=== PATIENT | female | born 1935 | race Caucasian/White ===

== ENCOUNTER 2017-05-12 18:11 | Inpatient (IN) | payer MEDICARE, OTHER ==
[2017-05-12] MEDS ORDERED: ONDANSETRON 4 MG/2 ML VIAL IVP STA ×2 (18:16→19:06)
--- NOTE | 2017-05-12 18:19 | ED ---
Lower Extremity Injury HPI - General Stated Complaint: Fall/Knee injury Time Seen by Provider: 05/12/17 18:13 Source: patient, EMS, RN notes reviewed Mode of arrival: EMS Limitations: physical limitation - History of Present Illness Initial Comments: This an 82-year-old female presents emergency Department via EMS chief complaint slip and fall. Patient states she is a bad left knee which causes her to fall. She states she's had a birthday libertarian and states that she fell in the grass surface. Patient states that she has left knee, left hip pain. She denies any head injury no LOC. Denies back, neck pain or any upper extremity injury. She states that she cannot get off the ground they did have to backorder and lift her up off the ground. Patient denies any paresthesias of her lower extremity. Patient was given fentanyl by EMS which alleviated some her pain was states that she feels nauseated. - Related Data Home Medications Medication Instructions Recorded Confirmed Ascorbic Acid [Vitamin C] 500 mg PO DAILY 05/12/17 05/12/17 Atorvastatin [Lipitor] 40 mg PO HS 05/12/17 05/12/17 Cholecalciferol [Vitamin D3] 1,000 unit PO DAILY 05/12/17 05/12/17 Cinnamon Bark [Cinnamon] 500 mg PO BID 05/12/17 05/12/17 Ferrous Sulfate [Feosol] 325 mg PO DAILY 05/12/17 05/12/17 Insulin Aspart [NovoLOG] 8 unit SQ AC-LUNCH 05/12/17 05/12/17 Insulin Aspart [NovoLOG] 14 unit SQ AC-BRKFST 05/12/17 05/12/17 Insulin Aspart [NovoLOG] 14 unit SQ AC-SUPPER 05/12/17 05/12/17 Insulin Detemir [Levemir] 40 unit SQ HS 05/12/17 05/12/17 Lisinopril [Zestril] 20 mg PO W/SUPPER 05/12/17 05/12/17 Multivitamins, Thera [Multivitamin 1 tab PO DAILY 05/12/17 05/12/17 (formulary)] Omeprazole 20 mg PO DAILY 05/12/17 05/12/17 PARoxetine [Paxil] 20 mg PO DAILY 05/12/17 05/12/17 metFORMIN HCL [Glucophage] 500 mg PO BID 05/12/17 05/12/17 Allergies Allergy/AdvReac Type Severity Reaction Status Date / Time No Known Allergies Allergy Verified 05/12/17 18:30 Review of Systems ROS Statement: Those systems with pertinent positive or pertinent negative responses have been documented in the HPI. ROS Other: All systems not noted in ROS Statement are negative. General Exam General appearance: alert, in no apparent distress Respiratory exam: Present: normal lung sounds bilaterally. Absent: respiratory distress, wheezes, rales, rhonchi, stridor Cardiovascular Exam: Present: regular rate, normal rhythm, normal heart sounds. Absent: systolic murmur, diastolic murmur, rubs, gallop, clicks Extremities exam: Present: other (Left lower extremity there is tenderness to the left hip, left knee there is some rotation and shortening noted neurovascular intact) Neurological exam: Present: alert, oriented X3, CN II-XII intact, reflexes normal. Absent: motor sensory deficit Skin exam: Present: warm, dry, intact, normal color. Absent: rash Course Vital Signs 05/12/17 18:14 Temperature 97.9 F Pulse Rate 80 Respiratory 18 Rate Blood Pressure 164/71 O2 Sat by Pulse 95 Oximetry Disposition Clinical Impression: Fall, Closed left hip fracture Disposition: ADMITTED IP TO THIS HOSP Condition: Fair Referrals: Cody Eaton MD [Primary Care Provider] - 1-2 days
--- NOTE | 2017-05-12 19:10 | XR ---
EXAMINATION TYPE: XR chest 1V DATE OF EXAM: 05/12/2017 COMPARISON: NONE HISTORY: Fall TECHNIQUE: Single frontal view of the chest is obtained. FINDINGS: Large circular density overlying the mediastinum could relate to a large hiatal hernia, how ever etiology is uncertain given the single view with no comparisons. Cardiomegaly is evident. No ple ural effusion or pneumothorax. No displaced fractures. IMPRESSION: Large density overlying the cardiac silhouette which may relate to a hiatal hernia, howev er etiology is unknown without 2 views or comparisons.
--- NOTE | 2017-05-12 19:11 | XR ---
EXAMINATION TYPE: XR Hip LT and AP Pelvis DATE OF EXAM: 05/12/2017 COMPARISON: NONE HISTORY: Fall and left hip pain TECHNIQUE: A single AP view of the pelvis is obtained. Two views of the left hip are obtained. FINDINGS: There is no acute fracture/dislocation evident in the pelvis. Impacted left proximal femor al subtrochanteric fracture is seen with impaction of approximately 6 cm and involvement of the lesse r trochanter. Degenerative changes are seen in the femoral acetabular joint and lumbosacral spine. IMPRESSION: Impacted left proximal subtrochanteric fracture.
[2017-05-12] MEDS ORDERED: ONDANSETRON 4 MG/2 ML VIAL IVP PRN (19:19)
[2017-05-12] MEDS ORDERED: NALOXONE 0.4 MG/ML 1 ML VIAL IV PRN (19:19)
[2017-05-12] MEDS ORDERED: MORPHINE SULFATE 4 MG/ML SYRINGE IVP STA (19:50)
[2017-05-12 19:53] LABS: Basophils % (A) 0 %; CH 29.4; CHCM 31.5; Eosinophils # (A) 0.2 k/uL (0-0.7); Eosinophils % (A) 2 %; HCT 36.6 % (34.0-46.0); HDW 2.56; HGB 11.6 gm/dL (11.4-16.0); Hypochromasia Slight; Luc # (Auto) 0.08; Luc % (Auto) 1; Lymphocytes # (A) 0.8 k/uL (1.0-4.8); Lymphocytes % (A) 8 %; MCH 29.7 pg (25.0-35.0); MCHC 31.6 g/dL (31.0-37.0); MCV 93.9 fL (80.0-100.0); Mean Platelet Volume 7.3; Monocytes # (A) 0.4 k/uL (0-1.0); Monocytes % (A) 4 %; Neutrophils # (A) 8.6 k/uL (1.3-7.7); Neutrophils % (A) 85 %; RDW 15.7 % (11.5-15.5); WBC 10.1 k/uL (3.8-10.6); WBC (Perox) 10.56
[2017-05-12 20:13] LABS: Partial Thromboplastin Time 20.2 sec (22.0-30.0); Prothrombin Time 10.6 sec (9.0-12.0)
[2017-05-12 20:19] LABS: ALT 29 U/L (9-52); AST 20 U/L (14-36); Alkaline Phosphatase 106 U/L (38-126); Anion Gap 10 mmol/L; Blood Urea Nitrogen 22 mg/dL (7-17); Calcium 9.4 mg/dL (8.4-10.2); Carbon Dioxide 25 mmol/L (22-30); Chloride 105 mmol/L (98-107); Glucose 240 mg/dL (74-99); Non-African American GFR(MDRD) >60 (>60 ml/min/1.73 sqM); Potassium 4.7 mmol/L (3.5-5.1); Sodium 140 mmol/L (137-145); Total Bilirubin 0.3 mg/dL (0.2-1.3); Total Protein 6.3 g/dL (6.3-8.2)
--- NOTE | 2017-05-12 20:45 | CT ---
EXAMINATION TYPE: CT hip LT wo con DATE OF EXAM: 05/12/2017 COMPARISON: NONE HISTORY: Left sided hip pain. Known fracture CT DLP: 795.8 mGycm Automated exposure control for dose reduction was used. FINDINGS: There is redemonstration of an impacted proximal left hip fracture with impaction of the femoral neck approximately 3.6 cm. There is medial displacement of the lesser trochanter approximately 1.3 cm wit h impaction. There is also anterior displacement of the distal fracture approximately 1 cm. There is no evidence of acetabular collar wall fracture. Acetabular roof is intact. Mild cephalad joint space narrowing is seen. The femoral head maintains articulation with the acetabulum and there is no eviden ce of displacement. Surrounding soft tissue swelling is seen without gross enlargement of the surroun ding hip musculature to indicate intramuscular hematoma. Iliopsoas is mildly prominent distally. Scattered colonic diverticula are seen as well as a pelvic pessary. Urinary bladder is unremarkable. Sacroiliac joints are symmetric. Degenerative changes of the visualized lumbosacral spine are seen. N o second fracture is identified. IMPRESSION: REDEMONSTRATION OF AN IMPACTED PROXIMAL LEFT HIP FRACTURE WITH IMPACTION MEASURING APPROXIMATE 3.6 CM , MEDIAL DISPLACEMENT OF THE LESSER TROCHANTER APPROXIMATELY 1 CM, AND ANTERIOR DISPLACEMENT OF THE D ISTAL FRACTURE FRAGMENT APPROXIMATELY 1 CM. NO SECOND FRACTURE OR SACROILIAC JOINT SPACE WIDENING. AC ETABULUM IS INTACT.
[2017-05-12 20:51] VITALS: BMI 43.3
[2017-05-12 21:19] LABS: Glucose,Whole Blood 254 mg/dL (75-99)
--- NOTE | 2017-05-12 21:20 | XR ---
EXAMINATION TYPE: XR knee limited LT DATE OF EXAM: 05/12/2017 CLINICAL HISTORY: Fall and knee pain TECHNIQUE: Oblique and crosstable lateral views were obtained. Patient could not tolerate positioning . COMPARISON: None. FINDINGS: Extensive tricompartmental osteoarthrosis is seen as marginal osteophytes, complete loss of the joint space, sclerosis, and chronic deformity of the knee joint. No evidence of acute fracture o r dislocation given the limited views. IMPRESSION: No evidence of acute fracture or dislocation given the submitted views. 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
[2017-05-12] MEDS: INSULIN LISPRO (humaLOG) 300 UNIT/3 ML VIAL SQ SCH (21:33)
[2017-05-12] MEDS: ATORVASTATIN 40 MG TAB PO SCH (21:33)
[2017-05-12] MEDS: INSULIN DETEMIR 100 UNIT/ML 10 ML VIAL SQ SCH (21:33)
[2017-05-13] MEDS: MORPHINE SULFATE 4 MG/ML SYRINGE IV PRN ×4 (00:10→22:32)
[2017-05-13 05:29] LABS: Appearance,Urine Cloudy (Clear); Bacteria,Urine Moderate /hpf; Bilirubin,Urine Negative (Negative); Glucose,Urine (UA) Trace (Negative); Granular Casts,Urine 7 /lpf (0); Ketones,Urine Trace (Negative); Leukocyte Esterase,Urine Negative (Negative); Mucus,Urine Moderate /hpf; Nitrite,Urine Negative (Negative); PH, Urine 5.5 (5.0-8.0); Particle Count 14408; Protein,Urine 1+ (Negative); RBC,Urine 113 /hpf (0-5); Specific Gravity,Urine 1.029 (1.001-1.035); Squamous Epithelial Cell,Urine 1 /hpf (0-4); UA Billing (MACRO vs. MICRO) MICRO; WBC,Urine 5 /hpf (0-5)
[2017-05-13 07:20] LABS: Glucose,Whole Blood 203 mg/dL (75-99)
--- NOTE | 2017-05-13 08:43 | P.HPOR ---
<Damian Baker - Last Filed: 05/13/17 08:37> History of Present Illness H&P Date: 05/13/17 Chief Complaint: Left subtrochanteric hip fracture status post fall Patient is a very pleasant 82-year-old female who is seen and examined at bedside for further evaluation after sustaining a fall yesterday and presented to the emergency department. At that time she was found to have a left subtrochanteric left hip fracture. She was admitted to our service for further treatment and evaluation. Patient states she is known to have a bad left knee and has previously had some outpatient treatment with Dr. Mtz. She states she turned 82 years old over the last week and was having a birthday alliance party when she sustained a fall falling to the grass on her left knee and hip. Since that time she has experienced significant left hip pain. She was brought to the emergency department for further evaluation. She denies loss of consciousness. She states since being admitted to the hospital her pain has been controlled as long as she is lying still without movement of her left lower extremity. Any movement of left lower extremity exacerbates significant hip pain. She was experiencing some left knee pain at that time but is not currently complaining of any left knee pain. Patient does have diabetes. Patient is currently waiting for medical clearance to be performed by Dr. Brumfield in medicine Past Medical History Past Medical History: Diabetes Mellitus History of Any Multi-Drug Resistant Organisms: None Reported Past Surgical History: Hysterectomy Past Psychological History: No Psychological Hx Reported Smoking Status: Never smoker Past Alcohol Use History: None Reported Past Drug Use History: None Reported Medications and Allergies Home Medications Medication Instructions Recorded Confirmed Type Ascorbic Acid [Vitamin C] 500 mg PO DAILY 05/12/17 05/12/17 History Atorvastatin [Lipitor] 40 mg PO HS 05/12/17 05/12/17 History Cholecalciferol [Vitamin D3] 1,000 unit PO DAILY 05/12/17 05/12/17 History Cinnamon Bark [Cinnamon] 500 mg PO BID 05/12/17 05/12/17 History Ferrous Sulfate [Feosol] 325 mg PO DAILY 05/12/17 05/12/17 History Insulin Aspart [NovoLOG] 8 unit SQ AC-LUNCH 05/12/17 05/12/17 History Insulin Aspart [NovoLOG] 14 unit SQ AC-BRKFST 05/12/17 05/12/17 History Insulin Aspart [NovoLOG] 14 unit SQ AC-SUPPER 05/12/17 05/12/17 History Insulin Detemir [Levemir] 40 unit SQ HS 05/12/17 05/12/17 History Lisinopril [Zestril] 20 mg PO W/SUPPER 05/12/17 05/12/17 History Multivitamins, Thera [Multivitamin 1 tab PO DAILY 05/12/17 05/12/17 History (formulary)] Omeprazole 20 mg PO DAILY 05/12/17 05/12/17 History PARoxetine [Paxil] 20 mg PO DAILY 05/12/17 05/12/17 History metFORMIN HCL [Glucophage] 500 mg PO BID 05/12/17 05/12/17 History Allergies Allergy/AdvReac Type Severity Reaction Status Date / Time No Known Allergies Allergy Verified 05/12/17 18:30 Physical Examination Physical exam: Patient is awake, alert, and oriented 3 Vital signs stable Good chest excursion with deep inspiration and expiration Abdomen soft nontender Left lower extremity is shortened and externally rotated Pain with palpation of the left hip Significant pain with internal and external rotation of the left hip No pain with internal and external rotation of the right hip Neurovascularly intact bilateral lower extremities Dorsiflexion, plantarflexion, and extensor hallucis longus positive sustained bilaterally Pneumatic cuffs intact Calves are soft and supple; No signs or symptoms of DVT; No calf pain Results Pertinent studies: CT of the left hip without contrast: Redemonstration of an impacted proximal left hip fracture with impaction measuring approximately 3.6 cm, medial displacement of the lesser trochanter approximately 1 cm, and anterior displacement of the distal fracture fragment approximately 1 cm; no second fracture or sacroiliac joint space widening; acetabulum appears intact X-ray of the left hip and pelvis: Impacted left proximal subtrochanteric fracture X-ray left knee: No evidence of acute fracture or dislocation; extensive and destructive try tricompartmental osteoarthropathy - Labs Labs: Abnormal Lab Results - Last 24 Hours (Table) 05/12/17 05/12/17 05/12/17 Range/Units 19:29 19:29 19:29 RDW 15.7 H (11.5-15.5) % Neutrophils # 8.6 H (1.3-7.7) k/uL Lymphocytes # 0.8 L (1.0-4.8) k/uL APTT 20.2 L (22.0-30.0) sec BUN 22 H (7-17) mg/dL Glucose 240 H (74-99) mg/dL POC Glucose (mg/dL) (75-99) mg/dL Urine Appearance (Clear) Urine Protein (Negative) Urine Glucose (UA) (Negative) Urine Ketones (Negative) Urine Blood (Negative) Urine RBC (0-5) /hpf Urine Bacteria (None) /hpf Urine Mucus (None) /hpf 05/12/17 05/13/17 05/13/17 Range/Units 21:09 05:05 07:19 RDW (11.5-15.5) % Neutrophils # (1.3-7.7) k/uL Lymphocytes # (1.0-4.8) k/uL APTT (22.0-30.0) sec BUN (7-17) mg/dL Glucose (74-99) mg/dL POC Glucose (mg/dL) 254 H 203 H (75-99) mg/dL Urine Appearance Cloudy H (Clear) Urine Protein 1+ H (Negative) Urine Glucose (UA) Trace H (Negative) Urine Ketones Trace H (Negative) Urine Blood Moderate H (Negative) Urine RBC 113 H (0-5) /hpf Urine Bacteria Moderate H (None) /hpf Urine Mucus Moderate H (None) /hpf H & H 05/12/17 Range/Units 19:29 Hgb 11.6 (11.4-16.0) gm/dL Hct 36.6 (34.0-46.0) % Coagulation 05/12/17 Range/Units 19:29 INR 1.0 (<1.2) Result Diagrams: 05/12/17 19:29 05/12/17 19:29 Assessment and Plan (1) Subtrochanteric fracture of left femur Status: Acute (2) Hip pain, left Status: Acute (3) Diabetes Status: Acute (4) Fall Status: Acute Plan: Assessment: Left impacted subtrochanteric hip fracture Left hip pain Status post fall Diabetes mellitus Plan: 1. After further reviewing of imaging with x-ray of the left hip and pelvis and CT scan of the left hip, physical examination the patient, further discussion with Dr. Joaquin Falcon, and further discussion with the patient and her family, we will currently plan to proceed forward with surgical intervention this afternoon for her left subtrochanteric hip fracture. Patient is currently nothing by mouth status. Tejada catheter remains intact. She will remain nonweightbearing and on bed rest. We will currently plan for left hip intramedullary nail fixation for her left subtrochanteric hip fracture. She is currently waiting for clearance by medicine. I discussed these issues with the patient at length and I answered all of their questions to the best of my ability and the patient understands. I discussed the risk of surgical intervention and alternative treatment options. The risk of surgical intervention was explained to the patient in detail including but not limited to risk of bleeding, risk of infection, risk and need for further surgery, risk of decreased loss of motion of function, malunion, nonunion, hardware failure, nerve damage, paralysis, heart attack, , as well as the fact that surgery may not alleviate her symptoms. I answered all the patient's questions the best of my ability. The patient would like to proceed forward with surgical intervention and will sign informed consent. 2. Continue pain control 3. Patient waiting for further consultation by Dr. Brumfield in medicine for surgical clearance 4. We'll continue to follow patient closely Time with Patient: Less than 30 <Yonatan Falcon - Last Filed: 05/13/17 17:23> Physical Examination Osteopathic Statement: *. No significant issues noted on an osteopathic structural exam other than those noted in the History and Physical/Consult. Results - Labs Labs: Abnormal Lab Results - Last 24 Hours (Table) 05/12/17 05/12/17 05/12/17 Range/Units 19:29 19:29 19:29 RDW 15.7 H (11.5-15.5) % Neutrophils # 8.6 H (1.3-7.7) k/uL Lymphocytes # 0.8 L (1.0-4.8) k/uL APTT 20.2 L (22.0-30.0) sec BUN 22 H (7-17) mg/dL Glucose 240 H (74-99) mg/dL POC Glucose (mg/dL) (75-99) mg/dL Urine Appearance (Clear) Urine Protein (Negative) Urine Glucose (UA) (Negative) Urine Ketones (Negative) Urine Blood (Negative) Urine RBC (0-5) /hpf Urine Bacteria (None) /hpf Urine Mucus (None) /hpf 05/12/17 05/13/17 05/13/17 Range/Units 21:09 05:05 07:19 RDW (11.5-15.5) % Neutrophils # (1.3-7.7) k/uL Lymphocytes # (1.0-4.8) k/uL APTT (22.0-30.0) sec BUN (7-17) mg/dL Glucose (74-99) mg/dL POC Glucose (mg/dL) 254 H 203 H (75-99) mg/dL Urine Appearance Cloudy H (Clear) Urine Protein 1+ H (Negative) Urine Glucose (UA) Trace H (Negative) Urine Ketones Trace H (Negative) Urine Blood Moderate H (Negative) Urine RBC 113 H (0-5) /hpf Urine Bacteria Moderate H (None) /hpf Urine Mucus Moderate H (None) /hpf 05/13/17 05/13/17 Range/Units 11:44 17:13 RDW (11.5-15.5) % Neutrophils # (1.3-7.7) k/uL Lymphocytes # (1.0-4.8) k/uL APTT (22.0-30.0) sec BUN (7-17) mg/dL Glucose (74-99) mg/dL POC Glucose (mg/dL) 158 H 140 H (75-99) mg/dL Urine Appearance (Clear) Urine Protein (Negative) Urine Glucose (UA) (Negative) Urine Ketones (Negative) Urine Blood (Negative) Urine RBC (0-5) /hpf Urine Bacteria (None) /hpf Urine Mucus (None) /hpf H & H 05/12/17 Range/Units 19:29 Hgb 11.6 (11.4-16.0) gm/dL Hct 36.6 (34.0-46.0) % Coagulation 05/12/17 Range/Units 19:29 INR 1.0 (<1.2) Result Diagrams: 05/12/17 19:29 05/12/17 19:29 Assessment and Plan Plan: The patient is seen and examined at bedside. I have reviewed the case with Damian Krishnamurthy our physician microbiology lab assistant and I discussed the case with the patient and her family. I reviewed the computed tomography scan as well and imaging studies. She is neurologically intact and has acute left hip comminuted intertrochanteric fracture. I think her best chance of improvement and for mobility is to pursue surgical intervention with internal fixation we'll plan to perform closed reduction with intramedullary hip screw fixation as soon as possible today. She has been nothing by mouth after midnight and is cleared by medicine. Answered her questions best our ability in a language that she can understand that she is agreeable to proceed with surgery.
[2017-05-13] MEDS: ASCORBIC ACID 500 MG TAB PO SCH (08:44)
[2017-05-13] MEDS: PANTOPRAZOLE 40 MG TABLET PO SCH (08:44)
[2017-05-13] MEDS: INSULIN LISPRO (humaLOG) 300 UNIT/3 ML VIAL SQ SCH ×4 (08:44→21:31)
[2017-05-13] MEDS: PARoxetine 20 MG TAB PO SCH (08:44)
[2017-05-13] MEDS: CHOLECALCIFEROL 1,000 UNIT TAB PO SCH (08:44)
[2017-05-13] MEDS: FERROUS SULFATE 325 MG TAB PO SCH (08:44)
[2017-05-13 11:45] LABS: Glucose,Whole Blood 158 mg/dL (75-99)
--- NOTE | 2017-05-13 13:24 | P.CONS ---
History of Present Illness - Reason for Consult Consult date: 05/13/17 Medical management Requesting physician: Yonatan Falcon - Chief Complaint Fall with left hip pain - History of Present Illness Consultation: This is a very pleasant 82-year-old patient of Dr. Foss. Patient chronic stable medical conditions include diabetes, anxiety, hypertension, hyperlipidemia. Patient tripped and fell suffering injury to her left hip. It is confirmed to be no fracture. This was purely a mechanical fall with no medical predisposing factors. Patient denies any cardiac history. Has a good exercise tolerance. Denies any chest pain or shortness of breath with exertion. Has had no prior stress test. Currently denies any cardiac symptoms GEN.: Tired EYES: None HEENT: None NECK: None RESPIRATORY: None CARDIOVASCULAR: None GASTROINTESTINAL: None GENITOURINARY: None MUSCULOSKELETAL: Pain in left hip and other joints] LYMPHATICS: None HEMATOLOGICAL: None PSYCHIATRY: Anxiety controlled NEUROLOGICAL: None Past medical history: Diabetes, anxiety, hypertension, hyperlipidemia, osteoarthritis Past surgical history: Hysterectomy Social history: Does not smoke or drink alcohol. Family history: Reviewed, noncontributory to presentation Home medications: Reviewed in the computer. ALLERGIES: None VITAL SIGNS: 98.1, and 92, 16, 125/57, notify percent room air GENERAL: Well-built, BMI 43.4, laying in bed, comfortable. EYES: Pupils equal. Conjunctiva normal. HEENT: External appearance of nose and ears normal, oral cavity grossly normal. NECK: JVD not raised; masses not palpable. HEART: First and second heart sounds are normal; no edema. LUNGS: Respiratory rate normal; distant breath sounds. ABDOMEN: Soft, nontender, liver spleen not palpable, no masses palpable. LYMPHATICS: No lymph nodes palpable in the axilla and neck. PSYCH: Alert and oriented x3; mood and affect normal. NEUROLOGICAL: Cranial nerves grossly intact; no facial asymmetry, power and sensation grossly intact MUSCULAR skeletal: Limited range of motion the left hip evidence of osteoarthritis of the joints. Investigation: X-ray shows impacted left proximal impacted subtrochanteric fracture left hip Chest x-ray-shows possible hiatal hernia EKG-normal sinus rhythm White count 10.1, hemoglobin 11.6, potassium 4.7 glucose 240 Assessment: -Impacted left proximal subtrochanteric fracture left hip -Diabetes mellitus type 2 on oral hypoglycemic --Anxiety not otherwise specified -Essential hypertension -Hyperlipidemia -Morbid obesity BMI 43.4 Plan: Patient is low to moderate risk for surgery from a cardiac vascular standpoint. Patient does not have any cardiac history. Patient medically stable stable to proceed for surgery. This was discussed with the patient. Home medications to be resumed. Accu-Cheks to be followed. Due to prophylaxis as per surgery. Thank you Dr. Lucas, Will follow closely Past Medical History Past Medical History: Diabetes Mellitus History of Any Multi-Drug Resistant Organisms: None Reported Past Surgical History: Hysterectomy Past Psychological History: No Psychological Hx Reported Smoking Status: Never smoker Past Alcohol Use History: None Reported Past Drug Use History: None Reported Medications and Allergies Home Medications Medication Instructions Recorded Confirmed Type Ascorbic Acid [Vitamin C] 500 mg PO DAILY 05/12/17 05/12/17 History Atorvastatin [Lipitor] 40 mg PO HS 05/12/17 05/12/17 History Cholecalciferol [Vitamin D3] 1,000 unit PO DAILY 05/12/17 05/12/17 History Cinnamon Bark [Cinnamon] 500 mg PO BID 05/12/17 05/12/17 History Ferrous Sulfate [Feosol] 325 mg PO DAILY 05/12/17 05/12/17 History Insulin Aspart [NovoLOG] 8 unit SQ AC-LUNCH 05/12/17 05/12/17 History Insulin Aspart [NovoLOG] 14 unit SQ AC-BRKFST 05/12/17 05/12/17 History Insulin Aspart [NovoLOG] 14 unit SQ AC-SUPPER 05/12/17 05/12/17 History Insulin Detemir [Levemir] 40 unit SQ HS 05/12/17 05/12/17 History Lisinopril [Zestril] 20 mg PO W/SUPPER 05/12/17 05/12/17 History Multivitamins, Thera [Multivitamin 1 tab PO DAILY 05/12/17 05/12/17 History (formulary)] Omeprazole 20 mg PO DAILY 05/12/17 05/12/17 History PARoxetine [Paxil] 20 mg PO DAILY 05/12/17 05/12/17 History metFORMIN HCL [Glucophage] 500 mg PO BID 05/12/17 05/12/17 History Allergies Allergy/AdvReac Type Severity Reaction Status Date / Time No Known Allergies Allergy Verified 05/12/17 18:30 Results CBC & Chem 7: 05/12/17 19:29 05/12/17 19:29
[2017-05-13] MEDS ORDERED: IV FLUID CONTINUATION 1,000 ML IV ONE (17:03)
[2017-05-13 17:17] LABS: Glucose,Whole Blood 140 mg/dL (75-99)
[2017-05-13] MEDS ORDERED: GLYCOPYRROLATE 0.2 MG/ML 2 ML VIAL ONE (18:05)
[2017-05-13] MEDS ORDERED: fentaNYL (PF) 50 MCG/ML 2 ML AMP ONE (18:05)
[2017-05-13] MEDS ORDERED: MIDAZOLAM 2 MG/2 ML VIAL ONE (18:05)
[2017-05-13] MEDS ORDERED: KETAMINE 10 MG/ML 20 ML VIAL ONE (18:05)
[2017-05-13] MEDS ORDERED: ceFAZolin 1,000 MG in SODIUM CHLORIDE 0.9% 1,000 ML IRRIGATION ONE (18:06)
[2017-05-13] MEDS: ceFAZolin 2 GM in SODIUM CHLORIDE 0.9% 100 ML IVPB STA ×2 (18:06→18:30)
[2017-05-13] MEDS ORDERED: NALOXONE 0.4 MG/ML 1 ML VIAL IV PRN (20:14)
[2017-05-13] MEDS ORDERED: MAGNESIUM HYDROXIDE 2,400 MG/10 ML CUP PO PRN (20:14)
--- NOTE | 2017-05-13 20:14 | P.OP ---
Date of Procedure: 05/13/17 Preoperative Diagnosis: Left hip comminuted intertrochanteric femur hip fracture with subtrochanteric extension, displaced, acute Postoperative Diagnosis: Same Procedure(s) Performed: Implants: Anesthesia: spinal Pathology: other (Femoral reamings to pathology) Condition: stable Disposition: PACU Indications for Procedure: Operative Findings: Description of Procedure: Preoperative diagnosis: Left Intertrochanteric comminuted femoral hip fracture, acute displaced Postoperative diagnosis: Same Procedure: intertrochanteric hip screw placement Use of fluoroscopic guidance Closed reduction Surgeon: Dr. Ezekiel Solares.: Damian Krishnamurthy Estimated blood loss: Approximately 200 mL Components implanted: [employer] InterTAN intramedullary hip screw 11 a half short Disposition: To recovery room in good stable condition Operative indications The patient sustained a injury and suffered a hip fracture at the inter- trochanteric area of her femur which was displaced and angulated. She says that she was dancing for her 82th birthday and sustained a fall. She normally has some difficulty with her mobilization and ambulation and uses a walker for short distances. She had sudden acute pain on her fall and was unable to get up. She was found have a comminuted displaced intertrochanteric left hip fracture. We were involved in the case in regard to his hip fracture. After evaluation it was determined that they would be a candidate for hip internal fixation and stabilization via surgical intervention. This would give them the best chance of mobilization and ambulation. We discussed the range of treatment options from conservative to surgical. We discussed the nature of the injury and the nature of different surgical and conservative options for her. We felt that surgical procedure would be the best option for her and allow her the best chance of mobilization They elected proceed with surgical intervention. We answered their questions to the best of our ability healing which they can understand. They signed an informed consent. Operative summary After obtaining informed consent evaluation by anesthesia, preoperative evaluation and clearance for medical service, the patient was identified and prepped Tejada area and the surgical site was marked. There brought to the operating room where the given appropriate anesthesia by the anesthesia department in standard fashion without any complications. Once the anesthesia was established we were able to position the patient. The patient was placed on a fracture table with a well-padded perineal post. The operative side was placed in a foot clark stirrup which was well-padded well molded and placed in gentle in-line traction. The nonoperative leg was placed in a padded stirrup. C-arm was brought in and we performed a closed reduction technique at the hip. We are able to get good alignment good position of the intertrochanteric fracture with gentle reduction techniques and traction utilizing the fracture table. The patient did have comminution at the greater trochanter and the lesser trochanter, we were able get good alignment and position Once patient was well positioned lower extremity was prepped and draped in normal standard sterile fashion. An appropriate keystone protocol and timeout was completed and were able to proceed with surgery. He started point just proximal to the greater trochanter was established and a median incision approximately 2 inches in length approximately to the greater trochanter. I dissected down through the fascia and I was able to expose the tip of the greater trochanter. A sharp starting hole was established at the tip of the greater trochanter near the junction of the anterior and middle third. Positioning was confirmed with C-arm guidance. I was able to start the awl into the bone and then use a guidepin at the starting point establish down to the level of the lesser trochanter at the intramedullary space. The patient is somewhat heavyset and it was somewhat difficult to get appropriate alignment but we removed to get good alignment and position of the device. I then used a starting reamer for the greater trochanter placed over the guidepin and reamed down appropriately under C-arm guidance. I was unable to place a guidepin into the intramedullary aspect of the femur and then reamed appropriately to the appropriate length. The positioning was confirmed on C-arm guidance. With the femur appropriately reamed I then chose the appropriate size intramedullary olga which was connected to the appropriate jig. The jig was checked for alignment. The area was copiously irrigated and suctioned dry and we're able place the olga at intramedullary space through the starting hole appropriately. It was seated down for appropriate position to align the leg pain into the femoral neck and head. A second incision was established at the site for the placement of the lag screw area and the guide was established at the lateral aspect of the femur and a guidepin was drilled into the femoral neck and head and near center center position. With this appropriate alignment and position where a reamer over the guidepin making sure not to penetrate the articular surface. The position was confirmed on C-arm guidance in AP and lateral positions. With this established we were able to place the appropriate size lag screw after measuring. Lag screw was placed into the femoral neck and head good alignment good position with excellent bony purchase. It was appropriately aligned and we placed a locking screw through the olga appropriately and checked that the position was established. With the area in good position able place a distal locking screw. We utilized the triple guide sleeve a separate incision was made at the skin. The guide sleeve was placed in the lateral aspect of the femur and the distal locking screw hole was established through the femur and distal locking hole of the intramedullary olga. It was measured appropriately and a distal locking screw was placed in good alignment and good position with excellent bony purchase. The position was checked to make sure it was through the appropriate hole in the intramedullary olga. With this established we're able to remove the jig completely from the olga and final images were taken which showed excellent alignment and position of the hardware and the fracture. With the olga in place and the fracture stable, although the incision sites were copiously irrigated and suctioned dry. Good hemostasis was maintained. Deep fascial layers were closed with #1 Vicryl. Subcu tissue was closed with 2-0 Vicryl. Subcuticular tissues closed with 3-0 Vicryl. Was are cleaned and dried with dressed with Dermabond, Telfa gauze pads EBD and tape. Drapes were broken down, the hip was held in stable position with the post being removed safely once the positioning was stabilized. The patient was then transferred back to their hospital bed being careful to maintain the hip and C- spine alignment and airway. Once stable to patient was transferred back to the postanesthesia care unit to be readmitted for pain control and DVT prophylaxis medical management and monitoring and mobilization we will continue follow patient closely throughout their postoperative course. She will need to remain nonweightbearing on her left lower extremity for at least the next 6 weeks.
[2017-05-13 20:25] LABS: Glucose,Whole Blood 194 mg/dL (75-99)
[2017-05-13] MEDS: SENNOSIDES-DOCUSATE SODIUM 1 EACH TAB PO SCH (21:27)
[2017-05-13] MEDS: metFORMIN 500 MG TAB PO SCH (21:27)
[2017-05-13] MEDS: ATORVASTATIN 40 MG TAB PO SCH (21:28)
[2017-05-13] MEDS: LISINOPRIL 20 MG TAB PO SCH (21:28)
[2017-05-13] MEDS: INSULIN DETEMIR 100 UNIT/ML 10 ML VIAL SQ SCH (21:31)
[2017-05-13 22:51] LABS: Basophils % (A) 0 %; CH 29.4; CHCM 31.1; Eosinophils % (A) 0 %; HCT 31.4 % (34.0-46.0); HDW 2.52; Hypochromasia Slight; Luc # (Auto) 0.14; Luc % (Auto) 1; Lymphocytes # (A) 0.6 k/uL (1.0-4.8); Lymphocytes % (A) 6 %; MCH 28.7 pg (25.0-35.0); MCHC 30.1 g/dL (31.0-37.0); MCV 95.5 fL (80.0-100.0); Monocytes # (A) 0.7 k/uL (0-1.0); Monocytes % (A) 7 %; Neutrophils # (A) 8.5 k/uL (1.3-7.7); Neutrophils % (A) 85 %; RBC 3.28 m/uL (3.80-5.40); RDW 15.9 % (11.5-15.5); WBC (Perox) 10.25
[2017-05-13] MEDS: ceFAZolin 2 GM in SODIUM CHLORIDE 0.9% 100 ML IVPB SCH (23:04)
[2017-05-13 23:05] LABS: HGB 9.4 gm/dL (11.4-16.0)
[2017-05-14] MEDS: HYDROcodone/APAP 5-325MG 1 EACH TAB PO PRN ×4 (03:17→18:33)
--- NOTE | 2017-05-14 06:47 | FL ---
FLUOROSCOPY 55 seconds of fluoroscopy time were utilized during internal fixation of the left hip. 2 images docum ent the procedure.
[2017-05-14 06:57] LABS: Glucose,Whole Blood 150 mg/dL (75-99)
[2017-05-14] MEDS: INSULIN LISPRO (humaLOG) 300 UNIT/3 ML VIAL SQ SCH ×7 (08:14→20:53)
[2017-05-14] MEDS: ENOXAPARIN 30 MG/0.3 ML SYRINGE SQ SCH (08:15)
[2017-05-14] MEDS: metFORMIN 500 MG TAB PO SCH ×2 (08:15→20:51)
[2017-05-14] MEDS: ASCORBIC ACID 500 MG TAB PO SCH (08:16)
[2017-05-14] MEDS: PANTOPRAZOLE 40 MG TABLET PO SCH (08:16)
[2017-05-14] MEDS: FERROUS SULFATE 325 MG TAB PO SCH (08:16)
[2017-05-14] MEDS: CHOLECALCIFEROL 1,000 UNIT TAB PO SCH (08:16)
[2017-05-14] MEDS: PARoxetine 20 MG TAB PO SCH (08:16)
[2017-05-14] MEDS: ceFAZolin 2 GM in SODIUM CHLORIDE 0.9% 100 ML IVPB SCH (08:45)
[2017-05-14] MEDS ORDERED: MULTIVITAMINS, THERA 1 EACH TAB PO SCH (09:00)
[2017-05-14 11:35] LABS: Glucose,Whole Blood 145 mg/dL (75-99)
--- NOTE | 2017-05-14 12:10 | P.PN ---
Progress Note - Text Patient is very pleasant 82-year-old female who is seen and examined at the bedside for follow-up evaluation after undergoing a left medullary nail fixation for left intertrochanteric hip fracture performed yesterday, 2016. Postsurgically, patient states her pain has been well-controlled. She has significantly less pain in the left hip than she did prior to surgical intervention. She is eating breakfast this morning without difficulty. She denies any abdominal pain. She currently denies any nausea, vomiting, fever, or chills. Her Tejada catheter has remained intact. She has no new complaints this morning Physical Exam Intramedullary Rodding for Intertrochanteric Fracture: Status post surgical day number Patient is examined lying in bed Patient is awake and alert, and oriented 3 Vital signs stable Good chest excursion with deep inspiration and expiration; patient currently on O2 nasal cannula Abdomen soft nontender No signs or symptoms of DVT; no calf pain Lower extremity cuffs in place bilaterally Dressing of the left hip is clean, dry, and intact; no erythema, purulence, or signs of infection Full range of motion of ankles bilaterally Dorsiflexion, plantarflexion, and extensor hallucis longus positive sustained bilaterally Neurovascularly intact bilateral lower extremities Capillary refill less than 2 seconds bilateral lower extremities Tejada catheter intact Assessment: Status post left intramedullary nail fixation for left intertrochanteric hip fracture Status post fall Diabetes Plan: 1. Patient to remain nonweightbearing on the left lower extremity; patient may work with physical therapy to increase mobility and ambulation 2. Keep dressing over the left hip clean, dry, and intact 3. Discontinue Tejada catheter when patient is able to increase mobility and ambulation 4. Continue pain control 5. Continue with anticoagulation therapy with Lovenox 30 mg subcu daily 6. Medicine to continue following the patient for his other medical issues 7. We'll continue to follow the patient closely; depending on the patient's progress, we may plan for discharge as early as tomorrow, 05/15/2017, to a rehabilitation facility 8. Patient can follow-up with Damian Baker PA-C or Dr. Joaquin Falcon at [facility] in 2-3 weeks following discharge
[2017-05-14] MEDS: MULTIVITAMINS, THERA 1 EACH TAB PO SCH (12:42)
[2017-05-14 16:43] LABS: Glucose,Whole Blood 196 mg/dL (75-99)
--- NOTE | 2017-05-14 17:14 | P.PN ---
<Essence Coughlin - Last Filed: 05/14/17 16:59> Progress Note - Text DATE OF SERVICE: PRESENTING COMPLAINT: 05/14/2017 HISTORY OF PRESENT ILLNESS: 82-year-old patient who tripped and fell suffering an injury to her left hip, is now postop day 1 from closed reduction internal fixation of the left hip with hip screw placement to the inter-trochanteric area. INTERVAL HISTORY: 05/14/2017: Patient sitting up in the chair, appears comfortable. Afebrile, States pain is reasonably well controlled, REVIEW OF SYSTEMS: Done for constitutional ,cardiovascular, GI, pulmonary with relevant findings as above. CURRENT MEDICATIONS Lyman, Lipitor, Lovenox, Levemir, Humalog, Zestril, Glucophage, Protonix, Paxil. PHYSICAL EXAM VITAL SIGNS: Temperature 98.3, pulse 81, respiratory rate 18, blood pressure 123/68, oxygen saturation 97% on room air. GENERAL APPEARANCE: Sitting up in a chair, not in distress. EYES: Pupils equal. Conjunctiva normal. NECK: JVD not raised. Mass not palpable. RESPIRATORY: Respiratory effort normal. Lungs diminished to auscultation. CARDIOVASCULAR: First and second sounds normal. No edema. ABDOMEN: Soft. Liver and spleen not palpable. No tenderness. No mass palpable. PSYCHIATRY: Alert and oriented x3. Mood and affect normal. MUSCULOSKELETAL: Left lateral hip with 2 dressings noted small amount of spotting on external portion of the dressing. Good circulation and sensation. Capillary refill less than 2 seconds. INVESTIGATIONS: White blood cell count 10.0, hemoglobin 9.4, ASSESSMENT: -Impacted left proximal subtrochanteric fracture left hip status post close reduction internal fixation of the left hip with hip screw placement to the inter trochanteric area -Acute blood loss anemia as expected from surgery. -Diabetes mellitus type 2 on oral hypoglycemic -Anxiety not otherwise specified -Essential hypertension -Hyperlipidemia -Morbid obesity BMI 43.4 PLAN: Continue to work with PT and OT for gait training and strengthening, monitor labs. Discharge planning for rehabilitation at [facility]. Plan of care discussed with the patient at the bedside she is in agreement. We'll continue to follow closely. PROPERTY AND SUPPLY OFFICER statement: Patient was seen and examined by nurse practitioner Essence Coughlin and all elements of the case discussed with attending Dr. Brumfield <Carlos Brumfield - Last Filed: 05/14/17 21:21> Progress Note - Text Attending note. Date of service-05/14/2017 This patient was seen and examined by me . Discussed the patient with my nurse practitioner Ms. Coughlin. Left hip surgery. Sitting up in a chair comfortable. Started her diet. No chest pain or shortness of breath On examination: Lungs-clear, cardiovascular first seconds are normal Investigations: Accu-Cheks noted Assessment and plan: Left hip surgery.-Acute blood loss anemia as expected from surgery Care was discussed with the patient questions answered.
[2017-05-14] MEDS: LISINOPRIL 20 MG TAB PO SCH (17:41)
[2017-05-14] MEDS: INSULIN DETEMIR 100 UNIT/ML 10 ML VIAL SQ SCH (20:51)
[2017-05-14] MEDS: ATORVASTATIN 40 MG TAB PO SCH (20:51)
[2017-05-14] MEDS: SENNOSIDES-DOCUSATE SODIUM 1 EACH TAB PO SCH (20:57)
[2017-05-14 20:58] LABS: Glucose,Whole Blood 196 mg/dL (75-99)
[2017-05-14 22:53] LABS: Appearance,Urine Cloudy (Clear); Bacteria,Urine Rare /hpf; Bilirubin,Urine Negative (Negative); Glucose,Urine (UA) Negative (Negative); Ketones,Urine Negative (Negative); Leukocyte Esterase,Urine Large (Negative); Mucus,Urine Rare /hpf; Nitrite,Urine Negative (Negative); Particle Count 3782; Protein,Urine 1+ (Negative); RBC,Urine 74 /hpf (0-5); Specific Gravity,Urine 1.022 (1.001-1.035); Squamous Epithelial Cell,Urine 3 /hpf (0-4); UA Billing (MACRO vs. MICRO) MICRO; Urobilinogen,Urine <2.0 mg/dL (<2.0); WBC,Urine 54 /hpf (0-5)
[2017-05-15 07:01] LABS: Glucose,Whole Blood 169 mg/dL (75-99)
[2017-05-15] MEDS: INSULIN LISPRO (humaLOG) 300 UNIT/3 ML VIAL SQ SCH ×7 (07:47→20:40)
[2017-05-15] MEDS: metFORMIN 500 MG TAB PO SCH ×2 (07:48→20:40)
[2017-05-15] MEDS: PARoxetine 20 MG TAB PO SCH (07:48)
[2017-05-15] MEDS: ASCORBIC ACID 500 MG TAB PO SCH (07:49)
[2017-05-15] MEDS: ENOXAPARIN 30 MG/0.3 ML SYRINGE SQ SCH (07:49)
[2017-05-15] MEDS: PANTOPRAZOLE 40 MG TABLET PO SCH (07:49)
[2017-05-15] MEDS: CHOLECALCIFEROL 1,000 UNIT TAB PO SCH (07:49)
[2017-05-15] MEDS: FERROUS SULFATE 325 MG TAB PO SCH (07:50)
[2017-05-15] MEDS: HYDROcodone/APAP 5-325MG 1 EACH TAB PO PRN ×4 (08:08→21:49)
--- NOTE | 2017-05-15 12:58 | P.PN ---
Progress Note - Text Patient is very pleasant 82-year-old female who is seen and examined at the bedside for follow-up evaluation after undergoing a left medullary nail fixation for left intertrochanteric hip fracture performed 05/13/2017. Postsurgically, patient states her pain has been well-controlled. She has significantly less pain in the left hip than she did prior to surgical intervention. She is eating breakfast this morning without difficulty. She denies any abdominal pain. She is passing gas but has not had a bowel movement yet. She currently denies any nausea, vomiting, fever, or chills. Her Tejada catheter has remained intact. Discussed we will plan to discontinue her Tejada catheter today. An analysis was performed yesterday which is positive for urinary tract infection. She has no new complaints this morning. She states she does feel she would like to stay in the hospital 1 more day to try to increase strength and mobility prior to discharge to rehabilitation facility. Physical Exam Intramedullary Rodding for Intertrochanteric Fracture: Status post surgical day number 2 Patient is examined sitting upright in a bedside chair Patient is awake and alert, and oriented 3 Vital signs stable Good chest excursion with deep inspiration and expiration; patient currently on O2 nasal cannula Abdomen soft nontender No signs or symptoms of DVT; no calf pain Lower extremity cuffs not currently intact bilaterally Dressing of the left hip is clean, dry, and intact; no erythema, purulence, or signs of infection Full range of motion of ankles bilaterally Dorsiflexion, plantarflexion, and extensor hallucis longus positive sustained bilaterally Neurovascularly intact bilateral lower extremities Capillary refill less than 2 seconds bilateral lower extremities Tejada catheter intact Pertinent studies: Urine analysis: Urine WBC 54 Urine RBC 74 Leukocyte and trace large Urine bacteria rare Urine mucus rare Appearance cloudy Assessment: Status post left intramedullary nail fixation for left intertrochanteric hip fracture Status post fall Diabetes Urinary tract infection Plan: 1. Patient to remain nonweightbearing on the left lower extremity; patient may work with physical therapy to increase mobility and ambulation 2. Keep dressing over the left hip clean, dry, and intact 3. Discontinue Tejada catheter when patient is able to increase mobility and ambulation; We will discontinue the Etjada catheter today 4. Continue pain control; she will be given a prescription for Windom 5 mg/325 mg 1 tab every 6 hours as needed for pain at discharge; prescription is placed in her chart 5. Continue with anticoagulation therapy with Lovenox 30 mg subcu daily; description will be written for Lovenox 30 mg subcu daily or 28 days at discharge; prescription is placed in her chart 6. Medicine to continue following the patient for his other medical issues; Medicine to treat and prescribe medication for her urinary tract infection 7. We'll continue to follow the patient closely; depending on the patient's progress, we may plan for discharge tomorrow, 05/16/2017, to [place] [facility] [place] [facility] [place] patient has been discussed in detail with case management 8. Patient can follow-up with Damian Baker PA-C or Dr. Joaquin Falcon at [facility] in 2-3 weeks following discharge
[2017-05-15] MEDS: MULTIVITAMINS, THERA 1 EACH TAB PO SCH (13:32)
[2017-05-15 14:07] LABS: Glucose,Whole Blood 170 mg/dL (75-99)
[2017-05-15 17:00] LABS: Glucose,Whole Blood 162 mg/dL (75-99)
[2017-05-15] MEDS: LISINOPRIL 20 MG TAB PO SCH (17:51)
[2017-05-15] MEDS: INSULIN DETEMIR 100 UNIT/ML 10 ML VIAL SQ SCH (20:39)
[2017-05-15 20:41] LABS: Glucose,Whole Blood 167 mg/dL (75-99)
[2017-05-15] MEDS: SENNOSIDES-DOCUSATE SODIUM 1 EACH TAB PO SCH (21:26)
[2017-05-15] MEDS: ATORVASTATIN 40 MG TAB PO SCH (21:49)
[2017-05-15 22:55] LABS: Basophils % (A) 0 %; CH 29.6; CHCM 32.4; Eosinophils # (A) 0.4 k/uL (0-0.7); Eosinophils % (A) 5 %; HCT 27.4 % (34.0-46.0); HDW 2.54; HGB 8.6 gm/dL (11.4-16.0); Luc # (Auto) 0.14; Luc % (Auto) 2; Lymphocytes # (A) 0.8 k/uL (1.0-4.8); Lymphocytes % (A) 8 %; MCH 28.8 pg (25.0-35.0); MCHC 31.3 g/dL (31.0-37.0); MCV 92.1 fL (80.0-100.0); Mean Platelet Volume 8.3; Monocytes # (A) 0.7 k/uL (0-1.0); Monocytes % (A) 8 %; Neutrophils # (A) 7.2 k/uL (1.3-7.7); Neutrophils % (A) 78 %; RBC 2.97 m/uL (3.80-5.40); RDW 15.9 % (11.5-15.5); WBC 9.3 k/uL (3.8-10.6); WBC (Perox) 9.95
[2017-05-16] MEDS: HYDROcodone/APAP 5-325MG 1 EACH TAB PO PRN (04:47)
--- NOTE | 2017-05-16 06:14 | PN ---
PROGRESS NOTE Date of Service: DATE OF SERVICE: 05/15/2017 PRESENTING COMPLAINT: Left hip surgery. INTERVAL HISTORY: The patient is status post left hip surgery. Pain is reasonably controlled. Tolerating a diet. Did work with therapy. No chest pain or short of breath. REVIEW OF SYSTEMS: Review of systems done for constitutional, cardiovascular, GI, pulmonary, musculoskeletal. CURRENT MEDICATION: Current medications are reviewed. PHYSICAL EXAMINATION: On examination, T-max last night 100.3, currently 98.6, pulse 82, respirations 16, blood pressure 147/89, pulse ox 99% on 2 L. GENERAL APPEARANCE: Sitting up in a chair, comfortable. EYES: Pupils equal. Conjunctivae normal. NECK: JVD not raised. Mass not palpable. RESPIRATORY: Effort normal. LUNGS: Diminished breath sounds. CARDIOVASCULAR: First and second sounds normal. No edema. ABDOMEN: Soft, nontender. Liver and spleen not palpable. PSYCHIATRY: Alert and oriented x3. Mood and affect normal. INVESTIGATIONS: White count 10, hemoglobin 9.4. Accu-Cheks noted. ASSESSMENT: 1. Impacted left proximal subtrochanteric fracture left hip. Status post closed reduction internal fixation with hip screw placement. 2. Acute blood-loss anemia, as expected from surgery. 3. Diabetes mellitus type 2, on oral hypoglycemic. 4. Anxiety, not otherwise specified. 5. Essential hypertension. 6. Hyperlipidemia. 7. Morbid obesity, body mass index of 43.4. 8. Asymptomatic bacteriuria. Patient has no urinary symptoms. 9. Fever, could be reactive, follow. PLAN: Continue medication and treatment plan. Care was discussed with the patient. From my standpoint, no need for antibiotics at this point. MMODL / IJN: [id number] /
[2017-05-16 07:04] LABS: Glucose,Whole Blood 80 mg/dL (75-99)
--- NOTE | 2017-05-16 08:32 | P.DS ---
Providers Date of admission: 05/12/17 19:22 Expected date of discharge: 05/16/17 Attending physician: Yonatan Falcon Consults: 05/12/17 19:19 Consult Physician Stat Consulting Provider: Carlos Brumfield Consult Reason/Comments: Surgical clearance Do you want consulting provider notified?: Yes Primary care physician: Cody Eaton - Discharge Diagnosis(es) (1) Closed left hip fracture Current Visit: Yes Status: Acute (2) Diabetes Current Visit: Yes Status: Acute (3) Fall Current Visit: Yes Status: Acute (4) Hip pain, left Current Visit: Yes Status: Acute Hospital Course: This is an 82-year-old female who is [facility] to [facility] 05[facility]12[facility]2017 after falling and sustaining injury to the left hip. On exam and x- ray in the emergency department she is found to have an intertrochanteric fracture of the left hip. She is admitted to our service for surgical intervention and care. Patient is taken to surgery for close reduction and insertion of intertrochanteric nail of the left hip. The procedure was performed without complication or sequelae. The patient is doing fairly well postoperatively. Vital signs and labs are stable on 05/16/2017. Patient is discharged to inpatient rehab in good condition. Please see med rec for accurate list of discharge medications. Patient Condition at Discharge: Fair Plan - Discharge Summary New Discharge Prescriptions: New Enoxaparin [Lovenox] 30 mg SQ DAILY 28 Days HYDROcodone/APAP 5-325MG [Bluford 5] 1 each PO Q6HR PRN #90 tab PRN Reason: Pain No Action Insulin Detemir [Levemir] 40 unit SQ HS Insulin Aspart [NovoLOG] 14 unit SQ AC-BRKFST PARoxetine [Paxil] 20 mg PO DAILY Multivitamins, Thera [Multivitamin (formulary)] 1 tab PO DAILY Lisinopril [Zestril] 20 mg PO W/SUPPER Ferrous Sulfate [Feosol] 325 mg PO DAILY Cinnamon Bark [Cinnamon] 500 mg PO BID Cholecalciferol [Vitamin D3] 1,000 unit PO DAILY Ascorbic Acid [Vitamin C] 500 mg PO DAILY metFORMIN HCL [Glucophage] 500 mg PO BID Omeprazole 20 mg PO DAILY Atorvastatin [Lipitor] 40 mg PO HS Insulin Aspart [NovoLOG] 8 unit SQ AC-LUNCH Insulin Aspart [NovoLOG] 14 unit SQ AC-SUPPER Discharge Medication List Ascorbic Acid [Vitamin C] 500 mg PO DAILY 05/12/17 [History] Atorvastatin [Lipitor] 40 mg PO HS 05/12/17 [History] Cholecalciferol [Vitamin D3] 1,000 unit PO DAILY 05/12/17 [History] Cinnamon Bark [Cinnamon] 500 mg PO BID 05/12/17 [History] Ferrous Sulfate [Feosol] 325 mg PO DAILY 05/12/17 [History] Insulin Aspart [NovoLOG] 8 unit SQ AC-LUNCH 05/12/17 [History] Insulin Aspart [NovoLOG] 14 unit SQ AC-BRKFST 05/12/17 [History] Insulin Aspart [NovoLOG] 14 unit SQ AC-SUPPER 05/12/17 [History] Insulin Detemir [Levemir] 40 unit SQ HS 05/12/17 [History] Lisinopril [Zestril] 20 mg PO W/SUPPER 05/12/17 [History] Multivitamins, Thera [Multivitamin (formulary)] 1 tab PO DAILY 05/12/17 [History ] Omeprazole 20 mg PO DAILY 05/12/17 [History] PARoxetine [Paxil] 20 mg PO DAILY 05/12/17 [History] metFORMIN HCL [Glucophage] 500 mg PO BID 05/12/17 [History] Enoxaparin [Lovenox] 30 mg SQ DAILY 28 Days 05/15/17 [Rx] HYDROcodone/APAP 5-325MG [Bluford 5] 1 each PO Q6HR PRN #90 tab 05/15/17 [Rx] Follow up Appointment(s)/Referral(s): Cody Eaton MD [Primary Care Provider] - 1-2 days Damian Baker PAC [PHYSICIAN [employer]] - 2 Weeks (Patient may follow-up with Damian Baker PA-C or Dr. Joaquin Falcon at [facility] in 2-3 weeks following discharge. ) Activity/Diet/Wound Care/Special Instructions: 1. Patient to remain nonweightbearing on the left lower extremity 2. Keep dressing over the left hip clean, dry, and intact 3. Patient may shower without a dressing over the incision sites in 72 hours if there is no active drainage 4. May plan ice for comfort support as needed for the left lower extremity 5. Do not soak in a tub Discharge Disposition: TRANSFER TO SNF/ECF
[2017-05-16 08:49] LABS: Glucose,Whole Blood 215 mg/dL (75-99)
[2017-05-16] MEDS: INSULIN LISPRO (humaLOG) 300 UNIT/3 ML VIAL SQ SCH ×4 (09:08→12:21)
[2017-05-16] MEDS: FERROUS SULFATE 325 MG TAB PO SCH (09:10)
[2017-05-16] MEDS: PANTOPRAZOLE 40 MG TABLET PO SCH (09:10)
[2017-05-16] MEDS: CHOLECALCIFEROL 1,000 UNIT TAB PO SCH (09:10)
[2017-05-16] MEDS: ENOXAPARIN 30 MG/0.3 ML SYRINGE SQ SCH (09:10)
[2017-05-16] MEDS: ASCORBIC ACID 500 MG TAB PO SCH (09:10)
[2017-05-16] MEDS: metFORMIN 500 MG TAB PO SCH (09:11)
[2017-05-16] MEDS: PARoxetine 20 MG TAB PO SCH (09:11)
[2017-05-16 09:20] VITALS: RESP 18; TEMP 98.5
[2017-05-16 10:13] VITALS: BP 135/75; PULSE 88
[2017-05-16 11:40] LABS: Glucose,Whole Blood 202 mg/dL (75-99)
[2017-05-16] MEDS: MULTIVITAMINS, THERA 1 EACH TAB PO SCH (12:19)
--- NOTE | 2017-05-17 09:27 | PN ---
PROGRESS NOTE Date of Service: DATE OF SERVICE: May 16, 2017. PRESENTING COMPLAINT: Left hip surgery. INTERVAL HISTORY: The patient is status post left hip surgery. Doing better. Has been out of bed. Tolerating a diet. Some pain is present. Family at the bedside. No new issues. REVIEW OF SYSTEMS: Done for constitutional, cardiovascular, GI, pulmonary, musculoskeletal, relevant findings as above. Current medications reviewed. EXAMINATION: Temperature 98.5, pulse 83, respirations 18, blood pressure 135/75, pulse ox 94% on room air. General appearance: Propped up, sitting up, comfortable. Eyes, pupils equal. Conjunctivae normal. Neck JVD not raised. Mass not palpable. Respiratory effort: Lungs decreased breath sounds. Cardiovascular 1st and 2nd sounds. No edema. ABDOMEN: Soft, nontender. Liver spleen not palpable. Psychiatry alert and oriented times three. Mood affect is normal. INVESTIGATIONS: Accu-Cheks noted. ASSESSMENT: 1. Infected left proximal subtrochanteric fracture left hip. Status post closed reduction and internal fixation left hip screw placement. 2. Acute blood-loss anemia as expected from surgery. 3. Diabetes mellitus type 2 on oral hyperglycemics. 4. Anxiety not otherwise specified. 5. Essential hypertension. 6. Hyperlipidemia. 7. Morbid obesity. BMI 43.4. 8. Asymptomatic bacteriuria. Patient has no urinary symptoms. 9. Fever likely reactive with no evidence of infection. PLAN: Care was discussed with the patient and the family at the bedside, that is the patient's daughter. Questions were answered. Discharge planning as per orthopedics. MMODL / IJN: [id number] /
== END 2017-05-16 14:20 | DRG 481 ==
LOC: EC 18:11 → 3SUR 19:22
PROVIDERS: ADMIT Orthopaedic Surgery Orthopaedic Surgery of the Spine; ATTEND Orthopaedic Surgery Orthopaedic Surgery of the Spine
PROC: 0QS734Z Reposition Left Upper Femur with Internal Fixation Device, Percutaneous Approach (ICD-10-PCS; principal; 2017-05-13 21:00)
DX: S72.22XA Displaced subtrochanteric fracture of left femur, initial encounter for closed fracture (principal); Z68.41 Body mass index [BMI] 40.0-44.9, adult; E11.9 Type 2 diabetes mellitus without complications; N39.0 Urinary tract infection, site not specified; E66.01 Morbid (severe) obesity due to excess calories; F41.9 Anxiety disorder, unspecified; E78.5 Hyperlipidemia, unspecified; I10 Essential (primary) hypertension; M19.90 Unspecified osteoarthritis, unspecified site; Z79.4 Long term (current) use of insulin; Z79.899 Other long term (current) drug therapy; Z90.710 Acquired absence of both cervix and uterus; W01.0XXA Fall on same level from slipping, tripping and stumbling without subsequent striking against object, initial encounter
CPT/HCPCS: 71010; 73502; 80053; 81001; 85025; 85610; 85730; 87077; 87086; 87186; 88304; 88311; 93005; 94760; 96374; 96375; 96376; 99285

== ENCOUNTER 2017-11-20 23:10 | Inpatient (IN) | payer MEDICARE, OTHER ==
[2017-11-20] MEDS ORDERED: SODIUM CHLORIDE 0.9% 1,000 ML IV STA (23:20)
--- NOTE | 2017-11-20 23:27 | ED ---
General Adult HPI - General Stated complaint: ABNORMAL LABS Time Seen by Provider: 11/20/17 23:19 Source: patient, EMS, RN notes reviewed, old records reviewed Mode of arrival: EMS Limitations: no limitations - History of Present Illness Initial comments: This is an 82-year-old female the ER for evaluation. Patient's sent to ER for evaluation of abnormal outpatient lab test. Patient herself is without symptoms , occasional nausea vomiting and diarrhea. Patient may or may not have black stools. She is unsure. - Related Data Home Medications Medication Instructions Recorded Confirmed Ascorbic Acid [Vitamin C] 500 mg PO DAILY 05/12/17 11/20/17 Atorvastatin [Lipitor] 40 mg PO HS 05/12/17 11/20/17 Cholecalciferol [Vitamin D3] 1,000 unit PO DAILY 05/12/17 11/20/17 Cinnamon Bark [Cinnamon] 500 mg PO BID 05/12/17 11/20/17 Ferrous Sulfate [Feosol] 325 mg PO BID 05/12/17 11/20/17 Insulin Aspart [NovoLOG] 8 unit SQ AC-LUNCH 05/12/17 11/20/17 Insulin Aspart [NovoLOG] 14 unit SQ AC-BRKFST 05/12/17 11/20/17 Insulin Aspart [NovoLOG] 14 unit SQ AC-SUPPER 05/12/17 11/20/17 Insulin Detemir [Levemir] 45 unit SQ 05/12/17 11/20/17 Lisinopril [Zestril] 20 mg PO DAILY 05/12/17 11/20/17 Multivitamins, Thera [Multivitamin 1 tab PO DAILY 05/12/17 11/20/17 (formulary)] PARoxetine [Paxil] 20 mg PO DAILY 05/12/17 11/20/17 metFORMIN HCL [Glucophage] 500 mg PO DAILY@1700 05/12/17 11/20/17 Albuterol Nebulized [Ventolin 2.5 mg INHALATION RT-QID PRN 11/20/17 11/20/17 Nebulized] Bisacodyl [Dulcolax] 10 mg RECTAL DAILY PRN 11/20/17 11/20/17 Famotidine [Pepcid] 20 mg PO DAILY 11/20/17 11/20/17 Furosemide [Lasix] 20 mg PO DAILY 11/20/17 11/20/17 HYDROcodone/APAP 5-325MG [[place] 5] 1 tab PO Q6HR PRN 11/20/17 11/20/17 L.acidoph,Paracasei, B.lactis 1 cap PO DAILY 11/20/17 11/20/17 [Probiotic] Loperamide [Imodium] 2 mg PO QID PRN 11/20/17 11/20/17 Loratadine [Claritin] 10 mg PO DAILY PRN 11/20/17 11/20/17 Magnesium Hydroxide [Milk of 2,400 mg PO DAILY PRN 11/20/17 11/20/17 Magnesia] Melatonin 5 mg PO HS 11/20/17 11/20/17 Menthol [Biofreeze] 1 applic TOPICAL DAILY PRN 11/20/17 11/20/17 Na Phos,M-B/Na Phos,Di-Ba [Fleet 133 ml RECTAL ONCE PRN 11/20/17 11/20/17 Adult] Sodium Chloride [Saline Nasal 1 spray EA NOSTRIL DAILY PRN 11/20/17 11/20/17 [place]] metFORMIN HCL [Glucophage] 1,000 mg PO QAM 11/20/17 11/20/17 Allergies Allergy/AdvReac Type Severity Reaction Status Date / Time No Known Allergies Allergy Verified 11/20/17 23:14 Review of Systems ROS Statement: Those systems with pertinent positive or pertinent negative responses have been documented in the HPI. ROS Other: All systems not noted in ROS Statement are negative. Past Medical History Past Medical History: Diabetes Mellitus History of Any Multi-Drug Resistant Organisms: None Reported Past Surgical History: Hysterectomy Past Psychological History: No Psychological Hx Reported Smoking Status: Never smoker Past Alcohol Use History: None Reported Past Drug Use History: None Reported General Exam Limitations: no limitations General appearance: alert, in no apparent distress Head exam: Present: atraumatic, normocephalic, normal inspection Eye exam: Present: normal appearance, PERRL, EOMI. Absent: scleral icterus, conjunctival injection, periorbital swelling ENT exam: Present: normal exam, mucous membranes moist Neck exam: Present: normal inspection. Absent: tenderness, meningismus, lymphadenopathy Respiratory exam: Present: normal lung sounds bilaterally. Absent: respiratory distress, wheezes, rales, rhonchi, stridor Cardiovascular Exam: Present: regular rate, normal rhythm, normal heart sounds. Absent: systolic murmur, diastolic murmur, rubs, gallop, clicks GI/Abdominal exam: Present: soft, normal bowel sounds. Absent: distended, tenderness, guarding, rebound, rigid Extremities exam: Present: normal inspection, full ROM, normal capillary refill. Absent: tenderness, pedal edema, joint swelling, calf tenderness Back exam: Present: normal inspection Neurological exam: Present: alert, oriented X3, CN II-XII intact Psychiatric exam: Present: normal affect, normal mood Skin exam: Present: warm, dry, intact, normal color. Absent: rash Course Vital Signs 11/20/17 23:12 Temperature 97.6 F Pulse Rate 85 Respiratory 18 Rate Blood Pressure 141/65 O2 Sat by Pulse 97 Oximetry - Reevaluation(s) Reevaluation #1: 11/20/17 23:27 Patient's hemoglobin and potassium are borderline abnormal EKG Findings - EKG Comments: EKG Findings:: EKG shows normal sinus rhythm rate of 82, VA 162, QRS 72, QTc 436 Medical Decision Making - Lab Data Result diagrams: 11/20/17 23:30 11/20/17 23:30 Lab Results 11/20/17 11/20/17 11/20/17 Range/Units 23:30 23:30 23:30 WBC 8.1 (3.8-10.6) k/uL RBC 3.25 L (3.80-5.40) m/uL Hgb 9.2 L (11.4-16.0) gm/dL Hct 28.4 L (34.0-46.0) % MCV 87.3 (80.0-100.0) fL MCH 28.2 (25.0-35.0) pg MCHC 32.3 (31.0-37.0) g/dL RDW 15.9 H (11.5-15.5) % Plt Count 392 (150-450) k/uL Neutrophils % 69 % Lymphocytes % 19 % Monocytes % 6 % Eosinophils % 3 % Basophils % 0 % Neutrophils # 5.6 (1.3-7.7) k/uL Lymphocytes # 1.5 (1.0-4.8) k/uL Monocytes # 0.5 (0-1.0) k/uL Eosinophils # 0.2 (0-0.7) k/uL Basophils # 0.0 (0-0.2) k/uL Sodium (137-145) mmol/L Potassium (3.5-5.1) mmol/L Chloride (98-107) mmol/L Carbon Dioxide (22-30) mmol/L Anion Gap mmol/L BUN (7-17) mg/dL Creatinine (0.52-1.04) mg/dL Est GFR (CKD-EPI)AfAm (>60 ml/min/1.73 sqM) Est GFR (CKD-EPI)NonAf (>60 ml/min/1.73 sqM) Glucose (74-99) mg/dL Calcium (8.4-10.2) mg/dL Phosphorus (2.5-4.5) mg/dL Magnesium (1.6-2.3) mg/dL Total Bilirubin (0.2-1.3) mg/dL AST (14-36) U/L ALT (9-52) U/L Alkaline Phosphatase (38-126) U/L Total Creatine Kinase 25 L (30-135) U/L CK-MB (CK-2) 0.8 (0.0-2.4) ng/mL CK-MB (CK-2) Rel Index 3.2 Troponin I <0.012 (0.000-0.034) ng/mL Total Protein (6.3-8.2) g/dL Albumin (3.5-5.0) g/dL Stool Occult Blood (Negative) Blood Type O Positive Blood Type Recheck No Antibody Screen NEGATIVE Spec Expiration Date 11/23/2017 - 232911/20/17 11/21/17 Range/Units 23:30 00:25 WBC (3.8-10.6) k/uL RBC (3.80-5.40) m/uL Hgb (11.4-16.0) gm/dL Hct (34.0-46.0) % MCV (80.0-100.0) fL MCH (25.0-35.0) pg MCHC (31.0-37.0) g/dL RDW (11.5-15.5) % Plt Count (150-450) k/uL Neutrophils % % Lymphocytes % % Monocytes % % Eosinophils % % Basophils % % Neutrophils # (1.3-7.7) k/uL Lymphocytes # (1.0-4.8) k/uL Monocytes # (0-1.0) k/uL Eosinophils # (0-0.7) k/uL Basophils # (0-0.2) k/uL Sodium 136 L (137-145) mmol/L Potassium 4.6 (3.5-5.1) mmol/L Chloride 105 (98-107) mmol/L Carbon Dioxide 21 L (22-30) mmol/L Anion Gap 10 mmol/L BUN 56 H (7-17) mg/dL Creatinine 0.90 (0.52-1.04) mg/dL Est GFR (CKD-EPI)AfAm 70 (>60 ml/min/1.73 sqM) Est GFR (CKD-EPI)NonAf 61 (>60 ml/min/1.73 sqM) Glucose 191 H (74-99) mg/dL Calcium 9.4 (8.4-10.2) mg/dL Phosphorus 3.7 (2.5-4.5) mg/dL Magnesium 1.8 (1.6-2.3) mg/dL Total Bilirubin <0.1 L (0.2-1.3) mg/dL AST 14 (14-36) U/L ALT 22 (9-52) U/L Alkaline Phosphatase 84 (38-126) U/L Total Creatine Kinase (30-135) U/L CK-MB (CK-2) (0.0-2.4) ng/mL CK-MB (CK-2) Rel Index Troponin I (0.000-0.034) ng/mL Total Protein 5.7 L (6.3-8.2) g/dL Albumin 3.1 L (3.5-5.0) g/dL Stool Occult Blood Positive H (Negative) Blood Type Blood Type Recheck Antibody Screen Spec Expiration Date Disposition Clinical Impression: Anemia, GIB (gastrointestinal bleeding) Disposition: ADMITTED IP TO THIS HOSP Condition: Good Instructions: Anemia (ED) Referrals: Josh Anaya MD [Primary Care Provider] - 1-2 days
[2017-11-20 23:48] LABS: Basophils % (A) 0 %; Eosinophils # (A) 0.2 k/uL (0-0.7); Eosinophils % (A) 3 %; HCT 28.4 % (34.0-46.0); HGB 9.2 gm/dL (11.4-16.0); Lymphocytes # (A) 1.5 k/uL (1.0-4.8); Lymphocytes % (A) 19 %; MCH 28.2 pg (25.0-35.0); MCHC 32.3 g/dL (31.0-37.0); MCV 87.3 fL (80.0-100.0); Mean Platelet Volume 6.8; Monocytes # (A) 0.5 k/uL (0-1.0); Monocytes % (A) 6 %; Neutrophils # (A) 5.6 k/uL (1.3-7.7); Neutrophils % (A) 69 %; Platelet Count 392 k/uL (150-450); RBC 3.25 m/uL (3.80-5.40); RDW 15.9 % (11.5-15.5); WBC 8.1 k/uL (3.8-10.6)
[2017-11-21 00:04] LABS: ALT 22 U/L (9-52); AST 14 U/L (14-36); Albumin 3.1 g/dL (3.5-5.0); Alkaline Phosphatase 84 U/L (38-126); Anion Gap 10 mmol/L; Blood Urea Nitrogen 56 mg/dL (7-17); Calcium 9.4 mg/dL (8.4-10.2); Carbon Dioxide 21 mmol/L (22-30); Chloride 105 mmol/L (98-107); Glucose 191 mg/dL (74-99); Magnesium 1.8 mg/dL (1.6-2.3); Phosphorus 3.7 mg/dL (2.5-4.5); Potassium 4.6 mmol/L (3.5-5.1); Sodium 136 mmol/L (137-145); Total Bilirubin <0.1 mg/dL (0.2-1.3); Total Protein 5.7 g/dL (6.3-8.2)
[2017-11-21 00:13] LABS: Creatine Kinase 25 U/L (30-135)
[2017-11-21 00:26] LABS: Creatine Kinase MB 0.8 ng/mL (0.0-2.4); Troponin I <0.012 ng/mL (0.000-0.034)
[2017-11-21 01:49] VITALS: BMI 44.9
[2017-11-21 07:13] LABS: Glucose,Whole Blood 129 mg/dL (75-99)
[2017-11-21] MEDS ORDERED: PANTOPRAZOLE 40 MG/10 ML VIAL IVP SCH (09:00)
[2017-11-21] MEDS ORDERED: ALBUTEROL NEBULIZED 2.5 MG/3 ML INHALATION PRN (10:45)
[2017-11-21] MEDS ORDERED: BISACODYL 10 MG SUPP RECTAL PRN (10:45)
[2017-11-21] MEDS ORDERED: HYDROcodone/APAP 5-325MG 1 EACH TAB PO PRN (10:45)
--- NOTE | 2017-11-21 10:59 | P.CONS ---
History of Present Illness - Reason for Consult Consult date: 11/21/17 GI bleed melena and anemia Requesting physician: Keenan Li - History of Present Illness 82-year-old female past medical history of diabetes mellitus, anemia maintained on oral iron supplementation, presents with a 2 week history of intermittent black colored diarrhea with minimal abdominal discomfort. Denies hematemesis or gross hematochezia. No fever chills weight loss. She reports a history of GI bleed about 4 years ago and underwent an EGD colonoscopy does not remember the results. No aspirin and NSAIDs or alcohol consumption. Admission hemoglobin 9.2. MCV 87. Platelets 392. BUN 56. Creatinine 0.9. Hemoccult stool positive. Upon review of CBCs over last several months patient's average hemoglobin between 8-10. Review of Systems Constitutional: Denies fever, chills, sweats, weight gain, or loss. HEENT: Negative for migraines, blurred vision or loss, earaches, drainage, tinnitus, oral mucosal lesions, dysphagia, or odynophagia. CARDIAC: Negative for chest pain, arrhythmias, or palpitation. RESPIRATORY: Negative for shortness of breath, hemoptysis, cough, or sputum production. GI: See HPI for pertinent findings. : Negative for hematuria, urgency, frequency, polyuria, or dysuria. GYNc: Denies possibility of . Negative vaginal discharge. MUSCULOSKELETAL: Negative for muscle aches, swelling, arthritis, and arthralgias. NEUROLOGIC: Negative for stroke or TIA. ENDOCRINE: Diabetes mellitus. Negative for thyroid problems. SKIN: Negative for rash or itching. PSYCHIATRIC: Negative history for depression and anxiety Past Medical History Past Medical History: Diabetes Mellitus History of Any Multi-Drug Resistant Organisms: None Reported Past Surgical History: Hysterectomy Past Psychological History: No Psychological Hx Reported Smoking Status: Never smoker Past Alcohol Use History: None Reported Past Drug Use History: None Reported Medications and Allergies Home Medications Medication Instructions Recorded Confirmed Type Ascorbic Acid [Vitamin C] 500 mg PO DAILY 05/12/17 11/20/17 History Atorvastatin [Lipitor] 40 mg PO HS 05/12/17 11/20/17 History Cholecalciferol [Vitamin D3] 1,000 unit PO DAILY 05/12/17 11/20/17 History Cinnamon Bark [Cinnamon] 500 mg PO BID 05/12/17 11/20/17 History Ferrous Sulfate [Feosol] 325 mg PO BID 05/12/17 11/20/17 History Insulin Aspart [NovoLOG] 8 unit SQ AC-LUNCH 05/12/17 11/20/17 History Insulin Aspart [NovoLOG] 14 unit SQ AC-BRKFST 05/12/17 11/20/17 History Insulin Aspart [NovoLOG] 14 unit SQ AC-SUPPER 05/12/17 11/20/17 History Insulin Detemir [Levemir] 45 unit SQ HS 05/12/17 11/20/17 History Lisinopril [Zestril] 20 mg PO DAILY 05/12/17 11/20/17 History Multivitamins, Thera [Multivitamin 1 tab PO DAILY 05/12/17 11/20/17 History (formulary)] PARoxetine [Paxil] 20 mg PO DAILY 05/12/17 11/20/17 History metFORMIN HCL [Glucophage] 500 mg PO DAILY@1700 05/12/17 11/20/17 History Albuterol Nebulized [Ventolin 2.5 mg INHALATION RT-QID PRN 11/20/17 11/20/17 History Nebulized] Bisacodyl [Dulcolax] 10 mg RECTAL DAILY PRN 11/20/17 11/20/17 History Famotidine [Pepcid] 20 mg PO DAILY 11/20/17 11/20/17 History Furosemide [Lasix] 20 mg PO DAILY 11/20/17 11/20/17 History HYDROcodone/APAP 5-325MG [[place] 5] 1 tab PO Q6HR PRN 11/20/17 11/20/17 History L.acidoph,Paracasei, B.lactis 1 cap PO DAILY 11/20/17 11/20/17 History [Probiotic] Loperamide [Imodium] 2 mg PO QID PRN 11/20/17 11/20/17 History Loratadine [Claritin] 10 mg PO DAILY PRN 11/20/17 11/20/17 History Magnesium Hydroxide [Milk of 2,400 mg PO DAILY PRN 11/20/17 11/20/17 History Magnesia] Melatonin 5 mg PO HS 11/20/17 11/20/17 History Menthol [Biofreeze] 1 applic TOPICAL DAILY PRN 11/20/17 11/20/17 History Na Phos,M-B/Na Phos,Di-Ba [Fleet 133 ml RECTAL ONCE PRN 11/20/17 11/20/17 History Adult] Sodium Chloride [Saline Nasal 1 spray EA NOSTRIL DAILY PRN 11/20/17 11/20/17 History [place]] metFORMIN HCL [Glucophage] 1,000 mg PO QAM 11/20/17 11/20/17 History Allergies Allergy/AdvReac Type Severity Reaction Status Date / Time Penicillins Allergy Rash/Hives Verified 11/21/17 01:50 Physical Exam Vitals: Vital Signs Temp Pulse Pulse Resp BP BP Pulse Ox 11/21/17 07:00 97.9 F 76 18 118/57 92 L 11/21/17 01:52 109/55 11/21/17 01:39 97.9 F 84 16 94 L 11/20/17 23:12 97.6 F 85 18 141/65 97 Intake and Output 11/20/17 11/21/17 11/21/17 22:59 06:59 14:59 Intake Total 300 Balance 300 Intake: Intake, IV Titration 300 Amount Sodium Chloride 0.9% 1, 300 000 ml @ 100 mls/hr IV . Q10H STA Rx#:[id number] Other: # Voids 1 Weight 104.32 kg General appearance: The patient is alert, oriented, in no acute distress. HET: Head is normocephalic and atraumatic. Pupils are equal and reactive. Oropharynx is clear without lesions. Neck: Supple without lymphadenopathy. Trachea midline. Heart: S1 S2. Regular rate and rhythm. Lungs: No crackles or wheezes are heard. Abdomen: Soft, nontender, nondistended with bowel sounds. No peritoneal signs. No palpable organomegaly or masses. Extremities: Normal skin color and turgor. No cyanosis, rash, ulceration, clubbing, or edema. Radial and pedal pulses are 2/4 bilaterally. Neurological: No focal deficits. Strength and sensation are grossly intact. Results CBC & Chem 7: 11/20/17 23:30 11/20/17 23:30 Labs: Abnormal Lab Results - Last 24 Hours (Table) 11/20/17 11/20/17 11/20/17 Range/Units 23:30 23:30 23:30 RBC 3.25 L (3.80-5.40) m/uL Hgb 9.2 L (11.4-16.0) gm/dL Hct 28.4 L (34.0-46.0) % RDW 15.9 H (11.5-15.5) % Sodium 136 L (137-145) mmol/L Carbon Dioxide 21 L (22-30) mmol/L BUN 56 H (7-17) mg/dL Glucose 191 H (74-99) mg/dL POC Glucose (mg/dL) (75-99) mg/dL Total Bilirubin <0.1 L (0.2-1.3) mg/dL Total Creatine Kinase 25 L (30-135) U/L Total Protein 5.7 L (6.3-8.2) g/dL Albumin 3.1 L (3.5-5.0) g/dL Stool Occult Blood (Negative) 11/21/17 11/21/17 Range/Units 00:25 07:09 RBC (3.80-5.40) m/uL Hgb (11.4-16.0) gm/dL Hct (34.0-46.0) % RDW (11.5-15.5) % Sodium (137-145) mmol/L Carbon Dioxide (22-30) mmol/L BUN (7-17) mg/dL Glucose (74-99) mg/dL POC Glucose (mg/dL) 129 H (75-99) mg/dL Total Bilirubin (0.2-1.3) mg/dL Total Creatine Kinase (30-135) U/L Total Protein (6.3-8.2) g/dL Albumin (3.5-5.0) g/dL Stool Occult Blood Positive H (Negative) Assessment and Plan (1) GI bleed Narrative/Plan: 82-year-old female presents with a 2 week history of intermittent black colored bowel movements with an underlying history of anemia maintained on oral iron supplementation with positive guaiac stools suggested of acute GI bleed possible upper pathology however small bowel possible lower colonic source cannot be entirely excluded. Current Visit: Yes Status: Acute Code(s): K92.2 - GASTROINTESTINAL HEMORRHAGE, UNSPECIFIED SNOMED Code(s): 02972605 (2) Acute blood loss anemia Current Visit: Yes Status: Acute Code(s): D62 - ACUTE POSTHEMORRHAGIC ANEMIA SNOMED Code(s): 700589663 (3) Melena Current Visit: Yes Status: Acute Code(s): K92.1 - MELENA SNOMED Code(s): 7466672 (4) Guaiac positive stools Current Visit: Yes Status: Acute Code(s): R19.5 - OTHER FECAL ABNORMALITIES SNOMED Code(s): 89516176 Plan: 1. EGD/colonoscopy tomorrow afternoon. 2. Clear liquids. Nothing by mouth after clear liquid breath in a.m. 3. CBC monitoring. 4. Protonix 40 mg daily. The electronic security technician has discussed the risks, benefits and alternative therapies for the above-mentioned procedure and for both sedation/analgesia as well as necessary blood product administration, if indicated, as they pertain to this patient. The patient has indicated understanding and acceptance of the risks and procedures discussed. Thank you for this kind referral and the opportunity to participate in the care of your patient. This consultation was discussed with Dr. Sadler. The impression and plan of care have been directed as dictated.
[2017-11-21] MEDS ORDERED: INSULIN ASPART 100 UNIT/ML 1 ML 10 ML VIAL SQ SCH (11:00)
[2017-11-21 11:10] LABS: Glucose,Whole Blood 139 mg/dL (75-99)
--- NOTE | 2017-11-21 15:51 | P.HPIM ---
History of Present Illness H&P Date: 11/21/17 82 years old female patient of Dr. Anaya with past medical history of insulin-dependent diabetes presents in with 14 days of diarrhea. Patient states that she had similar episode of GI bleed 4 years ago was admitted in the ICU for the same. Underwent colonoscopy at that time which was normal. Hemoglobin dropped to less than 5 during that admission. Patient comes in again with dark liquidy stools but denies any hematemesis or nausea or hematochezia. Hemoglobin dropped from 11-8.6. Patient denies any dizziness, lightheadedness, chest pain, shortness of breath, syncope. Vitals are stable. Patient given 1 dose of Protonix in the ER. Continue IV fluids. Patient underwent endoscopy/colonoscopy starting tomorrow. Clear liquid diet initiated. Review of Systems Constitutional: Denies anorexia, Denies chills, Denies chronic headaches, Denies chronic pain, Denies fatigue, Denies fever, Denies night sweats, Denies poor appetite, Denies weakness, Denies weight gain, Denies weight loss Eyes: denies blurred vision, denies bulging eye, denies decreased vision, denies diplopia, denies discharge, denies dry eye, denies irritation Ears: deny: decreased hearing Ears, nose, mouth and throat: Denies dental pain, Denies dysphagia, Denies epistaxis, Denies headache, Denies mouth pain, Denies nasal congestion, Denies nasal discharge, Denies odynophagia, Denies post-nasal drip Cardiovascular: Reports dyspnea on exertion, Denies chest pain, Denies claudication, Denies decreased exercise tolerance, Denies high blood pressure, Denies lightheadedness, Denies orthopnea, Denies palpitations, Denies rapid heart beat, Denies shortness of breath, Denies syncope Respiratory: Denies congestion, Denies cough, Denies cough with sputum, Denies dyspnea, Denies hemoptysis, Denies home oxygen Gastrointestinal: Reports BRBPR, Reports change in bowel habits, Reports excessive gas, Reports melena, Denies abdominal pain, Denies belching, Denies bloating, Denies constipation, Denies hematemesis, Denies hematochezia, Denies loss of appetite, Denies nausea, Denies vomiting Genitourinary: Denies dysuria, Denies nocturia, Denies urgency, Denies urinary frequency Musculoskeletal: Denies arm numbness/tingling, Denies leg numbness/tingling, Denies limitation of motion, Denies low back pain, Denies morning stiffness, Denies muscle cramps Integumentary: Denies acne, Denies boils, Denies change in hair/nails, Denies color changes, Denies lesions, Denies rash, Denies sores Neurological: Denies change in mentation, Denies change in smell/taste, Denies change in speech, Denies lack of coordination, Denies motor disturbance, Denies syncope, Denies transient paralysis, Denies vertigo, Denies weakness Psychiatric: Denies anxiety, Denies depression Endocrine: Reports high blood sugars, Denies cold intolerance, Denies deepening of the voice, Denies excessive sweating, Denies excessive thirst, Denies fatigue , Denies low blood sugars, Denies nocturia, Denies recent glucocorticoid use Past Medical History Past Medical History: Diabetes Mellitus History of Any Multi-Drug Resistant Organisms: None Reported Past Surgical History: Hysterectomy Past Psychological History: No Psychological Hx Reported Smoking Status: Never smoker Past Alcohol Use History: None Reported Past Drug Use History: None Reported - Past Family History Father Family Medical History: Cancer Mother Family Medical History: Diabetes Mellitus Medications and Allergies Home Medications Medication Instructions Recorded Confirmed Type Ascorbic Acid [Vitamin C] 500 mg PO DAILY 05/12/17 11/20/17 History Atorvastatin [Lipitor] 40 mg PO HS 05/12/17 11/20/17 History Cholecalciferol [Vitamin D3] 1,000 unit PO DAILY 05/12/17 11/20/17 History Cinnamon Bark [Cinnamon] 500 mg PO BID 05/12/17 11/20/17 History Ferrous Sulfate [Feosol] 325 mg PO BID 05/12/17 11/20/17 History Insulin Aspart [NovoLOG] 8 unit SQ AC-LUNCH 05/12/17 11/20/17 History Insulin Aspart [NovoLOG] 14 unit SQ AC-BRKFST 05/12/17 11/20/17 History Insulin Aspart [NovoLOG] 14 unit SQ AC-SUPPER 05/12/17 11/20/17 History Insulin Detemir [Levemir] 45 unit SQ HS 05/12/17 11/20/17 History Lisinopril [Zestril] 20 mg PO DAILY 05/12/17 11/20/17 History Multivitamins, Thera [Multivitamin 1 tab PO DAILY 05/12/17 11/20/17 History (formulary)] PARoxetine [Paxil] 20 mg PO DAILY 05/12/17 11/20/17 History metFORMIN HCL [Glucophage] 500 mg PO DAILY@1700 05/12/17 11/20/17 History Albuterol Nebulized [Ventolin 2.5 mg INHALATION RT-QID PRN 11/20/17 11/20/17 History Nebulized] Bisacodyl [Dulcolax] 10 mg RECTAL DAILY PRN 11/20/17 11/20/17 History Famotidine [Pepcid] 20 mg PO DAILY 11/20/17 11/20/17 History Furosemide [Lasix] 20 mg PO DAILY 11/20/17 11/20/17 History HYDROcodone/APAP 5-325MG [[place] 5] 1 tab PO Q6HR PRN 11/20/17 11/20/17 History L.acidoph,Paracasei, B.lactis 1 cap PO DAILY 11/20/17 11/20/17 History [Probiotic] Loperamide [Imodium] 2 mg PO QID PRN 11/20/17 11/20/17 History Loratadine [Claritin] 10 mg PO DAILY PRN 11/20/17 11/20/17 History Magnesium Hydroxide [Milk of 2,400 mg PO DAILY PRN 11/20/17 11/20/17 History Magnesia] Melatonin 5 mg PO HS 11/20/17 11/20/17 History Menthol [Biofreeze] 1 applic TOPICAL DAILY PRN 11/20/17 11/20/17 History Na Phos,M-B/Na Phos,Di-Ba [Fleet 133 ml RECTAL ONCE PRN 11/20/17 11/20/17 History Adult] Sodium Chloride [Saline Nasal 1 spray EA NOSTRIL DAILY PRN 11/20/17 11/20/17 History [place]] metFORMIN HCL [Glucophage] 1,000 mg PO QAM 11/20/17 11/20/17 History Allergies Allergy/AdvReac Type Severity Reaction Status Date / Time Penicillins Allergy Rash/Hives Verified 11/21/17 01:50 Physical Exam Vitals: Vital Signs Temp Pulse Pulse Resp BP BP Pulse Ox 11/21/17 07:00 97.9 F 76 18 118/57 92 L 11/21/17 01:52 109/55 11/21/17 01:39 97.9 F 84 16 94 L 11/20/17 23:12 97.6 F 85 18 141/65 97 Intake and Output 11/20/17 11/21/17 11/21/17 22:59 06:59 14:59 Intake Total 300 Balance 300 Intake: Intake, IV Titration 300 Amount Sodium Chloride 0.9% 1, 300 000 ml @ 100 mls/hr IV . Q10H STA Rx#:[id number] Other: # Voids 1 Weight 104.32 kg - Constitutional General appearance: mild distress - EENT Eyes: EOMI, PERRLA, no ptosis, no scleral icterus ENT: normal oropharynx, no pharyngeal erythema, no tonsillar exudates, no tonsillar swelling Ears: bilateral: normal - Neck Neck: no lymphadenopathy, normal ROM, no rigidity Carotids: bilateral: upstroke normal - Respiratory Respiratory: bilateral: CTA, negative: diminished, dullness, rales, rhonchi, wheezing - Cardiovascular Rhythm: regular Heart sounds: normal: S1, S2 Abnormal Heart Sounds: no systolic murmur, no diastolic murmur, no rub, no S3 Gallop, no S4 Gallop, no click ankle Peripheral Edema: absent: None - Gastrointestinal General gastrointestinal: no distended, normal bowel sounds, no rigid, soft, no tenderness - Integumentary Integumentary: no calor, no cellulitis, no cyanotic, no decreased turgor, normal , normal turgor - Neurologic Neurologic: CNII-XII intact - Musculoskeletal Musculoskeletal: gait normal, generalized weakness, strength equal bilaterally - Psychiatric Psychiatric: A&O x's 3, appropriate affect Results CBC & Chem 7: 11/20/17 23:30 11/20/17 23:30 Labs: Abnormal Lab Results - Last 24 Hours (Table) 11/20/17 11/20/17 11/20/17 Range/Units 23:30 23:30 23:30 RBC 3.25 L (3.80-5.40) m/uL Hgb 9.2 L (11.4-16.0) gm/dL Hct 28.4 L (34.0-46.0) % RDW 15.9 H (11.5-15.5) % Sodium 136 L (137-145) mmol/L Carbon Dioxide 21 L (22-30) mmol/L BUN 56 H (7-17) mg/dL Glucose 191 H (74-99) mg/dL POC Glucose (mg/dL) (75-99) mg/dL Total Bilirubin <0.1 L (0.2-1.3) mg/dL Total Creatine Kinase 25 L (30-135) U/L Total Protein 5.7 L (6.3-8.2) g/dL Albumin 3.1 L (3.5-5.0) g/dL Stool Occult Blood (Negative) 11/21/17 11/21/17 11/21/17 Range/Units 00:25 07:09 11:08 RBC (3.80-5.40) m/uL Hgb (11.4-16.0) gm/dL Hct (34.0-46.0) % RDW (11.5-15.5) % Sodium (137-145) mmol/L Carbon Dioxide (22-30) mmol/L BUN (7-17) mg/dL Glucose (74-99) mg/dL POC Glucose (mg/dL) 129 H 139 H (75-99) mg/dL Total Bilirubin (0.2-1.3) mg/dL Total Creatine Kinase (30-135) U/L Total Protein (6.3-8.2) g/dL Albumin (3.5-5.0) g/dL Stool Occult Blood Positive H (Negative) Thrombosis Risk Factor Assmnt - DVT/VTE Prophylaxis DVT/VTE Prophylaxis: Mechanical Prophylaxis ordered - Choose All That Apply Each Risk Factor Represents 3 Points: Age 75 years or older Thrombosis Risk Factor Assessment Total Risk Factor Score: 3 Thrombosis Risk Factor Assessment Level: Moderate Risk Assessment and Plan Plan: #1 acute GI bleed- Hemoccult positive in the ER. No previous endoscopy or colonoscopy to compare. No history of peptic ulcer disease. Continue Protonix 40 mg by mouth daily. Clear liquid diet now. Nothing by mouth after midnight for possible endoscopy/colonoscopy tomorrow. C. difficile ordered as patient is having diarrhea for 14 days #2 type 2 insulin-dependent diabetes Lantus decreased to 25 units at bedtime with insulin sliding scale. Glucose check #3 depression continue paxil #4 hypertension continue lisinopril #5 DVT prophylaxis with SCDs as patient is admitted for GI bleed #6 GI prophylaxis of Protonix #7 CODE STATUS full code Disposition patient needs 1-2 inpatient nights in the hospital.
[2017-11-21] MEDS ORDERED: PEG 3350-NA SULF,BICARB,CL/KCL 4,000 ML BOTTLE PO ONE (16:00)
[2017-11-21 16:54] LABS: Glucose,Whole Blood 151 mg/dL (75-99)
[2017-11-21] MEDS: INSULIN ASPART 100 UNIT/ML 1 ML 10 ML VIAL SQ SCH ×2 (18:10→20:51)
[2017-11-21] MEDS ORDERED: ATORVASTATIN 40 MG TAB PO SCH (21:00)
[2017-11-21] MEDS ORDERED: MELATONIN 5 MG TABLET PO SCH (21:00)
[2017-11-21] MEDS ORDERED: INSULIN DETEMIR 100 UNIT/ML 10 ML VIAL SQ SCH (21:00)
[2017-11-21 21:16] LABS: Glucose,Whole Blood 204 mg/dL (75-99)
[2017-11-21 23:11] VITALS: RESP 16
[2017-11-22 00:11] VITALS: PULSE 80
[2017-11-22 07:18] LABS: Glucose,Whole Blood 99 mg/dL (75-99)
[2017-11-22 08:07] VITALS: BP 115/56; TEMP 98.4
[2017-11-22] MEDS ORDERED: PARoxetine 20 MG TAB PO SCH (09:00)
[2017-11-22] MEDS ORDERED: PANTOPRAZOLE 40 MG/10 ML VIAL IVP SCH (09:00)
[2017-11-22] MEDS ORDERED: LISINOPRIL 20 MG TAB PO SCH (09:00)
[2017-11-22] MEDS: INSULIN ASPART 100 UNIT/ML 1 ML 10 ML VIAL SQ SCH ×2 (09:22→15:02)
[2017-11-22 12:17] LABS: Glucose,Whole Blood 151 mg/dL (75-99)
[2017-11-22] MEDS ORDERED: LIDOCAINE 1% INJ 10MG/ML (20 ML MDV) ONE (12:50)
[2017-11-22] MEDS ORDERED: PROPOFOL 10 MG/ML 20 ML VIAL IV ONE (12:50)
[2017-11-22] MEDS ORDERED: LACTATED RINGERS 1,000 ML IV ONE (13:16)
--- NOTE | 2017-11-22 13:22 | P.PCN ---
Date of Procedure: 11/22/17 Procedure(s) Performed: Brief history: Patient is a pleasant 82-year-old white female, admitted to the hospital with black tarry stools of 3 days' duration and symptomatic anemia with a hemoglobin of 8.5 g/dL. She is hence scheduled for an upper endoscopy as well as colonoscopy as a part of evaluation of acute GI bleed. Procedure performed: Esophagogastroduodenoscopy with biopsy Colonoscopy with snare polypectomy Preoperative diagnosis: Acute GI bleed/anemia Anesthesia: MAC Procedure: After informed consent was obtained from the patient was brought into the endoscopy unit and IV sedation was administered by anesthesia under continuous monitoring. Initially upper endoscopy was done. The Olympus GF 160 video endoscope was inserted inserted into the mouth and esophagus intubated without any difficulty and was gradually advanced into the stomach and duodenum and carefully examined. The bulb and second part of the duodenum appeared normal. Biopsies were done from the duodenum to rule out celiac disease. The scope was then withdrawn into the stomach adequately insufflated with air and upon careful examination the antrum appeared normal. The body, cardia and fundus appeared normal. There was a large hiatal hernia noted and there were multiple Benny erosions noted at the diaphragmatic hiatus with no active bleeding. The scope was then withdrawn into the esophagus. The GE junction was located at 30 cm to the incisors. It appeared regular with no erythema erosions or ulcerations. Rest of the esophagus appeared normal. Patient tolerated the procedure well. At this time the patient continued to remain sedation. Initial digital rectal examination was normal. Olympus CF 160 video colonoscope was then inserted into the rectum and gradually advanced to the cecum without any difficulty. Careful examination was performed as the scope was gradually being withdrawn. The prep was excellent. In the base of the cecum there was a 1 cm broad-based polyp removed by snare polypectomy. The rest of the cecum, ascending colon, transverse colon, descending colon, sigmoid colon and rectum appeared normal. In the distal rectum there was a 5 mL polyp removed by snare polypectomy. Scattered sigmoidal diverticulosis seen. Retroflexion was performed in the rectum and no lesions were noted. Patient tolerated the procedure well. Impression: 1. Upper endoscopy revealed large hiatal hernia with multiple Benny erosions but no active bleeding 2. Colonoscopy revealed scattered sigmoid diverticulosis, 1 cm cecal polyp and 5 mm sessile rectal polyp status post snare polypectomy Recommendations: Findings of this examination were discussed with the patient. She was advised to follow with the biopsy results. Most likely recent episode of acute GI bleeding is related to multiple Benny ulcers related to the large hiatal hernia. She can continue on Protonix 40 mg twice daily for now. Diet will be advanced as tolerated.
[2017-11-22 14:38] LABS: Glucose,Whole Blood 157 mg/dL (75-99)
[2017-11-22 15:22] LABS: Anisocytosis Slight; Basophils % (A) 0 %; Eosinophils # (A) 0.1 k/uL (0-0.7); Eosinophils % (A) 2 %; HCT 28.1 % (34.0-46.0); Lymphocytes # (A) 0.8 k/uL (1.0-4.8); Lymphocytes % (A) 12 %; MCH 28.4 pg (25.0-35.0); MCHC 31.8 g/dL (31.0-37.0); MCV 89.1 fL (80.0-100.0); Mean Platelet Volume 7.3; Monocytes # (A) 0.4 k/uL (0-1.0); Monocytes % (A) 6 %; Neutrophils # (A) 5.5 k/uL (1.3-7.7); Neutrophils % (A) 79 %; Platelet Count 346 k/uL (150-450); RBC 3.16 m/uL (3.80-5.40); RDW 16.1 % (11.5-15.5)
--- NOTE | 2017-11-22 17:20 | P.DS ---
Providers Date of admission: 11/21/17 00:45 Attending physician: Josh Anaya Consults: 11/21/17 00:45 Consult Physician Routine Consulting Provider: Lester Sadler Consult Reason/Comments: gib Do you want consulting provider notified?: Yes Primary care physician: Josh Anaya [facility] Course: 82 years old female patient of Dr. Anaya with past medical history of insulin-dependent diabetes presents in with 14 days of diarrhea. Patient states that she had similar episode of GI bleed 4 years ago was admitted in the ICU for the same. Underwent colonoscopy at that time which was normal. Hemoglobin dropped to less than 5 during that admission. Patient comes in again with dark liquidy stools but denies any hematemesis or nausea or hematochezia. Hemoglobin dropped from 11-8.6. Patient denies any dizziness, lightheadedness, chest pain, shortness of breath, syncope. Vitals are stable. Patient given 1 dose of Protonix in the ER. Continue IV fluids. Patient underwent endoscopy/colonoscopy starting tomorrow. Clear liquid diet initiated. 11/22 Patient underwent endoscopy and colonoscopy that suggested cynthia Ulcers with no active bleed with Large Hiatal Hernia. Colonoscopy revealed scattered sigmoid diverticulosis, 1 cm cecal polyp and 5 mm sessile rectal polyp status post snare polypectomy. Patient will be discharged on protonic 40 mg twice daily. Discharge Diagnosis #1 acute GI bleed secondary to cynthia ulcers and hiatal hernia #2 type 2 insulin-dependent diabetes ose check #3 depression #4 hypertension Patient Condition at Discharge: Good Plan - Discharge Summary Discharge Rx Participant: No New Discharge Prescriptions: New Pantoprazole Sodium [Protonix] 40 mg PO BID #60 tablet.dr Continue Insulin Detemir [Levemir] 45 unit SQ HS Insulin Aspart [NovoLOG (formulary)] 14 unit SQ AC-BRKFST PARoxetine [Paxil] 20 mg PO DAILY Multivitamins, Thera [Multivitamin (formulary)] 1 tab PO DAILY Lisinopril [Zestril] 20 mg PO DAILY Ferrous Sulfate [Iron (65 MG Elemental)] 325 mg PO BID Cinnamon Bark [Cinnamon] 500 mg PO BID Cholecalciferol [Vitamin D3] 1,000 unit PO DAILY Ascorbic Acid [Vitamin C] 500 mg PO DAILY metFORMIN HCL [Glucophage] 500 mg PO DAILY@1700 Atorvastatin [Lipitor] 40 mg PO HS Insulin Aspart [NovoLOG (formulary)] 8 unit SQ AC-LUNCH Insulin Aspart [NovoLOG (formulary)] 14 unit SQ AC-SUPPER Magnesium Hydroxide [Milk of Magnesia] 2,400 mg PO DAILY PRN PRN Reason: Constipation Loperamide [Imodium] 2 mg PO QID PRN PRN Reason: Loose Stool HYDROcodone/APAP 5-325MG [[place] 5-325] 1 tab PO Q6HR PRN PRN Reason: Pain Na Phos,M-B/Na Phos,Di-Ba [Fleet Adult] 133 ml RECTAL ONCE PRN PRN Reason: Constipation Loratadine [Claritin] 10 mg PO DAILY PRN PRN Reason: Allergy Symptoms Bisacodyl [Dulcolax] 10 mg RECTAL DAILY PRN PRN Reason: Constipation Menthol [Biofreeze] 1 applic TOPICAL DAILY PRN PRN Reason: Pain Albuterol Nebulized [Ventolin Nebulized] 2.5 mg INHALATION RT-QID PRN PRN Reason: Shortness Of Breath metFORMIN HCL [Glucophage] 1,000 mg PO QAM L.acidoph,Paracasei, B.lactis [Probiotic] 1 cap PO DAILY Famotidine [Pepcid] 20 mg PO DAILY Melatonin 5 mg PO HS Furosemide [Lasix] 20 mg PO DAILY Sodium Chloride [Saline Nasal [place]] 1 spray EA NOSTRIL DAILY PRN PRN Reason: Congestion Discharge Medication List Ascorbic Acid [Vitamin C] 500 mg PO DAILY 05/12/17 [History] Atorvastatin [Lipitor] 40 mg PO HS 05/12/17 [History] Cholecalciferol [Vitamin D3] 1,000 unit PO DAILY 05/12/17 [History] Cinnamon Bark [Cinnamon] 500 mg PO BID 05/12/17 [History] Ferrous Sulfate [Iron (65 MG Elemental)] 325 mg PO BID 05/12/17 [History] Insulin Aspart [NovoLOG (formulary)] 8 unit SQ AC-LUNCH 05/12/17 [History] Insulin Aspart [NovoLOG (formulary)] 14 unit SQ AC-BRKFST 05/12/17 [History] Insulin Aspart [NovoLOG (formulary)] 14 unit SQ AC-SUPPER 05/12/17 [History] Insulin Detemir [Levemir] 45 unit SQ HS 05/12/17 [History] Lisinopril [Zestril] 20 mg PO DAILY 05/12/17 [History] Multivitamins, Thera [Multivitamin (formulary)] 1 tab PO DAILY 05/12/17 [History ] PARoxetine [Paxil] 20 mg PO DAILY 05/12/17 [History] metFORMIN HCL [Glucophage] 500 mg PO DAILY@1700 05/12/17 [History] Albuterol Nebulized [Ventolin Nebulized] 2.5 mg INHALATION RT-QID PRN 11/20/17 [ History] Bisacodyl [Dulcolax] 10 mg RECTAL DAILY PRN 11/20/17 [History] Famotidine [Pepcid] 20 mg PO DAILY 11/20/17 [History] Furosemide [Lasix] 20 mg PO DAILY 11/20/17 [History] HYDROcodone/APAP 5-325MG [[place] 5-325] 1 tab PO Q6HR PRN 11/20/17 [History] L.acidoph,Paracasei, B.lactis [Probiotic] 1 cap PO DAILY 11/20/17 [History] Loperamide [Imodium] 2 mg PO QID PRN 11/20/17 [History] Loratadine [Claritin] 10 mg PO DAILY PRN 11/20/17 [History] Magnesium Hydroxide [Milk of Magnesia] 2,400 mg PO DAILY PRN 11/20/17 [History] Melatonin 5 mg PO HS 11/20/17 [History] Menthol [Biofreeze] 1 applic TOPICAL DAILY PRN 11/20/17 [History] Na Phos,M-B/Na Phos,Di-Ba [Fleet Adult] 133 ml RECTAL ONCE PRN 11/20/17 [History ] Sodium Chloride [Saline Nasal [place]] 1 spray EA NOSTRIL DAILY PRN 11/20/17 [ History] metFORMIN HCL [Glucophage] 1,000 mg PO QAM 11/20/17 [History] Pantoprazole Sodium [Protonix] 40 mg PO BID #60 tablet. 11/22/17 [Rx] Follow up Appointment(s)/Referral(s): Josh Anaya MD [Primary Care Provider] - 1 Week Patient Instructions/Handouts: Anemia (ED) Discharge Disposition: TRANSFER TO SNF/ECF
== END 2017-11-22 16:15 | DRG 378 ==
LOC: EC 23:10 → 5MS5E 11-21 00:45
PROVIDERS: ADMIT Internal Medicine Geriatric Medicine; ATTEND Internal Medicine Geriatric Medicine
PROC: 0DBP8ZX Excision of Rectum, Via Natural or Artificial Opening Endoscopic, Diagnostic (ICD-10-PCS; 2017-11-22)
PROC: 0DB98ZX Excision of Duodenum, Via Natural or Artificial Opening Endoscopic, Diagnostic (ICD-10-PCS; principal; 2017-11-22 13:00)
PROC: 0DBH8ZX Excision of Cecum, Via Natural or Artificial Opening Endoscopic, Diagnostic (ICD-10-PCS; 2017-11-22 13:00)
DX: K25.4 Chronic or unspecified gastric ulcer with hemorrhage (principal); D62 Acute posthemorrhagic anemia; E11.9 Type 2 diabetes mellitus without complications; K44.9 Diaphragmatic hernia without obstruction or gangrene; D12.0 Benign neoplasm of cecum; K62.1 Rectal polyp; I10 Essential (primary) hypertension; K57.30 Diverticulosis of large intestine without perforation or abscess without bleeding; F32.9 Major depressive disorder, single episode, unspecified; Z90.710 Acquired absence of both cervix and uterus; Z79.4 Long term (current) use of insulin; Z79.899 Other long term (current) drug therapy; Z88.0 Allergy status to penicillin
CPT/HCPCS: 36415; 43239; 45385; 80053; 82272; 82550; 82553; 83735; 84100; 84484; 85025; 86850; 86900; 86901; 88305; 93005; 99285

== ENCOUNTER → 2019-10-02 | Outpatient (CLI) | payer MEDICARE, OTHER ==
[~2019-10-02] MED LIST: SODIUM CHLORIDE 0.9% 500 ML 500 ML in EMPTY BAG 1 BAG IV PRN; SODIUM FERRIC GLUCONAT-SUCROSE 125 MG in SODIUM CHLORIDE 0.9% 100 ML IVPB ONE
[2019-10-02 09:41] VITALS: BP 160/81; PULSE 78; RESP 16; TEMP 97.7
== END | disposition home or self-care (01) ==
LOC: PROCWHC3 09:25
PROVIDERS: ATTEND Internal Medicine Geriatric Medicine
DX: D64.9 Anemia, unspecified (principal)
CPT/HCPCS: 96365

== ENCOUNTER 2020-09-25 10:12 | Inpatient (IN) | payer MEDICARE, OTHER ==
--- NOTE | 2020-09-25 10:55 | ED ---
General Adult HPI - General Chief complaint: Shortness of Breath Stated complaint: +COVID,Diff Breathing Time Seen by Provider: 09/25/20 10:20 Source: patient, RN notes reviewed, old records reviewed Mode of arrival: EMS Limitations: no limitations - History of Present Illness Initial comments: This is an 85-year-old female [facility] emergency [facility]. She was positive for COVID at the penitentiary and over the last 3 days she's become weaker and weaker more short of breath. According to EMS she was satting in the 80s until she was put on 6 L and at that point she was in the 90s. Patient states she does feel better now that she is on oxygen and out of the hot room that she is standing. Patient denies any chest pain or palpitations. Patient denies any fever. Patient denies any abdominal pain patient denies nausea vomiting or diarrhea. - Related Data Home Medications Medication Instructions Recorded Confirmed Ascorbic Acid [Vitamin C] 500 mg PO DAILY@0800 05/12/17 09/25/20 Atorvastatin [Lipitor] 40 mg PO HS@2100 05/12/17 09/25/20 Cholecalciferol [Vitamin D3 (25 2,000 unit PO DAILY@0800 05/12/17 09/25/20 Mcg = 1000 Iu)] Cinnamon Bark [Cinnamon] 500 mg PO BID@0800,1700 05/12/17 09/25/20 Ferrous Sulfate [Iron (65 MG 325 mg PO BID@0800,1700 05/12/17 09/25/20 Elemental)] INSULIN ASPART (NovoLOG) [NovoLOG 8 unit SQ AC-LUNCH@1200 05/12/17 09/25/20 (formulary)] INSULIN ASPART (NovoLOG) [NovoLOG 12 unit SQ AC-BRKFST@0800 05/12/17 09/25/20 (formulary)] INSULIN ASPART (NovoLOG) [NovoLOG 18 unit SQ AC-SUPPER@17005/12/17 09/25/20 (formulary)] Multivitamins, Thera [Multivitamin 1 tab PO DAILY@0800 05/12/17 09/25/20 (formulary)] lisinopriL [Zestril] 20 mg PO DAILY@0800 05/12/17 09/25/20 metFORMIN HCL [Glucophage] 500 mg PO BID@0800,1700 08/27/17 01/10/21 Famotidine [Pepcid] 20 mg PO DAILY@0811/20/17 09/25/20 HYDROcodone/APAP 5-325MG [[place] 1 tab PO HS@209911/20/17 09/25/20 5-325] L.acidoph,Paracasei, B.lactis 1 cap PO DAILY@17011/20/17 09/25/20 [Probiotic] Loperamide [Imodium] 2 mg PO QID PRN 11/20/17 09/25/20 Loratadine [Claritin] 10 mg PO DAILY PRN 11/20/17 09/25/20 Melatonin 5 mg PO HS@209911/20/17 09/25/20 Na Phos,M-B/Na Phos,Di-Ba [Fleet 133 ml RECTAL DAILY PRN 11/20/17 09/25/20 Adult] Sodium Chloride [Saline Nasal 1 spray EA NOSTRIL TID PRN 11/20/17 09/25/20 [place]] bisacodyL [Dulcolax] 10 mg RECTAL DAILY PRN 11/20/17 09/25/20 ALPRAZolam [Xanax] 0.25 mg PO DAILY PRN 09/25/20 09/25/20 ALPRAZolam [Xanax] 0.25 mg PO HS@209909/25/20 09/25/20 Acetaminophen [Tylenol] 650 mg PO Q4H PRN 09/25/20 09/25/20 Albuterol Inhaler [Ventolin Hfa 2 puff INHALATION RT-QID 09/25/20 09/25/20 Inhaler] Ascorbic Acid [Vitamin C] 1,000 mg PO DAILY@79909/25/20 09/25/20 Carboxymethylcellulose Sodium 1 drop BOTH EYES QID PRN 09/25/20 09/25/20 [Refresh Tears] Cholecalciferol [Vitamin D3 (25 1,000 unit PO DAILY@79909/25/20 09/25/20 Mcg = 1000 Iu)] Enoxaparin [Lovenox] 40 mg SQ DAILY@79909/25/20 09/25/20 Furosemide [Lasix] 40 mg PO DAILY@0609/25/20 09/25/20 HYDROcodone/APAP 5-325MG [[place] 1 tab PO Q6HR PRN 09/25/20 09/25/20 5-325] Insulin Degludec [Tresiba] 40 units SQ DAILY@2130 09/25/20 09/25/20 Lactase [Lactaid] 3,000 unit PO DAILY PRN 09/25/20 09/25/20 Levofloxacin [Levaquin] 250 mg PO DAILY@1700 09/25/20 09/25/20 Magnesium Hydroxide [Milk of 7,200 mg PO DAILY PRN 09/25/20 09/25/20 Magnesia Concentrate] Ondansetron [Zofran] 4 mg PO Q8HR PRN 09/25/20 09/25/20 Ubidecarenone [Co Q-10] 100 mg PO DAILY@17009/25/20 09/25/20 Zinc Sulfate 220 mg PO DAILY@0800 09/25/20 09/25/20 guaiFENesin [guaiFENesin Oral 200 mg PO Q6H PRN 09/25/20 09/25/20 Solution] Allergies Allergy/AdvReac Type Severity Reaction Status Date / Time No Known Allergies Allergy Verified 09/25/20 10:30 Review of Systems ROS Statement: Those systems with pertinent positive or pertinent negative responses have been documented in the HPI. ROS Other: All systems not noted in ROS Statement are negative. Past Medical History Past Medical History: Diabetes Mellitus History of Any Multi-Drug Resistant Organisms: None Reported Past Surgical History: Hysterectomy Past Psychological History: No Psychological Hx Reported Smoking Status: Never smoker Past Alcohol Use History: None Reported Past Drug Use History: None Reported - Past Family History Father Family Medical History: Cancer Mother Family Medical History: Diabetes Mellitus General Exam - General Exam Comments Initial Comments: GENERAL: Patient is well-developed and well-nourished. Patient is nontoxic and well- hydrated and is in mild distress. ENT: Neck is soft and supple. No significant lymphadenopathy is noted. Oropharynx is clear. Moist mucous membranes. Neck has full range of motion without eliciting any pain. EYES: The sclera were anicteric and conjunctiva were pink and moist. Extraocular movements were intact and pupils were equal round and reactive to light. Eyelids were unremarkable. PULMONARY: Patient's Crackles in the bases more on the left than the right. CARDIOVASCULAR: There is a regular rate and rhythm without any murmurs gallops or rubs. ABDOMEN: Soft and nontender with normal bowel sounds. SKIN: Skin is clear with no lesions or rashes and otherwise unremarkable. NEUROLOGIC: Patient is alert and oriented x3. Cranial nerves II through XII are grossly intact. Motor and sensory are also intact. Normal speech, volume and content. Symmetrical smile. MUSCULOSKELETAL: Normal extremities with adequate strength and full range of motion. LYMPHATICS: No significant lymphadenopathy is noted PSYCHIATRIC: Normal psychiatric evaluation. Limitations: no limitations Course Vital Signs 09/25/20 09/25/20 10:27 11:00 Temperature 99.5 F Pulse Rate 85 83 Respiratory 20 20 Rate Blood Pressure 183/67 181/82 O2 Sat by Pulse 98 97 Oximetry Medical Decision Making - Medical Decision Making EKG shows normal sinus rhythm at 83 bpm TX interval is 170 QRS is 72 QT interval 364 QTC is 427 per patient's EKG shows no ST segment elevation or depression. Chest x-ray shows pneumonia and a area of consolidation consistent with bacterial pneumonia as opposed COVID Patient is also hyponatremic she did receive a fluid bolus. I spoke with Dr. Torres she accepted the patient I admitted the patient I continued antibiotics I consult pulmonology and I placed the patient on steroids. - Lab Data Result diagrams: 09/25/20 10:54 09/25/20 10:54 Lab Results 09/25/20 09/25/20 09/25/20 Range/Units 10:54 10:54 10:54 WBC 11.9 H (3.8-10.6) k/uL RBC 3.60 L (3.80-5.40) m/uL Hgb 10.1 L (11.4-16.0) gm/dL Hct 30.9 L (34.0-46.0) % MCV 85.8 (80.0-100.0) fL MCH 28.1 (25.0-35.0) pg MCHC 32.8 (31.0-37.0) g/dL RDW 14.0 (11.5-15.5) % Plt Count 305 (150-450) k/uL MPV 7.6 Neutrophils % 91 % Lymphocytes % 3 % Monocytes % 4 % Eosinophils % 1 % Basophils % 0 % Neutrophils # 10.9 H (1.3-7.7) k/uL Lymphocytes # 0.4 L (1.0-4.8) k/uL Monocytes # 0.4 (0-1.0) k/uL Eosinophils # 0.1 (0-0.7) k/uL Basophils # 0.0 (0-0.2) k/uL PT 10.3 (9.0-12.0) sec INR 1.0 (<1.2) APTT 25.3 (22.0-30.0) sec D-Dimer 1.60 H (<0.60) mg/L FEU Sodium 119 L* (137-145) mmol/L Potassium 5.3 H (3.5-5.1) mmol/L Chloride 86 L (98-107) mmol/L Carbon Dioxide 26 (22-30) mmol/L Anion Gap 7 mmol/L BUN 28 H (7-17) mg/dL Creatinine 2.32 H (0.52-1.04) mg/dL Est GFR (CKD-EPI)AfAm 22 (>60 ml/min/1.73 sqM) Est GFR (CKD-EPI)NonAf 19 (>60 ml/min/1.73 sqM) Glucose 147 H (74-99) mg/dL Plasma Lactic Acid Gregor (0.7-2.0) mmol/L Calcium 8.3 L (8.4-10.2) mg/dL Magnesium 1.8 (1.6-2.3) mg/dL Total Bilirubin 0.5 (0.2-1.3) mg/dL AST 42 H (14-36) U/L ALT 27 (4-34) U/L Alkaline Phosphatase 105 (38-126) U/L Lactate Dehydrogenase 721 H (313-618) U/L Troponin I (0.000-0.034) ng/mL C-Reactive Protein 234.7 H (<10.0) mg/L Total Protein 5.8 L (6.3-8.2) g/dL Albumin 2.9 L (3.5-5.0) g/dL Coronavirus (PCR) (Not Detectd) 09/25/20 09/25/20 09/25/20 Range/Units 10:54 10:54 10:54 WBC (3.8-10.6) k/uL RBC (3.80-5.40) m/uL Hgb (11.4-16.0) gm/dL Hct (34.0-46.0) % MCV (80.0-100.0) fL MCH (25.0-35.0) pg MCHC (31.0-37.0) g/dL RDW (11.5-15.5) % Plt Count (150-450) k/uL MPV Neutrophils % % Lymphocytes % % Monocytes % % Eosinophils % % Basophils % % Neutrophils # (1.3-7.7) k/uL Lymphocytes # (1.0-4.8) k/uL Monocytes # (0-1.0) k/uL Eosinophils # (0-0.7) k/uL Basophils # (0-0.2) k/uL PT (9.0-12.0) sec INR (<1.2) APTT (22.0-30.0) sec D-Dimer (<0.60) mg/L FEU Sodium (137-145) mmol/L Potassium (3.5-5.1) mmol/L Chloride (98-107) mmol/L Carbon Dioxide (22-30) mmol/L Anion Gap mmol/L BUN (7-17) mg/dL Creatinine (0.52-1.04) mg/dL Est GFR (CKD-EPI)AfAm (>60 ml/min/1.73 sqM) Est GFR (CKD-EPI)NonAf (>60 ml/min/1.73 sqM) Glucose (74-99) mg/dL Plasma Lactic Acid Gregor 0.8 (0.7-2.0) mmol/L Calcium (8.4-10.2) mg/dL Magnesium (1.6-2.3) mg/dL Total Bilirubin (0.2-1.3) mg/dL AST (14-36) U/L ALT (4-34) U/L Alkaline Phosphatase (38-126) U/L Lactate Dehydrogenase (313-618) U/L Troponin I 0.031 (0.000-0.034) ng/mL C-Reactive Protein (<10.0) mg/L Total Protein (6.3-8.2) g/dL Albumin (3.5-5.0) g/dL Coronavirus (PCR) Detected A (Not Detectd) Critical Care Time Critical Care Time: Yes Total Critical Care Time: 35 Disposition Clinical Impression: Pneumonia due to COVID-19 virus, Bacterial pneumonia, Hyponatremia Disposition: ADMITTED IP TO THIS HOSP Referrals: Josh Anaya MD [Primary Care Provider] - 1-2 days Time of Disposition: 12:06
[2020-09-25 11:19] LABS: Basophils % (A) 0 %; Eosinophils # (A) 0.1 k/uL (0-0.7); Eosinophils % (A) 1 %; HCT 30.9 % (34.0-46.0); HGB 10.1 gm/dL (11.4-16.0); Lymphocytes # (A) 0.4 k/uL (1.0-4.8); Lymphocytes % (A) 3 %; MCH 28.1 pg (25.0-35.0); MCHC 32.8 g/dL (31.0-37.0); MCV 85.8 fL (80.0-100.0); Mean Platelet Volume 7.6; Monocytes # (A) 0.4 k/uL (0-1.0); Monocytes % (A) 4 %; Neutrophils # (A) 10.9 k/uL (1.3-7.7); Neutrophils % (A) 91 %; Platelet Count 305 k/uL (150-450); WBC 11.9 k/uL (3.8-10.6)
[2020-09-25 11:20] LABS: Albumin 2.9 g/dL (3.5-5.0); Calcium 8.3 mg/dL (8.4-10.2); Magnesium 1.8 mg/dL (1.6-2.3); Potassium 5.3 mmol/L (3.5-5.1); Total Bilirubin 0.5 mg/dL (0.2-1.3); Total Protein 5.8 g/dL (6.3-8.2)
[2020-09-25 11:22] LABS: Partial Thromboplastin Time 25.3 sec (22.0-30.0); Prothrombin Time 10.3 sec (9.0-12.0)
--- NOTE | 2020-09-25 11:22 | XR ---
EXAMINATION TYPE: XR chest 1V portable DATE OF EXAM: 09/25/2020 COMPARISON: NONE HISTORY: Shortness of breath TECHNIQUE: Single frontal view of the chest is obtained. FINDINGS: Bilateral airspace disease noted. Configuration of the right is somewhat masslike. Mild pr ominence of the right hilum could reflect underlying adenopathy. Heart size stable. No sizable pleura l effusion on the right. Diffuse interstitial pattern. No pneumothorax. Arthropathy shoulders. IMPRESSION: 1. Left upper and lower lobe pneumonia suspected. 2. Masslike area of consolidation right perihilar region could represent localized pneumonia. Follow to resolution to exclude underlying mass.
[2020-09-25 11:34] LABS: C Reactive Protein 234.7 mg/L (<10.0); D-Dimer 1.6 mg/L FEU (<0.60)
[2020-09-25] MEDS ORDERED: PNEUMONIA PROTOCOL UTILIZED 1 EACH MISC PO PRN (12:07)
[2020-09-25] MEDS ORDERED: LEVOFLOXACIN 750MG-D5W PMX 750 MG in DEXTROSE/WATER 1 150ML.BAG IVPB STA (12:07)
[2020-09-25] MEDS ORDERED: PIPERACILLIN-TAZOBACTAM 3.375 GM in SODIUM CHLORIDE 0.9% 100 ML IVPB STA (12:07)
[2020-09-25] MEDS ORDERED: dexAMETHasone 2 MG TAB PO STA (12:07)
[2020-09-25] MEDS ORDERED: LEVOFLOXACIN 750MG-D5W PMX 750 MG in DEXTROSE/WATER 1 150ML.BAG IVPB SCH (12:15)
[2020-09-25] MEDS: SODIUM CHLORIDE 0.9% 1,000 ML IV SCH (12:30)
[2020-09-25] MEDS ORDERED: NON FORMULARY DRUG (Lactase [Lactaid] 3,000 UNIT Tablet) PO PRN (14:19)
[2020-09-25] MEDS ORDERED: SODIUM CHLORIDE 0.65% NASAL SPRAY 44 ML BTL NASAL PRN (14:19)
[2020-09-25] MEDS ORDERED: LORATADINE 10 MG TAB PO PRN (14:19)
[2020-09-25] MEDS ORDERED: HYDROcodone/APAP 5-325MG 1 EACH TAB PO PRN (14:19)
[2020-09-25] MEDS ORDERED: LOPERAMIDE 2 MG CAP PO PRN (14:19)
[2020-09-25] MEDS ORDERED: ONDANSETRON 4 MG TAB PO PRN (14:19)
[2020-09-25] MEDS ORDERED: ALPRAZolam 0.25 MG TAB PO PRN (14:19)
[2020-09-25] MEDS ORDERED: guaiFENesin SYRUP 100MG/5ML 200 MG/10 ML CUP PO PRN (14:19)
[2020-09-25] MEDS ORDERED: MAGNESIUM HYDROXIDE 2,400 MG/10 ML CUP PO PRN (14:19)
[2020-09-25] MEDS ORDERED: ACETAMINOPHEN TAB 325 MG TAB PO PRN (14:19)
[2020-09-25] MEDS: ALBUTEROL HFA INHALER INHALATION SCH ×2 (16:13→19:57)
[2020-09-25 16:28] LABS: Ferritin 386.6 ng/mL (10.0-291.0)
[2020-09-25 17:19] LABS: Glucose,Whole Blood 259 mg/dL (75-99)
[2020-09-25] MEDS: metFORMIN 500 MG TAB PO SCH (17:51)
[2020-09-25] MEDS: INSULIN ASPART (NovoLOG) 100 UNIT/ML VIAL SQ SCH ×2 (17:51→21:18)
[2020-09-25] MEDS: FERROUS SULFATE 325 MG TAB PO SCH (17:51)
[2020-09-25] MEDS: LACTOBACILLUS ACIDOPH & BULGAR 1 EACH PACKET PO SCH (17:51)
[2020-09-25 20:11] LABS: Glucose,Whole Blood 261 mg/dL (75-99)
[2020-09-25] MEDS: ALPRAZolam 0.25 MG TAB PO SCH (21:17)
[2020-09-25] MEDS: HYDROcodone/APAP 5-325MG 1 EACH TAB PO SCH (21:17)
[2020-09-25] MEDS: MELATONIN 5 MG TABLET PO SCH (21:18)
[2020-09-25] MEDS: PIPERACILLIN-TAZOBACTAM 3.375 GM in SODIUM CHLORIDE 0.9% 100 ML IVPB SCH (21:18)
[2020-09-25] MEDS: INSULIN DETEMIR (LEVEMIR) 100 UNIT/ML SYR SQ SCH (21:19)
[2020-09-26] MEDS: FUROSEMIDE 40 MG TAB PO SCH (06:16)
[2020-09-26] MEDS: SODIUM CHLORIDE 0.9% 1,000 ML IV SCH ×2 (06:17→12:40)
[2020-09-26 07:20] LABS: Glucose,Whole Blood 178 mg/dL (75-99)
[2020-09-26] MEDS: ALBUTEROL HFA INHALER INHALATION SCH ×4 (07:57→20:48)
[2020-09-26] MEDS: INSULIN ASPART (NovoLOG) 100 UNIT/ML VIAL SQ SCH ×4 (08:23→21:47)
[2020-09-26] MEDS: ENOXAPARIN 30 MG/0.3 ML SYRINGE SQ SCH (08:23)
[2020-09-26] MEDS: ZINC SULFATE 220 MG CAP PO SCH (08:23)
[2020-09-26] MEDS: ASCORBIC ACID 500 MG TAB PO SCH (08:23)
[2020-09-26] MEDS: FAMOTIDINE 20 MG TAB PO SCH (08:23)
[2020-09-26] MEDS: PIPERACILLIN-TAZOBACTAM 3.375 GM in SODIUM CHLORIDE 0.9% 100 ML IVPB SCH ×2 (08:24→21:48)
[2020-09-26] MEDS: FERROUS SULFATE 325 MG TAB PO SCH ×2 (08:24→16:10)
[2020-09-26] MEDS: dexAMETHasone 2 MG TAB PO SCH (08:24)
[2020-09-26] MEDS: metFORMIN 500 MG TAB PO SCH (08:24)
[2020-09-26] MEDS: lisinopriL 20 MG TAB PO SCH (08:24)
--- NOTE | 2020-09-26 08:29 | XR ---
EXAMINATION TYPE: XR chest 1V portable DATE OF EXAM: 09/26/2020 COMPARISON: Prior chest x-ray 09/25/2020 HISTORY: Pneumonia TECHNIQUE: Single frontal view of the chest is obtained. FINDINGS: Bilateral airspace disease persists. Exam is somewhat underpenetrated and rotated, apical lordotic technique. No evident pneumothorax or pleural effusion. Heart size likely stable accounting for technique. Aorta is dense. IMPRESSION: Correlate for pneumonia, edema. Follow-up is recommended.
[2020-09-26 11:39] LABS: Glucose,Whole Blood 287 mg/dL (75-99)
[2020-09-26 12:13] LABS: African American GFR (CKD) 23 (>60 ml/min/1.73 sqM); Anion Gap 8 mmol/L; Blood Urea Nitrogen 32 mg/dL (7-17); Calcium 8.6 mg/dL (8.4-10.2); Carbon Dioxide 25 mmol/L (22-30); Chloride 90 mmol/L (98-107); Glucose 237 mg/dL (74-99); Non-African American GFR(CKD) 20 (>60 ml/min/1.73 sqM); Potassium 5.2 mmol/L (3.5-5.1); Sodium 123 mmol/L (137-145)
--- NOTE | 2020-09-26 15:44 | CONS ---
CONSULTATION PULMONARY/CRITICAL CARE CONSULTATION: DATE OF CONSULTATION: September 26, 2020 This is an 85-year-old female who apparently resides at [facility]. She came into the emergency department on September 25 to be evaluated for shortness of breath. She apparently tested positive at the assisted. She has not been feeling well for at least 14 days now. She states that at the assisted, over the last 3 days, more so than the prior 11 or 12 days, she has been having increasing weakness, poor appetite, and shortness of breath. She also has chest congestion with a cough. She states initially for the first 9 or 10 days, she only had very mild symptoms. She was hoping to be able to get through it without coming to the hospital. Again, over the last 3 days, because of increasing shortness of breath, weakness and decreased appetite, she came in to be evaluated. Apparently her saturations when first checked were in the 80s. She was placed on O2. Her saturations improved. In fact, she states that today's meal was the first meal she has had in about 3 or 4 days and she is just feeling a lot better than she did before she came into the hospital. Currently denies any fever or chills. She denies any chest pain or chest discomfort. She is not having any nausea, vomiting, diarrhea, or abdominal pain. Denies any genitourinary complaints. She actually looks relatively comfortable today. HOME MEDICATIONS: Current home medications include vitamin C, Lipitor, vitamin D3, cinnamon, iron, insulin, multivitamins, lisinopril, metformin, famotidine, [place], probiotics, Imodium, Claritin, melatonin, saline nasal rinse, Dulcolax, Xanax, Tylenol, Ventolin inhaler, vitamin C, Refresh tears, vitamin D3, Lovenox, Lasix, [place], insulin, lactase, Levaquin, milk of magnesia, Zofran, coenzyme Q, zinc, and guaifenesin. ALLERGIES: Allergies are denied. MEDICAL HISTORY: Medical history includes hyperlipidemia, diabetes mellitus, obesity, hypertension, seasonal allergies, insomnia, and anxiety. SURGICAL HISTORY: Surgical history includes hysterectomy. SOCIAL HISTORY: Negative for tobacco use. She denies any alcohol use or illicit drug use. FAMILY HISTORY: Positive for father with cancer and a mother with diabetes mellitus. REVIEW OF SYSTEMS: CONSTITUTIONAL: Weakness, poor appetite. NEUROLOGIC: Negative. HEENT: Negative. CARDIOVASCULAR: Negative. PULMONARY: Shortness of breath, chest congestion, cough. GI: Negative. : Negative. RHEUMATOLOGIC: Negative. IMMUNOLOGIC: Negative. ENDOCRINOLOGIC: Negative. DERMATOLOGIC: Negative. PHYSICAL EXAMINATION: VITAL SIGNS: Current vital signs are reviewed temperature is 97.5 heart rate 68, respiratory rate 20, blood pressure 155/75, mean 101. Saturations on 3 L are 92% to 93%. GENERAL: Appears in no acute distress. Certainly no respiratory distress. HEENT: Examination is grossly unremarkable. Nasal O2 noted. NECK: Supple. Full range of motion. No adenopathy. Neck veins are flat. CARDIOVASCULAR: Examination reveals regular rhythm and rate. Heart rate 68 beats per minute. S1, S2 normal. No murmur noted. LUNGS: Reveal mostly clear breath sounds. A few scattered mild crackles. No rhonchi or wheezes. Breath sounds equal. ABDOMEN: Obese. Bowel sounds are heard. EXTREMITIES: Are intact. No cyanosis, clubbing, or edema. SKIN: Without rash. NEUROLOGIC: Examination is nonfocal. LABS: Labs are reviewed. White count 11.9, hemoglobin 10.1, hematocrit 30.9, platelet count normal. PT, INR, PTT normal. D-dimer 1.6. Sodium 123, potassium 5.2, chloride 90, CO2 is 25. Anion gap is 8. BUN and creatinine were 32 and 2.26. The rest of the comprehensive metabolic profile is not too bad. Procalcitonin 0.5. C-reactive protein 235, LDH 721. AST 42. Ferritin 387. COVID testing on the was positive. Microbiology is currently pending or negative. A chest x-ray is done. It shows some patchy infiltrates in the left upper and left lower lung ramos. In addition, there is a masslike area of consolidation in the right perihilar region. This could be a pneumonia and/or true mass. Chest x-ray in my opinion basically just shows patchy bilateral infiltrates consistent with COVID-19 pneumonia. A repeat chest x-ray was done today and again shows bilateral patchy airspace disease. CURRENT MEDICATIONS: Current medications are reviewed. The patient is on Tylenol, albuterol inhaler, Xanax, vitamin C, Decadron, Lovenox, famotidine, iron, Lasix, guaifenesin syrup, [place], insulin, lactobacillus probiotic, Levaquin, Zestril, Imodium, loratadine, magnesium replacement, melatonin, metformin, Zofran, Zosyn, and zinc sulfate. ASSESSMENT: 1. COVID-19 pneumonia/pneumonitis, with moderate hypoxemic respiratory failure. The patient is outside the remdesivir window. 2. History of hyperlipidemia. 3. History of diabetes mellitus. 4. Hypertension. 5. Multiple other medical problems and comorbidities. PLAN: Currently, the patient is on appropriate medications. She should stay on Decadron for a full 10 days, continue with vitamin C, vitamin D3, and zinc. She is outside the Remdesivir window. She is not severe enough to get convalescent plasma. We will continue to follow. Prognosis is guarded. MMODL / IJN: [id number] /
--- NOTE | 2020-09-26 15:53 | CONS ---
CONSULTATION REASON FOR CONSULT: Hyponatremia. HISTORY OF PRESENT ILLNESS: Patient is an 85-year-old female who was admitted to the hospital with complaints of weakness, shortness of breath and patient was found to be positive for COVID infection. O2 sats were low with O2 sats in the 80s prior to admission in the EMS. No previous history of hyponatremia. Patient admitted to decreased oral intake over the past few days prior to admission. There is no history of nausea or vomiting. No new medications started recently. The patient is maintained on Lasix at home prior to admission. Serum sodium was 119 on admission. She is maintained on normal saline and it has increased to 123. Blood pressure is actually on the higher side with systolic around 170-180 mmHg. PAST MEDICAL HISTORY: Significant for hypertension, type 2 diabetes, dyslipidemia, vitamin D deficiency. PAST SURGICAL HISTORY: Hysterectomy. SOCIAL HISTORY: Negative for smoking, drug abuse or alcohol abuse. MEDICATIONS: Medications prior to admission included vitamin C, Lipitor, vitamin D, iron, insulin, Zestril, Glucophage, Pepcid, Claritin, Lovenox, Lasix, Levaquin, Zofran, zinc. ALLERGIES: None. REVIEW OF SYSTEMS: As per HPI. Other systems negative. PHYSICAL EXAMINATION: On examination, patient is comfortable, awake, not in any acute distress. Blood pressure 186/88, heart rate 81 per minute. She is afebrile. O2 sats 90% on 3 L nasal cannula. Examination shows 1+ edema bilateral lower extremities. Abdomen is soft, nontender, obese DISCOVERY GUIDE exam grossly intact. LABS: Labs show sodium of 123, potassium 5.2, chloride 90, BUN 32, creatinine 2.26. UA is not available. PCR for coronavirus detected. CBC shows hemoglobin 10.1, white cell count 11.9. Chest x-ray shows evidence of bilateral airspace disease. ASSESSMENT: 1. Hypovolemic hyponatremia currently improved with normal saline. I will hold off on the Lasix for now and continue with saline. Repeat sodium later this evening. Check random urine osmolality, check TSH level as well. 2. Hypertension, uncontrolled, most likely secondary to steroids. The patient is maintained on lisinopril. However, given the acute kidney injury, I will hold off on the EMMANUEL inhibitors if renal function is not further improved by tomorrow. In the meantime, I will add calcium channel blockers. 3. Acute kidney injury associated with underlying COVID-19 infection, maintained on IV fluids. Some improvement in renal function. Repeat labs in a.m. Continue to avoid any nephrotoxic agents. 4. Type 2 diabetes. Agree with discontinuation of Glucophage. Repeat labs in a.m. Monitor sugar as the patient is on steroids. PLAN: Add Norvasc. Continue with normal saline. Repeat sodium this evening. Check UA. Check random urine osmolality. Check TSH if not yet done and repeat labs in a.m. Thank you for this consultation. Will continue to follow the patient with you during her hospitalization. MMODL / IJN: [id number] /
--- NOTE | 2020-09-26 16:07 | P.HPIM ---
History of Present Illness H&P Date: 09/26/20 Chief Complaint: Shortness of breath HISTORY OF PRESENT ILLNESS This is an 85-year-old female patient of Dr. Anaya, resides at [facility] with past medical history of diabetes mellitus type 2, insulin requiring, hypertension, depression, gastroesophageal reflux disease, history of acute GI bleed secondary to Benny ulcers and hiatal hernia in 2018, and chronic kidney disease stage III, anemia of chronic disease with previous iron infusions, diabetic neuropathy, cellulitis bilateral lower extremities, large lipoma removed from the left flank 6 months ago. Patient is a long-term resident at [facility]. Patient was diagnosed with COVID-19 on September 14 and on September 15 received infusion of Bamlanivimab. She has been stable until the last 3 days she's developed fever and chills along with hypoxia. Oxygen was increased to 6 L and pulse ox was 90. Patient was transferred to [facility] emergency center for evaluation. She was found to be afebrile, heart rate 85, blood pressure 183/67, pulse ox 98% on oxygen. EKG was sinus rhythm with no acute ST changes. Chest x-ray was positive for pneumonia with area of consolidation consistent with bacterial pneumonia versus Covid. WBC 11.9, hemoglobin 10.1, platelet count 305. Sodium 119. Potassium 5.3, chloride 86, CO2 26, BUN 28 creatinine 2.32. Blood sugar 157. LDH 721. C-reactive protein 234.7. Lactic acid 0.8. Troponins are 0.031. Covid 19 was detected. [facility] and consult requested with primary medicine and nephrology. REVIEW OF SYSTEMS Constitutional: Reported fever, no chills, no night sweats. No weight change. Reported weakness, positive fatigue. No daytime sleepiness. EENT: No headache. No blurred vision or double vision, no loss of vision. No loss of Hearing, no ringing in the ears, no dizziness. No nasal drainage or congestion. No epistaxis. No sore throat. Lungs: Reports shortness of breath, cough, no sputum production. No wheezing. Reported hypoxia Cardiovascular: No chest pain, no lower extremity edema. No palpitations. No paroxysmal nocturnal dyspnea. No orthopnea. No lightheadedness or dizziness. No syncopal episodes. Abdominal: No abdominal pain. No nausea, vomiting. No diarrhea. No constipation. No bloody or tarry stools.. No loss of appetite. Genitourinary: No dysuria, increased frequency, urgency. No urinary retention. Musculoskeletal: No myalgias. No muscle weakness, no gait dysfunction, no frequent falls. No back pain. No neck pain. Integumentary: No wounds, no lesions. No rash or pruritus. No unusual bruising. No change in hair or nails. Neurologic: No aphasia. No facial droop. No change in mentation. No head injury. No headache. No paralysis. No paresthesia. Psychiatric: No depression. No anxiety. No mood swings. Endocrine: No abnormal blood sugars. No weight change. No excessive sweating or thirst. No cold intolerance. SOCIAL HISTORY Patient is a lifelong nonsmoker. No alcohol or illicit drug use, no marijuana use. Patient is FAMILY HISTORY Mother from old age and coronary artery disease. Father from old age and coronary artery disease. Patient's siblings with history of coronary artery disease. Patient has 4 children with no major medical problems. PHYSICAL EXAMINATION Gen: This is an 85-year-old morbidly obese female. She is resting in bed and appears to be comfortable at rest. No acute respiratory distress noted HEENT: Head is atraumatic, normocephalic. Pupils equal, round. Sclerae is anicteric. NECK: Supple. No JVD. No lymphadenopathy. No thyromegaly. LUNGS: Crackles on the right side group home up and to the base on the left. No wheezing. No intercostal retractions. HEART: Regular rate and rhythm. No murmur. ABDOMEN: Soft. Bowel sounds are present. No masses. No tenderness. EXTREMITIES: Mild bilateral pedal edema. No calf tenderness. NEUROLOGICAL: Patient is awake, alert and oriented x3. Cranial nerves 2 through 12 are grossly intact. ASSESSMENT AND PLAN 1. Acute on chronic hypoxic respiratory failure secondary to possible gram- negative pneumonia, recent treatment for Covid 19 pneumonia. Consult with pulmonary medicine. Continue oxygen therapy. Continue Zosyn, Levaquin, Robitussin, Ventolin inhaler 4 times daily, dexamethasone 6 mg oral daily, Lovenox 30 mg daily, vitamin C, zinc. 2. Recent treatment for Covid 19 pneumonia with Bamlanivimab at the group home. Continue as in #1. 3. Severe hyponatremia. Consult with nephrology. IV fluids at 75 mL per hour. Osmolality testing. 4. Gastroesophageal reflux disease and GI prophylaxis. Continue Pepcid. 5. Diabetes mellitus type 2, insulin requiring. Continue Levemir 40 units at bedtime, NovoLog scale. 6. Hypertension. Continue lisinopril 20 mg daily, amlodipine 5 mg daily. 7. Acute kidney injury. Consult with nephrology, continue IV fluids. 8. Chronic kidney disease stage III. 9. Anemia of chronic kidney disease. Continue ferrous sulfate twice daily 10. Diabetic neuropathy. 11. Generalized anxiety disorder. Continue Xanax or 0.25 mg daily as needed and scheduled at bedtime. 12. DVT prophylaxis. Lovenox. Patient will be admitted to the hospital for a minimum of 2 night stay. DISCHARGE PLAN Return to [facility]. Impression and plan of care have been directed as dictated by the signing physician. Suad Ghotra nurse practitioner acting as scribe for signing physician. Past Medical History Past Medical History: Diabetes Mellitus History of Any Multi-Drug Resistant Organisms: None Reported Past Surgical History: Hysterectomy Additional Past Surgical History / Comment(s): L hip surgery, right ORIF 2 years ago, lipoma left flank removal Past Psychological History: No Psychological Hx Reported Smoking Status: Never smoker Past Alcohol Use History: None Reported Past Drug Use History: None Reported - Past Family History Father Family Medical History: Cancer Mother Family Medical History: Diabetes Mellitus Medications and Allergies Home Medications Medication Instructions Recorded Confirmed Type Ascorbic Acid [Vitamin C] 500 mg PO DAILY@0800 05/12/17 09/25/20 History Atorvastatin [Lipitor] 40 mg PO HS@2100 05/12/17 09/25/20 History Cholecalciferol [Vitamin D3 (25 2,000 unit PO DAILY@0800 05/12/17 09/25/20 History Mcg = 1000 Iu)] Cinnamon Bark [Cinnamon] 500 mg PO BID@0800,1700 05/12/17 09/25/20 History Ferrous Sulfate [Iron (65 MG 325 mg PO BID@0800,1700 05/12/17 09/25/20 History Elemental)] INSULIN ASPART (NovoLOG) [NovoLOG 8 unit SQ AC-LUNCH@1200 05/12/17 09/25/20 History (formulary)] INSULIN ASPART (NovoLOG) [NovoLOG 12 unit SQ AC-BRKFST@0800 05/12/17 09/25/20 History (formulary)] INSULIN ASPART (NovoLOG) [NovoLOG 18 unit SQ AC-SUPPER@1700 05/12/17 09/25/20 History (formulary)] Multivitamins, Thera [Multivitamin 1 tab PO DAILY@0800 05/12/17 09/25/20 History (formulary)] lisinopriL [Zestril] 20 mg PO DAILY@0800 05/12/17 09/25/20 History metFORMIN HCL [Glucophage] 500 mg PO BID@0800,1700 05/12/17 09/25/20 History Famotidine [Pepcid] 20 mg PO DAILY@0800 11/20/17 09/25/20 History HYDROcodone/APAP 5-325MG [Mcqueeney 1 tab PO HS@209911/20/17 09/25/20 History 5-325] L.acidoph,Paracasei, B.lactis 1 cap PO DAILY@169911/20/17 09/25/20 History [Probiotic] Loperamide [Imodium] 2 mg PO QID PRN 11/20/17 09/25/20 History Loratadine [Claritin] 10 mg PO DAILY PRN 11/20/17 09/25/20 History Melatonin 5 mg PO HS@209911/20/17 09/25/20 History Na Phos,M-B/Na Phos,Di-Ba [Fleet 133 ml RECTAL DAILY PRN 11/20/17 09/25/20 History Adult] Sodium Chloride [Saline Nasal 1 spray EA NOSTRIL TID PRN 11/20/17 09/25/20 History Long Eddy] bisacodyL [Dulcolax] 10 mg RECTAL DAILY PRN 11/20/17 09/25/20 History ALPRAZolam [Xanax] 0.25 mg PO DAILY PRN 09/25/20 09/25/20 History ALPRAZolam [Xanax] 0.25 mg PO HS@209909/25/20 09/25/20 History Acetaminophen [Tylenol] 650 mg PO Q4H PRN 09/25/20 09/25/20 History Albuterol Inhaler [Ventolin Hfa 2 puff INHALATION RT-QID 09/25/20 09/25/20 History Inhaler] Ascorbic Acid [Vitamin C] 1,000 mg PO DAILY@0800 09/25/20 09/25/20 History Carboxymethylcellulose Sodium 1 drop BOTH EYES QID PRN 09/25/20 09/25/20 History [Refresh Tears] Cholecalciferol [Vitamin D3 (25 1,000 unit PO DAILY@0800 09/25/20 09/25/20 His tory Mcg = 1000 Iu)] Enoxaparin [Lovenox] 40 mg SQ DAILY@0809/25/20 09/25/20 History Furosemide [Lasix] 40 mg PO DAILY@0600 09/25/20 09/25/20 History HYDROcodone/APAP 5-325MG [Mcqueeney 1 tab PO Q6HR PRN 09/25/20 09/25/20 History 5-325] Insulin Degludec [Tresiba] 40 units SQ DAILY@2130 09/25/20 09/25/20 History Lactase [Lactaid] 3,000 unit PO DAILY PRN 09/25/20 09/25/20 History Levofloxacin [Levaquin] 250 mg PO DAILY@17009/25/20 09/25/20 History Magnesium Hydroxide [Milk of 7,200 mg PO DAILY PRN 09/25/20 09/25/20 History Magnesia Concentrate] Ondansetron [Zofran] 4 mg PO Q8HR PRN 09/25/20 09/25/20 History Ubidecarenone [Co Q-10] 100 mg PO DAILY@1700 09/25/20 09/25/20 History Zinc Sulfate 220 mg PO DAILY@0809/25/20 09/25/20 History guaiFENesin [guaiFENesin Oral 200 mg PO Q6H PRN 09/25/20 09/25/20 History Solution] Allergies Allergy/AdvReac Type Severity Reaction Status Date / Time No Known Allergies Allergy Verified 09/25/20 10:30 Physical Exam Vitals: Vital Signs Temp Pulse Pulse Resp BP BP Pulse Ox 09/26/20 05:00 97.5 F L 68 20 155/75 92 L 09/25/20 20:15 97.8 F 85 20 172/75 92 L 09/25/20 17:29 98.4 F 81 17 160/79 90 L 09/25/20 16:16 92 L 01/10/21 13:02 98.9 F 81 18 133/68 96 09/25/20 12:30 79 20 186/88 96 09/25/20 12:00 84 18 177/79 96 09/25/20 11:30 80 22 181/82 96 09/25/20 11:00 83 20 181/82 97 09/25/20 10:27 99.5 F 85 20 183/67 98 Intake and Output 09/25/20 09/26/20 09/26/20 22:59 06:59 14:59 Other: Voiding Method Bedside Commode # Voids 5 1 Results CBC & Chem 7: 09/25/20 10:54 09/26/20 11:01 Labs: Abnormal Lab Results - Last 24 Hours (Table) 09/25/20 09/25/20 09/25/20 Range/Units 10:54 10:54 10:54 WBC 11.9 H (3.8-10.6) k/uL RBC 3.60 L (3.80-5.40) m/uL Hgb 10.1 L (11.4-16.0) gm/dL Hct 30.9 L (34.0-46.0) % Neutrophils # 10.9 H (1.3-7.7) k/uL Lymphocytes # 0.4 L (1.0-4.8) k/uL D-Dimer 1.60 H (<0.60) mg/L FEU Sodium 119 L* (137-145) mmol/L Potassium 5.3 H (3.5-5.1) mmol/L Chloride 86 L (98-107) mmol/L BUN 28 H (7-17) mg/dL Creatinine 2.32 H (0.52-1.04) mg/dL Glucose 147 H (74-99) mg/dL POC Glucose (mg/dL) (75-99) mg/dL Calcium 8.3 L (8.4-10.2) mg/dL Ferritin 386.6 H (10.0-291.0) ng/mL AST 42 H (14-36) U/L Lactate Dehydrogenase 721 H (313-618) U/L C-Reactive Protein 234.7 H (<10.0) mg/L Total Protein 5.8 L (6.3-8.2) g/dL Albumin 2.9 L (3.5-5.0) g/dL Procalcitonin (0.02-0.09) ng/mL Coronavirus (PCR) (Not Detectd) 09/25/20 09/25/20 09/25/20 Range/Units 10:54 10:54 17:17 WBC (3.8-10.6) k/uL RBC (3.80-5.40) m/uL Hgb (11.4-16.0) gm/dL Hct (34.0-46.0) % Neutrophils # (1.3-7.7) k/uL Lymphocytes # (1.0-4.8) k/uL D-Dimer (<0.60) mg/L FEU Sodium (137-145) mmol/L Potassium (3.5-5.1) mmol/L Chloride (98-107) mmol/L BUN (7-17) mg/dL Creatinine (0.52-1.04) mg/dL Glucose (74-99) mg/dL POC Glucose (mg/dL) 259 H (75-99) mg/dL Calcium (8.4-10.2) mg/dL Ferritin (10.0-291.0) ng/mL AST (14-36) U/L Lactate Dehydrogenase (313-618) U/L C-Reactive Protein (<10.0) mg/L Total Protein (6.3-8.2) g/dL Albumin (3.5-5.0) g/dL Procalcitonin 0.50 H (0.02-0.09) ng/mL Coronavirus (PCR) Detected A (Not Detectd) 09/25/20 09/26/20 Range/Units 20:10 07:18 WBC (3.8-10.6) k/uL RBC (3.80-5.40) m/uL Hgb (11.4-16.0) gm/dL Hct (34.0-46.0) % Neutrophils # (1.3-7.7) k/uL Lymphocytes # (1.0-4.8) k/uL D-Dimer (<0.60) mg/L FEU Sodium (137-145) mmol/L Potassium (3.5-5.1) mmol/L Chloride (98-107) mmol/L BUN (7-17) mg/dL Creatinine (0.52-1.04) mg/dL Glucose (74-99) mg/dL POC Glucose (mg/dL) 261 H 178 H (75-99) mg/dL Calcium (8.4-10.2) mg/dL Ferritin (10.0-291.0) ng/mL AST (14-36) U/L Lactate Dehydrogenase (313-618) U/L C-Reactive Protein (<10.0) mg/L Total Protein (6.3-8.2) g/dL Albumin (3.5-5.0) g/dL Procalcitonin (0.02-0.09) ng/mL Coronavirus (PCR) (Not Detectd) Thrombosis Risk Factor Assmnt - Choose All That Apply Any of the Below Risk Factors Present?: Yes Each Factor Represents 1 point: Obesity (BMI >25), Serious lung disease incl. pneumonia (< 1month) Other Risk Factors: Yes Each Risk Factor Represents 3 Points: Age 75 years or older Other congenital or acquired thrombophilia - If yes, enter type in comment: No Thrombosis Risk Factor Assessment Total Risk Factor Score: 5 Thrombosis Risk Factor Assessment Level: High Risk
[2020-09-26] MEDS: amLODIPine 5 MG TAB PO SCH (16:10)
[2020-09-26] MEDS: LACTOBACILLUS ACIDOPH & BULGAR 1 EACH PACKET PO SCH (16:16)
[2020-09-26 16:52] LABS: Glucose,Whole Blood 316 mg/dL (75-99)
[2020-09-26 18:16] LABS: Appearance,Urine Clear (Clear); Bacteria,Urine Rare /hpf; Bilirubin,Urine Negative (Negative); Blood,Urine Negative (Negative); Color,Urine Light Yellow; Glucose,Urine (UA) Negative (Negative); Ketones,Urine Negative (Negative); Leukocyte Esterase,Urine Trace (Negative); Mucus,Urine Rare /hpf; Nitrite,Urine Negative (Negative); Protein,Urine Negative (Negative); RBC,Urine <1 /hpf (0-5); Specific Gravity,Urine 1.008 (1.001-1.035); Squamous Epithelial Cell,Urine 1 /hpf (0-4); Urobilinogen,Urine <2.0 mg/dL (<2.0); WBC,Urine 2 /hpf (0-5)
[2020-09-26 21:38] LABS: Glucose,Whole Blood 344 mg/dL (75-99)
[2020-09-26] MEDS: MELATONIN 5 MG TABLET PO SCH (21:47)
[2020-09-26] MEDS: INSULIN DETEMIR (LEVEMIR) 100 UNIT/ML SYR SQ SCH (21:47)
[2020-09-26] MEDS: HYDROcodone/APAP 5-325MG 1 EACH TAB PO SCH (21:48)
[2020-09-26] MEDS: ALPRAZolam 0.25 MG TAB PO SCH (21:49)
[2020-09-27] MEDS: SODIUM CHLORIDE 0.9% 1,000 ML IV SCH ×2 (06:07→17:49)
[2020-09-27] MEDS: FUROSEMIDE 40 MG TAB PO SCH (06:07)
[2020-09-27 07:35] LABS: Glucose,Whole Blood 150 mg/dL (75-99)
[2020-09-27] MEDS: ALBUTEROL HFA INHALER INHALATION SCH ×4 (08:01→19:55)
[2020-09-27] MEDS: INSULIN ASPART (NovoLOG) 100 UNIT/ML VIAL SQ SCH ×4 (08:13→21:04)
[2020-09-27] MEDS: LEVOFLOXACIN 500MG-D5W PMX 500 MG in DEXTROSE/WATER 1 100ML.BAG IVPB SCH (08:14)
[2020-09-27] MEDS: ENOXAPARIN 30 MG/0.3 ML SYRINGE SQ SCH (08:14)
[2020-09-27] MEDS: ASCORBIC ACID 500 MG TAB PO SCH (08:15)
[2020-09-27] MEDS: FERROUS SULFATE 325 MG TAB PO SCH ×2 (08:15→17:45)
[2020-09-27] MEDS: lisinopriL 20 MG TAB PO SCH (08:15)
[2020-09-27] MEDS: FAMOTIDINE 20 MG TAB PO SCH (08:15)
[2020-09-27] MEDS: dexAMETHasone 2 MG TAB PO SCH (08:15)
[2020-09-27] MEDS: ZINC SULFATE 220 MG CAP PO SCH (08:15)
[2020-09-27] MEDS: amLODIPine 5 MG TAB PO SCH (08:15)
[2020-09-27] MEDS: PIPERACILLIN-TAZOBACTAM 3.375 GM in SODIUM CHLORIDE 0.9% 100 ML IVPB SCH ×2 (09:12→21:04)
[2020-09-27 11:43] LABS: Glucose,Whole Blood 299 mg/dL (75-99)
--- NOTE | 2020-09-27 14:23 | P.PN ---
Subjective Progress Note Date: 09/27/20 Principal diagnosis: Shortness of breath and cough 85-year-old female who resides at [facility]. She came into the hospital on September 25 complaining of shortness of breath. She did test positive for COVID 19, and has not been feeling well for at least 14 days. She complains of chest congestion with cough, shortness of breath, weakness, and poor appetite. Currently, she sitting up in the chair. She is eating. She is on 3 L nasal cannula. She states that she feels better that she's felt in some time. She denies any chest pain or pressure. She denies any nausea, vomiting, diarrhea or abdominal pain. Her breathing is improved. She denies any cough today. She denies any fever or chills. All in all, feeling much improved. Objective - Vital Signs Vital signs: Vital Signs Temp 98.0 F 09/27/20 11:00 Pulse 55 L 09/27/20 11:00 Resp 16 09/27/20 11:00 BP 174/85 09/27/20 11:00 Pulse Ox 92 L 09/27/20 12:00 Intake & Output 09/26/20 09/27/20 09/27/20 18:59 06:59 18:59 Intake Total 900 900 Balance 900 900 Intake: Intake, IV Titration 900 900 Amount Sodium Chloride 0.9% 1, 900 900 000 ml @ 75 mls/hr IV . [id number] [facility] Rx#:[id number] Other: Voiding Method Bedside Commode Bedside Commode # Voids 1 2 2 - Exam No acute distress, oriented 3. Nasal O2 at [address] HEENT examination is grossly unremarkable. Mucous membranes are moist. No oral lesions. Neck supple. Full range of motion. No adenopathy thyromegaly or neck vein distention. Cardiovascular examination reveals regular rhythm rate. S1-S2 normal. No S3 or S4. No discernible murmur noted. Heart sounds are distant. Lungs reveal mostly clear breath sounds. A few scattered rhonchi. No wheezes or crackles. Breath sounds equal bilaterally. Adventitious lung sounds are bit more prominent on forced maneuver. Abdomen soft bowel sounds are heard. No masses or tenderness. Extremities are intact. No cyanosis clubbing or edema. Skin is without rash or lesion. Neurologic examination is brief but nonfocal. - Labs CBC & Chem 7: 09/25/20 10:54 09/26/20 18:48 Labs: Abnormal Lab Results - Last 24 Hours (Table) 09/26/20 09/26/20 09/26/20 Range/Units 16:50 17:00 18:48 Sodium 126 L (135-145) mmol/L POC Glucose (mg/dL) 316 H (75-99) mg/dL Ur Leukocyte Esterase Trace H (Negative) Urine Bacteria Rare H (None) /hpf Urine Mucus Rare H (None) /hpf 09/26/20 09/27/20 09/27/20 Range/Units 21:29 07:32 11:41 Sodium (135-145) mmol/L POC Glucose (mg/dL) 344 H 150 H 299 H (75-99) mg/dL Ur Leukocyte Esterase (Negative) Urine Bacteria (None) /hpf Urine Mucus (None) /hpf Microbiology - Last 24 Hours (Table) 09/25/20 11:21 Blood Culture - Preliminary Blood No Growth after 48 hours 09/26/20 23:01 Sputum Culture - Preliminary Sputum 09/25/20 12:45 Blood Culture - Preliminary Blood No Growth after 24 hours Assessment and Plan Assessment: COVID 19 pneumonia/pneumonitis, with mild to moderate hypoxemic respiratory failure. The patient is outside the remdesivir window. History of essential hypertension. History of diabetes mellitus. History of hyperlipidemia. Obesity. History of seasonal ALLERGIES. History of chronic insomnia. History of chronic anxiety. Plan: Plan dated 09/27/2020. Currently, the patient feels much improved. The patient should stay on Decadron, 6 mg a day for 10 days. She should continue the vitamin C, vitamin D3, and zinc. She is not severe enough to get convalescent plasma. She is beyond the window for the antiviral agent. Prognosis is guarded. We will continue to follow. No additional recommendations are made at this time. Time with Patient: Less than 30
--- NOTE | 2020-09-27 14:27 | P.PN ---
Subjective Progress Note Date: 09/27/20 HISTORY OF PRESENT ILLNESS This is an 85-year-old female patient of Dr. Anaya, resides at [facility] with past medical history of diabetes mellitus type 2, insulin requiring, hypertension, depression, gastroesophageal reflux disease, history of acute GI bleed secondary to Benny ulcers and hiatal hernia in 2018, and chronic kidney disease stage III, anemia of chronic disease with previous iron infusions, diabetic neuropathy, cellulitis bilateral lower extremities, large lipoma removed from the left flank 6 months ago. Patient is a long-term resident at [facility]. Patient was diagnosed with COVID-19 on September 14 and on September 15 received infusion of Bamlanivimab. She has been stable until the last 3 days she's developed fever and chills along with hypoxia. Oxygen was increased to 6 L and pulse ox was 90. Patient was transferred to [facility] emergency center for evaluation. She was found to be afebrile, heart rate 85, blood pressure 183/67, pulse ox 98% on oxygen. EKG was sinus rhythm with no acute ST changes. Chest x-ray was positive for pneumonia with area of consolidation consistent with bacterial pneumonia versus Covid. WBC 11.9, hemoglobin 10.1, platelet count 305. Sodium 119. Potassium 5.3, chloride 86, CO2 26, BUN 28 creatinine 2.32. Blood sugar 157. LDH 721. C-reactive protein 234.7. Lactic acid 0.8. Troponins are 0.031. Covid 19 was detected. [facility] and consult requested with primary medicine and nephrology. 09/27: Patient states that she is feeling better today. She denies having any difficulty in breathing. She states she has been eating very well and her appetite is good. She denies having any fever. No diarrhea. No headache. She has been afebrile, heart rate 87, blood pressure 171/68, pulse ox 92% on 3 L nasal cannula. Blood sugar 150-344. Patient has been seen by nephrology for hypovolemic hyponatremia, hypertension, acute kidney injury secondary to Covid. Norvasc was added for blood pressure control. Patient is continued on normal saline. Last evening sodium 126. Repeat BMP ordered. Labs on for tomorrow. Patient has been seen by pulmonary medicine with recommendations to continue Decadron for 10 days, vitamin C, vitamin D3, zinc. No plan for convalescent plasma. REVIEW OF SYSTEMS Constitutional: Reported fever, no chills, no night sweats. No weight change. Reported weakness, positive fatigue. No daytime sleepiness. EENT: No headache. No blurred vision or double vision, no loss of vision. No loss of Hearing, no ringing in the ears, no dizziness. No nasal drainage or congestion. No epistaxis. No sore throat. Lungs: Denies shortness of breath, cough, no sputum production. No wheezing. Reported hypoxia Cardiovascular: No chest pain, no lower extremity edema. No palpitations. No paroxysmal nocturnal dyspnea. No orthopnea. No lightheadedness or dizziness. No syncopal episodes. Abdominal: No abdominal pain. No nausea, vomiting. No diarrhea. No constipation. No bloody or tarry stools. Denies loss of appetite. Genitourinary: No dysuria, increased frequency, urgency. No urinary retention. Musculoskeletal: No myalgias. No muscle weakness, no gait dysfunction, no frequent falls. No back pain. No neck pain. Integumentary: No wounds, no lesions. No rash or pruritus. No unusual bruising. No change in hair or nails. Neurologic: No aphasia. No facial droop. No change in mentation. No head injury. No headache. No paralysis. No paresthesia. Psychiatric: No depression. No anxiety. No mood swings. Endocrine: No abnormal blood sugars. No weight change. No excessive sweating or thirst. No cold intolerance. PHYSICAL EXAMINATION Gen: This is an 85-year-old morbidly obese female. She is Seen today sitting up in a chair. No acute respiratory distress noted HEENT: Head is atraumatic, normocephalic. Pupils equal, round. Sclerae is anic teric. NECK: Supple. No JVD. No lymphadenopathy. No thyromegaly. LUNGS: Crackles on the right side long term up and to the base on the left. No wheezing. No intercostal retractions. HEART: Regular rate and rhythm. No murmur. ABDOMEN: Soft. Bowel sounds are present. No masses. No tenderness. EXTREMITIES: Mild bilateral pedal edema. No calf tenderness. NEUROLOGICAL: Patient is awake, alert and oriented x3. Cranial nerves 2 through 12 are grossly intact. ASSESSMENT AND PLAN 1. Acute on chronic hypoxic respiratory failure secondary to possible gram- negative pneumonia, recent treatment for Covid 19 pneumonia. Consult with pulmonary medicine. Continue oxygen therapy. Continue Zosyn, Levaquin, Robitussin, Ventolin inhaler 4 times daily, dexamethasone 6 mg oral daily for 10 days , Lovenox 30 mg daily, vitamin C, zinc. 2. Recent treatment for Covid 19 pneumonia with Bamlanivimab at the alf. Continue as in #1. 3. Severe hyponatremia. Consult with nephrology. IV fluids at 75 mL per hour. Osmolality testing. Repeat basic metabolic panel this afternoon and repeat labs in the morning. 4. Gastroesophageal reflux disease and GI prophylaxis. Continue Pepcid. 5. Diabetes mellitus type 2, insulin requiring. Continue Levemir 40 units at bedtime, NovoLog scale. 6. Hypertension. Continue lisinopril 20 mg daily, amlodipine 5 mg daily. 7. Acute kidney injury. Consult with nephrology, continue IV fluids. 8. Chronic kidney disease stage III. 9. Anemia of chronic kidney disease. Continue ferrous sulfate twice daily 10. Diabetic neuropathy. 11. Generalized anxiety disorder. Continue Xanax or 0.25 mg daily as needed and scheduled at bedtime. 12. DVT prophylaxis. Lovenox. DISCHARGE PLAN Return to [facility]. Impression and plan of care have been directed as dictated by the signing physician. Suad Ghotra nurse practitioner acting as scribe for signing physician. Objective - Vital Signs Vital signs: Vital Signs Temp 97.8 F 09/27/20 05:00 Pulse 87 09/27/20 05:00 Resp 20 09/27/20 05:00 BP 171/68 09/27/20 05:00 Pulse Ox 92 L 09/27/20 05:00 Intake & Output 09/26/20 09/27/20 09/27/20 18:59 06:59 18:59 Intake Total 900 900 Balance 900 900 Intake: Intake, IV Titration 900 900 Amount Sodium Chloride 0.9% 1, 900 900 000 ml @ 75 mls/hr IV . [id number] [facility] Rx#:[id number] Other: Voiding Method Bedside Commode # Voids 1 2 - Labs CBC & Chem 7: 09/25/20 10:54 09/26/20 18:48 Labs: Abnormal Lab Results - Last 24 Hours (Table) 09/26/20 09/26/20 09/26/20 Range/Units 11:01 11:35 16:50 Sodium 123 L (137-145) mmol/L Potassium 5.2 H (3.5-5.1) mmol/L Chloride 90 L (98-107) mmol/L BUN 32 H (7-17) mg/dL Creatinine 2.26 H (0.52-1.04) mg/dL Glucose 237 H (74-99) mg/dL POC Glucose (mg/dL) 287 H 316 H (75-99) mg/dL Ur Leukocyte Esterase (Negative) Urine Bacteria (None) /hpf Urine Mucus (None) /hpf 09/26/20 09/26/20 09/26/20 Range/Units 17:00 18:48 21:29 Sodium 126 L (137-145) mmol/L Potassium (3.5-5.1) mmol/L Chloride (98-107) mmol/L BUN (7-17) mg/dL Creatinine (0.52-1.04) mg/dL Glucose (74-99) mg/dL POC Glucose (mg/dL) 344 H (75-99) mg/dL Ur Leukocyte Esterase Trace H (Negative) Urine Bacteria Rare H (None) /hpf Urine Mucus Rare H (None) /hpf 09/27/20 Range/Units 07:32 Sodium (137-145) mmol/L Potassium (3.5-5.1) mmol/L Chloride (98-107) mmol/L BUN (7-17) mg/dL Creatinine (0.52-1.04) mg/dL Glucose (74-99) mg/dL POC Glucose (mg/dL) 150 H (75-99) mg/dL Ur Leukocyte Esterase (Negative) Urine Bacteria (None) /hpf Urine Mucus (None) /hpf Microbiology - Last 24 Hours (Table) 09/25/20 12:45 Blood Culture - Preliminary Blood No Growth after 24 hours 09/25/20 11:21 Blood Culture - Preliminary Blood No Growth after 24 hours
[2020-09-27 16:34] LABS: African American GFR (CKD) 23 (>60 ml/min/1.73 sqM); Anion Gap 11 mmol/L; Blood Urea Nitrogen 39 mg/dL (7-17); Calcium 8.8 mg/dL (8.4-10.2); Carbon Dioxide 23 mmol/L (22-30); Chloride 94 mmol/L (98-107); Glucose 297 mg/dL (74-99); Non-African American GFR(CKD) 20 (>60 ml/min/1.73 sqM); Potassium 5.2 mmol/L (3.5-5.1); Sodium 128 mmol/L (137-145)
--- NOTE | 2020-09-27 16:36 | PN ---
PROGRESS NOTE Patient is seen for followup for hyponatremia which was hypovolemic. She is maintained on normal saline. Her sodium has improved to 126 today from 119 on initial admission. On examination today, blood pressure was 174/85, heart rate 55 per minute. She is afebrile. Examination of lower extremities shows no evidence of edema bilaterally. COMMERCIAL DECORATOR exam grossly intact. Lungs and heart are not examined. Labs show sodium of 126 today. Potassium was 5.2 yesterday. UA is completely benign. Urine osmolality was 264. ASSESSMENT: 1. Hyponatremia, hypovolemic; currently improved on normal saline. Repeat BMP in a.m. Continue with the saline for now. I will hold off on the Lasix. 2. Pneumonia, currently stable. Oxygen saturations 92% on 3 L nasal cannula. Patient is maintained on zinc and steroids. 3. Hypertension, uncontrolled, secondary to steroids, started on Norvasc yesterday, which I will continue for now. May continue with the Zestril as well. PLAN: Encourage increased protein intake. Check BMP in a.m. Hold Lasix for now. Will continue to follow the patient with you during her hospitalization. MMODL / IJN: [id number] /
[2020-09-27 17:23] LABS: Glucose,Whole Blood 350 mg/dL (75-99)
[2020-09-27] MEDS: LACTOBACILLUS ACIDOPH & BULGAR 1 EACH PACKET PO SCH (17:45)
[2020-09-27] MEDS: ALPRAZolam 0.25 MG TAB PO SCH (17:45)
[2020-09-27] MEDS: INSULIN DETEMIR (LEVEMIR) 100 UNIT/ML SYR SQ SCH (21:04)
[2020-09-27] MEDS: MELATONIN 5 MG TABLET PO SCH (21:04)
[2020-09-27] MEDS: HYDROcodone/APAP 5-325MG 1 EACH TAB PO SCH (21:05)
[2020-09-27 21:17] LABS: Glucose,Whole Blood 378 mg/dL (75-99)
[2020-09-28 06:54] LABS: HCT 27.9 % (34.0-46.0); HGB 9.1 gm/dL (11.4-16.0); MCH 28.7 pg (25.0-35.0); MCHC 32.6 g/dL (31.0-37.0); Mean Platelet Volume 6.8; Platelet Count 392 k/uL (150-450); RBC 3.17 m/uL (3.80-5.40); WBC 10.3 k/uL (3.8-10.6)
[2020-09-28 07:33] LABS: Glucose,Whole Blood 253 mg/dL (75-99)
[2020-09-28] MEDS: ALBUTEROL HFA INHALER INHALATION SCH ×4 (07:48→20:07)
[2020-09-28] MEDS: ASCORBIC ACID 500 MG TAB PO SCH (09:24)
[2020-09-28] MEDS: amLODIPine 5 MG TAB PO SCH ×2 (09:25→21:17)
[2020-09-28] MEDS: FAMOTIDINE 20 MG TAB PO SCH (09:25)
[2020-09-28] MEDS: FERROUS SULFATE 325 MG TAB PO SCH ×2 (09:25→17:13)
[2020-09-28] MEDS: ZINC SULFATE 220 MG CAP PO SCH (09:25)
[2020-09-28] MEDS: lisinopriL 20 MG TAB PO SCH (09:26)
[2020-09-28] MEDS: dexAMETHasone 2 MG TAB PO SCH (09:26)
[2020-09-28] MEDS: ENOXAPARIN 30 MG/0.3 ML SYRINGE SQ SCH (09:30)
[2020-09-28] MEDS: INSULIN ASPART (NovoLOG) 100 UNIT/ML VIAL SQ SCH ×6 (09:31→20:35)
[2020-09-28] MEDS: SODIUM CHLORIDE 0.9% 1,000 ML IV SCH (09:32)
[2020-09-28] MEDS: PIPERACILLIN-TAZOBACTAM 3.375 GM in SODIUM CHLORIDE 0.9% 100 ML IVPB SCH ×2 (09:32→21:17)
[2020-09-28 10:18] LABS: African American GFR (CKD) 20.9 (60.0-200.0); Albumin 3.4 g/dL (3.80-4.90); Albumin/Globulin Ratio 1.79 (1.60-3.17); Anion Gap 8.3 mmol/L (4.00-12.00); BUN/Creat Ratio 24.58 Ratio (12.00-20.00); Calcium 8.7 mg/dL (8.7-10.3); Carbon Dioxide 25.7 mmol/L (21.6-31.8); Globulin 1.9 g/dL (1.6-3.3); Non-African American GFR(CKD) 18.1 (60.0-200.0); Potassium 5.3 mmol/L (3.5-5.5); Total Bilirubin 0.2 mg/dL (0.2-1.2); Total Protein 5.3 g/dL (6.2-8.2)
[2020-09-28 11:28] LABS: Glucose,Whole Blood 289 mg/dL (75-99)
--- NOTE | 2020-09-28 12:53 | P.PN ---
Subjective Progress Note Date: 09/28/20 HISTORY OF PRESENT ILLNESS This is an 85-year-old female patient of Dr. Anaya, resides at [facility] with past medical history of diabetes mellitus type 2, insulin requiring, hypertension, depression, gastroesophageal reflux disease, history of acute GI bleed secondary to Benny ulcers and hiatal hernia in 2018, and chronic kidney disease stage III, anemia of chronic disease with previous iron infusions, diabetic neuropathy, cellulitis bilateral lower extremities, large lipoma removed from the left flank 6 months ago. Patient is a long-term resident at [facility]. Patient was diagnosed with COVID-19 on September 14 and on September 15 received infusion of Bamlanivimab. She has been stable until the last 3 days she's developed fever and chills along with hypoxia. Oxygen was increased to 6 L and pulse ox was 90. Patient was transferred to [facility] emergency center for evaluation. She was found to be afebrile, heart rate 85, blood pressure 183/67, pulse ox 98% on oxygen. EKG was sinus rhythm with no acute ST changes. Chest x-ray was positive for pneumonia with area of consolidation consistent with bacterial pneumonia versus Covid. WBC 11.9, hemoglobin 10.1, platelet count 305. Sodium 119. Potassium 5.3, chloride 86, CO2 26, BUN 28 creatinine 2.32. Blood sugar 157. LDH 721. C-reactive protein 234.7. Lactic acid 0.8. Troponins are 0.031. Covid 19 was detected. [facility] and consult requested with primary medicine and nephrology. 09/27: Patient states that she is feeling better today. She denies having any difficulty in breathing. She states she has been eating very well and her appetite is good. She denies having any fever. No diarrhea. No headache. She has been afebrile, heart rate 87, blood pressure 171/68, pulse ox 92% on 3 L nasal cannula. Blood sugar 150-344. Patient has been seen by nephrology for hypovolemic hyponatremia, hypertension, acute kidney injury secondary to Covid. Norvasc was added for blood pressure control. Patient is continued on normal saline. Last evening sodium 126. Repeat BMP ordered. Labs on for tomorrow. Patient has been seen by pulmonary medicine with recommendations to continue Decadron for 10 days, vitamin C, vitamin D3, zinc. No plan for convalescent plasma. 09/28: Patient states that she slept well in bed last night. She got up to 5 hours of sleep. She continues have a little cough but improving. She denies having any fever. Blood sugars are 253-378 and NovoLog scheduled his been added. Patient is been afebrile, heart rate 76, blood pressure 171/66, pulse ox 96% on 3 L nasal cannula. Repeat blood work reveals WBC 10.3, Hemoccult 9.1, platelet count 392. Sodium 131, potassium 5.3, BUN 59 and creatinine 2.9. REVIEW OF SYSTEMS Constitutional: Denies fever, no chills, no night sweats. No weight change. Reported weakness, positive fatigue. No daytime sleepiness. EENT: No headache. No blurred vision or double vision, no loss of vision. No loss of Hearing, no ringing in the ears, no dizziness. No nasal drainage or congestion. No epistaxis. No sore throat. Lungs: Denies shortness of breath, cough, no sputum production. No wheezing. Reported hypoxia Cardiovascular: No chest pain, no lower extremity edema. No palpitations. No paroxysmal nocturnal dyspnea. No orthopnea. No lightheadedness or dizziness. No syncopal episodes. Abdominal: No abdominal pain. No nausea, vomiting. No diarrhea. No constipation. No bloody or tarry stools. Denies loss of appetite. Genitourinary: No dysuria, increased frequency, urgency. No urinary retention. Musculoskeletal: No myalgias. No muscle weakness, no gait dysfunction, no frequent falls. No back pain. No neck pain. Integumentary: No wounds, no lesions. No rash or pruritus. No unusual bruising. No change in hair or nails. Neurologic: No aphasia. No facial droop. No change in mentation. No head injury. No headache. No paralysis. No paresthesia. Psychiatric: No depression. No anxiety. No mood swings. Endocrine: No abnormal blood sugars. No weight change. No excessive sweating or thirst. No cold intolerance. PHYSICAL EXAMINATION Gen: This is an 85-year-old morbidly obese female. She sitting up in a chair. No acute respiratory distress noted HEENT: Head is atraumatic, normocephalic. Pupils equal, round. Sclerae is anicteric. NECK: Supple. No JVD. No lymphadenopathy. No thyromegaly. LUNGS: Crackles on the right side penitentiary up and to the base on the left. No wheezing. No intercostal retractions. HEART: Regular rate and rhythm. No murmur. ABDOMEN: Soft. Bowel sounds are present. No masses. No tenderness. EXTREMITIES: Mild bilateral pedal edema. No calf tenderness. NEUROLOGICAL: Patient is awake, alert and oriented x3. Cranial nerves 2 through 12 are grossly intact. ASSESSMENT AND PLAN 1. Acute on chronic hypoxic respiratory failure secondary to possible gram- negative pneumonia, recent treatment for Covid 19 pneumonia. Consult with pulmonary medicine. Continue oxygen therapy. Continue Zosyn, Levaquin, Robitussin, Ventolin inhaler 4 times daily, dexamethasone 6 mg oral daily for 10 days, Lovenox 30 mg daily, vitamin C, zinc. 2. Recent treatment for Covid 19 pneumonia with Bamlanivimab at the residential. Continue as in #1. 3. Severe hyponatremia. Consult with nephrology. IV fluids at 75 mL per hour. Repeat labs in the morning. 4. Gastroesophageal reflux disease and GI prophylaxis. Continue Pepcid. 5. Diabetes mellitus type 2, insulin requiring. Continue Levemir 40 units at bedtime, NovoLog scale. 6. Hypertension. Continue lisinopril 20 mg daily, amlodipine 5 mg daily. 7. Acute kidney injury. Consult with nephrology appreciated, continue IV fluids. 8. Chronic kidney disease stage III. 9. Anemia of chronic kidney disease. Continue ferrous sulfate twice daily 10. Diabetic neuropathy. 11. Generalized anxiety disorder. Continue Xanax or 0.25 mg daily as needed and scheduled at bedtime. 12. DVT prophylaxis. Lovenox. DISCHARGE PLAN Return to [facility] probably on Saturday. Impression and plan of care have been directed as dictated by the signing physician. Suad Ghotra nurse practitioner acting as scribe for signing physic raza. Objective - Vital Signs Vital signs: Vital Signs Temp 97.9 F 09/28/20 04:19 Pulse 76 09/28/20 04:19 Resp 18 09/28/20 04:19 BP 171/66 09/28/20 04:19 Pulse Ox 96 09/28/20 04:19 Intake & Output 09/27/20 09/28/20 09/28/20 18:59 06:59 18:59 Intake Total 1100 900 Balance 1100 900 Intake: Intake, IV Titration 1100 900 Amount Levofloxacin 500Mg-D5w 100 Pmx 500 mg In Dextrose/ Water 1 100ml.bag @ 100 mls/hr IVPB Q48H [facility] Rx#: [id number] Piperacillin-Tazobactam 3 100 .375 gm In Sodium Chloride 0.9% 100 ml @ 25 mls/hr IVPB Q12HR [facility] Rx #:[id number] Sodium Chloride 0.9% 1, 900 900 000 ml @ 75 mls/hr IV . [id number] [facility] Rx#:[id number] Other: Voiding Method Bedside Commode Bedside Commode # Voids 2 2 # Bowel Movements 1 - Labs CBC & Chem 7: 09/28/20 06:37 09/28/20 06:37 Labs: Abnormal Lab Results - Last 24 Hours (Table) 09/27/20 09/27/20 09/27/20 Range/Units 11:41 15:55 17:19 RBC (3.80-5.40) m/uL Hgb (11.4-16.0) gm/dL Hct (34.0-46.0) % Sodium 128 L (137-145) mmol/L Potassium 5.2 H (3.5-5.1) mmol/L Chloride 94 L (98-107) mmol/L BUN 39 H (7-17) mg/dL Creatinine 2.23 H (0.52-1.04) mg/dL Glucose 297 H (74-99) mg/dL POC Glucose (mg/dL) 299 H 350 H (75-99) mg/dL 09/27/20 09/28/20 09/28/20 Range/Units 20:56 06:37 07:16 RBC 3.17 L (3.80-5.40) m/uL Hgb 9.1 L (11.4-16.0) gm/dL Hct 27.9 L (34.0-46.0) % Sodium (137-145) mmol/L Potassium (3.5-5.1) mmol/L Chloride (98-107) mmol/L BUN (7-17) mg/dL Creatinine (0.52-1.04) mg/dL Glucose (74-99) mg/dL POC Glucose (mg/dL) 378 H 253 H (75-99) mg/dL Microbiology - Last 24 Hours (Table) 09/25/20 12:45 Blood Culture - Preliminary Blood No Growth after 48 hours 09/25/20 11:21 Blood Culture - Preliminary Blood No Growth after 48 hours 09/26/20 23:01 Sputum Culture - Preliminary Sputum
--- NOTE | 2020-09-28 14:46 | PN ---
PROGRESS NOTE Patient is seen for followup for hyponatremia and acute kidney injury associated with underlying COVID-19 infection. The patient was hypovolemic and her serum sodium has improved with normal saline. Creatinine, however, remains at about 2.2-2.4 mg/dL. Sodium has improved to 131. The patient is not examined. Case is discussed with nursing staff. Vital signs are reviewed. Blood pressure is 176/70, heart rate 88 per minute, she is afebrile. Examination is not performed. Overall exam is similar as yesterday. WIRELESS SALES CONSULTANT exam grossly intact as per nursing staff and there is no evidence of edema as per nursing staff. LABS: Labs are reviewed. Sodium 131, potassium 5.3, BUN 59, creatinine 2.4, CO2 is 25.7, hemoglobin 9.1. ASSESSMENT: 1. Acute kidney injury acute tubular necrosis nonoliguric associated with underlying COVID-19 infection maintained on IV fluids. I will check a postvoid residual. UA is completely benign. We can also obtain an ultrasound of the kidneys as it has not been done. 2. Hyponatremia, hypovolemic, now improved. Sodium is up to 131. Patient is maintained on normal saline. 3. COVID-19 pneumonia, fairly stable from respiratory standpoint, maintained on steroids. 4. Hypertension, uncontrolled. I will increase the Norvasc to 5 mg b.i.d. expect improvement once steroids are decreased. PLAN: Check post-void residual. Increase Norvasc to 5 mg b.i.d. Continue with the IV fluids for now. Check ultrasound of the kidneys. MMODL / IJN: [id number] /
--- NOTE | 2020-09-28 15:50 | P.PN ---
Subjective Progress Note Date: 09/28/20 Principal diagnosis: CoVID 19 pneumonia/pneumonitis The patient is seen today 09/28/2020 in follow-up on the regular medical floor. She was admitted with hypoxic respiratory failure secondary CoVID 19 pneumonitis. She is currently maintaining O2 saturations in the 90s on room air. She's been up with assistance. Blood cultures reveal no growth to date. Sputum culture pending. White count 10.2. Hemoglobin 9.1. Sodium 131. Potassium 5.3. Creatinine 2.4. She remains on dexamethasone, Lovenox, Pepcid, melatonin, vitamin supplements. Antibiotics in the form of Zosyn and Levaquin Objective - Vital Signs Vital signs: Vital Signs Temp 98 F 09/28/20 11:00 Pulse 88 09/28/20 11:00 Resp 18 09/28/20 11:00 BP 176/70 09/28/20 11:00 Pulse Ox 93 L 09/28/20 11:00 Intake & Output 09/27/20 09/28/20 09/28/20 18:59 06:59 18:59 Intake Total 1100 900 Output Total 0 Balance 1100 900 0 Intake: Intake, IV Titration 1100 900 Amount Levofloxacin 500Mg-D5w 100 Pmx 500 mg In Dextrose/ Water 1 100ml.bag @ 100 mls/hr IVPB Q48H [facility] Rx#: [id number] Piperacillin-Tazobactam 3 100 .375 gm In Sodium Chloride 0.9% 100 ml @ 25 mls/hr IVPB Q12HR [facility] Rx #:[id number] Sodium Chloride 0.9% 1, 900 900 000 ml @ 75 mls/hr IV . [id number] [facility] Rx#:[id number] Output: Post Void Residual 0 Other: Voiding Method Bedside Commode Bedside Commode Bedside Commode # Voids 2 2 # Bowel Movements 1 - Exam GENERAL EXAM: Alert, active, 85-year-old female patient, on room air comfortable in no apparent distress. HEAD: Normocephalic. EYES: Normal reaction of pupils, equal size. NOSE: Clear with pink turbinates. THROAT: No erythema or exudates. NECK: No masses, no JVD. CHEST: No chest wall deformity. LUNGS: Equal air entry with few scattered rhonchi CVS: S1 and S2 normal with no audible murmur, regular rhythm. ABDOMEN: No hepatosplenomegaly, normal bowel sounds, no guarding or rigidity. SPINE: No scoliosis or deformity SKIN: No rashes CENTRAL NERVOUS SYSTEM: No focal deficits, tone is normal in all 4 extremities. EXTREMITIES: There is no peripheral edema. No clubbing, no cyanosis. Peripheral pulses are intact. - Labs CBC & Chem 7: 09/28/20 06:37 09/28/20 06:37 Labs: Abnormal Lab Results - Last 24 Hours (Table) 09/27/20 09/27/20 09/27/20 Range/Units 15:55 17:19 20:56 RBC (3.80-5.40) m/uL Hgb (11.4-16.0) gm/dL Hct (34.0-46.0) % Sodium 128 L (137-145) mmol/L Potassium 5.2 H (3.5-5.1) mmol/L Chloride 94 L (98-107) mmol/L BUN 39 H (7-17) mg/dL Creatinine 2.23 H (0.52-1.04) mg/dL Est GFR (CKD-EPI)AfAm (60.0-200.0) Est GFR (CKD-EPI)NonAf (60.0-200.0) BUN/Creatinine Ratio (12.00-20.00) Ratio Glucose 297 H (74-99) mg/dL POC Glucose (mg/dL) 350 H 378 H (75-99) mg/dL Total Protein (6.2-8.2) g/dL Albumin (3.80-4.90) g/dL 09/28/20 09/28/20 09/28/20 Range/Units 06:37 06:37 07:16 RBC 3.17 L (3.80-5.40) m/uL Hgb 9.1 L (11.4-16.0) gm/dL Hct 27.9 L (34.0-46.0) % Sodium 131 L (137-145) mmol/L Potassium (3.5-5.1) mmol/L Chloride (98-107) mmol/L BUN 59.0 H (7-17) mg/dL Creatinine 2.4 H (0.52-1.04) mg/dL Est GFR (CKD-EPI)AfAm 20.9 L (60.0-200.0) Est GFR (CKD-EPI)NonAf 18.1 L (60.0-200.0) BUN/Creatinine Ratio 24.58 H (12.00-20.00) Ratio Glucose 238 H (74-99) mg/dL POC Glucose (mg/dL) 253 H (75-99) mg/dL Total Protein 5.3 L (6.2-8.2) g/dL Albumin 3.40 L (3.80-4.90) g/dL 09/28/20 Range/Units 11:26 RBC (3.80-5.40) m/uL Hgb (11.4-16.0) gm/dL Hct (34.0-46.0) % Sodium (137-145) mmol/L Potassium (3.5-5.1) mmol/L Chloride (98-107) mmol/L BUN (7-17) mg/dL Creatinine (0.52-1.04) mg/dL Est GFR (CKD-EPI)AfAm (60.0-200.0) Est GFR (CKD-EPI)NonAf (60.0-200.0) BUN/Creatinine Ratio (12.00-20.00) Ratio Glucose (74-99) mg/dL POC Glucose (mg/dL) 289 H (75-99) mg/dL Total Protein (6.2-8.2) g/dL Albumin (3.80-4.90) g/dL Microbiology - Last 24 Hours (Table) 09/25/20 12:45 Blood Culture - Preliminary Blood No Growth after 72 hours 09/26/20 23:01 Gram Stain - Preliminary Sputum Sputum Culture - Preliminary 09/25/20 11:21 Blood Culture - Preliminary Blood No Growth after 72 hours Assessment and Plan Assessment: 1 COVID 19 pneumonia/pneumonitis, with mild to moderate hypoxemic respiratory failure. The patient is outside the [facility] window. 2 History of essential hypertension. 3 History of diabetes mellitus. 4 History of hyperlipidemia. 5 Obesity. 6 History of seasonal ALLERGIES. 7 History of chronic insomnia. 8 History of chronic anxiety. Plan: The patient was seen and evaluated by Dr. Pacheco Continue the current treatment plan Plan is to return to [facility] upon discharge I, the cosigning physician, performed a history & physical examination of the patient. Lungs sounds with few scattered rhonchi. Maintaining good O2 saturations in the 90s on room air. I discussed the assessment and plan of care with my nurse practitioner, Gavi Larose. I attest to the above note as dictated by her.
[2020-09-28] MEDS: LACTOBACILLUS ACIDOPH & BULGAR 1 EACH PACKET PO SCH (17:13)
[2020-09-28 17:19] LABS: Glucose,Whole Blood 321 mg/dL (75-99)
--- NOTE | 2020-09-28 18:17 | US ---
EXAMINATION TYPE: US kidneys/renal and bladder DATE OF EXAM: 09/28/2020 COMPARISON: NONE CLINICAL HISTORY: RF. Renal failure.Exam limited patient in chair and body habitus. EXAM MEASUREMENTS: Right Kidney: 9.8 x 4.4 x 3.7 cm Left Kidney: 11.2 x 4.6 x 3.7 cm Right Kidney: No hydronephrosis or masses seen Left Kidney: No hydronephrosis or masses seen Bladder: Not full Bilateral Jets seen: No IMPRESSION: No bilateral hydronephrosis.
[2020-09-28 20:00] LABS: Glucose,Whole Blood 446 mg/dL (75-99)
[2020-09-28] MEDS ORDERED: INSULIN ASPART (NovoLOG) 100 UNIT/ML VIAL SQ ONE (20:33)
[2020-09-28] MEDS: HYDROcodone/APAP 5-325MG 1 EACH TAB PO SCH (21:16)
[2020-09-28] MEDS: ALPRAZolam 0.25 MG TAB PO SCH (21:17)
[2020-09-28] MEDS: MELATONIN 5 MG TABLET PO SCH (21:17)
[2020-09-28] MEDS: INSULIN DETEMIR (LEVEMIR) 100 UNIT/ML SYR SQ SCH (21:17)
[2020-09-29] MEDS: SODIUM CHLORIDE 0.9% 1,000 ML IV SCH ×2 (04:26→10:34)
[2020-09-29 06:56] LABS: HCT 25.2 % (34.0-46.0); HGB 8.3 gm/dL (11.4-16.0); MCH 29.1 pg (25.0-35.0); MCHC 33.1 g/dL (31.0-37.0); MCV 87.9 fL (80.0-100.0); Mean Platelet Volume 6.5; Platelet Count 418 k/uL (150-450); RBC 2.87 m/uL (3.80-5.40); WBC 8.7 k/uL (3.8-10.6)
[2020-09-29 06:58] LABS: Glucose,Whole Blood 192 mg/dL (75-99)
[2020-09-29] MEDS: LEVOFLOXACIN 500MG-D5W PMX 500 MG in DEXTROSE/WATER 1 100ML.BAG IVPB SCH (07:50)
[2020-09-29] MEDS: ASCORBIC ACID 500 MG TAB PO SCH (08:04)
[2020-09-29] MEDS: ENOXAPARIN 30 MG/0.3 ML SYRINGE SQ SCH (08:04)
[2020-09-29] MEDS: lisinopriL 20 MG TAB PO SCH (08:05)
[2020-09-29] MEDS: dexAMETHasone 2 MG TAB PO SCH (08:05)
[2020-09-29] MEDS: amLODIPine 5 MG TAB PO SCH ×2 (08:05→20:31)
[2020-09-29] MEDS: ZINC SULFATE 220 MG CAP PO SCH (08:05)
[2020-09-29] MEDS: FERROUS SULFATE 325 MG TAB PO SCH ×2 (08:05→18:00)
[2020-09-29] MEDS: INSULIN ASPART (NovoLOG) 100 UNIT/ML VIAL SQ SCH ×7 (08:06→20:32)
[2020-09-29] MEDS: FAMOTIDINE 20 MG TAB PO SCH (08:09)
[2020-09-29] MEDS: PANTOPRAZOLE 40 MG TABLET PO SCH (08:12)
[2020-09-29] MEDS: ALBUTEROL HFA INHALER INHALATION SCH ×4 (08:51→20:32)
--- NOTE | 2020-09-29 09:05 | XR ---
EXAMINATION TYPE: XR chest 1V portable DATE OF EXAM: 09/29/2020 Comparison: 09/26/2020 Clinical History: 85-year-old female COVID follow up Findings: Heart is enlarged. Multifocal airspace disease, left greater than right. There has been some improvem ent on the right side but prominent focal airspace disease persists. Large patient body habitus resul ts in underpenetration especially at the left base . Impression: Bilateral focal areas of airspace disease could represent pulmonary edema or multifocal/atypical pneu monia. Slight improvement on the right.
[2020-09-29] MEDS: PIPERACILLIN-TAZOBACTAM 3.375 GM in SODIUM CHLORIDE 0.9% 100 ML IVPB SCH ×2 (09:50→20:32)
[2020-09-29 10:47] LABS: African American GFR (CKD) 26.1 (60.0-200.0); Albumin 3.4 g/dL (3.80-4.90); Albumin/Globulin Ratio 1.89 (1.60-3.17); Calcium 8.7 mg/dL (8.7-10.3); Globulin 1.8 g/dL (1.6-3.3); Non-African American GFR(CKD) 22.5 (60.0-200.0); Potassium 5.3 mmol/L (3.5-5.5); Total Bilirubin 0.3 mg/dL (0.3-1.2); Total Protein 5.2 g/dL (6.2-8.2)
[2020-09-29 11:20] LABS: Glucose,Whole Blood 206 mg/dL (75-99)
--- NOTE | 2020-09-29 14:41 | P.PN ---
Subjective Progress Note Date: 09/29/20 HISTORY OF PRESENT ILLNESS This is an 85-year-old female patient of Dr. Anaya, resides at [facility] with past medical history of diabetes mellitus type 2, insulin requiring, hypertension, depression, gastroesophageal reflux disease, history of acute GI bleed secondary to Benny ulcers and hiatal hernia in 2018, and chronic kidney disease stage III, anemia of chronic disease with previous iron infusions, diabetic neuropathy, cellulitis bilateral lower extremities, large lipoma removed from the left flank 6 months ago. Patient is a long-term resident at [facility]. Patient was diagnosed with COVID-19 on September 14 and on September 15 received infusion of Bamlanivimab. She has been stable until the last 3 days she's developed fever and chills along with hypoxia. Oxygen was increased to 6 L and pulse ox was 90. Patient was transferred to [facility] emergency center for evaluation. She was found to be afebrile, heart rate 85, blood pressure 183/67, pulse ox 98% on oxygen. EKG was sinus rhythm with no acute ST changes. Chest x-ray was positive for pneumonia with area of consolidation consistent with bacterial pneumonia versus Covid. WBC 11.9, hemoglobin 10.1, platelet count 305. Sodium 119. Potassium 5.3, chloride 86, CO2 26, BUN 28 creatinine 2.32. Blood sugar 157. LDH 721. C-reactive protein 234.7. Lactic acid 0.8. Troponins are 0.031. Covid 19 was detected. [facility] and consult requested with primary medicine and nephrology. 09/27: Patient states that she is feeling better today. She denies having any difficulty in breathing. She states she has been eating very well and her appetite is good. She denies having any fever. No diarrhea. No headache. She has been afebrile, heart rate 87, blood pressure 171/68, pulse ox 92% on 3 L nasal cannula. Blood sugar 150-344. Patient has been seen by nephrology for hypovolemic hyponatremia, hypertension, acute kidney injury secondary to Covid. Norvasc was added for blood pressure control. Patient is continued on normal saline. Last evening sodium 126. Repeat BMP ordered. Labs on for tomorrow. Patient has been seen by pulmonary medicine with recommendations to continue Decadron for 10 days, vitamin C, vitamin D3, zinc. No plan for convalescent plasma. 09/28: Patient states that she slept well in bed last night. She got up to 5 hours of sleep. She continues have a little cough but improving. She denies having any fever. Blood sugars are 253-378 and NovoLog scheduled his been added. Patient is been afebrile, heart rate 76, blood pressure 171/66, pulse ox 96% on 3 L nasal cannula. Repeat blood work reveals WBC 10.3, Hemoccult 9.1, platelet count 392. Sodium 131, potassium 5.3, BUN 59 and creatinine 2.9. 09/29: She is afebrile, heart rate 68, blood pressure 147/74, pulse ox 97% on 3 L nasal cannula. Blood sugar last evening was 446. This morning 192. Patient received additional 10 units of NovoLog insulin last evening,and scheduled NovoLog increased to 10 units with meals. WBC 8.7, hemoglobin 8.3, platelet count 418. Renal ultrasound showed no bilateral hydronephrosis. Norvasc has been increased to twice daily. Patient's breathing status continues to improve and we will plan for discharge back to [facility] tomorrow. REVIEW OF SYSTEMS Constitutional: Denies fever, no chills, no night sweats. No weight change. Reported weakness, positive fatigue. No daytime sleepiness. EENT: No headache. No blurred vision or double vision, no loss of vision. No loss of Hearing, no ringing in the ears, no dizziness. No nasal drainage or congestion. No epistaxis. No sore throat. Lungs: Denies shortness of breath, reports cough, no sputum production. No wheezing. Reported hypoxia Cardiovascular: No chest pain, no lower extremity edema. No palpitations. No paroxysmal nocturnal dyspnea. No orthopnea. No lightheadedness or dizziness. No syncopal episodes. Abdominal: No abdominal pain. No nausea, vomiting. No diarrhea. No constipation. No bloody or tarry stools. Denies loss of appetite. Genitourinary: No dysuria, increased frequency, urgency. No urinary retention. Musculoskeletal: No myalgias. No muscle weakness, no gait dysfunction, no frequent falls. No back pain. No neck pain. Integumentary: No wounds, no lesions. No rash or pruritus. No unusual bruising. No change in hair or nails. Neurologic: No aphasia. No facial droop. No change in mentation. No head injury. No headache. No paralysis. No paresthesia. Psychiatric: No depression. No anxiety. No mood swings. Endocrine: No abnormal blood sugars. No weight change. No excessive sweating or thirst. No cold intolerance. PHYSICAL EXAMINATION Gen: This is an 85-year-old morbidly obese female. She sitting up in a chair. No acute respiratory distress noted HEENT: Head is atraumatic, normocephalic. Pupils equal, round. Sclerae is anicteric. NECK: Supple. No JVD. No lymphadenopathy. No thyromegaly. LUNGS: Crackles on the right side [facility] up and to the base on the left. No wheezing. No intercostal retractions. HEART: Regular rate and rhythm. No murmur. ABDOMEN: Soft. Bowel sounds are present. No masses. No tenderness. EXTREMITIES: Mild bilateral pedal edema. No calf tenderness. NEUROLOGICAL: Patient is awake, alert and oriented x3. Cranial nerves 2 through 12 are grossly intact. ASSESSMENT AND PLAN 1. Acute on chronic hypoxic respiratory failure secondary to possible gram- negative pneumonia, recent treatment for Covid 19 pneumonia. Consult with pulmonary medicine. Continue oxygen therapy. Continue Zosyn, Levaquin, Robitussin, Ventolin inhaler 4 times daily, dexamethasone 6 mg oral daily, Lovenox 30 mg daily, vitamin C, zinc. 2. Recent treatment for Covid 19 pneumonia with Bamlanivimab at the snf. Continue as in #1. 3. Severe hyponatremia. Consult with nephrology. IV fluids at 75 mL per hour. Repeat labs in the morning. 4. Gastroesophageal reflux disease and GI prophylaxis. Continue Pepcid. 5. Diabetes mellitus type 2, insulin requiring. Continue Levemir 40 units at bedtime, NovoLog scale. 6. Hypertension. Continue lisinopril 20 mg daily, amlodipine 5 mg daily. 7. Acute kidney injury. Consult with nephrology appreciated, continue IV fluids. 8. Chronic kidney disease stage III. 9. Anemia of chronic kidney disease. Continue ferrous sulfate twice daily 10. Diabetic neuropathy. 11. Generalized anxiety disorder. Continue Xanax or 0.25 mg daily as needed and scheduled at bedtime. 12. DVT prophylaxis. Lovenox. DISCHARGE PLAN Return to [facility] on Saturday. Impression and plan of care have been directed as dictated by the signing physician. Suad Ghotra nurse practitioner acting as scribe for signing physician. Objective - Vital Signs Vital signs: Vital Signs Temp 97.5 F L 09/29/20 05:00 Pulse 68 09/29/20 05:00 Resp 16 09/29/20 05:00 BP 147/74 09/29/20 05:00 Pulse Ox 97 09/29/20 05:00 Intake & Output 09/28/20 09/29/20 09/29/20 18:59 06:59 18:59 Intake Total 1000 590 Output Total 0 Balance 1000 590 Intake: Intake, IV Titration 1000 Amount Piperacillin-Tazobactam 3 100 .375 gm In Sodium Chloride 0.9% 100 ml @ 25 mls/hr IVPB Q12HR [facility] Rx #:[id number] Sodium Chloride 0.9% 1, 900 000 ml @ 75 mls/hr IV . [id number] [facility] Rx#:[id number] Oral 590 Output: Post Void Residual 0 Other: Voiding Method Bedside Commode Bedside Commode Diaper # Voids 3 - Labs CBC & Chem 7: 09/29/20 05:58 09/29/20 05:58 Labs: Abnormal Lab Results - Last 24 Hours (Table) 09/28/20 09/28/20 09/28/20 Range/Units 06:37 11:26 17:15 RBC (3.80-5.40) m/uL Hgb (11.4-16.0) gm/dL Hct (34.0-46.0) % Sodium 131 L (135-145) mmol/L BUN 59.0 H (9.0-27.0) mg/dL Creatinine 2.4 H (0.6-1.5) mg/dL Est GFR (CKD-EPI)AfAm 20.9 L (60.0-200.0) Est GFR (CKD-EPI)NonAf 18.1 L (60.0-200.0) BUN/Creatinine Ratio 24.58 H (12.00-20.00) Ratio Glucose 238 H (70-110) mg/dL POC Glucose (mg/dL) 289 H 321 H (75-99) mg/dL Total Protein 5.3 L (6.2-8.2) g/dL Albumin 3.40 L (3.80-4.90) g/dL 09/28/20 09/29/20 09/29/20 Range/Units 19:59 05:58 06:54 RBC 2.87 L (3.80-5.40) m/uL Hgb 8.3 L (11.4-16.0) gm/dL Hct 25.2 L (34.0-46.0) % Sodium (135-145) mmol/L BUN (9.0-27.0) mg/dL Creatinine (0.6-1.5) mg/dL Est GFR (CKD-EPI)AfAm (60.0-200.0) Est GFR (CKD-EPI)NonAf (60.0-200.0) BUN/Creatinine Ratio (12.00-20.00) Ratio Glucose (70-110) mg/dL POC Glucose (mg/dL) 446 H 192 H (75-99) mg/dL Total Protein (6.2-8.2) g/dL Albumin (3.80-4.90) g/dL Microbiology - Last 24 Hours (Table) 09/25/20 12:45 Blood Culture - Preliminary Blood No Growth after 72 hours 09/26/20 23:01 Gram Stain - Preliminary Sputum Sputum Culture - Preliminary 09/25/20 11:21 Blood Culture - Preliminary Blood No Growth after 72 hours
--- NOTE | 2020-09-29 16:39 | PN ---
PROGRESS NOTE Patient is seen for followup for hyponatremia and acute kidney injury. Serum sodium has improved to 134. Creatinine is about 2.0 mg/dL, which is down from 2.4. Patient is comfortable. She denies any significant complaints. On examination today, blood pressure was 150/81, heart rate 87 per minute. Patient is afebrile. Examination shows no evidence of edema in bilateral lower extremities. Abdomen is soft, nontender, and [employer] exam is grossly intact. Labs show sodium 134 today, potassium 5.3, BUN 62, creatinine 2.0, albumin 3.4. ASSESSMENT: 1. Hypovolemic hyponatremia, currently improved. Patient is encouraged to maintain adequate protein intake. 2. Acute kidney injury, acute tubular necrosis, nonoliguric, associated with underlying COVID-19 infection. Component of hypovolemia also noted. Patient has been on IV fluids. Her UA is completely benign. Ultrasound of the kidneys shows no evidence of hydronephrosis. 3. COVID-19 pneumonia, maintained on steroids. 4. Hypertension, currently worsened with the steroids. Blood pressure is somewhat improved. Amlodipine has been increased. Continue to monitor for now. Continue with the EMMANUEL inhibitors for now. MMODL / IJN: [id number] /
[2020-09-29 17:16] LABS: Glucose,Whole Blood 249 mg/dL (75-99)
--- NOTE | 2020-09-29 17:30 | P.PN ---
Subjective Progress Note Date: 09/29/20 Principal diagnosis: CoVID 19 pneumonia/pneumonitis The patient is seen today 09/28/2020 in follow-up on the regular medical floor. She was admitted with hypoxic respiratory failure secondary CoVID 19 pneumonitis. She is currently maintaining O2 saturations in the 90s on room air. She's been up with assistance. Blood cultures reveal no growth to date. Sputum culture pending. White count 10.2. Hemoglobin 9.1. Sodium 131. Potassium 5.3. Creatinine 2.4. She remains on dexamethasone, Lovenox, Pepcid, melatonin, vitamin supplements. Antibiotics in the form of Zosyn and Levaquin. The patient is seen today 09/29/2020 follow-up on the regular medical floor. She is currently sitting up in a chair at the bedside. Awake and alert in no acute distress. Maintaining O2 saturation in the 90s on 3 L/m per nasal cannula. She was at 96% on room air at rest. Blood and sputum cultures reveal no growth. White count 8.7. Hemoglobin 8.3. Sodium 134. Potassium 5.3. Creatinine 2.0. She remains on dexamethasone, Lovenox, Pepcid, melatonin, vitamin supplements. Antibiotics in the form of Zosyn and Levaquin. Chest x- ray reveals bilateral focal airspace disease representing multifocal/atypical pneumonia. Slight improvement on the right. Objective - Vital Signs Vital signs: Vital Signs Temp 97.7 F 09/29/20 16:28 Pulse 85 09/29/20 16:28 Resp 16 09/29/20 16:28 BP 150/78 09/29/20 16:28 Pulse Ox 96 09/29/20 16:28 Intake & Output 09/28/20 09/29/20 09/29/20 18:59 06:59 18:59 Intake Total 1000 590 Output Total 0 Balance 1000 590 Intake: Intake, IV Titration 1000 Amount Piperacillin-Tazobactam 3 100 .375 gm In Sodium Chloride 0.9% 100 ml @ 25 mls/hr IVPB Q12HR [facility] Rx #:[id number] Sodium Chloride 0.9% 1, 900 000 ml @ 75 mls/hr IV . [id number] [facility] Rx#:[id number] Oral 590 Output: Post Void Residual 0 Other: Voiding Method Bedside Commode Bedside Commode Diaper # Voids 3 1 # Bowel Movements 1 - Exam GENERAL EXAM: Alert, active, 85-year-old female patient, on 3 liters nasal cannula, up in a chair at the bedside, comfortable in no apparent distress. HEAD: Normocephalic. EYES: Normal reaction of pupils, equal size. NOSE: Clear with pink turbinates. THROAT: No erythema or exudates. NECK: No masses, no JVD. CHEST: No chest wall deformity. LUNGS: Equal air entry with few scattered rhonchi CVS: S1 and S2 normal with no audible murmur, regular rhythm. ABDOMEN: No hepatosplenomegaly, normal bowel sounds, no guarding or rigidity. SPINE: No scoliosis or deformity SKIN: No rashes CENTRAL NERVOUS SYSTEM: No focal deficits, tone is normal in all 4 extremities. EXTREMITIES: There is no peripheral edema. No clubbing, no cyanosis. Peripheral pulses are intact. - Labs CBC & Chem 7: 09/29/20 05:58 09/29/20 05:58 Labs: Abnormal Lab Results - Last 24 Hours (Table) 09/28/20 09/29/20 09/29/20 Range/Units 19:59 05:58 05:58 RBC 2.87 L (3.80-5.40) m/uL Hgb 8.3 L (11.4-16.0) gm/dL Hct 25.2 L (34.0-46.0) % Sodium 134 L (135-145) mmol/L Chloride 110 H (96-109) mmol/L Anion Gap -1.00 L (4.00-12.00) mmol/L BUN 62.0 H (9.0-27.0) mg/dL Creatinine 2.0 H (0.6-1.5) mg/dL Est GFR (CKD-EPI)AfAm 26.1 L (60.0-200.0) Est GFR (CKD-EPI)NonAf 22.5 L (60.0-200.0) BUN/Creatinine Ratio 31.00 H (12.00-20.00) Ratio Glucose 176 H (70-110) mg/dL POC Glucose (mg/dL) 446 H (75-99) mg/dL Total Protein 5.2 L (6.2-8.2) g/dL Albumin 3.40 L (3.80-4.90) g/dL 09/29/20 09/29/20 09/29/20 Range/Units 06:54 11:14 16:59 RBC (3.80-5.40) m/uL Hgb (11.4-16.0) gm/dL Hct (34.0-46.0) % Sodium (135-145) mmol/L Chloride (96-109) mmol/L Anion Gap (4.00-12.00) mmol/L BUN (9.0-27.0) mg/dL Creatinine (0.6-1.5) mg/dL Est GFR (CKD-EPI)AfAm (60.0-200.0) Est GFR (CKD-EPI)NonAf (60.0-200.0) BUN/Creatinine Ratio (12.00-20.00) Ratio Glucose (70-110) mg/dL POC Glucose (mg/dL) 192 H 206 H 249 H (75-99) mg/dL Total Protein (6.2-8.2) g/dL Albumin (3.80-4.90) g/dL Microbiology - Last 24 Hours (Table) 09/25/20 12:45 Blood Culture - Preliminary Blood No Growth after 96 hours 09/25/20 11:21 Blood Culture - Preliminary Blood No Growth after 96 hours 09/26/20 23:01 Gram Stain - Final Sputum Sputum Culture - Final Assessment and Plan Assessment: 1 COVID 19 pneumonia/pneumonitis, with mild to moderate hypoxemic respiratory failure. The patient is outside the [facility] window. 2 History of essential hypertension. 3 History of diabetes mellitus. 4 History of hyperlipidemia. 5 Obesity. 6 History of seasonal ALLERGIES. 7 History of chronic insomnia. 8 History of chronic anxiety. Plan: The patient was seen and evaluated by Dr. Pacheco Improved today from the pulmonary standpoint Chest x-ray and labs reviewed Continue the current treatment plan Plan is to return to [facility] upon discharge I, the cosigning physician, performed a history & physical examination of the patient. Lungs sounds with few scattered rhonchi. Maintaining good O2 saturations in the 90s on 3 L/m per nasal cannula. I discussed the assessment and plan of care with my nurse practitioner, Gavi Larose. I attest to the above note as dictated by her.
[2020-09-29] MEDS: LACTOBACILLUS ACIDOPH & BULGAR 1 EACH PACKET PO SCH (18:04)
[2020-09-29 20:00] LABS: Glucose,Whole Blood 293 mg/dL (75-99)
[2020-09-29] MEDS: MELATONIN 5 MG TABLET PO SCH (20:31)
[2020-09-29] MEDS: INSULIN DETEMIR (LEVEMIR) 100 UNIT/ML SYR SQ SCH (20:31)
[2020-09-29] MEDS: HYDROcodone/APAP 5-325MG 1 EACH TAB PO SCH (20:31)
[2020-09-29] MEDS: ALPRAZolam 0.25 MG TAB PO SCH (20:31)
[2020-09-30] MEDS: SODIUM CHLORIDE 0.9% 1,000 ML IV SCH ×2 (01:40→07:57)
[2020-09-30 07:23] LABS: Glucose,Whole Blood 122 mg/dL (75-99)
[2020-09-30] MEDS: PIPERACILLIN-TAZOBACTAM 3.375 GM in SODIUM CHLORIDE 0.9% 100 ML IVPB SCH ×2 (07:56→20:07)
[2020-09-30] MEDS: INSULIN ASPART (NovoLOG) 100 UNIT/ML VIAL SQ SCH ×7 (07:56→20:08)
[2020-09-30] MEDS: PANTOPRAZOLE 40 MG TABLET PO SCH (07:57)
[2020-09-30] MEDS: ASCORBIC ACID 500 MG TAB PO SCH (07:57)
[2020-09-30] MEDS: ZINC SULFATE 220 MG CAP PO SCH (07:57)
[2020-09-30] MEDS: lisinopriL 20 MG TAB PO SCH (07:57)
[2020-09-30] MEDS: amLODIPine 5 MG TAB PO SCH ×2 (07:57→20:08)
[2020-09-30] MEDS: FERROUS SULFATE 325 MG TAB PO SCH ×2 (07:57→17:52)
[2020-09-30] MEDS: dexAMETHasone 2 MG TAB PO SCH (07:57)
[2020-09-30] MEDS: ENOXAPARIN 30 MG/0.3 ML SYRINGE SQ SCH (07:57)
[2020-09-30] MEDS: ALBUTEROL HFA INHALER INHALATION SCH ×4 (08:23→19:47)
[2020-09-30 09:17] LABS: HGB 8.8 gm/dL (11.4-16.0); MCHC 31.3 g/dL (31.0-37.0); MCV 89.4 fL (80.0-100.0); Mean Platelet Volume 6.7; Platelet Count 520 k/uL (150-450); RBC 3.13 m/uL (3.80-5.40); RDW 14.3 % (11.5-15.5); WBC 12.1 k/uL (3.8-10.6)
[2020-09-30 09:29] LABS: ALT 33 U/L (4-34); AST 25 U/L (14-36); African American GFR (CKD) 25 (>60 ml/min/1.73 sqM); Albumin 3.1 g/dL (3.5-5.0); Albumin/Globulin Ratio 1.1; Alkaline Phosphatase 75 U/L (38-126); Anion Gap 5 mmol/L; Blood Urea Nitrogen 54 mg/dL (7-17); Calcium 9.2 mg/dL (8.4-10.2); Carbon Dioxide 25 mmol/L (22-30); Chloride 104 mmol/L (98-107); Globulin 2.8 g/dL; Glucose 89 mg/dL (74-99); Non-African American GFR(CKD) 22 (>60 ml/min/1.73 sqM); Potassium 4.5 mmol/L (3.5-5.1); Sodium 134 mmol/L (137-145); Total Bilirubin 0.4 mg/dL (0.2-1.3); Total Protein 5.9 g/dL (6.3-8.2)
--- NOTE | 2020-09-30 10:43 | P.PN ---
Subjective Progress Note Date: 09/30/20 HISTORY OF PRESENT ILLNESS This is an 85-year-old female patient of Dr. Anaya, resides at [facility] with past medical history of diabetes mellitus type 2, insulin requiring, hypertension, depression, gastroesophageal reflux disease, history of acute GI bleed secondary to Benny ulcers and hiatal hernia in 2018, and chronic kidney disease stage III, anemia of chronic disease with previous iron infusions, diabetic neuropathy, cellulitis bilateral lower extremities, large lipoma removed from the left flank 6 months ago. Patient is a long-term resident at [facility]. Patient was diagnosed with COVID-19 on September 14 and on September 15 received infusion of Bamlanivimab. She has been stable until the last 3 days she's developed fever and chills along with hypoxia. Oxygen was increased to 6 L and pulse ox was 90. Patient was transferred to [facility] emergency center for evaluation. She was found to be afebrile, heart rate 85, blood pressure 183/67, pulse ox 98% on oxygen. EKG was sinus rhythm with no acute ST changes. Chest x-ray was positive for pneumonia with area of consolidation consistent with bacterial pneumonia versus Covid. WBC 11.9, hemoglobin 10.1, platelet count 305. Sodium 119. Potassium 5.3, chloride 86, CO2 26, BUN 28 creatinine 2.32. Blood sugar 157. LDH 721. C-reactive protein 234.7. Lactic acid 0.8. Troponins are 0.031. Covid 19 was detected. [facility] and consult requested with primary medicine and nephrology. 09/27: Patient states that she is feeling better today. She denies having any difficulty in breathing. She states she has been eating very well and her appetite is good. She denies having any fever. No diarrhea. No headache. She has been afebrile, heart rate 87, blood pressure 171/68, pulse ox 92% on 3 L nasal cannula. Blood sugar 150-344. Patient has been seen by nephrology for hypovolemic hyponatremia, hypertension, acute kidney injury secondary to Covid. Norvasc was added for blood pressure control. Patient is continued on normal saline. Last evening sodium 126. Repeat BMP ordered. Labs on for tomorrow. Patient has been seen by pulmonary medicine with recommendations to continue Decadron for 10 days, vitamin C, vitamin D3, zinc. No plan for convalescent plasma. 09/28: Patient states that she slept well in bed last night. She got up to 5 hours of sleep. She continues have a little cough but improving. She denies having any fever. Blood sugars are 253-378 and NovoLog scheduled his been added. Patient is been afebrile, heart rate 76, blood pressure 171/66, pulse ox 96% on 3 L nasal cannula. Repeat blood work reveals WBC 10.3, Hemoccult 9.1, platelet count 392. Sodium 131, potassium 5.3, BUN 59 and creatinine 2.9. 09/29: She is afebrile, heart rate 68, blood pressure 147/74, pulse ox 97% on 3 L nasal cannula. Blood sugar last evening was 446. This morning 192. Patient received additional 10 units of NovoLog insulin last evening,and scheduled NovoLog increased to 10 units with meals. WBC 8.7, hemoglobin 8.3, platelet count 418. Renal ultrasound showed no bilateral hydronephrosis. Norvasc has been increased to twice daily. Patient's breathing status continues to improve and we will plan for discharge back to [facility] tomorrow. 09/30: Patient has been afebrile, heart rate 82, blood pressure 158/65, pulse ox 91% on 3 L nasal cannula. Blood sugars running between 222 and 293. Chest x- ray from yesterday reveals bilateral focal areas of airspace disease could represent pulmonary edema or multifocal atypical pneumonia. Slight improvement on the right. CBC 12.1, hemoglobin 8.8, platelet count 520. Sodium 134, potassium 4.5, BUN 54 and creatinine 2.06. Blood sugars run between 89 and 122 this morning. Patient was in the 200s yesterday. Patient's breathing status is improving. She states it is good at time of evaluation. She states she had a good night. Incentive spirometry added. Anticipate discharge back to [facility] on Saturday. REVIEW OF SYSTEMS Constitutional: Denies fever, no chills, no night sweats. No weight change. Reported weakness, positive fatigue. No daytime sleepiness. EENT: No headache. No blurred vision or double vision, no loss of vision. No loss of Hearing, no ringing in the ears, no dizziness. No nasal drainage or congestion. No epistaxis. No sore throat. Lungs: Denies shortness of breath improving, reports cough, no sputum production. No wheezing. Reported hypoxia Cardiovascular: No chest pain, no lower extremity edema. No palpitations. No paroxysmal nocturnal dyspnea. No orthopnea. No lightheadedness or dizziness. No syncopal episodes. Abdominal: No abdominal pain. No nausea, vomiting. No diarrhea. No constipation. No bloody or tarry stools. Denies loss of appetite. Genitourinary: No dysuria, increased frequency, urgency. No urinary retention. Musculoskeletal: No myalgias. No muscle weakness, no gait dysfunction, no frequent falls. No back pain. No neck pain. Integumentary: No wounds, no lesions. No rash or pruritus. No unusual bruising. No change in hair or nails. Neurologic: No aphasia. No facial droop. No change in mentation. No head injury. No headache. No paralysis. No paresthesia. Psychiatric: No depression. No anxiety. No mood swings. Endocrine: No abnormal blood sugars. No weight change. No excessive sweating or thirst. No cold intolerance. PHYSICAL EXAMINATION Gen: This is an 85-year-old morbidly obese female. She sitting up in a chair. No acute respiratory distress noted HEENT: Head is atraumatic, normocephalic. Pupils equal, round. Sclerae is anicteric. NECK: Supple. No JVD. No lymphadenopathy. No thyromegaly. LUNGS: Few scattered rhonchi. No wheezing. No intercostal retractions. HEART: Regular rate and rhythm. No murmur. ABDOMEN: Soft. Bowel sounds are present. No masses. No tenderness. EXTREMITIES: Mild bilateral pedal edema. No calf tenderness. NEUROLOGICAL: Patient is awake, alert and oriented x3. Cranial nerves 2 through 12 are grossly intact. ASSESSMENT AND PLAN 1. Acute on chronic hypoxic respiratory failure secondary to possible gram- negative pneumonia, recent treatment for Covid 19 pneumonia. Consult with pulmonary medicine. Continue oxygen therapy. Continue Zosyn, Levaquin, Robitussin, Ventolin inhaler 4 times daily, dexamethasone 6 mg oral daily, Lovenox 30 mg daily, vitamin C, zinc. Incentive spirometry added. 2. Recent treatment for Covid 19 pneumonia with Bamlanivimab at the half-way. Continue as in #1. 3. Severe hyponatremia. Consult with nephrology. IV fluids discontinued. Repeat labs in the morning. 4. Gastroesophageal reflux disease and GI prophylaxis. Continue Pepcid. 5. Diabetes mellitus type 2, insulin requiring. Continue Levemir 40 units at bedtime, NovoLog scheduled 10 units 3 times daily with meals and NovoLog scale. 6. Hypertension. Continue lisinopril 20 mg daily, amlodipine 5 mg crease to twice daily. 7. Acute kidney injury. Consult with nephrology appreciated, continue IV fluids. 8. Chronic kidney disease stage III. 9. Anemia of chronic kidney disease. Continue ferrous sulfate twice daily 10. Diabetic neuropathy. 11. Generalized anxiety disorder. Continue Xanax or 0.25 mg daily as needed and scheduled at bedtime. 12. DVT prophylaxis. Lovenox. DISCHARGE PLAN Return to [facility] on Saturday. Impression and plan of care have been directed as dictated by the signing physician. Suad Ghotra nurse practitioner acting as scribe for signing physician. Objective - Vital Signs Vital signs: Vital Signs Temp 97.4 F L 09/30/20 05:00 Pulse 82 09/30/20 05:00 Resp 16 09/30/20 05:00 BP 158/65 09/30/20 05:00 Pulse Ox 91 L 09/30/20 05:00 Intake & Output 09/29/20 09/30/20 09/30/20 18:59 06:59 18:59 Intake Total 1100 1180 Output Total 325 Balance 1100 855 Intake: Intake, IV Titration 1100 700 Amount Levofloxacin 500Mg-D5w 100 Pmx 500 mg In Dextrose/ Water 1 100ml.bag @ 100 mls/hr IVPB Q48H [facility] Rx#: [id number] Piperacillin-Tazobactam 3 100 100 .375 gm In Sodium Chloride 0.9% 100 ml @ 25 mls/hr IVPB Q12HR [facility] Rx #:[id number] Sodium Chloride 0.9% 1, 900 600 000 ml @ 75 mls/hr IV . [id number] [facility] Rx#:[id number] Oral 480 Output: Urine 325 Other: Voiding Method Bedside Commode Diaper Incontinent # Voids 1 2 # Bowel Movements 1 1 - Labs CBC & Chem 7: 09/30/20 08:50 09/30/20 08:50 Labs: Abnormal Lab Results - Last 24 Hours (Table) 09/29/20 09/29/20 09/29/20 Range/Units 05:58 11:14 16:59 Sodium 134 L (135-145) mmol/L Chloride 110 H (96-109) mmol/L Anion Gap -1.00 L (4.00-12.00) mmol/L BUN 62.0 H (9.0-27.0) mg/dL Creatinine 2.0 H (0.6-1.5) mg/dL Est GFR (CKD-EPI)AfAm 26.1 L (60.0-200.0) Est GFR (CKD-EPI)NonAf 22.5 L (60.0-200.0) BUN/Creatinine Ratio 31.00 H (12.00-20.00) Ratio Glucose 176 H (70-110) mg/dL POC Glucose (mg/dL) 206 H 249 H (75-99) mg/dL Total Protein 5.2 L (6.2-8.2) g/dL Albumin 3.40 L (3.80-4.90) g/dL 09/29/20 09/30/20 Range/Units 19:59 07:21 Sodium (135-145) mmol/L Chloride (96-109) mmol/L Anion Gap (4.00-12.00) mmol/L BUN (9.0-27.0) mg/dL Creatinine (0.6-1.5) mg/dL Est GFR (CKD-EPI)AfAm (60.0-200.0) Est GFR (CKD-EPI)NonAf (60.0-200.0) BUN/Creatinine Ratio (12.00-20.00) Ratio Glucose (70-110) mg/dL POC Glucose (mg/dL) 293 H 122 H (75-99) mg/dL Total Protein (6.2-8.2) g/dL Albumin (3.80-4.90) g/dL Microbiology - Last 24 Hours (Table) 09/25/20 12:45 Blood Culture - Preliminary Blood No Growth after 96 hours 09/25/20 11:21 Blood Culture - Preliminary Blood No Growth after 96 hours 09/26/20 23:01 Gram Stain - Final Sputum Sputum Culture - Final
[2020-09-30 11:18] LABS: Glucose,Whole Blood 114 mg/dL (75-99)
[2020-09-30 11:28] VITALS: BMI 50.8
--- NOTE | 2020-09-30 14:27 | P.PN ---
Subjective Progress Note Date: 09/30/20 Principal diagnosis: CoVID 19 pneumonia/pneumonitis The patient is seen today 09/28/2020 in follow-up on the regular medical floor. She was admitted with hypoxic respiratory failure secondary CoVID 19 pneumonitis. She is currently maintaining O2 saturations in the 90s on room air. She's been up with assistance. Blood cultures reveal no growth to date. Sputum culture pending. White count 10.2. Hemoglobin 9.1. Sodium 131. Potassium 5.3. Creatinine 2.4. She remains on dexamethasone, Lovenox, Pepcid, melatonin, vitamin supplements. Antibiotics in the form of Zosyn and Levaquin. The patient is seen today 09/29/2020 follow-up on the regular medical floor. She is currently sitting up in a chair at the bedside. Awake and alert in no acute distress. Maintaining O2 saturation in the 90s on 3 L/m per nasal cannula. She was at 96% on room air at rest. Blood and sputum cultures reveal no growth. White count 8.7. Hemoglobin 8.3. Sodium 134. Potassium 5.3. Creatinine 2.0. She remains on dexamethasone, Lovenox, Pepcid, melatonin, vitamin supplements. Antibiotics in the form of Zosyn and Levaquin. Chest x- ray reveals bilateral focal airspace disease representing multifocal/atypical pneumonia. Slight improvement on the right. The patient is seen today 09/30/2020 follow-up on the regular medical floor. She is currently sitting up in a chair at the bedside. Awake and alert in no acute distress. She is breathing better today. No major complaints. Maintaining O2 saturations in the 90s on 3 L/m per nasal cannula. Afebrile. Blood and sputum cultures reveal no growth. White count 12.1. Hemoglobin 8.8. Sodium 134. Potassium 4.5. Creatinine 0.06. Glucose 114. She remains on Lovenox, dexamethasone, vitamin supplements, Protonix, melatonin. Continued on Zosyn and Levaquin. Objective - Vital Signs Vital signs: Vital Signs Temp 97.6 F 09/30/20 11:00 Pulse 95 09/30/20 11:00 Resp 18 09/30/20 11:00 BP 171/66 09/30/20 11:00 Pulse Ox 91 L 09/30/20 11:00 Intake & Output 09/29/20 09/30/20 09/30/20 18:59 06:59 18:59 Intake Total 1100 1180 Output Total 325 Balance 1100 855 Weight 117.934 kg Intake: Intake, IV Titration 1100 700 Amount Levofloxacin 500Mg-D5w 100 Pmx 500 mg In Dextrose/ Water 1 100ml.bag @ 100 mls/hr IVPB Q48H [facility] Rx#: [id number] Piperacillin-Tazobactam 3 100 100 .375 gm In Sodium Chloride 0.9% 100 ml @ 25 mls/hr IVPB Q12HR [facility] Rx #:[id number] Sodium Chloride 0.9% 1, 900 600 000 ml @ 75 mls/hr IV . [id number] [facility] Rx#:[id number] Oral 480 Output: Urine 325 Other: Voiding Method Bedside Commode Bedside Commode Diaper Diaper Incontinent Incontinent # Voids 1 2 # Bowel Movements 1 1 - Exam GENERAL EXAM: Alert, active, 85-year-old female patient, on 3 liters nasal cannula, up in a chair at the bedside, comfortable in no apparent distress. HEAD: Normocephalic. EYES: Normal reaction of pupils, equal size. NOSE: Clear with pink turbinates. THROAT: No erythema or exudates. NECK: No masses, no JVD. CHEST: No chest wall deformity. LUNGS: Equal air entry with few scattered rhonchi CVS: S1 and S2 normal with no audible murmur, regular rhythm. ABDOMEN: No hepatosplenomegaly, normal bowel sounds, no guarding or rigidity. SPINE: No scoliosis or deformity SKIN: No rashes CENTRAL NERVOUS SYSTEM: No focal deficits, tone is normal in all 4 extremities. EXTREMITIES: There is no peripheral edema. No clubbing, no cyanosis. Peripheral pulses are intact. - Labs CBC & Chem 7: 09/30/20 08:50 09/30/20 08:50 Labs: Abnormal Lab Results - Last 24 Hours (Table) 09/29/20 09/29/20 09/30/20 Range/Units 16:59 19:59 07:21 WBC (3.8-10.6) k/uL RBC (3.80-5.40) m/uL Hgb (11.4-16.0) gm/dL Hct (34.0-46.0) % Plt Count (150-450) k/uL Sodium (137-145) mmol/L BUN (7-17) mg/dL Creatinine (0.52-1.04) mg/dL POC Glucose (mg/dL) 249 H 293 H 122 H (75-99) mg/dL Total Protein (6.3-8.2) g/dL Albumin (3.5-5.0) g/dL 09/30/20 09/30/20 09/30/20 Range/Units 08:50 08:50 11:16 WBC 12.1 H (3.8-10.6) k/uL RBC 3.13 L (3.80-5.40) m/uL Hgb 8.8 L (11.4-16.0) gm/dL Hct 28.0 L (34.0-46.0) % Plt Count 520 H (150-450) k/uL Sodium 134 L (137-145) mmol/L BUN 54 H (7-17) mg/dL Creatinine 2.06 H (0.52-1.04) mg/dL POC Glucose (mg/dL) 114 H (75-99) mg/dL Total Protein 5.9 L (6.3-8.2) g/dL Albumin 3.1 L (3.5-5.0) g/dL Microbiology - Last 24 Hours (Table) 09/25/20 11:21 Blood Culture - Preliminary Blood No Growth after 120 hours 09/25/20 12:45 Blood Culture - Preliminary Blood No Growth after 96 hours 09/26/20 23:01 Gram Stain - Final Sputum Sputum Culture - Final Assessment and Plan Assessment: 1 COVID 19 pneumonia/pneumonitis, with mild to moderate hypoxemic respiratory failure. The patient is outside the [facility] window. 2 History of essential hypertension. 3 History of diabetes mellitus. 4 History of hyperlipidemia. 5 Obesity. 6 History of seasonal ALLERGIES. 7 History of chronic insomnia. 8 History of chronic anxiety. Plan: The patient was seen and evaluated by Dr. Pacheco Improved today from the pulmonary standpoint Continue the current treatment plan Plan is to return to [facility] 10/03/2020 We will see as needed I, the cosigning physician, performed a history & physical examination of the patient. Lungs sounds with few scattered rhonchi. Maintaining good O2 saturatio ns in the 90s on 3 L/m per nasal cannula. I discussed the assessment and plan of care with my nurse practitioner, Gavi Larose. I attest to the above note as dictated by her.
[2020-09-30] MEDS ORDERED: DARBEPOETIN ALFA 60 MCG/0.3 ML SYRINGE SQ SCH (16:30)
--- NOTE | 2020-09-30 16:39 | PN ---
PROGRESS NOTE Patient is seen for followup for hyponatremia and acute kidney injury. She has underlying COVID-19 pneumonia, which seems to be improving. Renal function has also improved slightly, with creatinine down to 2.06. Previous creatinine was 1.8 to 1.7 mg/dL. PHYSICAL EXAMINATION: Patient is comfortable. Blood pressure this morning 158/65, heart rate 82 per minute. She is afebrile. Examination of lower extremities shows no evidence of edema. Abdomen is soft, nontender. Heart and lungs are not examined. LABS: Labs show sodium 134, potassium 4.5, chloride 104, BUN 54, creatinine 2.06, hemoglobin 8.8 g/dL. ASSESSMENT: 1. Acute kidney injury, prerenal and acute tubular necrosis secondary to COVID-19 pneumonia and infection, currently improving. Patient is off IV fluids. 2. Hypovolemic hyponatremia, improved with normal saline. Patient is encouraged to maintain good oral protein intake. Continue off of saline for now. 3. Anemia. No active bleeding noted. Check iron studies if not done. 4. COVID-19 pneumonia, stable and improved. PLAN: Add a dose of Aranesp. Check iron profile. Patient will need followup as outpatient. MMODL / IJN: [id number] /
[2020-09-30 17:38] LABS: Glucose,Whole Blood 282 mg/dL (75-99)
[2020-09-30] MEDS: LACTOBACILLUS ACIDOPH & BULGAR 1 EACH PACKET PO SCH (17:55)
[2020-09-30 20:00] LABS: Glucose,Whole Blood 308 mg/dL (75-99)
[2020-09-30] MEDS: ALPRAZolam 0.25 MG TAB PO SCH (20:08)
[2020-09-30] MEDS: HYDROcodone/APAP 5-325MG 1 EACH TAB PO SCH (20:08)
[2020-09-30] MEDS: MELATONIN 5 MG TABLET PO SCH (20:08)
[2020-09-30] MEDS: INSULIN DETEMIR (LEVEMIR) 100 UNIT/ML SYR SQ SCH (20:41)
[2020-09-30 23:44] LABS: % Iron Saturation 29.54 (12.00-45.00)
[2020-10-01] MEDS: LEVOFLOXACIN 500 MG TAB PO SCH (06:02)
[2020-10-01 07:27] LABS: Glucose,Whole Blood 124 mg/dL (75-99)
[2020-10-01] MEDS: INSULIN ASPART (NovoLOG) 100 UNIT/ML VIAL SQ SCH ×7 (07:47→21:39)
[2020-10-01] MEDS: FERROUS SULFATE 325 MG TAB PO SCH ×2 (08:28→18:13)
[2020-10-01] MEDS: lisinopriL 20 MG TAB PO SCH (08:28)
[2020-10-01] MEDS: ASCORBIC ACID 500 MG TAB PO SCH (08:28)
[2020-10-01] MEDS: ZINC SULFATE 220 MG CAP PO SCH (08:28)
[2020-10-01] MEDS: dexAMETHasone 2 MG TAB PO SCH (08:28)
[2020-10-01] MEDS: PANTOPRAZOLE 40 MG TABLET PO SCH (08:28)
[2020-10-01] MEDS: ENOXAPARIN 30 MG/0.3 ML SYRINGE SQ SCH (08:28)
[2020-10-01] MEDS: amLODIPine 5 MG TAB PO SCH ×2 (08:28→21:39)
[2020-10-01] MEDS: PIPERACILLIN-TAZOBACTAM 3.375 GM in SODIUM CHLORIDE 0.9% 100 ML IVPB SCH ×2 (08:29→21:39)
[2020-10-01] MEDS: ALBUTEROL HFA INHALER INHALATION SCH ×4 (08:52→21:18)
--- NOTE | 2020-10-01 10:09 | XR ---
EXAMINATION TYPE: XR chest 1V DATE OF EXAM: 10/01/2020 COMPARISON: Chest x-ray 09/29/2020 HISTORY: Shortness of breath TECHNIQUE: Single frontal view of the chest is obtained. FINDINGS: Bilateral airspace disease shows a similar appearance. No evident pneumothorax or pleural effusion. Heart is enlarged. Arthropathy noted shoulders. IMPRESSION: Similar findings, correlate for pneumonia, edema not excluded. Megaly.
--- NOTE | 2020-10-01 10:41 | P.PN ---
Subjective Progress Note Date: 10/01/20 HISTORY OF PRESENT ILLNESS This is an 85-year-old female patient of Dr. Anaya, resides at [facility] with past medical history of diabetes mellitus type 2, insulin requiring, hypertension, depression, gastroesophageal reflux disease, history of acute GI bleed secondary to Benny ulcers and hiatal hernia in 2018, and chronic kidney disease stage III, anemia of chronic disease with previous iron infusions, diabetic neuropathy, cellulitis bilateral lower extremities, large lipoma removed from the left flank 6 months ago. Patient is a long-term resident at [facility]. Patient was diagnosed with COVID-19 on September 14 and on September 15 received infusion of Bamlanivimab. She has been stable until the last 3 days she's developed fever and chills along with hypoxia. Oxygen was increased to 6 L and pulse ox was 90. Patient was transferred to [facility] emergency center for evaluation. She was found to be afebrile, heart rate 85, blood pressure 183/67, pulse ox 98% on oxygen. EKG was sinus rhythm with no acute ST changes. Chest x-ray was positive for pneumonia with area of consolidation consistent with bacterial pneumonia versus Covid. WBC 11.9, hemoglobin 10.1, platelet count 305. Sodium 119. Potassium 5.3, chloride 86, CO2 26, BUN 28 creatinine 2.32. Blood sugar 157. LDH 721. C-reactive protein 234.7. Lactic acid 0.8. Troponins are 0.031. Covid 19 was detected. [facility] and consult requested with primary medicine and nephrology. 09/27: Patient states that she is feeling better today. She denies having any difficulty in breathing. She states she has been eating very well and her appetite is good. She denies having any fever. No diarrhea. No headache. She has been afebrile, heart rate 87, blood pressure 171/68, pulse ox 92% on 3 L nasal cannula. Blood sugar 150-344. Patient has been seen by nephrology for hypovolemic hyponatremia, hypertension, acute kidney injury secondary to Covid. Norvasc was added for blood pressure control. Patient is continued on normal saline. Last evening sodium 126. Repeat BMP ordered. Labs on for tomorrow. Patient has been seen by pulmonary medicine with recommendations to continue Decadron for 10 days, vitamin C, vitamin D3, zinc. No plan for convalescent plasma. 09/28: Patient states that she slept well in bed last night. She got up to 5 hours of sleep. She continues have a little cough but improving. She denies having any fever. Blood sugars are 253-378 and NovoLog scheduled his been added. Patient is been afebrile, heart rate 76, blood pressure 171/66, pulse ox 96% on 3 L nasal cannula. Repeat blood work reveals WBC 10.3, Hemoccult 9.1, platelet count 392. Sodium 131, potassium 5.3, BUN 59 and creatinine 2.9. 09/29: She is afebrile, heart rate 68, blood pressure 147/74, pulse ox 97% on 3 L nasal cannula. Blood sugar last evening was 446. This morning 192. Patient r eceived additional 10 units of NovoLog insulin last evening,and scheduled NovoLog increased to 10 units with meals. WBC 8.7, hemoglobin 8.3, platelet count 418. Renal ultrasound showed no bilateral hydronephrosis. Norvasc has been increased to twice daily. Patient's breathing status continues to improve and we will plan for discharge back to [facility] tomorrow. 09/30: Patient has been afebrile, heart rate 82, blood pressure 158/65, pulse ox 91% on 3 L nasal cannula. Blood sugars running between 222 and 293. Chest x- ray from yesterday reveals bilateral focal areas of airspace disease could represent pulmonary edema or multifocal atypical pneumonia. Slight improvement on the right. CBC 12.1, hemoglobin 8.8, platelet count 520. Sodium 134, potassium 4.5, BUN 54 and creatinine 2.06. Blood sugars run between 89 and 122 this morning. Patient was in the 200s yesterday. Patient's breathing status is improving. She states it is good at time of evaluation. She states she had a good night. Incentive spirometry added. Anticipate discharge back to [facility] on Saturday. 10/01: Patient is found resting in bed without any acute distress or complaints. Patient will have a repeat chest x-ray today. Patient states her breathing is much better. She continues to be pulse oxing on 3 L nasal cannula at 96%, she has been afebrile, heart rate 74, blood pressure 154/72, respirations 16 non labored. Patient continues to have some cough with shortness of breath with activity. Patient states that she slept well last night. Continues to use incentive spirometer. Her anticipated discharge to [facility] is on Saturday. REVIEW OF SYSTEMS Constitutional: Denies fever, no chills, no night sweats. No weight change. Reported weakness, positive fatigue. No daytime sleepiness. EENT: No headache. No blurred vision or double vision, no loss of vision. No loss of Hearing, no ringing in the ears, no dizziness. No nasal drainage or congestion. No epistaxis. No sore throat. Lungs: Denies shortness of breath improving, reports cough, no sputum production. No wheezing. Reported hypoxia Cardiovascular: No chest pain, no lower extremity edema. No palpitations. No paroxysmal nocturnal dyspnea. No orthopnea. No lightheadedness or dizziness. No syncopal episodes. Abdominal: No abdominal pain. No nausea, vomiting. No diarrhea. No constipation. No bloody or tarry stools. Denies loss of appetite. Genitourinary: No dysuria, increased frequency, urgency. No urinary retention. Musculoskeletal: No myalgias. No muscle weakness, no gait dysfunction, no frequent falls. No back pain. No neck pain. Integumentary: No wounds, no lesions. No rash or pruritus. No unusual bruising. No change in hair or nails. Neurologic: No aphasia. No facial droop. No change in mentation. No head injury. No headache. No paralysis. No paresthesia. Psychiatric: No depression. No anxiety. No mood swings. Endocrine: No abnormal blood sugars. No weight change. No excessive sweating or thirst. No cold intolerance. PHYSICAL EXAMINATION Gen: This is an 85-year-old morbidly obese female. She sitting up in a chair. No acute respiratory distress noted HEENT: Head is atraumatic, normocephalic. Pupils equal, round. Sclerae is anicteric. NECK: Supple. No JVD. No lymphadenopathy. No thyromegaly. LUNGS: Few scattered rhonchi. No wheezing. No intercostal retractions. HEART: Regular rate and rhythm. No murmur. ABDOMEN: Soft. Bowel sounds are present. No masses. No tenderness. EXTREMITIES: Mild bilateral pedal edema. No calf tenderness. NEUROLOGICAL: Patient is awake, alert and oriented x3. Cranial nerves 2 through 12 are grossly intact. ASSESSMENT AND PLAN 1. Acute on chronic hypoxic respiratory failure secondary to possible gram- negative pneumonia, recent treatment for Covid 19 pneumonia. Consult with pulmonary medicine. Continue oxygen therapy. Continue Zosyn, Levaquin, Robitussin, Ventolin inhaler 4 times daily, dexamethasone 6 mg oral daily, Lovenox 30 mg daily, vitamin C, zinc. Incentive spirometry added. Repeat chest x-ray today impression: Similar findings, correlate for pneumonia, edema not excluded. Megaly. Bilateral airspace disease shows some similar appearance. No evidence of pneumothorax or pleural effusion. Heart is enlarged. 2. Recent treatment for Covid 19 pneumonia with Bamlanivimab at the longterm. Continue as in #1. 3. Severe hyponatremia. Consult with nephrology. IV fluids discontinued. Repeat labs in the morning. 4. Gastroesophageal reflux disease and GI prophylaxis. Continue Pepcid. 5. Diabetes mellitus type 2, insulin requiring. Continue Levemir 40 units at bedtime, NovoLog scheduled 10 units 3 times daily with meals and NovoLog scale. 6. Hypertension. Continue lisinopril 20 mg daily, amlodipine 5 mg crease to t wice daily. 7. Acute kidney injury. Consult with nephrology appreciated, continue IV fluids. 8. Chronic kidney disease stage III. 9. Anemia of chronic kidney disease. Continue ferrous sulfate twice daily 10. Diabetic neuropathy. 11. Generalized anxiety disorder. Continue Xanax or 0.25 mg daily as needed and scheduled at bedtime. 12. DVT prophylaxis. Lovenox. DISCHARGE PLAN Return to [facility] on Saturday. Impression and plan of care have been directed as dictated by the signing physician. Slime Calixto nurse practitioner acting as scribe for signing physician. Objective - Vital Signs Vital signs: Vital Signs Temp 97.4 F L 10/01/20 04:09 Pulse 74 10/01/20 04:09 Resp 16 10/01/20 07:15 BP 154/72 10/01/20 04:09 Pulse Ox 96 10/01/20 04:09 Intake & Output 09/30/20 10/01/20 10/01/20 18:59 06:59 18:59 Intake Total 900 460 Balance 900 460 Weight 117.934 kg Intake: Intake, IV Titration 900 100 Amount Piperacillin-Tazobactam 3 100 .375 gm In Sodium Chloride 0.9% 100 ml @ 25 mls/hr IVPB Q12HR [facility] Rx #:[id number] Sodium Chloride 0.9% 1, 900 000 ml @ 75 mls/hr IV . [id number] [facility] Rx#:[id number] Oral 360 Other: Voiding Method Bedside Commode Bedside Commode Bedside Commode Diaper Diaper Diaper Incontinent Incontinent Incontinent # Voids 1 - Labs CBC & Chem 7: 09/30/20 08:50 09/30/20 08:50 Labs: Abnormal Lab Results - Last 24 Hours (Table) 09/30/20 09/30/20 09/30/20 Range/Units 11:16 17:36 19:59 POC Glucose (mg/dL) 114 H 282 H 308 H (75-99) mg/dL 10/01/20 Range/Units 07:16 POC Glucose (mg/dL) 124 H (75-99) mg/dL Microbiology - Last 24 Hours (Table) 09/25/20 12:45 Blood Culture - Preliminary Blood No Growth after 120 hours 09/25/20 11:21 Blood Culture - Preliminary Blood No Growth after 120 hours
--- NOTE | 2020-10-01 12:04 | P.PN ---
Subjective Patient is seen in follow-up for acute kidney injury on chronic kidney disease. Renal function fairly stable as of yesterday. Oral intake is good. Good urine output. No vomiting or diarrhea. Currently on 3 L nasal cannula. Denies chest pain or shortness breath. Vital signs are stable. General: The patient appeared well nourished and normally developed. HEENT: Head exam is unremarkable. Neck is without jugular venous distension. LUNGS: Breath sounds decreased. HEART: Rate and Rhythm are regular. ABDOMEN: Soft, nontender. EXTREMITITES: Trace edema. Objective - Vital Signs Vital signs: Vital Signs Temp 97.6 F 10/01/20 10:20 Pulse 87 10/01/20 10:20 Resp 18 10/01/20 10:20 BP 167/79 10/01/20 10:20 Pulse Ox 92 L 10/01/20 10:20 Intake & Output 09/30/20 10/01/20 10/01/20 18:59 06:59 18:59 Intake Total 900 460 Balance 900 460 Weight 117.934 kg Intake: Intake, IV Titration 900 100 Amount Piperacillin-Tazobactam 3 100 .375 gm In Sodium Chloride 0.9% 100 ml @ 25 mls/hr IVPB Q12HR [facility] Rx #:[id number] Sodium Chloride 0.9% 1, 900 000 ml @ 75 mls/hr IV . [id number] [facility] Rx#:[id number] Oral 360 Other: Voiding Method Bedside Commode Bedside Commode Bedside Commode Diaper Diaper Diaper Incontinent Incontinent Incontinent # Voids 1 - Labs CBC & Chem 7: 09/30/20 08:50 09/30/20 08:50 Labs: Abnormal Lab Results - Last 24 Hours (Table) 09/30/20 09/30/20 10/01/20 Range/Units 17:36 19:59 07:16 POC Glucose (mg/dL) 282 H 308 H 124 H (75-99) mg/dL Microbiology - Last 24 Hours (Table) 09/25/20 12:45 Blood Culture - Preliminary Blood No Growth after 120 hours 09/25/20 11:21 Blood Culture - Preliminary Blood No Growth after 120 hours Assessment and Plan Plan: Assessment: 1. Acute kidney injury secondary to ATN secondary to quit 19 infection. Creatinine fairly stable at 2.06 as of yesterday. UA benign. 2. Chronic kidney disease stage IIIB with baseline creatinine in the range of 1.6-1.8 secondary to nephrosclerosis. 3. Coreg 19 pneumonia. Currently on 3 L nasal cannula. 4. Hypovolemic hyponatremia improved with IV hydration. 5. Anemia of chronic kidney disease maintained on Aranesp. Iron replete. 6. Diabetes mellitus. 7. Hypertension with chronic kidney disease. Exacerbated by steroids. Plan: Remains off IV fluids. Encourage oral intake. Avoid nephrotoxins. Continue to monitor renal function and urine output
[2020-10-01 12:18] LABS: Glucose,Whole Blood 162 mg/dL (75-99)
--- NOTE | 2020-10-01 13:08 | P.PN ---
Subjective Progress Note Date: 10/01/20 Principal diagnosis: CoVID 19 pneumonia/pneumonitis The patient is seen today 09/28/2020 in follow-up on the regular medical floor. She was admitted with hypoxic respiratory failure secondary CoVID 19 pneumonitis. She is currently maintaining O2 saturations in the 90s on room air. She's been up with assistance. Blood cultures reveal no growth to date. Sputum culture pending. White count 10.2. Hemoglobin 9.1. Sodium 131. Potassium 5.3. Creatinine 2.4. She remains on dexamethasone, Lovenox, Pepcid, melatonin, vitamin supplements. Antibiotics in the form of Zosyn and Levaquin. The patient is seen today 09/29/2020 follow-up on the regular medical floor. She is currently sitting up in a chair at the bedside. Awake and alert in no acute distress. Maintaining O2 saturation in the 90s on 3 L/m per nasal cannula. She was at 96% on room air at rest. Blood and sputum cultures reveal no growth. White count 8.7. Hemoglobin 8.3. Sodium 134. Potassium 5.3. Creatinine 2.0. She remains on dexamethasone, Lovenox, Pepcid, melatonin, vitamin supplements. Antibiotics in the form of Zosyn and Levaquin. Chest x- ray reveals bilateral focal airspace disease representing multifocal/atypical pneumonia. Slight improvement on the right. The patient is seen today 09/30/2020 follow-up on the regular medical floor. She is currently sitting up in a chair at the bedside. Awake and alert in no acute distress. She is breathing better today. No major complaints. Maintaining O2 saturations in the 90s on 3 L/m per nasal cannula. Afebrile. Blood and sputum cultures reveal no growth. White count 12.1. Hemoglobin 8.8. Sodium 134. Potassium 4.5. Creatinine 0.06. Glucose 114. She remains on Lovenox, dexamethasone, vitamin supplements, Protonix, melatonin. Continued on Zosyn and Levaquin. The patient is seen today 10/01/2020 follow-up on the regular medical floor. She is awake and alert in no acute distress. Currently sitting up at the bedside. Denies any worsening shortness of breath, cough or congestion. Maintaining O2 saturations in the 90s on 3 L/m per nasal cannula. She's afebrile. Blood, sputum cultures reveal no growth. Glucose 162. She remains on Lovenox, dexamethasone, vitamin supplements, Protonix, melatonin. Continued on Zosyn and Levaquin. Chest x-ray continues to revealed bilateral airspace disease. Similar to previous. Objective - Vital Signs Vital signs: Vital Signs Temp 97.6 F 10/01/20 10:20 Pulse 87 10/01/20 10:20 Resp 18 10/01/20 10:20 BP 167/79 10/01/20 10:20 Pulse Ox 92 L 10/01/20 10:20 Intake & Output 09/30/20 10/01/20 10/01/20 18:59 06:59 18:59 Intake Total 900 460 Balance 900 460 Weight 117.934 kg Intake: Intake, IV Titration 900 100 Amount Piperacillin-Tazobactam 3 100 .375 gm In Sodium Chloride 0.9% 100 ml @ 25 mls/hr IVPB Q12HR [facility] Rx #:[id number] Sodium Chloride 0.9% 1, 900 000 ml @ 75 mls/hr IV . [id number] [facility] Rx#:[id number] Oral 360 Other: Voiding Method Bedside Commode Bedside Commode Bedside Commode Diaper Diaper Diaper Incontinent Incontinent Incontinent # Voids 1 - Exam GENERAL EXAM: Alert, 85-year-old female patient, on 3 liters nasal cannula, up in a chair at the bedside, comfortable in no apparent distress. HEAD: Normocephalic. EYES: Normal reaction of pupils, equal size. NOSE: Clear with pink turbinates. THROAT: No erythema or exudates. NECK: No masses, no JVD. CHEST: No chest wall deformity. LUNGS: Equal air entry with few scattered rhonchi CVS: S1 and S2 normal with no audible murmur, regular rhythm. ABDOMEN: No hepatosplenomegaly, normal bowel sounds, no guarding or rigidity. SPINE: No scoliosis or deformity SKIN: No rashes CENTRAL NERVOUS SYSTEM: No focal deficits, tone is normal in all 4 extremities. EXTREMITIES: There is no peripheral edema. No clubbing, no cyanosis. Peripheral pulses are intact. - Labs CBC & Chem 7: 09/30/20 08:50 09/30/20 08:50 Labs: Abnormal Lab Results - Last 24 Hours (Table) 09/30/20 09/30/20 10/01/20 Range/Units 17:36 19:59 07:16 POC Glucose (mg/dL) 282 H 308 H 124 H (75-99) mg/dL 10/01/20 Range/Units 12:16 POC Glucose (mg/dL) 162 H (75-99) mg/dL Microbiology - Last 24 Hours (Table) 09/25/20 12:45 Blood Culture - Preliminary Blood No Growth after 120 hours 09/25/20 11:21 Blood Culture - Preliminary Blood No Growth after 120 hours Assessment and Plan Assessment: 1 COVID 19 pneumonia/pneumonitis, with mild to moderate hypoxemic respiratory failure. The patient is outside the remdesivir window. 2 History of essential hypertension. 3 History of diabetes mellitus. 4 History of hyperlipidemia. 5 Obesity. 6 History of seasonal ALLERGIES. 7 History of chronic insomnia. 8 History of chronic anxiety. Plan: The patient was seen and evaluated by Dr. Pacheco Chest x-ray reviewed Continue the current treatment plan Plan is to return to [facility] 10/03/2020 I, the cosigning physician, performed a history & physical examination of the patient. Lungs sounds with few scattered rhonchi. Maintaining good O2 saturations in the 90s on 3 L/m per nasal cannula. I discussed the assessment and plan of care with my nurse practitioner, Gavi Larose. I attest to the above note as dictated by her.
[2020-10-01 17:04] LABS: Glucose,Whole Blood 246 mg/dL (75-99)
[2020-10-01] MEDS: LACTOBACILLUS ACIDOPH & BULGAR 1 EACH PACKET PO SCH (18:13)
[2020-10-01 20:53] LABS: Glucose,Whole Blood 352 mg/dL (75-99)
[2020-10-01] MEDS: MELATONIN 5 MG TABLET PO SCH (21:39)
[2020-10-01] MEDS: INSULIN DETEMIR (LEVEMIR) 100 UNIT/ML SYR SQ SCH (21:39)
[2020-10-01] MEDS: ALPRAZolam 0.25 MG TAB PO SCH (21:39)
[2020-10-01] MEDS: HYDROcodone/APAP 5-325MG 1 EACH TAB PO SCH (21:40)
[2020-10-02 07:30] LABS: Glucose,Whole Blood 156 mg/dL (75-99)
[2020-10-02] MEDS: ALBUTEROL HFA INHALER INHALATION SCH ×4 (07:47→21:02)
[2020-10-02] MEDS: PIPERACILLIN-TAZOBACTAM 3.375 GM in SODIUM CHLORIDE 0.9% 100 ML IVPB SCH ×2 (09:48→21:16)
[2020-10-02] MEDS: ENOXAPARIN 30 MG/0.3 ML SYRINGE SQ SCH (09:49)
[2020-10-02] MEDS: lisinopriL 20 MG TAB PO SCH (09:50)
[2020-10-02] MEDS: ASCORBIC ACID 500 MG TAB PO SCH (09:50)
[2020-10-02] MEDS: dexAMETHasone 2 MG TAB PO SCH (09:50)
[2020-10-02] MEDS: ZINC SULFATE 220 MG CAP PO SCH (09:50)
[2020-10-02] MEDS: amLODIPine 5 MG TAB PO SCH ×2 (09:50→21:14)
[2020-10-02] MEDS: PANTOPRAZOLE 40 MG TABLET PO SCH (09:51)
[2020-10-02] MEDS: FERROUS SULFATE 325 MG TAB PO SCH ×2 (09:51→18:24)
[2020-10-02] MEDS: INSULIN ASPART (NovoLOG) 100 UNIT/ML VIAL SQ SCH ×7 (09:51→21:15)
--- NOTE | 2020-10-02 10:45 | P.PN ---
Subjective Patient is seen in follow-up for acute kidney injury on chronic kidney disease. Creatinine 2.06 as of 09/30/2020. Oral intake is good. Good urine output. No vomiting or diarrhea. Currently on 3 L nasal cannula. Denies chest pain or shortness breath. No changes overnight. Vital signs are stable. General: The patient appeared well nourished and normally developed. HEENT: Head exam is unremarkable. Neck is without jugular venous distension. LUNGS: Breath sounds decreased. HEART: Rate and Rhythm are regular. ABDOMEN: Soft, nontender. EXTREMITITES: Trace edema. Objective - Vital Signs Vital signs: Vital Signs Temp 97.3 F L 10/02/20 04:35 Pulse 86 10/02/20 08:05 Resp 18 10/02/20 08:31 BP 147/71 10/02/20 04:35 Pulse Ox 93 L 10/02/20 04:35 Intake & Output 10/01/20 10/02/20 10/02/20 18:59 06:59 18:59 Intake Total 950 590 Output Total 325 Balance 950 590 -325 Intake: Intake, IV Titration 100 Amount Piperacillin-Tazobactam 3 100 .375 gm In Sodium Chloride 0.9% 100 ml @ 25 mls/hr IVPB Q12HR [facility] Rx #:[id number] Oral 850 590 Output: Urine 325 Other: Voiding Method Bedside Commode Bedside Commode Bedside Commode Diaper Diaper Diaper Incontinent Incontinent Incontinent # Voids 3 1 1 # Bowel Movements 3 3 - Labs CBC & Chem 7: 09/30/20 08:50 09/30/20 08:50 Labs: Abnormal Lab Results - Last 24 Hours (Table) 10/01/20 10/01/20 10/01/20 Range/Units 12:16 16:59 20:52 POC Glucose (mg/dL) 162 H 246 H 352 H (75-99) mg/dL 10/02/20 Range/Units 07:28 POC Glucose (mg/dL) 156 H (75-99) mg/dL Microbiology - Last 24 Hours (Table) 09/25/20 12:45 Blood Culture - Final Blood No Growth after 144 hours 09/25/20 11:21 Blood Culture - Final Blood No Growth after 144 hours Assessment and Plan Plan: Assessment: 1. Acute kidney injury secondary to ATN secondary to quit 19 infection. Creatinine 2.06 as of September 30. UA benign. 2. Chronic kidney disease stage IIIB with baseline creatinine in the range of 1.6-1.8 secondary to nephrosclerosis. 3. Covid-19 pneumonia. Currently on 3 L nasal cannula. 4. Hypovolemic hyponatremia improved with IV hydration. 5. Anemia of chronic kidney disease maintained on Aranesp. Iron replete. 6. Diabetes mellitus. 7. Hypertension with chronic kidney disease. Exacerbated by steroids. Stable. Plan: Remains off IV fluids. Encourage oral intake. Avoid nephrotoxins. Continue to monitor renal function and urine output.
--- NOTE | 2020-10-02 11:26 | P.PN ---
Subjective Progress Note Date: 10/02/20 HISTORY OF PRESENT ILLNESS This is an 85-year-old female patient of Dr. Anaya, resides at [facility] with past medical history of diabetes mellitus type 2, insulin requiring, hypertension, depression, gastroesophageal reflux disease, history of acute GI bleed secondary to Benny ulcers and hiatal hernia in 2018, and chronic kidney disease stage III, anemia of chronic disease with previous iron infusions, diabetic neuropathy, cellulitis bilateral lower extremities, large lipoma removed from the left flank 6 months ago. Patient is a long-term resident at [facility]. Patient was diagnosed with COVID-19 on September 14 and on September 15 received infusion of Bamlanivimab. She has been stable until the last 3 days she's developed fever and chills along with hypoxia. Oxygen was increased to 6 L and pulse ox was 90. Patient was transferred to [facility] emergency center for evaluation. She was found to be afebrile, heart rate 85, blood pressure 183/67, pulse ox 98% on oxygen. EKG was sinus rhythm with no acute ST changes. Chest x-ray was positive for pneumonia with area of consolidation consistent with bacterial pneumonia versus Covid. WBC 11.9, hemoglobin 10.1, platelet count 305. Sodium 119. Potassium 5.3, chloride 86, CO2 26, BUN 28 creatinine 2.32. Blood sugar 157. LDH 721. C-reactive protein 234.7. Lactic acid 0.8. Troponins are 0.031. Covid 19 was detected. [facility] and consult requested with primary medicine and nephrology. 09/27: Patient states that she is feeling better today. She denies having any difficulty in breathing. She states she has been eating very well and her appetite is good. She denies having any fever. No diarrhea. No headache. She has been afebrile, heart rate 87, blood pressure 171/68, pulse ox 92% on 3 L nasal cannula. Blood sugar 150-344. Patient has been seen by nephrology for hypovolemic hyponatremia, hypertension, acute kidney injury secondary to Covid. Norvasc was added for blood pressure control. Patient is continued on normal saline. Last evening sodium 126. Repeat BMP ordered. Labs on for tomorrow. Patient has been seen by pulmonary medicine with recommendations to continue Decadron for 10 days, vitamin C, vitamin D3, zinc. No plan for convalescent plasma. 09/28: Patient states that she slept well in bed last night. She got up to 5 hours of sleep. She continues have a little cough but improving. She denies having any fever. Blood sugars are 253-378 and NovoLog scheduled his been added. Patient is been afebrile, heart rate 76, blood pressure 171/66, pulse ox 96% on 3 L nasal cannula. Repeat blood work reveals WBC 10.3, Hemoccult 9.1, platelet count 392. Sodium 131, potassium 5.3, BUN 59 and creatinine 2.9. 09/29: She is afebrile, heart rate 68, blood pressure 147/74, pulse ox 97% on 3 L nasal cannula. Blood sugar last evening was 446. This morning 192. Patient r eceived additional 10 units of NovoLog insulin last evening,and scheduled NovoLog increased to 10 units with meals. WBC 8.7, hemoglobin 8.3, platelet count 418. Renal ultrasound showed no bilateral hydronephrosis. Norvasc has been increased to twice daily. Patient's breathing status continues to improve and we will plan for discharge back to [facility] tomorrow. 09/30: Patient has been afebrile, heart rate 82, blood pressure 158/65, pulse ox 91% on 3 L nasal cannula. Blood sugars running between 222 and 293. Chest x- ray from yesterday reveals bilateral focal areas of airspace disease could represent pulmonary edema or multifocal atypical pneumonia. Slight improvement on the right. CBC 12.1, hemoglobin 8.8, platelet count 520. Sodium 134, potassium 4.5, BUN 54 and creatinine 2.06. Blood sugars run between 89 and 122 this morning. Patient was in the 200s yesterday. Patient's breathing status is improving. She states it is good at time of evaluation. She states she had a good night. Incentive spirometry added. Anticipate discharge back to [facility] on Saturday. 10/01: Patient is found resting in bed without any acute distress or complaints. Patient will have a repeat chest x-ray today. Patient states her breathing is much better. She continues to be pulse oxing on 3 L nasal cannula at 96%, she has been afebrile, heart rate 74, blood pressure 154/72, respirations 16 non labored. Patient continues to have some cough with shortness of breath with activity. Patient states that she slept well last night. Continues to use incentive spirometer. Her anticipated discharge to [facility] is on Saturday. 10/02: Patient found resting comfortably in bed without any acute distress or complaints. Patient states that she is breathing much better. She remains afebrile, heart rate 86, respirations 16 nonlabored with cough. Blood pressure 147/71, 93% on 3 L nasal cannula. Patient continues to have some cough and shortness of breath with activity. Continues to use her incentive spirometer. Anticipated discharge to [facility] tomorrow. REVIEW OF SYSTEMS Constitutional: Denies fever, no chills, no night sweats. No weight change. Reported weakness, positive fatigue. No daytime sleepiness. EENT: No headache. No blurred vision or double vision, no loss of vision. No loss of Hearing, no ringing in the ears, no dizziness. No nasal drainage or congestion. No epistaxis. No sore throat. Lungs: Denies shortness of breath improving, reports cough, no sputum production. No wheezing. Reported hypoxia Cardiovascular: No chest pain, no lower extremity edema. No palpitations. No paroxysmal nocturnal dyspnea. No orthopnea. No lightheadedness or dizziness. No syncopal episodes. Abdominal: No abdominal pain. No nausea, vomiting. No diarrhea. No constipation. No bloody or tarry stools. Denies loss of appetite. Genitourinary: No dysuria, increased frequency, urgency. No urinary retention. Musculoskeletal: No myalgias. No muscle weakness, no gait dysfunction, no frequent falls. No back pain. No neck pain. Integumentary: No wounds, no lesions. No rash or pruritus. No unusual bruising. No change in hair or nails. Neurologic: No aphasia. No facial droop. No change in mentation. No head injury. No headache. No paralysis. No paresthesia. Psychiatric: No depression. No anxiety. No mood swings. Endocrine: No abnormal blood sugars. No weight change. No excessive sweating or thirst. No cold intolerance. PHYSICAL EXAMINATION Gen: This is an 85-year-old morbidly obese female. She sitting up in a chair. No acute respiratory distress noted HEENT: Head is atraumatic, normocephalic. Pupils equal, round. Sclerae is anicteric. NECK: Supple. No JVD. No lymphadenopathy. No thyromegaly. LUNGS: Few scattered rhonchi. No wheezing. No intercostal retractions. HEART: Regular rate and rhythm. No murmur. ABDOMEN: Soft. Bowel sounds are present. No masses. No tenderness. EXTREMITIES: Mild bilateral pedal edema. No calf tenderness. NEUROLOGICAL: Patient is awake, alert and oriented x3. Cranial nerves 2 through 12 are grossly intact. ASSESSMENT AND PLAN 1. Acute on chronic hypoxic respiratory failure secondary to possible gram- negative pneumonia, recent treatment for Covid 19 pneumonia. Consult with pulmonary medicine. Continue oxygen therapy. Continue Zosyn, Levaquin, Robitussin, Ventolin inhaler 4 times daily, dexamethasone 6 mg oral daily, Lovenox 30 mg daily, vitamin C, zinc. Incentive spirometry added. 2. [facility] 19 [facility] Continue as in #1. 3. Severe hyponatremia. Consult with nephrology. IV fluids discontinued. Repeat labs in the morning. 4. Gastroesophageal reflux disease and GI prophylaxis. Continue Pepcid. 5. Diabetes mellitus type 2, insulin requiring. Continue Levemir 40 units at bedtime, NovoLog scheduled 10 units 3 times daily with meals and NovoLog scale. 6. Hypertension. Continue lisinopril 20 mg daily, amlodipine 5 mg crease to twice daily. 7. Acute kidney injury. Consult with nephrology appreciated, continue IV fluids. 8. Chronic kidney disease stage III. 9. Anemia of chronic kidney disease. Continue ferrous sulfate twice daily 10. Diabetic neuropathy. 11. Generalized anxiety disorder. Continue Xanax or 0.25 mg daily as needed and scheduled at bedtime. 12. DVT prophylaxis. Lovenox. DISCHARGE PLAN Return to [facility] on Saturday. Impression and plan of care have been directed as dictated by the signing physician. Slime Calixto nurse practitioner acting as scribe for signing physician. Objective - Vital Signs Vital signs: Vital Signs Temp 97.3 F L 10/02/20 04:35 Pulse 86 10/02/20 08:05 Resp 18 10/02/20 08:31 BP 147/71 10/02/20 04:35 Pulse Ox 93 L 10/02/20 04:35 Intake & Output 10/01/20 10/02/20 10/02/20 18:59 06:59 18:59 Intake Total 950 590 Output Total 325 Balance 950 590 -325 Intake: Intake, IV Titration 100 Amount Piperacillin-Tazobactam 3 100 .375 gm In Sodium Chloride 0.9% 100 ml @ 25 mls/hr IVPB Q12HR [facility] Rx #:[id number] Oral 850 590 Output: Urine 325 Other: Voiding Method Bedside Commode Bedside Commode Bedside Commode Diaper Diaper Diaper Incontinent Incontinent Incontinent # Voids 3 1 1 # Bowel Movements 3 3 - Labs CBC & Chem 7: 09/30/20 08:50 09/30/20 08:50 Labs: Abnormal Lab Results - Last 24 Hours (Table) 10/01/20 10/01/20 10/01/20 Range/Units 12:16 16:59 20:52 POC Glucose (mg/dL) 162 H 246 H 352 H (75-99) mg/dL 10/02/20 Range/Units 07:28 POC Glucose (mg/dL) 156 H (75-99) mg/dL Microbiology - Last 24 Hours (Table) 09/25/20 12:45 Blood Culture - Final Blood No Growth after 144 hours 09/25/20 11:21 Blood Culture - Final Blood No Growth after 144 hours
[2020-10-02 12:04] LABS: Glucose,Whole Blood 234 mg/dL (75-99)
[2020-10-02 12:21] LABS: Anion Gap 9.8 mmol/L (4.00-12.00); BUN/Creat Ratio 27.83 Ratio (12.00-20.00); Calcium 9.3 mg/dL (8.7-10.3); Carbon Dioxide 22.2 mmol/L (21.6-31.8)
--- NOTE | 2020-10-02 14:20 | P.PN ---
Subjective Progress Note Date: 10/02/20 Principal diagnosis: CoVID 19 pneumonia/pneumonitis The patient is seen today 09/28/2020 in follow-up on the regular medical floor. She was admitted with hypoxic respiratory failure secondary CoVID 19 pneumonitis. She is currently maintaining O2 saturations in the 90s on room air. She's been up with assistance. Blood cultures reveal no growth to date. Sputum culture pending. White count 10.2. Hemoglobin 9.1. Sodium 131. Potassium 5.3. Creatinine 2.4. She remains on dexamethasone, Lovenox, Pepcid, melatonin, vitamin supplements. Antibiotics in the form of Zosyn and Levaquin. The patient is seen today 09/29/2020 follow-up on the regular medical floor. She is currently sitting up in a chair at the bedside. Awake and alert in no acute distress. Maintaining O2 saturation in the 90s on 3 L/m per nasal cannula. She was at 96% on room air at rest. Blood and sputum cultures reveal no growth. White count 8.7. Hemoglobin 8.3. Sodium 134. Potassium 5.3. Creatinine 2.0. She remains on dexamethasone, Lovenox, Pepcid, melatonin, vitamin supplements. Antibiotics in the form of Zosyn and Levaquin. Chest x- ray reveals bilateral focal airspace disease representing multifocal/atypical pneumonia. Slight improvement on the right. The patient is seen today 09/30/2020 follow-up on the regular medical floor. She is currently sitting up in a chair at the bedside. Awake and alert in no acute distress. She is breathing better today. No major complaints. Maintaining O2 saturations in the 90s on 3 L/m per nasal cannula. Afebrile. Blood and sputum cultures reveal no growth. White count 12.1. Hemoglobin 8.8. Sodium 134. Potassium 4.5. Creatinine 0.06. Glucose 114. She remains on Lovenox, dexamethasone, vitamin supplements, Protonix, melatonin. Continued on Zosyn and Levaquin. The patient is seen today 10/01/2020 follow-up on the regular medical floor. She is awake and alert in no acute distress. Currently sitting up at the bedside. Denies any worsening shortness of breath, cough or congestion. Maintaining O2 saturations in the 90s on 3 L/m per nasal cannula. She's afebrile. Blood, sputum cultures reveal no growth. Glucose 162. She remains on Lovenox, dexamethasone, vitamin supplements, Protonix, melatonin. Continued on Zosyn and Levaquin. Chest x-ray continues to revealed bilateral airspace disease. Similar to previous. The patient is seen today 10/02/2020 on the regular medical floor. Awake and alert in no acute distress. Currently resting in bed. Denies any worsening shortness of breath, cough or congestion. Maintaining O2 saturations in the 90s on 3 L/m per nasal cannula. Afebrile. Hemodynamically stable. Blood and sputum cultures revealed no growth. Sodium 135. Potassium 5.0. Creatinine 2.3. Blood glucose 148. Continued on dexamethasone, Lovenox, vitamin supplements. Remains on Zosyn and Levaquin. Objective - Vital Signs Vital signs: Vital Signs Temp 97.6 F 10/02/20 11:00 Pulse 90 10/02/20 11:00 Resp 18 10/02/20 11:00 BP 158/80 10/02/20 11:00 Pulse Ox 94 L 10/02/20 11:00 Intake & Output 10/01/20 10/02/20 10/02/20 18:59 06:59 18:59 Intake Total 950 590 Output Total 325 Balance 950 590 -325 Intake: Intake, IV Titration 100 Amount Piperacillin-Tazobactam 3 100 .375 gm In Sodium Chloride 0.9% 100 ml @ 25 mls/hr IVPB Q12HR [facility] Rx #:[id number] Oral 850 590 Output: Urine 325 Other: Voiding Method Bedside Commode Bedside Commode Bedside Commode Diaper Diaper Diaper Incontinent Incontinent Incontinent # Voids 3 1 1 # Bowel Movements 3 3 - Exam GENERAL EXAM: Alert, obese, 85-year-old female patient, on 3 liters nasal cannula, comfortable in no apparent distress. HEAD: Normocephalic. EYES: Normal reaction of pupils, equal size. NOSE: Clear with pink turbinates. THROAT: No erythema or exudates. NECK: No masses, no JVD. CHEST: No chest wall deformity. LUNGS: Equal air entry with few scattered rhonchi CVS: S1 and S2 normal with no audible murmur, regular rhythm. ABDOMEN: No hepatosplenomegaly, normal bowel sounds, no guarding or rigidity. SPINE: No scoliosis or deformity SKIN: No rashes CENTRAL NERVOUS SYSTEM: No focal deficits, tone is normal in all 4 extremities. EXTREMITIES: There is no peripheral edema. No clubbing, no cyanosis. Shanel pheral pulses are intact. - Labs CBC & Chem 7: 09/30/20 08:50 10/02/20 06:27 Labs: Abnormal Lab Results - Last 24 Hours (Table) 10/01/20 10/01/20 10/02/20 Range/Units 16:59 20:52 06:27 BUN 64.0 H (9.0-27.0) mg/dL Creatinine 2.3 H (0.6-1.5) mg/dL Est GFR (CKD-EPI)AfAm 22.0 L (60.0-200.0) Est GFR (CKD-EPI)NonAf 19.0 L (60.0-200.0) BUN/Creatinine Ratio 27.83 H (12.00-20.00) Ratio Glucose 148 H (70-110) mg/dL POC Glucose (mg/dL) 246 H 352 H (75-99) mg/dL 10/02/20 10/02/20 Range/Units 07:28 11:56 BUN (9.0-27.0) mg/dL Creatinine (0.6-1.5) mg/dL Est GFR (CKD-EPI)AfAm (60.0-200.0) Est GFR (CKD-EPI)NonAf (60.0-200.0) BUN/Creatinine Ratio (12.00-20.00) Ratio Glucose (70-110) mg/dL POC Glucose (mg/dL) 156 H 234 H (75-99) mg/dL Microbiology - Last 24 Hours (Table) 09/25/20 12:45 Blood Culture - Final Blood No Growth after 144 hours 09/25/20 11:21 Blood Culture - Final Blood No Growth after 144 hours Assessment and Plan Assessment: 1 COVID 19 pneumonia/pneumonitis, with mild to moderate hypoxemic respiratory failure. The patient is outside the [facility] window. 2 History of essential hypertension. 3 History of diabetes mellitus. 4 History of hyperlipidemia. 5 Obesity. 6 History of seasonal ALLERGIES. 7 History of chronic insomnia. 8 History of chronic anxiety. Plan: The patient was seen and evaluated by Dr. Junior Suazo from the pulmonary standpoint Continue the current treatment plan Plan is to return to [facility] 10/03/2020 I, the cosigning physician, performed a history & physical examination of the patient. Lungs sounds with few scattered rhonchi. Maintaining good O2 saturati ons in the 90s on 3 L/m per nasal cannula. I discussed the assessment and plan of care with my nurse practitioner, Gavi Larose. I attest to the above note as dictated by her.
[2020-10-02 18:02] LABS: Glucose,Whole Blood 231 mg/dL (75-99)
[2020-10-02] MEDS: LACTOBACILLUS ACIDOPH & BULGAR 1 EACH PACKET PO SCH (18:24)
[2020-10-02 20:28] LABS: Glucose,Whole Blood 286 mg/dL (75-99)
[2020-10-02] MEDS: HYDROcodone/APAP 5-325MG 1 EACH TAB PO SCH (21:14)
[2020-10-02] MEDS: ALPRAZolam 0.25 MG TAB PO SCH (21:14)
[2020-10-02] MEDS: MELATONIN 5 MG TABLET PO SCH (21:14)
[2020-10-02] MEDS: INSULIN DETEMIR (LEVEMIR) 100 UNIT/ML SYR SQ SCH (21:16)
[2020-10-03] MEDS: LEVOFLOXACIN 500 MG TAB PO SCH (05:45)
[2020-10-03 07:20] LABS: Glucose,Whole Blood 145 mg/dL (75-99)
[2020-10-03] MEDS: ALBUTEROL HFA INHALER INHALATION SCH ×2 (07:59→12:16)
--- NOTE | 2020-10-03 08:13 | P.DS ---
Providers Date of admission: 09/25/20 12:07 Expected date of discharge: 10/03/20 Attending physician: Anastasia Torres Consults: 09/25/20 12:07 Consult Physician Routine Consulting Provider: Brooklyn Gaxiola Consult Reason/Comments: Pneumonia Do you want consulting provider notified?: Yes 09/25/20 14:26 Consult Physician Routine Consulting Provider: Nelsy Andrea Consult Reason/Comments: hyponatremia Do you want consulting provider notified?: Yes Primary care physician: Josh Héctor [facility] Course: HISTORY OF PRESENT ILLNESS This is an 85-year-old female patient of Dr. Anaya, resides at [facility] with past medical history of diabetes mellitus type 2, insulin requiring, hypertension, depression, gastroesophageal reflux disease, history of acute GI bleed secondary to Benny ulcers and hiatal hernia in 2018, and chronic kidney disease stage III, anemia of chronic disease with previous iron infusions, diabetic neuropathy, cellulitis bilateral lower extremities, large lipoma removed from the left flank 6 months ago. Patient is a long-term resident at [facility]. Patient was diagnosed with COVID-19 on September 14 and on September 15 received infusion of Bamlanivimab. She has been stable until the last 3 days she's developed fever and chills along with hypoxia. Oxygen was increased to 6 L and pulse ox was 90. Patient was transferred to [facility] emergency center for evaluation. She was found to be afebrile, heart rate 85, blood pressure 183/67, pulse ox 98% on oxygen. EKG was sinus rhythm with no acute ST changes. Chest x-ray was positive for pneumonia with area of consolidation consistent with bacterial pneumonia versus Covid. WBC 11.9, hemoglobin 10.1, platelet count 305. Sodium 119. Potassium 5.3, chloride 86, CO2 26, BUN 28 creatinine 2.32. Blood sugar 157. LDH 721. C-reactive protein 234.7. Lactic acid 0.8. Troponins are 0.031. Covid 19 was detected. Patient admitted to the Medr floor and consult requested with primary medicine and nephrology. 09/27: Patient states that she is feeling better today. She denies having any difficulty in breathing. She states she has been eating very well and her appetite is good. She denies having any fever. No diarrhea. No headache. She has been afebrile, heart rate 87, blood pressure 171/68, pulse ox 92% on 3 L nasal cannula. Blood sugar 150-344. Patient has been seen by nephrology for hypovolemic hyponatremia, hypertension, acute kidney injury secondary to Covid. Norvasc was added for blood pressure control. Patient is continued on normal saline. Last evening sodium 126. Repeat BMP ordered. Labs on for tomorrow. Patient has been seen by pulmonary medicine with recommendations to continue Decadron for 10 days, vitamin C, vitamin D3, zinc. No plan for convalescent plasma. 09/28: Patient states that she slept well in bed last night. She got up to 5 hours of sleep. She continues have a little cough but improving. She denies having any fever. Blood sugars are 253-378 and NovoLog scheduled his been added. Patient is been afebrile, heart rate 76, blood pressure 171/66, pulse ox 96% on 3 L nasal cannula. Repeat blood work reveals WBC 10.3, Hemoccult 9.1, platelet count 392. Sodium 131, potassium 5.3, BUN 59 and creatinine 2.9. 09/29: She is afebrile, heart rate 68, blood pressure 147/74, pulse ox 97% on 3 L nasal cannula. Blood sugar last evening was 446. This morning 192. Patient received additional 10 units of NovoLog insulin last evening,and scheduled NovoLog increased to 10 units with meals. WBC 8.7, hemoglobin 8.3, platelet count 418. Renal ultrasound showed no bilateral hydronephrosis. Norvasc has been increased to twice daily. Patient's breathing status continues to improve and we will plan for discharge back to [facility] tomorrow. 09/30: Patient has been afebrile, heart rate 82, blood pressure 158/65, pulse ox 91% on 3 L nasal cannula. Blood sugars running between 222 and 293. Chest x- ray from yesterday reveals bilateral focal areas of airspace disease could represent pulmonary edema or multifocal atypical pneumonia. Slight improvement on the right. CBC 12.1, hemoglobin 8.8, platelet count 520. Sodium 134, potassium 4.5, BUN 54 and creatinine 2.06. Blood sugars run between 89 and 122 this morning. Patient was in the 200s yesterday. Patient's breathing status is improving. She states it is good at time of evaluation. She states she had a good night. Incentive spirometry added. Anticipate discharge back to [facility] o n Saturday. 10/01: Patient is found resting in bed without any acute distress or complaints. Patient will have a repeat chest x-ray today. Patient states her breathing is much better. She continues to be pulse oxing on 3 L nasal cannula at 96%, she has been afebrile, heart rate 74, blood pressure 154/72, respirations 16 nonlabored. Patient continues to have some cough with shortness of breath with activity. Patient states that she slept well last night. Continues to use incentive spirometer. Her anticipated discharge to [facility] is on Saturday. 10/02: Patient found resting comfortably in bed without any acute distress or complaints. Patient states that she is breathing much better. She remains afebrile, heart rate 86, respirations 16 nonlabored with cough. Blood pressure 147/71, 93% on 3 L nasal cannula. Patient continues to have some cough and shortness of breath with activity. Continues to use her incentive spirometer. Anticipated discharge to [facility] tomorrow. 10/03: Patient has been afebrile, heart rate 79, blood pressure 157/71, pulse ox 95% on 3 L nasal cannula. Patient has been cleared for discharge by pulmonary medicine. Patient's respiratory status is currently stable. Patient states she did not sleep all night and his staff was waking her up to the night. Otherwise no new complaints. She is anxious to return to [facility]. Patient will be discharged back to [facility] today in stable condition. Discharge diagnoses 1. Acute on chronic hypoxic respiratory failure secondary to possible gram- negative pneumonia, recent treatment for Covid 19 pneumonia. 2. Recent treatment for Covid 19 pneumonia with [facility]imab at [facility]. 3. Severe hyponatremia. 4. Gastroesophageal reflux disease. 5. Diabetes mellitus type 2, insulin requiring. 6. Hypertension. 7. Acute kidney injury. 8. Chronic kidney disease stage III. 9. Anemia of chronic kidney disease. 10. Diabetic neuropathy. 11. Generalized anxiety disorder. DISCHARGE PLAN Return to [facility] under the care of Dr. Anaya. Impression and plan of care have been directed as dictated by the signing physician. Suad Ghotra nurse practitioner acting as scribe for signing physician. Patient Condition at Discharge: Good Plan - Discharge Summary New Discharge Prescriptions: New amLODIPine [Norvasc] 5 mg PO BID tab dexAMETHasone [Hexadrol] 4 mg PO DAILY 3 Days tab Levofloxacin [Levaquin] 500 mg PO Q48H #3 tab Continue INSULIN ASPART (NovoLOG) [NovoLOG (formulary)] 12 unit SQ AC-BRKFST@0800 Multivitamins, Thera [Multivitamin (formulary)] 1 tab PO DAILY@0800 lisinopriL [Zestril] 20 mg PO DAILY@0800 Ferrous Sulfate [Iron (65 MG Elemental)] 325 mg PO BID@0800,1700 Cinnamon Bark [Cinnamon] 500 mg PO BID@0800,1700 Cholecalciferol [Vitamin D3 (25 Mcg = 1000 Iu)] 2,000 unit PO DAILY@0800 Ascorbic Acid [Vitamin C] 500 mg PO DAILY@0800 metFORMIN HCL [Glucophage] 500 mg PO BID@0800,1700 Atorvastatin [Lipitor] 40 mg PO HS@2100 INSULIN ASPART (NovoLOG) [NovoLOG (formulary)] 8 unit SQ AC-LUNCH@1200 INSULIN ASPART (NovoLOG) [NovoLOG (formulary)] 18 unit SQ AC-SUPPER@1700 Loperamide [Imodium] 2 mg PO QID PRN PRN Reason: Loose Stool Na Phos,M-B/Na Phos,Di-Ba [Fleet Adult] 133 ml RECTAL DAILY PRN PRN Reason: Constipation Loratadine [Claritin] 10 mg PO DAILY PRN PRN Reason: Allergy Symptoms bisacodyL [Dulcolax] 10 mg RECTAL DAILY PRN PRN Reason: Constipation L.acidoph,Paracasei, B.lactis [Probiotic] 1 cap PO DAILY@1700 Famotidine [Pepcid] 20 mg PO DAILY@0800 Melatonin 5 mg PO HS@2100 Sodium Chloride [Saline Nasal Hooper] 1 spray EA NOSTRIL TID PRN PRN Reason: CONGESTION/NASAL DRYNESS Ondansetron [Zofran] 4 mg PO Q8HR PRN PRN Reason: Nausea Carboxymethylcellulose Sodium [Refresh Tears] 1 drop BOTH EYES QID PRN PRN Reason: Dry Eye(S) Magnesium Hydroxide [Milk of Magnesia Concentrate] 7,200 mg PO DAILY PRN PRN Reason: Constipation Lactase [Lactaid] 3,000 unit PO DAILY PRN PRN Reason: Lactose Intolerance guaiFENesin [guaiFENesin Oral Solution] 200 mg PO Q6H PRN PRN Reason: Cough Acetaminophen [Tylenol] 650 mg PO Q4H PRN PRN Reason: Fever And/ Or Pain Albuterol Inhaler [Ventolin Hfa Inhaler] 2 puff INHALATION RT-QID Zinc Sulfate 220 mg PO DAILY@0800 Cholecalciferol [Vitamin D3 (25 Mcg = 1000 Iu)] 1,000 unit PO DAILY@0800 Ascorbic Acid [Vitamin C] 1,000 mg PO DAILY@0800 Insulin Degludec [Tresiba] 40 units SQ DAILY@2130 Furosemide [Lasix] 40 mg PO DAILY@0600 Ubidecarenone [Co Q-10] 100 mg PO DAILY@1700 HYDROcodone/APAP 5-325MG [Ludlow 5-325] 1 tab PO Q6HR PRN #18 tab PRN Reason: Pain HYDROcodone/APAP 5-325MG [Ludlow 5-325] 1 tab PO HS@2100 #3 tab ALPRAZolam [Xanax] 0.25 mg PO DAILY PRN #3 tab PRN Reason: Anxiety ALPRAZolam [Xanax] 0.25 mg PO HS@2100 #3 tab Discontinued Enoxaparin [Lovenox] 40 mg SQ DAILY@0800 Levofloxacin [Levaquin] 250 mg PO DAILY@1700 Discharge Medication List Ascorbic Acid [Vitamin C] 500 mg PO DAILY@0800 05/12/17 [History] Atorvastatin [Lipitor] 40 mg PO HS@2100 05/12/17 [History] Cholecalciferol [Vitamin D3 (25 Mcg = 1000 Iu)] 2,000 unit PO DAILY@0800 05/12/17 [History] Cinnamon Bark [Cinnamon] 500 mg PO BID@0800,1700 05/12/17 [History] Ferrous Sulfate [Iron (65 MG Elemental)] 325 mg PO BID@0800,1700 05/12/17 [History] INSULIN ASPART (NovoLOG) [NovoLOG (formulary)] 8 unit SQ AC-LUNCH@1200 05/12/17 [History] INSULIN ASPART (NovoLOG) [NovoLOG (formulary)] 12 unit SQ AC-BRKFST@0800 05/12/17 [History] INSULIN ASPART (NovoLOG) [NovoLOG (formulary)] 18 unit SQ AC-SUPPER@1700 05/12/17 [History] Multivitamins, Thera [Multivitamin (formulary)] 1 tab PO DAILY@0800 05/12/17 [History] lisinopriL [Zestril] 20 mg PO DAILY@0800 05/12/17 [History] metFORMIN HCL [Glucophage] 500 mg PO BID@0800,1700 05/12/17 [History] Famotidine [Pepcid] 20 mg PO DAILY@0800 11/20/17 [History] L.acidoph,Paracasei, B.lactis [Probiotic] 1 cap PO DAILY@1700 11/20/17 [History] Loperamide [Imodium] 2 mg PO QID PRN 11/20/17 [History] Loratadine [Claritin] 10 mg PO DAILY PRN 11/20/17 [History] Melatonin 5 mg PO HS@2100 11/20/17 [History] Na Phos,M-B/Na Phos,Di-Ba [Fleet Adult] 133 ml RECTAL DAILY PRN 11/20/17 [History] Sodium Chloride [Saline Nasal Hooper] 1 spray EA NOSTRIL TID PRN 11/20/17 [History] bisacodyL [Dulcolax] 10 mg RECTAL DAILY PRN 11/20/17 [History] Acetaminophen [Tylenol] 650 mg PO Q4H PRN 09/25/20 [History] Albuterol Inhaler [Ventolin Hfa Inhaler] 2 puff INHALATION RT-QID 09/25/20 [History] Ascorbic Acid [Vitamin C] 1,000 mg PO DAILY@0809/25/20 [History] Carboxymethylcellulose Sodium [Refresh Tears] 1 drop BOTH EYES QID PRN 09/25/20 [History] Cholecalciferol [Vitamin D3 (25 Mcg = 1000 Iu)] 1,000 unit PO DAILY@0800 09/25/20 [History] Furosemide [Lasix] 40 mg PO DAILY@0600 09/25/20 [History] Insulin Degludec [Tresiba] 40 units SQ DAILY@2130 09/25/20 [History] Lactase [Lactaid] 3,000 unit PO DAILY PRN 09/25/20 [History] Magnesium Hydroxide [Milk of Magnesia Concentrate] 7,200 mg PO DAILY PRN 09/25/20 [History] Ondansetron [Zofran] 4 mg PO Q8HR PRN 09/25/20 [History] Ubidecarenone [Co Q-10] 100 mg PO DAILY@1700 09/25/20 [History] Zinc Sulfate 220 mg PO DAILY@0800 09/25/20 [History] guaiFENesin [guaiFENesin Oral Solution] 200 mg PO Q6H PRN 09/25/20 [History] ALPRAZolam [Xanax] 0.25 mg PO DAILY PRN #3 tab 09/30/20 [Rx] ALPRAZolam [Xanax] 0.25 mg PO HS@2100 #3 tab 09/30/20 [Rx] HYDROcodone/APAP 5-325MG [Ludlow 5-325] 1 tab PO HS@2100 #3 tab 09/30/20 [Rx] HYDROcodone/APAP 5-325MG [Ludlow 5-325] 1 tab PO Q6HR PRN #18 tab 09/30/20 [Rx] amLODIPine [Norvasc] 5 mg PO BID tab 09/30/20 [Rx] Levofloxacin [Levaquin] 500 mg PO Q48H #3 tab 10/03/20 [Rx] dexAMETHasone [Hexadrol] 4 mg PO DAILY 3 Days tab 10/03/20 [Rx] Follow up Appointment(s)/Referral(s): Josh Anaya MD [Primary Care Provider] - 1 Week (at [facility]) Discharge Disposition: TRANSFER TO SNF/ECF
[2020-10-03] MEDS: INSULIN ASPART (NovoLOG) 100 UNIT/ML VIAL SQ SCH ×4 (09:30→12:52)
[2020-10-03] MEDS: ENOXAPARIN 30 MG/0.3 ML SYRINGE SQ SCH (09:31)
[2020-10-03] MEDS: amLODIPine 5 MG TAB PO SCH (09:32)
[2020-10-03] MEDS: PANTOPRAZOLE 40 MG TABLET PO SCH (09:32)
[2020-10-03] MEDS: ZINC SULFATE 220 MG CAP PO SCH (09:32)
[2020-10-03] MEDS: ASCORBIC ACID 500 MG TAB PO SCH (09:32)
[2020-10-03] MEDS: dexAMETHasone 2 MG TAB PO SCH (09:32)
[2020-10-03] MEDS: FERROUS SULFATE 325 MG TAB PO SCH (09:33)
[2020-10-03] MEDS: lisinopriL 20 MG TAB PO SCH (09:33)
[2020-10-03 09:45] LABS: African American GFR (CKD) 24.6 (60.0-200.0); Anion Gap 6.7 mmol/L (4.00-12.00); BUN/Creat Ratio 26.67 Ratio (12.00-20.00); Calcium 8.9 mg/dL (8.7-10.3); Carbon Dioxide 24.3 mmol/L (21.6-31.8); Non-African American GFR(CKD) 21.2 (60.0-200.0); Potassium 5.2 mmol/L (3.5-5.5)
--- NOTE | 2020-10-03 10:41 | P.PN ---
Subjective Patient is seen in follow-up for acute kidney injury on chronic kidney disease. Renal function stable. Oral intake is good. Good urine output. No vomiting or diarrhea. Currently on 3 L nasal cannula. Denies chest pain or shortness breath. No changes overnight. Potentially going back to ECF today. Vital signs are stable. General: The patient appeared well nourished and normally developed. HEENT: Head exam is unremarkable. Neck is without jugular venous distension. LUNGS: Breath sounds decreased. HEART: Rate and Rhythm are regular. ABDOMEN: Soft, nontender. EXTREMITITES: Trace edema. Objective - Vital Signs Vital signs: Vital Signs Temp 97.7 F 10/03/20 05:00 Pulse 79 10/03/20 05:00 Resp 20 10/03/20 05:00 BP 157/71 10/03/20 05:00 Pulse Ox 95 10/03/20 05:00 Intake & Output 10/02/20 10/03/20 10/03/20 18:59 06:59 18:59 Intake Total 990 550 Output Total 325 Balance 665 550 Intake: Intake, IV Titration 100 Amount Piperacillin-Tazobactam 3 100 .375 gm In Sodium Chloride 0.9% 100 ml @ 25 mls/hr IVPB Q12HR [facility] Rx #:[id number] Oral 890 550 Output: Urine 325 Other: Voiding Method Bedside Commode Bedside Commode Diaper Diaper Incontinent Incontinent # Voids 3 2 # Bowel Movements 3 1 - Labs CBC & Chem 7: 09/30/20 08:50 10/03/20 06:03 Labs: Abnormal Lab Results - Last 24 Hours (Table) 10/02/20 10/02/20 10/02/20 Range/Units 06:27 11:56 17:59 BUN 64.0 H (9.0-27.0) mg/dL Creatinine 2.3 H (0.6-1.5) mg/dL Est GFR (CKD-EPI)AfAm 22.0 L (60.0-200.0) Est GFR (CKD-EPI)NonAf 19.0 L (60.0-200.0) BUN/Creatinine Ratio 27.83 H (12.00-20.00) Ratio Glucose 148 H (70-110) mg/dL POC Glucose (mg/dL) 234 H 231 H (75-99) mg/dL 10/02/20 10/03/20 10/03/20 Range/Units 20:22 06:03 07:19 BUN 56.0 H (9.0-27.0) mg/dL Creatinine 2.1 H (0.6-1.5) mg/dL Est GFR (CKD-EPI)AfAm 24.6 L (60.0-200.0) Est GFR (CKD-EPI)NonAf 21.2 L (60.0-200.0) BUN/Creatinine Ratio 26.67 H (12.00-20.00) Ratio Glucose 151 H (70-110) mg/dL POC Glucose (mg/dL) 286 H 145 H (75-99) mg/dL Assessment and Plan Plan: Assessment: 1. Acute kidney injury secondary to ATN secondary to Covid 19 infection. UA benign. Renal function stable. Creatinine 2.1 today. 2. Chronic kidney disease stage IIIB with baseline creatinine in the range of 1.6-1.8 secondary to nephrosclerosis. 3. Covid-19 pneumonia. Currently on 3 L nasal cannula. 4. Hypovolemic hyponatremia improved with IV hydration. 5. Anemia of chronic kidney disease maintained on Aranesp. Iron replete. 6. Diabetes mellitus. 7. Hypertension with chronic kidney disease. Exacerbated by steroids. Stable. Plan: Remains off IV fluids. Encourage oral intake. Avoid nephrotoxins. Continue to monitor renal function and urine output. Stable for discharge from nephrology standpoint. Follow up outpatient in 1-2 weeks.
[2020-10-03 11:13] LABS: Glucose,Whole Blood 153 mg/dL (75-99)
[2020-10-03 11:38] VITALS: BP 157/67; PULSE 83; RESP 17; TEMP 98.1
--- NOTE | 2020-10-03 13:54 | P.PN ---
Subjective Progress Note Date: 10/03/20 The patient is seen today 09/28/2020 in follow-up on the regular medical floor. She was admitted with hypoxic respiratory failure secondary CoVID 19 pneumonitis. She is currently maintaining O2 saturations in the 90s on room air. She's been up with assistance. Blood cultures reveal no growth to date. Sputum culture pending. White count 10.2. Hemoglobin 9.1. Sodium 131. Potassium 5.3. Creatinine 2.4. She remains on dexamethasone, Lovenox, Pepcid, melatonin, vitamin supplements. Antibiotics in the form of Zosyn and Levaquin. The patient is seen today 09/29/2020 follow-up on the regular medical floor. She is currently sitting up in a chair at the bedside. Awake and alert in no acute distress. Maintaining O2 saturation in the 90s on 3 L/m per nasal cannula. She was at 96% on room air at rest. Blood and sputum cultures reveal no growth. White count 8.7. Hemoglobin 8.3. Sodium 134. Potassium 5.3. Creatinine 2.0. She remains on dexamethasone, Lovenox, Pepcid, melatonin, vit duncan supplements. Antibiotics in the form of Zosyn and Levaquin. Chest x-ray reveals bilateral focal airspace disease representing multifocal/atypical pneumonia. Slight improvement on the right. The patient is seen today 09/30/2020 follow-up on the regular medical floor. She is currently sitting up in a chair at the bedside. Awake and alert in no acute distress. She is breathing better today. No major complaints. Maintaining O2 saturations in the 90s on 3 L/m per nasal cannula. Afebrile. Blood and sputum cultures reveal no growth. White count 12.1. Hemoglobin 8.8. Sodium 134. Potassium 4.5. Creatinine 0.06. Glucose 114. She remains on Lovenox, dexamethasone, vitamin supplements, Protonix, melatonin. Continued on Zosyn and Levaquin. The patient is seen today 10/01/2020 follow-up on the regular medical floor. She is awake and alert in no acute distress. Currently sitting up at the bedside. Denies any worsening shortness of breath, cough or congestion. Maintaining O2 saturations in the 90s on 3 L/m per nasal cannula. She's afebrile. Blood, sputum cultures reveal no growth. Glucose 162. She remains on Lovenox, dexamethasone, vitamin supplements, Protonix, melatonin. Continued on Zosyn and Levaquin. Chest x-ray continues to revealed bilateral airspace dise ase. Similar to previous. The patient is seen today 10/02/2020 on the regular medical floor. Awake and alert in no acute distress. Currently resting in bed. Denies any worsening shortness of breath, cough or congestion. Maintaining O2 saturations in the 90s on 3 L/m per nasal cannula. Afebrile. Hemodynamically stable. Blood and sputum cultures revealed no growth. Sodium 135. Potassium 5.0. Creatinine 2.3. Blood glucose 148. Continued on dexamethasone, Lovenox, vitamin supplements. Remains on Zosyn and Levaquin. On 10/03/2020, the patient is doing extremely well and the patient is on oxygen at 3 L per minute nasal cannula. The plan is to discharge this patient to [facility] today. Patient is doing well. She seems to be in good spirits. She is able to move around without ulcers. Creatinine is stable at 2.1. The results of the blood work and electrodes are all stable. She is going to complete an additional 3 day course of Decadron at 4 mg by mouth daily. Objective - Vital Signs Vital signs: Vital Signs Temp 98.1 F 10/03/20 11:00 Pulse 83 10/03/20 11:00 Resp 17 10/03/20 11:00 BP 157/67 10/03/20 11:00 Pulse Ox 94 L 10/03/20 11:00 Intake & Output 10/02/20 10/03/20 10/03/20 18:59 06:59 18:59 Intake Total 990 550 Output Total 325 Balance 665 550 Intake: Intake, IV Titration 100 Amount Piperacillin-Tazobactam 3 100 .375 gm In Sodium Chloride 0.9% 100 ml @ 25 mls/hr IVPB Q12HR [facility] Rx #:[id number] Oral 890 550 Output: Urine 325 Other: Voiding Method Bedside Commode Bedside Commode Bedside Commode Diaper Diaper Diaper Incontinent Incontinent Incontinent # Voids 3 2 # Bowel Movements 3 1 - Exam GENERAL EXAM: Alert, obese, 85-year-old female patient, on 3 liters nasal cannula, comfortable in no apparent distress. HEAD: Normocephalic. EYES: Normal reaction of pupils, equal size. NOSE: Clear with pink turbinates. THROAT: No erythema or exudates. NECK: No masses, no JVD. CHEST: No chest wall deformity. LUNGS: Equal air entry with few scattered rhonchi CVS: S1 and S2 normal with no audible murmur, regular rhythm. ABDOMEN: No hepatosplenomegaly, normal bowel sounds, no guarding or rigidity. SPINE: No scoliosis or deformity SKIN: No rashes CENTRAL NERVOUS SYSTEM: No focal deficits, tone is normal in all 4 extremities. EXTREMITIES: There is no peripheral edema. No clubbing, no cyanosis. Peripheral pulses are intact. - Labs CBC & Chem 7: 09/30/20 08:50 10/03/20 06:03 Labs: Abnormal Lab Results - Last 24 Hours (Table) 10/02/20 10/02/20 10/03/20 Range/Units 17:59 20:22 06:03 BUN 56.0 H (9.0-27.0) mg/dL Creatinine 2.1 H (0.6-1.5) mg/dL Est GFR (CKD-EPI)AfAm 24.6 L (60.0-200.0) Est GFR (CKD-EPI)NonAf 21.2 L (60.0-200.0) BUN/Creatinine Ratio 26.67 H (12.00-20.00) Ratio Glucose 151 H (70-110) mg/dL POC Glucose (mg/dL) 231 H 286 H (75-99) mg/dL 10/03/20 10/03/20 Range/Units 07:19 11:11 BUN (9.0-27.0) mg/dL Creatinine (0.6-1.5) mg/dL Est GFR (CKD-EPI)AfAm (60.0-200.0) Est GFR (CKD-EPI)NonAf (60.0-200.0) BUN/Creatinine Ratio (12.00-20.00) Ratio Glucose (70-110) mg/dL POC Glucose (mg/dL) 145 H 153 H (75-99) mg/dL Assessment and Plan Plan: 1 COVID 19 pneumonia/pneumonitis, with mild to moderate hypoxemic respiratory failure. The patient is outside the [facility] window. 2 History of essential hypertension. 3 History of diabetes mellitus. 4 History of hyperlipidemia. 5 Obesity. 6 History of seasonal ALLERGIES. 7 History of chronic insomnia. 8 History of chronic anxiety. Plan: [facility] Completed the course of Decadron. Completed course of Levaquin. Oxygen 3 L. All medications have been resumed.
== END 2020-10-03 14:19 | DRG 177 ==
LOC: EC 10:12 → 6NMEDSUR 12:07
PROVIDERS: ADMIT Family Medicine; ATTEND Family Medicine
DX: U07.1 COVID-19 (principal); J15.6 Pneumonia due to other Gram-negative bacteria; J96.21 Acute and chronic respiratory failure with hypoxia; J12.82 Pneumonia due to coronavirus disease 2019; N17.0 Acute kidney failure with tubular necrosis; E87.1 Hypo-osmolality and hyponatremia; Z68.43 Body mass index [BMI] 50.0-59.9, adult; D63.1 Anemia in chronic kidney disease; E11.22 Type 2 diabetes mellitus with diabetic chronic kidney disease; I12.9 Hypertensive chronic kidney disease with stage 1 through stage 4 chronic kidney disease, or unspecified chronic kidney disease; K21.9 Gastro-esophageal reflux disease without esophagitis; T38.0X5A Adverse effect of glucocorticoids and synthetic analogues, initial encounter; N18.32 Chronic kidney disease, stage 3b; F41.1 Generalized anxiety disorder; E78.5 Hyperlipidemia, unspecified; E66.9 Obesity, unspecified; E11.40 Type 2 diabetes mellitus with diabetic neuropathy, unspecified; I51.7 Cardiomegaly; E86.1 Hypovolemia; F51.04 Psychophysiologic insomnia; F41.9 Anxiety disorder, unspecified; Z79.899 Other long term (current) drug therapy; Z79.52 Long term (current) use of systemic steroids; Z79.4 Long term (current) use of insulin; Z90.710 Acquired absence of both cervix and uterus; Z83.3 Family history of diabetes mellitus; Z82.49 Family history of ischemic heart disease and other diseases of the circulatory system; Z80.9 Family history of malignant neoplasm, unspecified
CPT/HCPCS: 36415; 71045; 76770; 80048; 80053; 81001; 82728; 83540; 83550; 83605; 83615; 83735; 83935; 84145; 84295; 84484; 85025; 85027; 85379; 85610; 85730; 86140; 87040; 87070; 87205; 87635; 93005; 94640; 94760; 99291

== ENCOUNTER 2020-10-12 16:30 | Inpatient (IN) | payer MEDICARE, OTHER ==
--- NOTE | 2020-10-12 16:43 | ED ---
General Adult HPI - General Stated complaint: recheck lab Time Seen by Provider: 10/12/20 16:45 - History of Present Illness Initial comments: Patient is an 85-year-old female with past medical history of type 2 diabetes, hypertension, depression, GI bleed secondary to cynthia ulcers and Hiatal Hernia, recent covid infection Who Presents to the Emergency Department with reported low hemoglobin. Lab studies were drawn today and they found the patient's hemoglobin was 4.8. Transfer paperwork states the patient has been more short of breath and "lethargic." Upon evaluation the patient she states she has been more fatigued than normal. She was recently hospitalized for Covid. Patient is on 3 L of oxygen. Denies having any black, tarry or sticky stools. Patient is not aware of any history of ulcers. Does admit to iron deficiency and reports that she normally gets transfusions every several months. Unsure when her last one was. She denies hematemesis. No abdominal pain. No changes in her bladder habits. No other alleviating, precipitating or modifying factors - Related Data Home Medications Medication Instructions Recorded Confirmed Ascorbic Acid [Vitamin C] 500 mg PO DAILY@0800 05/12/17 10/12/20 Atorvastatin [Lipitor] 40 mg PO HS@2100 05/12/17 10/12/20 Cinnamon Bark [Cinnamon] 500 mg PO BID@0800,1700 05/12/17 10/12/20 Ferrous Sulfate [Iron (65 MG 325 mg PO BID@0800,1700 05/12/17 10/12/20 Elemental)] Multivitamins, Thera [Multivitamin 1 tab PO DAILY@0800 05/12/17 10/12/20 (formulary)] Famotidine [Pepcid] 20 mg PO DAILY@0800 11/20/17 10/12/20 L.acidoph,Paracasei, B.lactis 1 cap PO DAILY@1700 11/20/17 10/12/20 [Probiotic] Loperamide [Imodium] 2 mg PO QID PRN 11/20/17 10/12/20 Loratadine [Claritin] 10 mg PO DAILY PRN 11/20/17 10/12/20 Melatonin 5 mg PO HS@2100 11/20/17 10/12/20 Na Phos,M-B/Na Phos,Di-Ba [Fleet 133 ml RECTAL DAILY PRN 11/20/17 10/12/20 Adult] Sodium Chloride [Saline Nasal 1 spray EA NOSTRIL TID PRN 11/20/17 10/12/20 [place]] bisacodyL [Dulcolax] 10 mg RECTAL DAILY PRN 11/20/17 10/12/20 Acetaminophen [Tylenol] 650 mg PO Q4H PRN 09/25/20 10/12/20 Albuterol Inhaler [Ventolin Hfa 2 puff INHALATION RT-QID 09/25/20 10/12/20 Inhaler] Carboxymethylcellulose Sodium 1 drop BOTH EYES QID PRN 09/25/20 10/12/20 [Refresh Tears] Cholecalciferol [Vitamin D3 (25 25 mcg PO DAILY@1700 09/25/20 10/12/20 Mcg = 1000 Iu)] Furosemide [Lasix] 40 mg PO DAILY@0600 09/25/20 10/12/20 Insulin Degludec [Tresiba] 40 units SQ DAILY@2130 09/25/20 10/12/20 Lactase [Lactaid] 3,000 unit PO DAILY PRN 09/25/20 10/12/20 Magnesium Hydroxide [Milk of 7,200 mg PO DAILY PRN 09/25/20 10/12/20 Magnesia Concentrate] Ondansetron [Zofran] 4 mg PO Q8HR PRN 09/25/20 10/12/20 Ubidecarenone [Co Q-10] 100 mg PO DAILY@1700 09/25/20 10/12/20 guaiFENesin [guaiFENesin Oral 200 mg PO Q6H PRN 09/25/20 10/12/20 Solution] INSULIN ASPART (NovoLOG) [NovoLOG See Protocol SQ ACHS 10/12/20 10/12/20 (formulary)] amLODIPine [Norvasc] 5 mg PO BID@0800,1700 10/12/20 10/12/20 Previous Rx's Medication Instructions Recorded ALPRAZolam [Xanax] 0.25 mg PO DAILY PRN #3 tab 10/14/20 ALPRAZolam [Xanax] 0.25 mg PO HS@2100 #3 tab 10/14/20 HYDROcodone/APAP 5-325MG [[place] 1 tab PO HS@2100 #3 tab 10/14/20 5-325] HYDROcodone/APAP 5-325MG [[place] 1 tab PO Q6HR PRN #18 tab 10/14/20 5-325] INSULIN ASPART (NovoLOG) [NovoLOG 5 unit SQ AC-LUNCH@1200 #0 10/14/20 (formulary)] INSULIN ASPART (NovoLOG) [NovoLOG 8 unit SQ AC-BRKFST@0800 #0 10/14/20 (formulary)] INSULIN ASPART (NovoLOG) [NovoLOG 10 unit SQ AC-SUPPER@1700 #0 10/14/20 (formulary)] Allergies Allergy/AdvReac Type Severity Reaction Status Date / Time lactose AdvReac Diarrhea Verified 10/12/20 17:12 Review of Systems ROS Statement: Those systems with pertinent positive or pertinent negative responses have been documented in the HPI. ROS Other: All systems not noted in ROS Statement are negative. Past Medical History Past Medical History: Diabetes Mellitus History of Any Multi-Drug Resistant Organisms: None Reported Past Surgical History: Hysterectomy Additional Past Surgical History / Comment(s): L hip surgery, right ORIF 2 years ago, lipoma left flank removal Past Psychological History: No Psychological Hx Reported Smoking Status: Never smoker Past Alcohol Use History: None Reported Past Drug Use History: None Reported - Past Family History Father Family Medical History: Cancer Mother Family Medical History: Diabetes Mellitus General Exam General appearance: alert, in no apparent distress, obese Head exam: Present: atraumatic, normocephalic, normal inspection Eye exam: Present: normal appearance, PERRL, EOMI. Absent: scleral icterus, conjunctival injection, periorbital swelling ENT exam: Present: normal exam, mucous membranes moist Neck exam: Present: normal inspection. Absent: tenderness, meningismus, lymphadenopathy Respiratory exam: Present: normal lung sounds bilaterally. Absent: respiratory distress, wheezes, rales, rhonchi, stridor Cardiovascular Exam: Present: regular rate, normal rhythm, normal heart sounds. Absent: systolic murmur, diastolic murmur, rubs, gallop, clicks GI/Abdominal exam: Present: soft, normal bowel sounds. Absent: distended, ten derness, guarding, rebound, rigid Extremities exam: Present: normal inspection, full ROM, normal capillary refill. Absent: tenderness, pedal edema, joint swelling, calf tenderness Back exam: Present: normal inspection Neurological exam: Present: alert, oriented X3, CN II-XII intact Psychiatric exam: Present: normal affect, normal mood Skin exam: Present: warm, dry, intact, pallor. Absent: rash Course Vital Signs 10/12/20 10/12/20 10/12/20 16:42 18:36 18:40 Temperature 98.3 F 98.0 F 97.7 F Pulse Rate 83 80 77 Pulse Rate [ Right Prone Pulse Oximetery ] Respiratory 16 18 16 Rate Blood Pressure 139/53 130/49 143/57 Blood Pressure [Right Arm Supine] O2 Sat by Pulse 99 100 99 Oximetry 10/12/20 10/12/20 10/12/20 18:50 19:05 19:20 Temperature 97.9 F 97.6 F 97.9 F Pulse Rate 78 80 Pulse Rate [ 86 Right Prone Pulse Oximetery ] Respiratory 18 18 18 Rate Blood Pressure 137/59 136/72 Blood Pressure 148/62 [Right Arm Supine] O2 Sat by Pulse 96 98 Oximetry 10/12/20 10/12/20 19:44 20:00 Temperature 97.9 F 97.6 F Pulse Rate 82 Pulse Rate [ 86 Right Prone Pulse Oximetery ] Respiratory 18 18 Rate Blood Pressure 136/52 Blood Pressure 148/62 [Right Arm Supine] O2 Sat by Pulse 98 96 Oximetry EKG Findings - EKG Comments: EKG Findings:: EKG demonstrates normal sinus rhythm with a ventricular rate of 82. When necessary 160. QRS 72. QTC 418. No acute ST segment elevations or depressions Medical Decision Making - Medical Decision Making Upon arrival patient was placed into room 1. A thorough history and physical exam was performed. I did recommend a rectal exam however the patient refused. I did request a repeat laboratory studies for which she did agree to. Hemoglobin does come back and is 4.5. Sodium 129. Potassium 5.8. BUN 107. C reatinine 2.7. I did recommend transfusion for which the patient did agree to. Spoke with Dr. Anaya who agreed to admit the patient. We will repeat a hemoglobin after transfusion. Patient agreed to the treatment plan and was transported to the floor and hemodynamically stable condition - Lab Data Result diagrams: 10/14/20 06:01 10/14/20 08:17 Lab Results 10/12/20 10/12/20 10/12/20 Range/Units 16:55 16:56 16:56 WBC 7.4 (3.8-10.6) k/uL RBC 1.65 L (3.80-5.40) m/uL Hgb 4.5 L* (11.4-16.0) gm/dL Hct 15.0 L* (34.0-46.0) % MCV 90.9 (80.0-100.0) fL MCH 27.4 (25.0-35.0) pg MCHC 30.1 L (31.0-37.0) g/dL RDW 16.9 H (11.5-15.5) % Plt Count 412 (150-450) k/uL MPV 7.2 Neutrophils % 72 % Lymphocytes % 14 % Monocytes % 6 % Eosinophils % 5 % Basophils % 0 % Neutrophils # 5.3 (1.3-7.7) k/uL Lymphocytes # 1.0 (1.0-4.8) k/uL Monocytes # 0.5 (0-1.0) k/uL Eosinophils # 0.4 (0-0.7) k/uL Basophils # 0.0 (0-0.2) k/uL Hypochromasia Moderate Anisocytosis Slight PT 9.7 (9.0-12.0) sec INR 0.9 (<1.2) APTT 18.8 L (22.0-30.0) sec Sodium (137-145) mmol/L Potassium (3.5-5.1) mmol/L Chloride (98-107) mmol/L Carbon Dioxide (22-30) mmol/L Anion Gap mmol/L BUN (7-17) mg/dL Creatinine (0.52-1.04) mg/dL Est GFR (CKD-EPI)AfAm (>60 ml/min/1.73 sqM) Est GFR (CKD-EPI)NonAf (>60 ml/min/1.73 sqM) Glucose (74-99) mg/dL POC Glucose (mg/dL) (75-99) mg/dL POC Glu Organ Fixer ID Plasma Lactic Acid Gregor (0.7-2.0) mmol/L Calcium (8.4-10.2) mg/dL Magnesium (1.6-2.3) mg/dL Total Bilirubin (0.2-1.3) mg/dL AST (14-36) U/L ALT (4-34) U/L Alkaline Phosphatase (38-126) U/L Total Protein (6.3-8.2) g/dL Albumin (3.5-5.0) g/dL Blood Type O Positive Blood Type Recheck O Pos Bld Type Recheck Status No Antibody Screen NEGATIVE Crossmatch See Detail Spec Expiration Date 10/15/2020 - 235510/12/20 10/12/20 10/12/20 Range/Units 16:56 16:56 17:11 WBC (3.8-10.6) k/uL RBC (3.80-5.40) m/uL Hgb (11.4-16.0) gm/dL Hct (34.0-46.0) % MCV (80.0-100.0) fL MCH (25.0-35.0) pg MCHC (31.0-37.0) g/dL RDW (11.5-15.5) % Plt Count (150-450) k/uL MPV Neutrophils % % Lymphocytes % % Monocytes % % Eosinophils % % Basophils % % Neutrophils # (1.3-7.7) k/uL Lymphocytes # (1.0-4.8) k/uL Monocytes # (0-1.0) k/uL Eosinophils # (0-0.7) k/uL Basophils # (0-0.2) k/uL Hypochromasia Anisocytosis PT (9.0-12.0) sec INR (<1.2) APTT (22.0-30.0) sec Sodium 129 L (137-145) mmol/L Potassium 5.8 H (3.5-5.1) mmol/L Chloride 101 (98-107) mmol/L Carbon Dioxide 18 L (22-30) mmol/L Anion Gap 10 mmol/L BUN 107 H* (7-17) mg/dL Creatinine 2.71 H (0.52-1.04) mg/dL Est GFR (CKD-EPI)AfAm 18 (>60 ml/min/1.73 sqM) Est GFR (CKD-EPI)NonAf 16 (>60 ml/min/1.73 sqM) Glucose 287 H (74-99) mg/dL POC Glucose (mg/dL) 304 H (75-99) mg/dL POC Glu Organ Fixer ID Genoveva Kelley Plasma Lactic Acid Greogr 1.5 (0.7-2.0) mmol/L Calcium 9.1 (8.4-10.2) mg/dL Magnesium 2.0 (1.6-2.3) mg/dL Total Bilirubin 0.3 (0.2-1.3) mg/dL AST 27 (14-36) U/L ALT 31 (4-34) U/L Alkaline Phosphatase 112 (38-126) U/L Total Protein 5.4 L (6.3-8.2) g/dL Albumin 2.8 L (3.5-5.0) g/dL Blood Type Blood Type Recheck Bld Type Recheck Status Antibody Screen Crossmatch Spec Expiration Date Disposition Clinical Impression: Anemia, GIB (gastrointestinal bleeding) Disposition: [facility] Condition: Good Is patient prescribed a controlled substance at d/c from ED?: No Decision to Admit Reason: Admit from EC Decision Date: 10/12/20 Decision Time: 18:48
[2020-10-12 17:13] LABS: Glucose,Whole Blood 304 mg/dL (75-99)
[2020-10-12 17:16] LABS: Albumin 2.8 g/dL (3.5-5.0); Calcium 9.1 mg/dL (8.4-10.2); Potassium 5.8 mmol/L (3.5-5.1); Total Bilirubin 0.3 mg/dL (0.2-1.3); Total Protein 5.4 g/dL (6.3-8.2)
[2020-10-12 17:19] LABS: Anisocytosis Slight; Basophils % (A) 0 %; Eosinophils # (A) 0.4 k/uL (0-0.7); Eosinophils % (A) 5 %; Hypochromasia Moderate; Lymphocytes % (A) 14 %; MCH 27.4 pg (25.0-35.0); MCHC 30.1 g/dL (31.0-37.0); MCV 90.9 fL (80.0-100.0); Mean Platelet Volume 7.2; Monocytes # (A) 0.5 k/uL (0-1.0); Monocytes % (A) 6 %; Neutrophils # (A) 5.3 k/uL (1.3-7.7); Neutrophils % (A) 72 %; Platelet Count 412 k/uL (150-450); RBC 1.65 m/uL (3.80-5.40); RDW 16.9 % (11.5-15.5); WBC 7.4 k/uL (3.8-10.6)
[2020-10-12 17:23] LABS: HGB 4.5 gm/dL (11.4-16.0)
[2020-10-12 17:32] LABS: INR 0.9 (<1.2); Prothrombin Time 9.7 sec (9.0-12.0)
[2020-10-12 17:36] LABS: Partial Thromboplastin Time 18.8 sec (22.0-30.0)
--- NOTE | 2020-10-12 18:01 | XR ---
EXAMINATION TYPE: XR chest 2V DATE OF EXAM: 10/12/2020 COMPARISON: 10/01/2020 HISTORY: Weakness TECHNIQUE: 2 views FINDINGS: Heart is enlarged. There is some patchy airspace infiltrates in the mid and lower lung fiel ds bilaterally. There is elevated left diaphragm. There is hiatal hernia. There are chest leads. IMPRESSION: There is bilateral pneumonia that appears slightly improved on the left side and unchange d on the right side compared to old exam. Congestive heart failure not excluded. Moderate hiatal rasheed ia.
[2020-10-12] MEDS ORDERED: NALOXONE 0.4 MG/ML 1 ML VIAL IV PRN (18:49)
[2020-10-12] MEDS ORDERED: ONDANSETRON 4 MG TAB PO PRN (18:50)
[2020-10-12] MEDS ORDERED: LORATADINE 10 MG TAB PO PRN (18:50)
[2020-10-12] MEDS ORDERED: NON FORMULARY DRUG (Lactase [Lactaid] 3,000 UNIT Tablet) PO PRN (18:50)
[2020-10-12] MEDS ORDERED: HYDROcodone/APAP 5-325MG 1 EACH TAB PO PRN (18:50)
[2020-10-12] MEDS ORDERED: ARTIFICIAL TEARS-HYPROMELLOSE DROPS 15 ML BTL BOTH EYES PRN (18:50)
[2020-10-12] MEDS ORDERED: ALPRAZolam 0.25 MG TAB PO PRN (18:50)
[2020-10-12] MEDS ORDERED: bisacodyL 10 MG SUPP RECTAL PRN (18:50)
[2020-10-12 20:31] LABS: Glucose,Whole Blood 248 mg/dL (75-99)
[2020-10-12] MEDS ORDERED: guaiFENesin SYRUP 100MG/5ML 200 MG/10 ML CUP PO PRN (20:47)
[2020-10-12] MEDS ORDERED: ACETAMINOPHEN TAB 325 MG TAB PO PRN (20:47)
[2020-10-12] MEDS ORDERED: ALBUTEROL NEBULIZED 2.5 MG/3 ML INHALATION SCH (21:00)
--- NOTE | 2020-10-12 21:36 | P.HPIM ---
History of Present Illness H&P Date: 10/12/20 Chief Complaint: Severe dyspnea and shortness of breath, acute anemia and acute blood loss, 85-year-old female brought in seen in [facility] for the last 3 years had known to have history of type 2 diabetes, hypertension, depression, GERD, history of GI bleed secondary to Her on also in the past along with having hernia, chronic kidney disease, anemia had iron infusion in the past and chronic history of neuropathy. Patient was hospitalized in September 26 for worsening dyspnea and shortness of breath was diagnosed with Covid 19 pneumonitis had the monoclonal antibiotic infusion initially and was in the hospital for over 5 days received antiviral medication along with Decadron and secondary prevention with multivitamin along with updraft treatment. Patient was transferred back to [facility] over a week ago and has been doing much better until yesterday when developed to have significant dyspnea and shortness of breath chest x-ray shows slight worsening scar tissue from the Covid 19 left from 2 weeks ago. Patient surprisingly had BUN of 103 with hemoglobin of 4.6 only at that point found to have a black stool patient was sent to the hospital was seen and evaluated [place] start blood transfusion her hemoglobin still in the mid for chest x-ray remain the same pulse oximetry in 2 L running at 95 percentile. Patient had an no major abnormality on EKG, chest x-ray still showing significant infiltrate in the bases specially in the left lower side but had improved compared to the last one in the hospital. Lab value showed hemoglobin of 4.5 BUN of 107 with creatinine of 2.71 sodium 129 and potassium 5.8 blood sugar was mildly elevated no urine was done at this time. Patient Hemoccult was requested will be seen gastroneurology two-year the blood transfusion be started also patient be seen nephrology will continue gentle hydration repeat BUN/crea tinine after correcting her volume loss. As for the pneumonia and the Covid 19 x-ray looks better than before still have significant scar tissue from the injury happened related to the pneumonia 2 weeks ago. Review of Systems CONSTITUTIONAL: Well-developed in mild respiratory distress. EYES: No icterus sclerae, no conjunctivitis. EARS, NOSE, MOUTH, THROAT, and FACE: No sore throat, lymphadenopathy, carotid bruits or deformity. RESPIRATORY: Positive dyspnea and shortness of breath mild cough. CARDIOVASCULAR: Mild PND and orthopnea or angina GASTROINTESTINAL: Positive abdominal discomfort nausea no vomiting positive black stool at this point. GENITOURINARY: Negative for Hematuria or UTI, no kidney stones. INTEGUMENT/BREAST: Negative for any muscular injury with mild osteoarthritis.. HEMATOLOGIC/LYMPHATIC: Negative for bleed or purpura. Significant anemia MUSCULOSKELTAL: Positive mild arthralgia and myalgia. NEURLOGICAL: No LOC, Sz or syncope, blurred vision dizziness or abnormality.. BEHAVIORAL/PSYCH: Negative. ENDOCRINE: Negative. Past Medical History Past Medical History: Diabetes Mellitus History of Any Multi-Drug Resistant Organisms: None Reported Past Surgical History: Hysterectomy Additional Past Surgical History / Comment(s): L hip surgery, right ORIF 2 years ago, lipoma left flank removal Past Psychological History: No Psychological Hx Reported Smoking Status: Never smoker Past Alcohol Use History: None Reported Past Drug Use History: None Reported - Past Family History Father Family Medical History: Cancer Mother Family Medical History: Diabetes Mellitus Medications and Allergies Home Medications Medication Instructions Recorded Confirmed Type Ascorbic Acid [Vitamin C] 500 mg PO DAILY@0800 05/12/17 10/12/20 History Atorvastatin [Lipitor] 40 mg PO HS@2100 05/12/17 10/12/20 History Cinnamon Bark [Cinnamon] 500 mg PO BID@0800,1700 05/12/17 10/12/20 History Ferrous Sulfate [Iron (65 MG 325 mg PO BID@0800,1700 05/12/17 10/12/20 History Elemental)] INSULIN ASPART (NovoLOG) [NovoLOG 8 unit SQ AC-LUNCH@1200 05/12/17 10/12/20 History (formulary)] INSULIN ASPART (NovoLOG) [NovoLOG 12 unit SQ AC-BRKFST@0800 05/12/17 10/12/20 History (formulary)] INSULIN ASPART (NovoLOG) [NovoLOG 18 unit SQ AC-SUPPER@1700 05/12/17 10/12/20 History (formulary)] Multivitamins, Thera [Multivitamin 1 tab PO DAILY@0800 05/12/17 10/12/20 History (formulary)] lisinopriL [Zestril] 20 mg PO DAILY@0800 05/12/17 10/12/20 History metFORMIN HCL [Glucophage] 500 mg PO BID@0800,1700 05/12/17 10/12/20 History Famotidine [Pepcid] 20 mg PO DAILY@0811/20/17 10/12/20 History L.acidoph,Paracasei, B.lactis 1 cap PO DAILY@17011/20/17 10/12/20 History [Probiotic] Loperamide [Imodium] 2 mg PO QID PRN 11/20/17 10/12/20 History Loratadine [Claritin] 10 mg PO DAILY PRN 11/20/17 10/12/20 History Melatonin 5 mg PO HS@2100 11/20/17 10/12/20 History Na Phos,M-B/Na Phos,Di-Ba [Fleet 133 ml RECTAL DAILY PRN 11/20/17 10/12/20 History Adult] Sodium Chloride [Saline Nasal 1 spray EA NOSTRIL TID PRN 11/20/17 10/12/20 History [place]] bisacodyL [Dulcolax] 10 mg RECTAL DAILY PRN 11/20/17 10/12/20 History Acetaminophen [Tylenol] 650 mg PO Q4H PRN 09/25/20 10/12/20 History Albuterol Inhaler [Ventolin Hfa 2 puff INHALATION RT-QID 09/25/20 10/12/20 History Inhaler] Carboxymethylcellulose Sodium 1 drop BOTH EYES QID PRN 09/25/20 10/12/20 History [Refresh Tears] Cholecalciferol [Vitamin D3 (25 25 mcg PO DAILY@17009/25/20 10/12/20 History Mcg = 1000 Iu)] Furosemide [Lasix] 40 mg PO DAILY@0609/25/20 10/12/20 History Insulin Degludec [Tresiba] 40 units SQ DAILY@2130 09/25/20 10/12/20 History Lactase [Lactaid] 3,000 unit PO DAILY PRN 09/25/20 10/12/20 History Magnesium Hydroxide [Milk of 7,200 mg PO DAILY PRN 09/25/20 10/12/20 History Magnesia Concentrate] Ondansetron [Zofran] 4 mg PO Q8HR PRN 09/25/20 10/12/20 History Ubidecarenone [Co Q-10] 100 mg PO DAILY@169909/25/20 10/12/20 History guaiFENesin [guaiFENesin Oral 200 mg PO Q6H PRN 09/25/20 10/12/20 History Solution] ALPRAZolam [Xanax] 0.25 mg PO DAILY PRN #3 tab 09/30/20 10/12/20 Rx ALPRAZolam [Xanax] 0.25 mg PO HS@2100 #3 tab 09/30/20 10/12/20 Rx HYDROcodone/APAP 5-325MG [[place] 1 tab PO HS@2100 #3 tab 09/30/20 10/12/20 Rx 5-325] HYDROcodone/APAP 5-325MG [[place] 1 tab PO Q6HR PRN #18 tab 09/30/20 10/12/20 Rx 5-325] INSULIN ASPART (NovoLOG) [NovoLOG See Protocol SQ ACHS 10/12/20 10/12/20 History (formulary)] amLODIPine [Norvasc] 5 mg PO BID@0800,1700 10/12/20 10/12/20 History Allergies Allergy/AdvReac Type Severity Reaction Status Date / Time lactose AdvReac Diarrhea Verified 10/12/20 17:12 Physical Exam Vitals: Vital Signs Temp Pulse Resp BP Pulse Ox 10/12/20 19:44 97.9 F 82 18 136/52 98 10/12/20 19:20 97.9 F 80 18 136/72 98 10/12/20 18:50 97.9 F 78 18 137/59 10/12/20 18:40 97.7 F 77 16 143/57 99 10/12/20 18:36 98.0 F 80 18 130/49 100 10/12/20 16:42 98.3 F 83 16 139/53 99 Intake and Output 10/12/20 10/12/20 10/12/20 06:59 14:59 22:59 Intake Total 0 Balance 0 Intake: Blood Product 0 Rc Pheresis 2 As3 Unit 0 [id number] Other: Weight 122.47 kg General Appearance: Alert, cooperative, mild distress, elderly Neck HEENT: Supple, no lymphadenopathy, no thyroid enlargement, no carotid bruits. Lungs: Decreased breath some bilateral especially the left lower lobe with fine rhonchi mild expiratory wheezes. Chest Wall: Decrease expansion with deep inspiration no tenderness and no deformity was found on exam, no costochondral pain or discomfort. Heart: Regular rate and rhythm, S1, S2 normal, no murmur, rub or gallop. Back: Symmetric, no curvature, ROM normal, no CVA tenderness. Abdomen: Soft possible sinusitis cover in the midepigastric area and mid abdominal region area no rebound or rigidity no bruises Extremities: Extremities normal, atraumatic, no cyanosis or edema. Pulses: 2+ and symmetric. Skin: Skin color, texture, tugor normal, no rashes or lesions. Neurologic: Alert oriented x3 cranial nerves II through XII intact, no motor deficit, no abnormal balance or gait. Results CBC & Chem 7: 10/12/20 16:56 10/12/20 16:56 Labs: Abnormal Lab Results - Last 24 Hours (Table) 10/12/20 10/12/20 10/12/20 Range/Units 16:55 16:56 16:56 RBC 1.65 L (3.80-5.40) m/uL Hgb 4.5 L* (11.4-16.0) gm/dL Hct 15.0 L* (34.0-46.0) % MCHC 30.1 L (31.0-37.0) g/dL RDW 16.9 H (11.5-15.5) % APTT 18.8 L (22.0-30.0) sec Sodium (137-145) mmol/L Potassium (3.5-5.1) mmol/L Carbon Dioxide (22-30) mmol/L BUN (7-17) mg/dL Creatinine (0.52-1.04) mg/dL Glucose (74-99) mg/dL POC Glucose (mg/dL) (75-99) mg/dL Total Protein (6.3-8.2) g/dL Albumin (3.5-5.0) g/dL Crossmatch See Detail 10/12/20 10/12/20 10/12/20 Range/Units 16:56 17:11 20:29 RBC (3.80-5.40) m/uL Hgb (11.4-16.0) gm/dL Hct (34.0-46.0) % MCHC (31.0-37.0) g/dL RDW (11.5-15.5) % APTT (22.0-30.0) sec Sodium 129 L (137-145) mmol/L Potassium 5.8 H (3.5-5.1) mmol/L Carbon Dioxide 18 L (22-30) mmol/L BUN 107 H* (7-17) mg/dL Creatinine 2.71 H (0.52-1.04) mg/dL Glucose 287 H (74-99) mg/dL POC Glucose (mg/dL) 304 H 248 H (75-99) mg/dL Total Protein 5.4 L (6.3-8.2) g/dL Albumin 2.8 L (3.5-5.0) g/dL Crossmatch Thrombosis Risk Factor Assmnt - DVT/VTE Prophylaxis DVT/VTE Prophylaxis: Mechanical Prophylaxis ordered Assessment and Plan Assessment: 1 mild respiratory distress: Secondary to acute GI bleed along with acute blood loss anemia and volume loss continue supportive care for now and treat underlying disease. 2 acute blood loss anemia: 2 units of blood transfusion be done and repeat CBC next 24 hours Hemoccult and GI consultation be done. 3 subacute GI bleed: Mostly from gastritis and peptic ulcer disease although the anemia itself could be secondary to hemolytic anemia from Covid 19 cases are seen currently we'll people had infection over 2 weeks ago. 4 acute kidney injury: Most likely acute tubular necrosis from acute blood loss anemia and acute kidney injury, patient will be on hydration repeat BUN/creatinine next 24 hours. 5 recent history of Covid 19 pneumonitis: Still have significant scar tissue in the left lower lobe, patient remain on O2, off steroid at this point off all antibiotics still on vitamin supplement chest x-ray had slight improvement compared to 2 weeks ago. 6 type 2 diabetes: Continue Accu-Chek with sliding scales coverage still on Levemir and short-acting before meals. 7 hyponatremia: Secondary to volume loss, recheck after correcting anemia. 8 hypertension: Was on lisinopril and amlodipine were so medication gently and carefully. 9 chronic kidney disease stage III: No change. 10 diabetic neuropathy: Patient. 11: Remain on atorvastatin. 12 I iron deficiency anemia: Remain on iron supplement iron infusion As well. 13 GI prophylaxis: Patient be on pantoprazole. 14 DVT prophylaxis: Knee-high LINDA hose and Venodyne boots. CODE STATUS: Full code. Admit patient to the inpatient service for more than 2 night stay.
[2020-10-12] MEDS: ALPRAZolam 0.25 MG TAB PO SCH (22:22)
[2020-10-12] MEDS: HYDROcodone/APAP 5-325MG 1 EACH TAB PO SCH (22:22)
[2020-10-12] MEDS: INSULIN ASPART (NovoLOG) 100 UNIT/ML VIAL SQ SCH (22:23)
[2020-10-12] MEDS: ATORVASTATIN 40 MG TAB PO SCH (22:23)
[2020-10-12] MEDS: INSULIN DETEMIR (LEVEMIR) 100 UNIT/ML SYR SQ SCH (22:24)
[2020-10-12] MEDS: MELATONIN 5 MG TABLET PO SCH (22:24)
[2020-10-13 06:05] LABS: Glucose,Whole Blood 81 mg/dL (75-99)
[2020-10-13 07:58] LABS: Albumin 2.8 g/dL (3.5-5.0); Calcium 8.9 mg/dL (8.4-10.2); Potassium 5.1 mmol/L (3.5-5.1); Total Bilirubin 0.8 mg/dL (0.2-1.3); Total Protein 5.4 g/dL (6.3-8.2)
[2020-10-13] MEDS ORDERED: lisinopriL 20 MG TAB PO SCH (08:00)
[2020-10-13] MEDS ORDERED: NON FORMULARY DRUG (Cinnamon Bark [Cinnamon] 500 MG Capsule) PO SCH (08:00)
[2020-10-13] MEDS: ALBUTEROL HFA INHALER INHALATION SCH ×4 (08:06→20:26)
[2020-10-13 08:15] LABS: Anisocytosis Slight; Basophils % (A) 1 %; Eosinophils # (A) 0.4 k/uL (0-0.7); Eosinophils % (A) 6 %; HCT 22.1 % (34.0-46.0); HGB 7.2 gm/dL (11.4-16.0); Hypochromasia Slight; Lymphocytes # (A) 0.8 k/uL (1.0-4.8); Lymphocytes % (A) 12 %; MCH 29.4 pg (25.0-35.0); MCHC 32.6 g/dL (31.0-37.0); MCV 90.2 fL (80.0-100.0); Mean Platelet Volume 7.9; Monocytes # (A) 0.5 k/uL (0-1.0); Monocytes % (A) 7 %; Neutrophils % (A) 72 %; Platelet Count 365 k/uL (150-450); Poikilocytosis Moderate; RBC 2.45 m/uL (3.80-5.40); RDW 16.2 % (11.5-15.5); WBC 6.9 k/uL (3.8-10.6)
[2020-10-13] MEDS: INSULIN ASPART (NovoLOG) 100 UNIT/ML VIAL SQ SCH ×7 (08:29→21:30)
[2020-10-13] MEDS: amLODIPine 5 MG TAB PO SCH ×2 (08:49→16:16)
[2020-10-13] MEDS: FERROUS SULFATE 325 MG TAB PO SCH ×2 (08:49→16:16)
[2020-10-13] MEDS: MULTIVITAMINS, THERA 1 EACH TAB PO SCH (08:49)
[2020-10-13] MEDS: FAMOTIDINE 20 MG TAB PO SCH (08:49)
[2020-10-13] MEDS: ASCORBIC ACID 500 MG TAB PO SCH (08:49)
[2020-10-13] MEDS: SODIUM FERRIC GLUCONAT-SUCROSE 125 MG in SODIUM CHLORIDE 0.9% 100 ML IVPB SCH (08:50)
[2020-10-13] MEDS ORDERED: FUROSEMIDE 10 MG/ML 2 ML VIAL IV PRN (09:24)
[2020-10-13 12:16] LABS: Glucose,Whole Blood 114 mg/dL (75-99)
--- NOTE | 2020-10-13 12:34 | P.PN ---
Subjective Progress Note Date: 10/13/20 HISTORY OF PRESENT ILLNESS 85-year-old female brought in seen in [facility] for the last 3 years had known to have history of type 2 diabetes, hypertension, depression, GERD, history of GI bleed secondary to Her on also in the past along with having hernia, chronic kidney disease, anemia had iron infusion in the past and chronic history of neuropathy. Patient was hospitalized in September 26 for worsening dyspnea and shortness of breath was diagnosed with Covid 19 pneumonitis had the monoclonal antibiotic infusion initially and was in the hospital for over 5 days received antiviral medication along with Decadron and secondary prevention with multivitamin along with updraft treatment. Patient was transferred back to [facility] over a week ago and has been doing much better until yesterday when developed to have significant dyspnea and shortness of breath chest x-ray shows slight worsening scar tissue from the Covid 19 left from 2 weeks ago. Patient surprisingly had BUN of 103 with hemoglobin of 4.6 only at that point found to have a black stool patient was sent to the hospital was seen and evaluated [place] start blood transfusion her hemoglobin still in the mid for chest x-ray remain the same pulse oximetry in 2 L running at 95 percentile. Patient had an no major abnormality on EKG, chest x-ray still showing significant infiltrate in the bases specially in the left lower side but had improved compared to the last one in the hospital. Lab value showed hemoglobin of 4.5 BUN of 107 with creatinine of 2.71 sodium 129 and potassium 5.8 blood sugar was mildly elevated no urine was done at this time. Patient Hemoccult was requested will be seen gastroneurology two-year the blood transfusion be started also patient be seen nephrology will continue gentle hydration repeat BUN/creatinine after correcting her volume loss. As for the pneumonia and the C ovid 19 x-ray looks better than before still have significant scar tissue from the injury happened related to the pneumonia 2 weeks ago. 10/13: Repeat hemoglobin is 7.2 and patient will be transfused one more unit of packed RBCs. GI is on consult for probable EGD. Patient is scheduled for Ferrlecit infusion. Patient states she is feeling okay. No complaints of abdominal pain, no nausea or vomiting. No diarrhea. She has been afebrile, heart rate 86, blood pressure 152/65, pulse ox 95% on 2 L nasal cannula. REVIEW OF SYSTEMS CONSTITUTIONAL: Well-developed in mild respiratory distress. Denies fever. Denies chills. EYES: No icterus sclerae, no conjunctivitis. EARS, NOSE, MOUTH, THROAT, and FACE: No sore throat, lymphadenopathy, carotid bruits or deformity. RESPIRATORY: Positive dyspnea and shortness of breath mild cough. CARDIOVASCULAR: Mild PND and orthopnea or angina GASTROINTESTINAL: Positive abdominal discomfort nausea no vomiting positive black stool at this point. GENITOURINARY: Negative for Hematuria or UTI, no kidney stones. INTEGUMENT/BREAST: Negative for any muscular injury with mild osteoarthritis.. HEMATOLOGIC/LYMPHATIC: Negative for bleed or purpura. Significant anemia MUSCULOSKELTAL: Positive mild arthralgia and myalgia. NEURLOGICAL: No LOC, Sz or syncope, blurred vision dizziness or abnormality.. BEHAVIORAL/PSYCH: Negative. ENDOCRINE: Negative. PHYSICAL EXAMINATION General Appearance: Alert, cooperative, no distress, elderly Neck HEENT: Supple, no lymphadenopathy, no thyroid enlargement, no carotid bruits. Lungs: Decreased breath some bilateral especially the left lower lobe with fine rhonchi mild expiratory wheezes. Chest Wall: Decrease expansion with deep inspiration no tenderness and no d eformity was found on exam, no costochondral pain or discomfort. Heart: Regular rate and rhythm, S1, S2 normal, no murmur, rub or gallop. Back: Symmetric, no curvature, ROM normal, no CVA tenderness. Abdomen: Soft possible sinusitis cover in the midepigastric area and mid abdominal region area no rebound or rigidity no bruises Extremities: Extremities normal, atraumatic, no cyanosis or edema. Pulses: 2+ and symmetric. Skin: Skin color, texture, tugor normal, no rashes or lesions. Neurologic: Alert oriented x3 cranial nerves II through XII intact, no motor deficit, no abnormal balance or gait. ASSESSMENT AND PLAN 1 mild respiratory distress without hypoxia: Secondary to acute GI bleed along with acute blood loss anemia and volume loss continue supportive care for now and treat underlying disease. 2 acute blood loss anemia status post transfusion of 2 units packed RBCs. One unit of RBCs ordered for today. Consult with GI for EGD. 3 subacute GI bleed: Mostly from gastritis and peptic ulcer disease although the anemia itself could be secondary to hemolytic anemia from Covid 19 cases are seen currently we'll people had infection over 2 weeks ago. 4 acute kidney injury: Most likely acute tubular necrosis from acute blood loss anemia and acute kidney injury, patient will be on hydration repeat BUN/creatinine next 24 hours. 5 recent history of Covid 19 pneumonitis: Still have significant scar tissue in the left lower lobe, patient remain on O2, off steroid at this point off all antibiotics still on vitamin supplement chest x-ray had slight improvement compared to 2 weeks ago. 6 type 2 diabetes: Continue Accu-Chek with sliding scales coverage still on Levemir and short-acting before meals. 7 hyponatremia: Secondary to volume loss, recheck after correcting anemia. 8 hypertension: Was on lisinopril and amlodipine were so medication gently and c arefully. 9 chronic kidney disease stage III: No change. 10 diabetic neuropathy: Patient. 11: Remain on atorvastatin. 12 I iron deficiency anemia: Remain on iron supplement iron infusion As well. 13 GI prophylaxis: Patient be on pantoprazole. 14 DVT prophylaxis: Knee-high LINDA hose and Venodyne boots. CODE STATUS: Full code. DISCHARGE PLAN Return to [facility] Impression and plan of care have been directed as dictated by the signing physician. Suad Ghotra nurse practitioner acting as scribe for signing physician. Objective - Vital Signs Vital signs: Vital Signs Temp 98.2 F 10/13/20 08:00 Pulse 88 10/13/20 08:00 Resp 20 10/13/20 08:00 BP 137/64 10/13/20 08:00 Pulse Ox 96 10/13/20 08:00 Intake & Output 10/12/20 10/13/20 10/13/20 18:59 06:59 18:59 Intake Total 0 620 Balance 0 620 Weight 122.47 kg 122.5 kg Intake: Blood Product 0 620 Rc As-1 Unit 310 [id number] Rc Pheresis 2 As3 Unit 0 310 [id number] Other: Voiding Method Bedpan # Voids 1 - Labs CBC & Chem 7: 10/13/20 06:38 10/13/20 06:38 Labs: Abnormal Lab Results - Last 24 Hours (Table) 10/12/20 10/12/20 10/12/20 Range/Units 16:55 16:56 16:56 RBC 1.65 L (3.80-5.40) m/uL Hgb 4.5 L* (11.4-16.0) gm/dL Hct 15.0 L* (34.0-46.0) % MCHC 30.1 L (31.0-37.0) g/dL RDW 16.9 H (11.5-15.5) % Lymphocytes # (1.0-4.8) k/uL APTT 18.8 L (22.0-30.0) sec Sodium (137-145) mmol/L Potassium (3.5-5.1) mmol/L Carbon Dioxide (22-30) mmol/L BUN (7-17) mg/dL Creatinine (0.52-1.04) mg/dL Glucose (74-99) mg/dL POC Glucose (mg/dL) (75-99) mg/dL Total Protein (6.3-8.2) g/dL Albumin (3.5-5.0) g/dL Crossmatch See Detail 10/12/20 10/12/20 10/12/20 Range/Units 16:56 17:11 20:29 RBC (3.80-5.40) m/uL Hgb (11.4-16.0) gm/dL Hct (34.0-46.0) % MCHC (31.0-37.0) g/dL RDW (11.5-15.5) % Lymphocytes # (1.0-4.8) k/uL APTT (22.0-30.0) sec Sodium 129 L (137-145) mmol/L Potassium 5.8 H (3.5-5.1) mmol/L Carbon Dioxide 18 L (22-30) mmol/L BUN 107 H* (7-17) mg/dL Creatinine 2.71 H (0.52-1.04) mg/dL Glucose 287 H (74-99) mg/dL POC Glucose (mg/dL) 304 H 248 H (75-99) mg/dL Total Protein 5.4 L (6.3-8.2) g/dL Albumin 2.8 L (3.5-5.0) g/dL Crossmatch 10/13/20 10/13/20 Range/Units 06:38 06:38 RBC 2.45 L (3.80-5.40) m/uL Hgb 7.2 L D (11.4-16.0) gm/dL Hct 22.1 L (34.0-46.0) % MCHC (31.0-37.0) g/dL RDW 16.2 H (11.5-15.5) % Lymphocytes # 0.8 L (1.0-4.8) k/uL APTT (22.0-30.0) sec Sodium 135 L (137-145) mmol/L Potassium (3.5-5.1) mmol/L Carbon Dioxide 18 L (22-30) mmol/L BUN 95 H (7-17) mg/dL Creatinine 2.55 H (0.52-1.04) mg/dL Glucose (74-99) mg/dL POC Glucose (mg/dL) (75-99) mg/dL Total Protein 5.4 L (6.3-8.2) g/dL Albumin 2.8 L (3.5-5.0) g/dL Crossmatch
[2020-10-13] MEDS: CHOLECALCIFEROL 25 MCG (1000 IU) TABLET PO SCH (16:16)
[2020-10-13] MEDS: LACTOBACILLUS ACIDOPH & BULGAR 1 EACH PACKET PO SCH (16:16)
[2020-10-13 16:53] LABS: Glucose,Whole Blood 99 mg/dL (75-99)
[2020-10-13] MEDS ORDERED: NON FORMULARY DRUG (Ubidecarenone [Co Q-10] 100 MG Capsule) PO SCH (17:00)
--- NOTE | 2020-10-13 18:08 | CONS ---
CONSULTATION REASON FOR CONSULT: Renal failure. HISTORY OF PRESENT ILLNESS: The patient is an 85-year-old female with history of hypertension, chronic kidney disease, type 2 diabetes, recent COVID-19 infection with hypoxia, status post treatment. Patient was admitted to the hospital with complaints of shortness of breath and weakness. She was found to have a hemoglobin of 4.5 g/dL. She has been transfused. Hemoglobin is 7.2 today. The patient denies any obvious GI bleed. Serum creatinine was 2.7 mg/dL on admission. It has decreased to 2.5. Prior creatinines have been 2.2 to 2.1 mg/dL in September of 2020 and as low as 1.6 and 1.7 in April of 2020. Patient states she has been voiding with no complaints. PAST MEDICAL HISTORY/ASSESSMENT: 1. Chronic kidney disease, stage 4, secondary to nephrosclerosis. Previous UA done on 09/26/2020 does not show any significant blood or protein. 2. Acute kidney injury secondary to severe anemia, currently improved. 3. Acute severe anemia, most likely acute blood loss. No obvious bleeding noted at this time, status post packed RBCs. Patient is being followed by GI. However, she seems reluctant to proceed with any endoscopies. 4. Metabolic acidosis secondary to renal failure. 5. Recent COVID-19 infection and pneumonia. 6. Type 2 diabetes. 7. Hypertension. Currently blood pressure is slightly on the higher side. We will continue to monitor for now. Patient was on EMMANUEL inhibitors, which are currently on hold. She is maintained on Norvasc. 8. Chronic kidney disease secondary to nephrosclerosis. Previous UA completely benign. PLAN: Maintain patient on Aranesp. Continue Norvasc. Repeat labs in a.m. Add sodium bicarb if the acidosis is worse tomorrow. Patient will need close followup as outpatient. Thank you for this consultation. MMODL / IJN: [id number] /
[2020-10-13 19:48] LABS: Glucose,Whole Blood 106 mg/dL (75-99)
[2020-10-13] MEDS: ALPRAZolam 0.25 MG TAB PO SCH (21:10)
[2020-10-13] MEDS: HYDROcodone/APAP 5-325MG 1 EACH TAB PO SCH (21:10)
[2020-10-13] MEDS: ATORVASTATIN 40 MG TAB PO SCH (21:11)
[2020-10-13] MEDS: MELATONIN 5 MG TABLET PO SCH (21:11)
[2020-10-13] MEDS: INSULIN DETEMIR (LEVEMIR) 100 UNIT/ML SYR SQ SCH (21:12)
[2020-10-14 06:09] LABS: Glucose,Whole Blood 72 mg/dL (75-99)
[2020-10-14 06:52] LABS: Anisocytosis Slight; HCT 25.5 % (34.0-46.0); HGB 8.3 gm/dL (11.4-16.0); Hypochromasia Slight; MCH 30.1 pg (25.0-35.0); MCHC 32.6 g/dL (31.0-37.0); MCV 92.2 fL (80.0-100.0); Mean Platelet Volume 6.9; Platelet Count 365 k/uL (150-450); Poikilocytosis Moderate; RBC 2.77 m/uL (3.80-5.40); RDW 16.8 % (11.5-15.5); WBC 6.2 k/uL (3.8-10.6)
[2020-10-14] MEDS: INSULIN ASPART (NovoLOG) 100 UNIT/ML VIAL SQ SCH ×7 (07:38→21:52)
[2020-10-14] MEDS: amLODIPine 5 MG TAB PO SCH ×2 (08:24→18:10)
[2020-10-14] MEDS: FAMOTIDINE 20 MG TAB PO SCH ×2 (08:24→21:51)
[2020-10-14] MEDS: ASCORBIC ACID 500 MG TAB PO SCH (08:24)
[2020-10-14] MEDS: MULTIVITAMINS, THERA 1 EACH TAB PO SCH (08:24)
[2020-10-14] MEDS: FERROUS SULFATE 325 MG TAB PO SCH ×2 (08:24→18:09)
[2020-10-14] MEDS ORDERED: FUROSEMIDE 10 MG/ML 2 ML VIAL IV ONE (08:29)
[2020-10-14 08:35] LABS: Calcium 8.9 mg/dL (8.4-10.2); Potassium 5.1 mmol/L (3.5-5.1)
[2020-10-14] MEDS: ALBUTEROL HFA INHALER INHALATION SCH ×4 (08:58→20:51)
[2020-10-14] MEDS: SODIUM FERRIC GLUCONAT-SUCROSE 125 MG in SODIUM CHLORIDE 0.9% 100 ML IVPB SCH (10:12)
--- NOTE | 2020-10-14 11:17 | P.CONS ---
History of Present Illness - Reason for Consult Consult date: 10/13/20 Anemia Requesting physician: Josh Anaya - Chief Complaint Shortness of breath - History of Present Illness 85-year-old female with multiple medical comorbidities including diabetes mellitus, GERD, hypertension, depression, chronic kidney disease, anemia and neuropathy and prior evaluation for anemia with findings of Benny erosions who presented to the hospital for evaluation of shortness of breath. She was recently hospitalized for treatment of Covid 19. On current presentation patient was found to be anemic with a hemoglobin of 7.2, WBC 6.9, and with a creatinine of 2.55. Previously the patient was also evaluated for anemia in 2018 at which time she underwent evaluation on 11/22/2017 with EGD showing large hiatal hernia with Benny's erosions with no active bleeding and a colon with scattered sigmoid diverticula and polyps noted. Currently the patient is denying any signs or symptoms of GI bleeding. No abdominal pain reported. Review of Systems REVIEW OF SYSTEMS: CONSTITUTIONAL: Denies any fevers, chills, weight change but she is reporting fatigue. CARDIOVASCULAR: Denies any chest pain, palpitations high or low blood pressures RESPIRATORY: Denies any hemoptysis or cough but she does have some shortness of breath and is requiring oxygen via nasal cannula. GENITOURINARY: No dysuria or hematuria. MUSCULOSKELETAL: No weakness reported. SKIN: Denies any new rashes or lesions, jaundice or pallor. PSYCHIATRIC: Denies any depression or anxiety. NEUROLOGY: Denies headache, denies any new focal deficits, history of neuropathy. EARS/NOSE/THROAT: No recent hearing change, congestion, nasal discharge or sore throat. EYES: No pain in eyes, discharge or change in vision. GASTROINTESTINAL: As per HPI. Past Medical History Past Medical History: Diabetes Mellitus History of Any Multi-Drug Resistant Organisms: None Reported Past Surgical History: Hysterectomy Additional Past Surgical History / Comment(s): L hip surgery, right ORIF 2 years ago, lipoma left flank removal Past Anesthesia/Blood Transfusion Reactions: No Reported Reaction Past Psychological History: No Psychological Hx Reported Smoking Status: Never smoker Past Alcohol Use History: None Reported Past Drug Use History: None Reported - Past Family History Father Family Medical History: Cancer Mother Family Medical History: Diabetes Mellitus Medications and Allergies Home Medications Medication Instructions Recorded Confirmed Type Ascorbic Acid [Vitamin C] 500 mg PO DAILY@0800 05/12/17 10/12/20 History Atorvastatin [Lipitor] 40 mg PO HS@2100 05/12/17 10/12/20 History Cinnamon Bark [Cinnamon] 500 mg PO BID@0800,1700 05/12/17 10/12/20 History Ferrous Sulfate [Iron (65 MG 325 mg PO BID@0800,1700 05/12/17 10/12/20 History Elemental)] INSULIN ASPART (NovoLOG) [NovoLOG 8 unit SQ AC-LUNCH@1200 05/12/17 10/12/20 History (formulary)] INSULIN ASPART (NovoLOG) [NovoLOG 12 unit SQ AC-BRKFST@0800 05/12/17 10/12/20 History (formulary)] INSULIN ASPART (NovoLOG) [NovoLOG 18 unit SQ AC-SUPPER@1700 05/12/17 10/12/20 History (formulary)] Multivitamins, Thera [Multivitamin 1 tab PO DAILY@0800 05/12/17 10/12/20 History (formulary)] lisinopriL [Zestril] 20 mg PO DAILY@0800 05/12/17 10/12/20 History metFORMIN HCL [Glucophage] 500 mg PO BID@0800,1700 05/12/17 10/12/20 History Famotidine [Pepcid] 20 mg PO DAILY@0800 11/20/17 10/12/20 History L.acidoph,Paracasei, B.lactis 1 cap PO DAILY@1700 11/20/17 10/12/20 History [Probiotic] Loperamide [Imodium] 2 mg PO QID PRN 11/20/17 10/12/20 History Loratadine [Claritin] 10 mg PO DAILY PRN 11/20/17 10/12/20 History Melatonin 5 mg PO HS@2100 11/20/17 10/12/20 History Na Phos,M-B/Na Phos,Di-Ba [Fleet 133 ml RECTAL DAILY PRN 11/20/17 10/12/20 History Adult] Sodium Chloride [Saline Nasal 1 spray EA NOSTRIL TID PRN 11/20/17 10/12/20 History Nahma] bisacodyL [Dulcolax] 10 mg RECTAL DAILY PRN 11/20/17 10/12/20 History Acetaminophen [Tylenol] 650 mg PO Q4H PRN 09/25/20 10/12/20 History Albuterol Inhaler [Ventolin Hfa 2 puff INHALATION RT-QID 09/25/20 10/12/20 History Inhaler] Carboxymethylcellulose Sodium 1 drop BOTH EYES QID PRN 09/25/20 10/12/20 History [Refresh Tears] Cholecalciferol [Vitamin D3 (25 25 mcg PO DAILY@1700 09/25/20 10/12/20 History Mcg = 1000 Iu)] Furosemide [Lasix] 40 mg PO DAILY@0600 09/25/20 10/12/20 History Insulin Degludec [Tresiba] 40 units SQ DAILY@2130 09/25/20 10/12/20 History Lactase [Lactaid] 3,000 unit PO DAILY PRN 09/25/20 10/12/20 History Magnesium Hydroxide [Milk of 7,200 mg PO DAILY PRN 09/25/20 10/12/20 History Magnesia Concentrate] Ondansetron [Zofran] 4 mg PO Q8HR PRN 09/25/20 10/12/20 History Ubidecarenone [Co Q-10] 100 mg PO DAILY@1700 09/25/20 10/12/20 History guaiFENesin [guaiFENesin Oral 200 mg PO Q6H PRN 09/25/20 10/12/20 History Solution] ALPRAZolam [Xanax] 0.25 mg PO DAILY PRN #3 tab 09/30/20 10/12/20 Rx ALPRAZolam [Xanax] 0.25 mg PO HS@2100 #3 tab 09/30/20 10/12/20 Rx HYDROcodone/APAP 5-325MG [[place] 1 tab PO HS@2100 #3 tab 09/30/20 10/12/20 Rx 5-325] HYDROcodone/APAP 5-325MG [[place] 1 tab PO Q6HR PRN #18 tab 09/30/20 10/12/20 Rx 5-325] INSULIN ASPART (NovoLOG) [NovoLOG See Protocol SQ ACHS 10/12/20 10/12/20 History (formulary)] amLODIPine [Norvasc] 5 mg PO BID@0800,1700 10/12/20 10/12/20 History Allergies Allergy/AdvReac Type Severity Reaction Status Date / Time lactose AdvReac Diarrhea Verified 10/12/20 17:12 Physical Exam Vitals: Vital Signs Temp Pulse Pulse Resp BP BP Pulse Ox 10/13/20 12:47 98.3 F 87 20 158/67 10/13/20 12:17 98 F 84 20 142/64 97 10/13/20 12:10 97.8 F 86 18 152/65 95 10/13/20 12:07 97.8 F 87 18 152/65 95 10/13/20 08:00 98.2 F 88 20 137/64 96 10/13/20 04:00 97.6 F 75 18 128/60 97 10/13/20 02:58 97.4 F L 75 18 126/61 98 10/13/20 02:00 75 18 10/13/20 00:10 97.6 F 76 18 126/59 10/13/20 00:00 97.6 F 75 18 128/60 98 10/12/20 23:45 97.6 F 75 18 128/60 97 10/12/20 23:39 97.6 F 75 18 128/60 97 10/12/20 20:00 97.6 F 86 18 148/62 96 10/12/20 19:44 97.9 F 82 18 136/52 98 10/12/20 19:20 97.9 F 80 18 136/72 98 10/12/20 19:05 97.6 F 86 18 148/62 96 10/12/20 18:50 97.9 F 78 18 137/59 10/12/20 18:40 97.7 F 77 16 143/57 99 10/12/20 18:36 98.0 F 80 18 130/49 100 10/12/20 16:42 98.3 F 83 16 139/53 99 Intake and Output 10/12/20 10/13/20 10/13/20 22:59 06:59 14:59 Intake Total 310 310 720 Balance 310 310 720 Intake: Oral 720 Blood Product 310 310 0 Rc As-1 Unit 310 [id number] Rc As-1 Unit 0 [id number] Rc Pheresis 2 As3 Unit 310 [id number] Other: Voiding Method Bedpan Bedpan # Voids 1 1 2 Weight 122.47 kg 122.5 kg On physical examination, patient appears comfortable in no apparent distress. HEAD: Normocephalic, atraumatic. EYES: No scleral icterus. No conjunctival injection. MOUTH: No lesions, tongue midline. NECK: Trachea midline, no gross abnormalities. CHEST: Decreased air entry in all ramos. HEART: S1-S2 appreciated. ABDOMEN: Soft, obese. Bowel sounds are positive. No organomegaly. No guarding or rigidity. EXTREMITIES: No pedal edema. SKIN: No rashes, no jaundice. NEUROLOGIC: Alert and oriented x3. No focal deficits. Results CBC & Chem 7: 10/14/20 06:01 10/14/20 08:17 Labs: Abnormal Lab Results - Last 24 Hours (Table) 10/12/20 10/12/20 10/12/20 Range/Units 16:55 16:56 16:56 RBC 1.65 L (3.80-5.40) m/uL Hgb 4.5 L* (11.4-16.0) gm/dL Hct 15.0 L* (34.0-46.0) % MCHC 30.1 L (31.0-37.0) g/dL RDW 16.9 H (11.5-15.5) % Lymphocytes # (1.0-4.8) k/uL APTT 18.8 L (22.0-30.0) sec Sodium (137-145) mmol/L Potassium (3.5-5.1) mmol/L Carbon Dioxide (22-30) mmol/L BUN (7-17) mg/dL Creatinine (0.52-1.04) mg/dL Glucose (74-99) mg/dL POC Glucose (mg/dL) (75-99) mg/dL Total Protein (6.3-8.2) g/dL Albumin (3.5-5.0) g/dL Crossmatch See Detail 10/12/20 10/12/20 10/12/20 Range/Units 16:56 17:11 20:29 RBC (3.80-5.40) m/uL Hgb (11.4-16.0) gm/dL Hct (34.0-46.0) % MCHC (31.0-37.0) g/dL RDW (11.5-15.5) % Lymphocytes # (1.0-4.8) k/uL APTT (22.0-30.0) sec Sodium 129 L (137-145) mmol/L Potassium 5.8 H (3.5-5.1) mmol/L Carbon Dioxide 18 L (22-30) mmol/L BUN 107 H* (7-17) mg/dL Creatinine 2.71 H (0.52-1.04) mg/dL Glucose 287 H (74-99) mg/dL POC Glucose (mg/dL) 304 H 248 H (75-99) mg/dL Total Protein 5.4 L (6.3-8.2) g/dL Albumin 2.8 L (3.5-5.0) g/dL Crossmatch 10/13/20 10/13/20 10/13/20 Range/Units 06:38 06:38 12:15 RBC 2.45 L (3.80-5.40) m/uL Hgb 7.2 L D (11.4-16.0) gm/dL Hct 22.1 L (34.0-46.0) % MCHC (31.0-37.0) g/dL RDW 16.2 H (11.5-15.5) % Lymphocytes # 0.8 L (1.0-4.8) k/uL APTT (22.0-30.0) sec Sodium 135 L (137-145) mmol/L Potassium (3.5-5.1) mmol/L Carbon Dioxide 18 L (22-30) mmol/L BUN 95 H (7-17) mg/dL Creatinine 2.55 H (0.52-1.04) mg/dL Glucose (74-99) mg/dL POC Glucose (mg/dL) 114 H (75-99) mg/dL Total Protein 5.4 L (6.3-8.2) g/dL Albumin 2.8 L (3.5-5.0) g/dL Crossmatch Chest x-ray: report reviewed Assessment and Plan (1) Normocytic normochromic anemia Narrative/Plan: 85-year-old female with multiple medical comorbidities who presented to the hospital due to shortness of breath and found to be anemic. She denies any signs or symptoms of GI bleeding with no hematemesis, coffee-ground emesis, melena or hematochezia. Stool testing was positive for occult blood. She previously had extensive endoscopic evaluation and 2018 with EGD showing a large hiatal hernia with Benny's erosions and diverticulosis and polypectomy on colonoscopy. Patient also had acute elevation in her creatinine. Suspicion is for anemia which is multifactorial in the setting of normocytic indices with likely component of anemia of chronic disease in the setting of worsening kidney disease, cannot rule out a component of GI blood loss given history of Bneny's erosions. Plan is for EGD for further evaluation with all of the risks, benefits and possible complications of the procedures to the patient length all questions answered to her satisfaction. Current Visit: Yes Status: Acute Code(s): D64.9 - ANEMIA, UNSPECIFIED SNOMED Code(s): 83502996 (2) Hiatal hernia Current Visit: Yes Status: Acute Code(s): K44.9 - DIAPHRAGMATIC HERNIA WITHOUT OBSTRUCTION OR GANGRENE SNOMED Code(s): 48301765 (3) Diverticula of colon Current Visit: Yes Status: Acute Code(s): K57.30 - DVRTCLOS OF LG INT W/O PERFORATION OR ABSCESS W/O BLEEDING SNOMED Code(s): 190836280 Plan: Supportive care Okay for diet Nothing by mouth after midnight Continue monitor hemoglobin and hematocrit and transfuse as needed Anemia laboratory evaluation Continue Protonix therapy Avoid NSAID use We'll anticoagulation for now Plan for EGD tomorrow for further evaluation with all of the risks, benefits and possible consultations of the procedure described to the patient at length with all of her questions answered to her satisfaction Thank you for allowing us to participate in the care of the patient
[2020-10-14 11:54] LABS: Glucose,Whole Blood 84 mg/dL (75-99)
--- NOTE | 2020-10-14 11:56 | P.PN ---
Subjective Progress Note Date: 10/14/20 HISTORY OF PRESENT ILLNESS 85-year-old female brought in seen in [facility] for the last 3 years had known to have history of type 2 diabetes, hypertension, depression, GERD, history of GI bleed secondary to Her on also in the past along with having hernia, chronic kidney disease, anemia had iron infusion in the past and chronic history of neuropathy. Patient was hospitalized in September 26 for worsening dyspnea and shortness of breath was diagnosed with Covid 19 pneumonitis had the monoclonal antibiotic infusion initially and was in the hospital for over 5 days received antiviral medication along with Decadron and secondary prevention with multivitamin along with updraft treatment. Patient was transferred back to [facility] over a week ago and has been doing much better until yesterday when developed to have significant dyspnea and shortness of breath chest x-ray shows slight worsening scar tissue from the Covid 19 left from 2 weeks ago. Patient surprisingly had BUN of 103 with hemoglobin of 4.6 only at that point found to have a black stool patient was sent to the hospital was seen and evaluated [place] start blood transfusion her hemoglobin still in the mid for chest x-ray remain the same pulse oximetry in 2 L running at 95 percentile. Patient had an no major abnormality on EKG, chest x-ray still showing significant infiltrate in the bases specially in the left lower side but had improved compared to the last one in the hospital. Lab value showed hemoglobin of 4.5 BUN of 107 with creatinine of 2.71 sodium 129 and potassium 5.8 blood sugar was mildly elevated no urine was done at this time. Patient Hemoccult was requested will be seen gastroneurology two-year the blood transfusion be started also patient be seen nephrology will continue gentle hydration repeat BUN/creatinine after correcting her volume loss. As for the pneumonia and the C ovid 19 x-ray looks better than before still have significant scar tissue from the injury happened related to the pneumonia 2 weeks ago. 10/13: Repeat hemoglobin is 7.2 and patient will be transfused one more unit of packed RBCs. GI is on consult for probable EGD. Patient is scheduled for Ferrlecit infusion. Patient states she is feeling okay. No complaints of abdominal pain, no nausea or vomiting. No diarrhea. She has been afebrile, heart rate 86, blood pressure 152/65, pulse ox 95% on 2 L nasal cannula. 10/14: Patient is scheduled today for EGD. Hemoglobin is 8.3. She is currently on oral Lasix at 20 mg every day. Repeat blood work reveals CO2 21, BUN 78 creatinine 2.51. Blood sugar this morning 62. Dr. Andrea is following for acute kidney injury and chronic kidney disease stage IV. Yoan inhibitor on hold. She recommends continuing Aranesp and Norvasc. Patient would like to return to [facility] today. Depending on results of EGD, patient may return to [facility] this afternoon. REVIEW OF SYSTEMS CONSTITUTIONAL: Well-developed in no respiratory distress. Denies fever. Denies chills. EYES: No icterus sclerae, no conjunctivitis. EARS, NOSE, MOUTH, THROAT, and FACE: No sore throat, lymphadenopathy, carotid bruits or deformity. RESPIRATORY: No dyspnea and shortness of breath mild cough. CARDIOVASCULAR: Mild PND and orthopnea or angina GASTROINTESTINAL: No abdominal discomfort nausea no vomiting no black stool. GENITOURINARY: Negative for Hematuria or UTI, no kidney stones. INTEGUMENT/BREAST: Negative for any muscular injury with mild osteoarthritis.. HEMATOLOGIC/LYMPHATIC: Negative for bleed or purpura. Significant anemia MUSCULOSKELTAL: Positive mild arthralgia and myalgia. NEURLOGICAL: No LOC, Sz or syncope, blurred vision dizziness or abnormality.. BEHAVIORAL/PSYCH: Negative. ENDOCRINE: Negative. PHYSICAL EXAMINATION General Appearance: Alert, cooperative, no distress, elderly, resting in bed. Neck HEENT: Supple, no lymphadenopathy, no thyroid enlargement, no carotid bruits. Lungs: Decreased breath some bilateral especially the left lower lobe with fine rhonchi mild expiratory wheezes. Chest Wall: Decrease expansion with deep inspiration no tenderness and no deformity was found on exam, no costochondral pain or discomfort. Heart: Regular rate and rhythm, S1, S2 normal, no murmur, rub or gallop. Back: Symmetric, no curvature, ROM normal, no CVA tenderness. Abdomen: Soft , no tenderness, no rebound or rigidity no bruises Extremities: Extremities normal, atraumatic, no cyanosis or edema. Pulses: 2+ and symmetric. Skin: Skin color, texture, tugor normal, no rashes or lesions. Neurologic: Alert oriented x3 cranial nerves II through XII intact, no motor deficit, no abnormal balance or gait. ASSESSMENT AND PLAN 1 mild respiratory distress without hypoxia: Secondary to acute GI bleed along with acute blood loss anemia and volume loss continue supportive care for now and treat underlying disease. 2 acute blood loss anemia status post transfusion of 3 units packed RBCs. Consult with GI for EGD. 3 subacute GI bleed: Mostly from gastritis and peptic ulcer disease although the anemia itself could be secondary to hemolytic anemia from Covid 19 cases are se en currently we'll people had infection over 2 weeks ago. 4 acute kidney injury: Most likely acute tubular necrosis from acute blood loss anemia and acute kidney injury, patient will be on hydration repeat BUN/creatinine next 24 hours. 5 recent history of Covid 19 pneumonitis: Still have significant scar tissue in the left lower lobe, patient remain on O2, off steroid at this point off all antibiotics still on vitamin supplement chest x-ray had slight improvement compared to 2 weeks ago. 6 type 2 diabetes: Continue Accu-Chek with sliding scales coverage still on Levemir and short-acting before meals. 7 hyponatremia: Secondary to volume loss, recheck after correcting anemia. 8 hypertension: Was on lisinopril and amlodipine were so medication gently and carefully. 9 chronic kidney disease stage IV. 10 diabetic neuropathy: Patient. 11: Hyperlipidemia. Remain on atorvastatin. 12 I iron deficiency anemia: Remain on iron supplement iron infusion 13 GI prophylaxis: Patient be on pantoprazole. 14 DVT prophylaxis: Knee-high LINDA hose and Venodyne boots. 15. Metabolic acidosis secondary to renal failure, improving. CODE STATUS: Full code. DISCHARGE PLAN Return to [facility] Impression and plan of care have been directed as dictated by the signing ph ysician. Suad Ghotra nurse practitioner acting as scribe for signing physician. Objective - Vital Signs Vital signs: Vital Signs Temp 98.2 F 10/14/20 04:00 Pulse 84 10/14/20 04:00 Resp 18 10/14/20 04:00 BP 125/60 10/14/20 04:00 Pulse Ox 95 10/14/20 04:00 Intake & Output 10/13/20 10/14/20 10/14/20 18:59 06:59 18:59 Intake Total 1390 Balance 1390 Weight 123 kg Intake: Oral 1080 Blood Product 310 Rc As-1 Unit 310 [id number] Other: Voiding Method Bedpan # Voids 2 2 # Bowel Movements 1 - Labs CBC & Chem 7: 10/14/20 06:01 10/14/20 08:17 Labs: Abnormal Lab Results - Last 24 Hours (Table) 10/12/20 10/13/20 10/13/20 Range/Units 16:55 12:15 19:46 RBC (3.80-5.40) m/uL Hgb (11.4-16.0) gm/dL Hct (34.0-46.0) % RDW (11.5-15.5) % POC Glucose (mg/dL) 114 H 106 H (75-99) mg/dL Crossmatch See Detail 10/14/20 10/14/20 Range/Units 06:01 06:08 RBC 2.77 L (3.80-5.40) m/uL Hgb 8.3 L (11.4-16.0) gm/dL Hct 25.5 L (34.0-46.0) % RDW 16.8 H (11.5-15.5) % POC Glucose (mg/dL) 72 L (75-99) mg/dL Crossmatch
--- NOTE | 2020-10-14 11:58 | P.DS ---
Providers Date of admission: 10/12/20 18:49 Expected date of discharge: 10/14/20 Attending physician: Josh Anaya Consults: 10/12/20 20:48 Consult Physician Routine Consulting Provider: June Rojas Consult Reason/Comments: GI Bleed Do you want consulting provider notified?: Yes 10/12/20 20:51 Consult Physician Routine Consulting Provider: Nelsy Andrea Consult Reason/Comments: ANALIA Do you want consulting provider notified?: Yes Primary care physician: Ojsh Héctor [facility] Course: HISTORY OF PRESENT ILLNESS 85-year-old female brought in seen in [facility] for the last 3 years had known to have history of type 2 diabetes, hypertension, depression, GERD, history of GI bleed secondary to Her on also in the past along with having hernia, chronic kid esperanza disease, anemia had iron infusion in the past and chronic history of neuropathy. Patient was hospitalized in September 26 for worsening dyspnea and shortness of breath was diagnosed with Covid 19 pneumonitis had the monoclonal antibiotic infusion initially and was in the hospital for over 5 days received antiviral medication along with Decadron and secondary prevention with multivitamin along with updraft treatment. Patient was transferred back to [facility] over a week ago and has been doing much better until yesterday when developed to have significant dyspnea and shortness of breath chest x-ray shows slight worsening scar tissue from the Covid 19 left from 2 weeks ago. Patient surprisingly had BUN of 103 with hemoglobin of 4.6 only at that point found to have a black stool patient was sent to the hospital was seen and evaluated [place] start blood transfusion her hemoglobin still in the mid for chest x-ray remain the same pulse oximetry in 2 L running at 95 percentile. P atient had an no major abnormality on EKG, chest x-ray still showing significant infiltrate in the bases specially in the left lower side but had improved compared to the last one in the hospital. Lab value showed hemoglobin of 4.5 BUN of 107 with creatinine of 2.71 sodium 129 and potassium 5.8 blood sugar was mildly elevated no urine was done at this time. Patient Hemoccult was requested will be seen gastroneurology two-year the blood transfusion be started also patient be seen nephrology will continue gentle hydration repeat BUN/creatinine after correcting her volume loss. As for the pneumonia and the Covid 19 x-ray looks better than before still have significant scar tissue from the injury happened related to the pneumonia 2 weeks ago. 10/13: Repeat hemoglobin is 7.2 and patient will be transfused one more unit of packed RBCs. GI is on consult for probable EGD. Patient is scheduled for Ferrlecit infusion. Patient states she is feeling okay. No complaints of abdominal pain, no nausea or vomiting. No diarrhea. She has been afebrile, heart rate 86, blood pressure 152/65, pulse ox 95% on 2 L nasal cannula. 10/14: Patient is scheduled today for EGD. Hemoglobin is 8.3. She is currently on oral Lasix at 20 mg every day. Repeat blood work reveals CO2 21, BUN 78 creatinine 2.51. Blood sugar this morning 62. Dr. Andrea is following for acute kidney injury and chronic kidney disease stage IV. Yoan inhibitor on hold. She recommends continuing Aranesp and Norvasc. Patient would like to return to [facility] today. Depending on results of EGD, patient may return to [facility] this afternoon. Discharge delayed until October 15. ASSESSMENT AND PLAN 1 mild respiratory distress without hypoxia: Secondary to acute GI bleed along with acute blood loss anemia and volume loss 2 acute blood loss anemia status post transfusion of 3 units packed RBCs. 3 subacute GI bleed: Mostly from gastritis and peptic ulcer disease 4 acute kidney injury: Most likely acute tubular necrosis from acute blood loss anemia 5 recent history of Covid 19 pneumonitis 6 type 2 diabetes 7 hyponatremia 8 hypertension 9 chronic kidney disease stage IV. 10 diabetic neuropathy 11 Hyperlipidemia. 12 Iron deficiency anemia 13 Metabolic acidosis secondary to renal failure, improving. DISCHARGE PLAN Return to [facility] Impression and plan of care have been directed as dictated by the signing physician. Suad Ghotra nurse practitioner acting as scribe for signing physician. Patient Condition at Discharge: Good Plan - Discharge Summary Discharge Rx Participant: No New Discharge Prescriptions: Continue Multivitamins, Thera [Multivitamin (formulary)] 1 tab PO DAILY@0800 Ferrous Sulfate [Iron (65 MG Elemental)] 325 mg PO BID@0800,1700 Cinnamon Bark [Cinnamon] 500 mg PO BID@0800,1700 Ascorbic Acid [Vitamin C] 500 mg PO DAILY@0800 Atorvastatin [Lipitor] 40 mg PO HS@2100 Loperamide [Imodium] 2 mg PO QID PRN PRN Reason: Loose Stool Na Phos,M-B/Na Phos,Di-Ba [Fleet Adult] 133 ml RECTAL DAILY PRN PRN Reason: Constipation Loratadine [Claritin] 10 mg PO DAILY PRN PRN Reason: Allergy Symptoms bisacodyL [Dulcolax] 10 mg RECTAL DAILY PRN PRN Reason: Constipation L.acidoph,Paracasei, B.lactis [Probiotic] 1 cap PO DAILY@1700 Famotidine [Pepcid] 20 mg PO DAILY@0800 Melatonin 5 mg PO HS@2100 Sodium Chloride [Saline Nasal [place]] 1 spray EA NOSTRIL TID PRN PRN Reason: CONGESTION/NASAL DRYNESS Ondansetron [Zofran] 4 mg PO Q8HR PRN PRN Reason: Nausea Carboxymethylcellulose Sodium [Refresh Tears] 1 drop BOTH EYES QID PRN PRN Reason: Dry Eye(S) Magnesium Hydroxide [Milk of Magnesia Concentrate] 7,200 mg PO DAILY PRN PRN Reason: Constipation Lactase [Lactaid] 3,000 unit PO DAILY PRN PRN Reason: Lactose Intolerance guaiFENesin [guaiFENesin Oral Solution] 200 mg PO Q6H PRN PRN Reason: Cough Acetaminophen [Tylenol] 650 mg PO Q4H PRN PRN Reason: Fever And/ Or Pain Albuterol Inhaler [Ventolin Hfa Inhaler] 2 puff INHALATION RT-QID Cholecalciferol [Vitamin D3 (25 Mcg = 1000 Iu)] 25 mcg PO DAILY@1700 Insulin Degludec [Tresiba] 40 units SQ DAILY@2130 Furosemide [Lasix] 40 mg PO DAILY@0600 Ubidecarenone [Co Q-10] 100 mg PO DAILY@1700 INSULIN ASPART (NovoLOG) [NovoLOG (formulary)] See Protocol SQ ACHS amLODIPine [Norvasc] 5 mg PO BID@0800,1700 HYDROcodone/APAP 5-325MG [[place] 5-325] 1 tab PO HS@2100 #3 tab HYDROcodone/APAP 5-325MG [[place] 5-325] 1 tab PO Q6HR PRN #18 tab PRN Reason: Pain ALPRAZolam [Xanax] 0.25 mg PO DAILY PRN #3 tab PRN Reason: Anxiety ALPRAZolam [Xanax] 0.25 mg PO HS@2100 #3 tab Changed INSULIN ASPART (NovoLOG) [NovoLOG (formulary)] 8 unit SQ AC-BRKFST@0800 #0 INSULIN ASPART (NovoLOG) [NovoLOG (formulary)] 5 unit SQ AC-LUNCH@1200 #0 INSULIN ASPART (NovoLOG) [NovoLOG (formulary)] 10 unit SQ AC-SUPPER@1700 #0 Discontinued lisinopriL [Zestril] 20 mg PO DAILY@0800 metFORMIN HCL [Glucophage] 500 mg PO BID@0800,1700 Discharge Medication List Ascorbic Acid [Vitamin C] 500 mg PO DAILY@0800 05/12/17 [History] Atorvastatin [Lipitor] 40 mg PO HS@2100 05/12/17 [History] Cinnamon Bark [Cinnamon] 500 mg PO BID@0800,1700 05/12/17 [History] Ferrous Sulfate [Iron (65 MG Elemental)] 325 mg PO BID@0800,1700 05/12/17 [History] Multivitamins, Thera [Multivitamin (formulary)] 1 tab PO DAILY@0800 05/12/17 [History] Famotidine [Pepcid] 20 mg PO DAILY@0800 11/20/17 [History] L.acidoph,Paracasei, B.lactis [Probiotic] 1 cap PO DAILY@1700 11/20/17 [History] Loperamide [Imodium] 2 mg PO QID PRN 11/20/17 [History] Loratadine [Claritin] 10 mg PO DAILY PRN 11/20/17 [History] Melatonin 5 mg PO HS@2100 11/20/17 [History] Na Phos,M-B/Na Phos,Di-Ba [Fleet Adult] 133 ml RECTAL DAILY PRN 11/20/17 [History] Sodium Chloride [Saline Nasal [place]] 1 spray EA NOSTRIL TID PRN 11/20/17 [History] bisacodyL [Dulcolax] 10 mg RECTAL DAILY PRN 11/20/17 [History] Acetaminophen [Tylenol] 650 mg PO Q4H PRN 09/25/20 [History] Albuterol Inhaler [Ventolin Hfa Inhaler] 2 puff INHALATION RT-QID 09/25/20 [History] Carboxymethylcellulose Sodium [Refresh Tears] 1 drop BOTH EYES QID PRN 09/25/20 [History] Cholecalciferol [Vitamin D3 (25 Mcg = 1000 Iu)] 25 mcg PO DAILY@1700 09/25/20 [History] Furosemide [Lasix] 40 mg PO DAILY@0600 09/25/20 [History] Insulin Degludec [Tresiba] 40 units SQ DAILY@2130 09/25/20 [History] Lactase [Lactaid] 3,000 unit PO DAILY PRN 09/25/20 [History] Magnesium Hydroxide [Milk of Magnesia Concentrate] 7,200 mg PO DAILY PRN 09/25/20 [History] Ondansetron [Zofran] 4 mg PO Q8HR PRN 09/25/20 [History] Ubidecarenone [Co Q-10] 100 mg PO DAILY@17009/25/20 [History] guaiFENesin [guaiFENesin Oral Solution] 200 mg PO Q6H PRN 09/25/20 [History] INSULIN ASPART (NovoLOG) [NovoLOG (formulary)] See Protocol SQ ACHS 10/12/20 [History] amLODIPine [Norvasc] 5 mg PO BID@0800,1700 10/12/20 [History] ALPRAZolam [Xanax] 0.25 mg PO DAILY PRN #3 tab 10/14/20 [Rx] ALPRAZolam [Xanax] 0.25 mg PO HS@2100 #3 tab 10/14/20 [Rx] HYDROcodone/APAP 5-325MG [[place] 5-325] 1 tab PO HS@2100 #3 tab 10/14/20 [Rx] HYDROcodone/APAP 5-325MG [[place] 5-325] 1 tab PO Q6HR PRN #18 tab 10/14/20 [Rx] INSULIN ASPART (NovoLOG) [NovoLOG (formulary)] 5 unit SQ AC-LUNCH@1200 #0 10/14/20 [Rx] INSULIN ASPART (NovoLOG) [NovoLOG (formulary)] 8 unit SQ AC-BRKFST@0800 #0 10/14/20 [Rx] INSULIN ASPART (NovoLOG) [NovoLOG (formulary)] 10 unit SQ AC-SUPPER@1700 #0 10/14/20 [Rx] Follow up Appointment(s)/Referral(s): oJsh Anaya MD [Primary Care Provider] - 1 Week (at [facility]) Discharge Disposition: TRANSFER TO SNF/ECF
[2020-10-14] MEDS ORDERED: PROPOFOL 10 MG/ML 20 ML VIAL IV ONE (16:29)
[2020-10-14] MEDS ORDERED: LIDOCAINE 1% INJ 10MG/ML (20 ML MDV) ONE (16:29)
[2020-10-14] MEDS ORDERED: IV FLUID CONTINUATION 1,000 ML IV ONE ×2 (16:30)
--- NOTE | 2020-10-14 16:55 | P.PCN ---
Date of Procedure: 10/14/20 Description of Procedure: BRIEF HISTORY: 85-year-old female with multiple medical comorbidities including diabetes mellitus, GERD, hypertension, depression, chronic kidney disease, anemia and neuropathy and prior evaluation for anemia with findings of Benny erosions who presented to the hospital for evaluation of shortness of breath. She was recently hospitalized for treatment of Covid 19. On current presentation patient was found to be anemic with a hemoglobin of 7.2, WBC 6.9, and with a creatinine of 2.55. Previously the patient was also evaluated for anemia in 2018 at which time she underwent evaluation on 11/22/2017 with EGD showing large hiatal hernia with Benny's erosions with no active bleeding and a colon with scattered sigmoid diverticula and polyps noted. Currently the patient is denying any signs or symptoms of GI bleeding. No abdominal pain reported. PROCEDURE PERFORMED: Esophagogastroduodenoscopy with cold probe ablation. PREOPERATIVE DIAGNOSIS: Anemia. ESTIMATED BLOOD LOSS: Minimal. IV sedation per anesthesia. PROCEDURE: After informed consent was obtained, the patient was brought into the endoscopy unit. IV sedation was administered by Anesthesia under continuous monitoring. Initially the Olympus GIF-190 video endoscope was inserted into the mouth. Esophagus intubated without any difficulty. It was gradually advanced into the stomach and duodenum and carefully examined. The bulb and the second part of the duodenum appeared normal. The scope at this time was withdrawn to the stomach, adequately insufflated with air, and upon careful examination, mucosa of the antrum, body, cardia and the fundus appeared normal, except for some mild punctate erythema in antrum and body suggestive of mild gastritis. The scope was then withdrawn into the esophagus. The GE junction was located at 33 cm from the incisors, with a 10 cm hiatal hernia noted. There were some superficial Benny's erosions in the hiatal hernia sac which are treated with gold probe ablation. The esophagus appeared normal. There were no erosions or ulcerations s een and the patient tolerated the procedure well. IMPRESSION: 1. Benny's erosions in the hiatal hernia treated with gold probe ablation. 2. Large hiatal hernia. 3. Mild gastritis.. RECOMMENDATIONS: The findings of this examination were discussed with the patient . Okay to resume full liquid diet tonight and regular diet tomorrow. Continue Pepcid therapy increased to twice daily. Okay for discharge when otherwise medically stable. Thank you for allowing us to participate in the care of the patient, the GI service will stand by, please call us back with any questions or concerns.
[2020-10-14 17:34] LABS: Glucose,Whole Blood 128 mg/dL (75-99)
[2020-10-14] MEDS ORDERED: DARBEPOETIN ALFA 60 MCG/0.3 ML SYRINGE SQ SCH (18:00)
[2020-10-14] MEDS: LACTOBACILLUS ACIDOPH & BULGAR 1 EACH PACKET PO SCH (18:10)
[2020-10-14] MEDS: CHOLECALCIFEROL 25 MCG (1000 IU) TABLET PO SCH (18:10)
--- NOTE | 2020-10-14 19:57 | PN ---
PROGRESS NOTE Patient is seen for followup for acute kidney injury on top of chronic kidney disease. Patient was admitted to the hospital with some shortness of breath. She was also found to be significantly anemic with a hemoglobin of 4.5 on admission. The patient has been transfused packed RBCs. Her serum creatinine was 2.7. It is now down to 2.5. Previous creatinine has been about 2 to 2.3 mg/dL. Currently patient is being diuresed, as she does have evidence of volume overload. Patient was also recently hospitalized for COVID-19 pneumonia and was just discharged on 10/03/2020 prior to this admission. Today patient is scheduled for EGD by Dr. Goldberg. There is no active bleeding since admission. PHYSICAL EXAMINATION: On examination today, blood pressure was 146/67, heart rate 89 per minute. She is afebrile. EXAMINATION OF THE HEART: S1 and S2. EXAMINATION OF LUNGS: Decreased breath sounds at bases. ABDOMEN: Soft, non-tender. Examination of lower extremities shows edema 2+ bilaterally. APARTMENT LEASING AGENT exam is grossly intact. LABS: Labs show sodium 137, potassium 5.1, chloride 109. CO2 is 21, BUN 78, creatinine 2.5, hemoglobin 8.3 g/dL. ASSESSMENT: 1. Acute kidney injury secondary to severe anemia with hemoglobin of 4.5 g/dL, currently improved. Patient is volume-overloaded and currently being diuresed. I will continue with the Lasix for now. 2. Recent COVID-19 pneumonia. Current coronavirus PCR is negative. 3. Severe anemia. No active bleeding noted. Going for EGD today. 4. Chronic kidney disease, stage 4, secondary to nephrosclerosis. Previous UA done on 09/26/2020 does not show any significant proteinuria or hematuria. 5. Metabolic acidosis associated with renal failure, currently improved. PLAN: Add Aranesp and continue with Lasix. The patient could be discharged. She will need to follow up as outpatient in about one week's time. MMODL / IJN: [id number] /
[2020-10-14 20:53] LABS: Glucose,Whole Blood 179 mg/dL (75-99)
[2020-10-14] MEDS: ALPRAZolam 0.25 MG TAB PO SCH (21:50)
[2020-10-14] MEDS: HYDROcodone/APAP 5-325MG 1 EACH TAB PO SCH (21:51)
[2020-10-14] MEDS: ATORVASTATIN 40 MG TAB PO SCH (21:51)
[2020-10-14] MEDS: MELATONIN 5 MG TABLET PO SCH (21:51)
[2020-10-14] MEDS: INSULIN DETEMIR (LEVEMIR) 100 UNIT/ML SYR SQ SCH (21:52)
[2020-10-15 02:22] VITALS: RESP 20
[2020-10-15 05:36] VITALS: BP 139/63
[2020-10-15 06:07] LABS: Glucose,Whole Blood 74 mg/dL (75-99)
[2020-10-15 06:24] LABS: Glucose,Whole Blood 92 mg/dL (75-99)
[2020-10-15] MEDS: INSULIN ASPART (NovoLOG) 100 UNIT/ML VIAL SQ SCH ×4 (06:47→12:41)
[2020-10-15] MEDS: ALBUTEROL HFA INHALER INHALATION SCH ×2 (08:55→11:33)
[2020-10-15] MEDS: FAMOTIDINE 20 MG TAB PO SCH (09:14)
[2020-10-15] MEDS: ASCORBIC ACID 500 MG TAB PO SCH (09:14)
[2020-10-15] MEDS: FERROUS SULFATE 325 MG TAB PO SCH (09:14)
[2020-10-15] MEDS: MULTIVITAMINS, THERA 1 EACH TAB PO SCH (09:14)
[2020-10-15] MEDS: amLODIPine 5 MG TAB PO SCH (09:14)
[2020-10-15] MEDS: SODIUM FERRIC GLUCONAT-SUCROSE 125 MG in SODIUM CHLORIDE 0.9% 100 ML IVPB SCH (09:16)
[2020-10-15 11:46] LABS: Glucose,Whole Blood 192 mg/dL (75-99)
[2020-10-15 12:13] VITALS: PULSE 87; TEMP 97.9
--- NOTE | 2020-10-15 18:31 | P.PN ---
Subjective Progress Note Date: 10/15/20 85-year-old female brought in seen in [facility] for the last 3 years had known to have history of type 2 diabetes, hypertension, depression, GERD, history of GI bleed secondary to Her on also in the past along with having hernia, chronic kidney disease, anemia had iron infusion in the past and chronic history of neuropathy. Patient was hospitalized in September 26 for worsening dyspnea and shortness of breath was diagnosed with Covid 19 pneumonitis had the monoclonal antibiotic infusion initially and was in the hospital for over 5 days received antiviral medication along with Decadron and secondary prevention with multivitamin along with updraft treatment. Patient was transferred back to [facility] over a week ago and has been doing much better until yesterday when developed to have significant dyspnea and shortness of breath chest x-ray shows slight worsening scar tissue from the Covid 19 left from 2 weeks ago. Patient surprisingly had BUN of 103 with hemoglobin of 4.6 only at that point found to have a black stool patient was sent to the hospital was seen and evaluated [place] start blood transfusion her hemoglobin still in the mid for chest x-ray remain the same pulse oximetry in 2 L running at 95 percentile. Patient had an no major abnormality on EKG, chest x-ray still showing significant infiltrate in the bases specially in the left lower side but had improved compared to the last one in the hospital. Lab value showed hemoglobin of 4.5 BUN of 107 with creatinine of 2.71 sodium 129 and potassium 5.8 blood sugar was mildly elevated no urine was done at this time. Patient Hemoccult was requested will be seen gastroneurology two-year the blood transfusion be started also patient be seen nephrology will continue gentle hydration repeat BUN/creatinine after correcting her volume loss. As for the pneumonia and the Covid 19 x-ray looks better than before still have significant scar tissue from the injury happened related to the pneumonia 2 weeks ago. 10/13: Repeat hemoglobin is 7.2 and patient will be transfused one more unit of packed RBCs. GI is on consult for probable EGD. Patient is scheduled for Ferrlecit infusion. Patient states she is feeling okay. No complaints of abdominal pain, no nausea or vomiting. No diarrhea. She has been afebrile, heart rate 86, blood pressure 152/65, pulse ox 95% on 2 L nasal cannula. 10/14: Patient is scheduled today for EGD. Hemoglobin is 8.3. She is currently on oral Lasix at 20 mg every day. Repeat blood work reveals CO2 21, BUN 78 creatinine 2.51. Blood sugar this morning 62. Dr. Andrea is following for acute kidney injury and chronic kidney disease stage IV. Yoan inhibitor on hold. She recommends continuing Aranesp and Norvasc. Patient would like to return to [facility] today. Depending on results of EGD, patient may return to [facility] this afternoon. 10/15 patient was getting ready for transfer to [facility] today, patient had an EGD done, showing Benny on's erosion in the hiatal hernia treated with global probe ablation, large hiatal hernia, mild gastritis. Discharge was cleared for today, to [facility], with therapies. Patient is doing well, no dyspepsia, she has debility issues for which PT and OT will be completed at [facility]. Diet as tolerated no new complaints today REVIEW OF SYSTEMS CONSTITUTIONAL: Well-developed in no respiratory distress. Denies fever. Den ies chills. EYES: No icterus sclerae, no conjunctivitis. EARS, NOSE, MOUTH, THROAT, and FACE: No sore throat, lymphadenopathy, carotid bruits or deformity. RESPIRATORY: No dyspnea and shortness of breath mild cough. CARDIOVASCULAR: Mild PND and orthopnea or angina GASTROINTESTINAL: No abdominal discomfort nausea no vomiting no black stool. GENITOURINARY: Negative for Hematuria or UTI, no kidney stones. INTEGUMENT/BREAST: Negative for any muscular injury with mild osteoarthritis.. HEMATOLOGIC/LYMPHATIC: Negative for bleed or purpura. Significant anemia MUSCULOSKELTAL: Positive mild arthralgia and myalgia. NEURLOGICAL: No LOC, Sz or syncope, blurred vision dizziness or abnormality.. BEHAVIORAL/PSYCH: Negative. ENDOCRINE: Negative. Objective - Vital Signs Vital signs: Vital Signs Temp 97.9 F 10/15/20 08:00 Pulse 87 10/15/20 08:00 Resp 20 10/15/20 08:00 BP 139/63 10/15/20 08:00 Pulse Ox 97 10/15/20 08:00 Intake & Output 10/14/20 10/15/20 10/15/20 18:59 06:59 18:59 Intake Total 286 780 Output Total 800 Balance -514 780 Weight 120 kg Intake: IV 50 Oral 236 780 Output: Urine 800 Other: Voiding Method Bedside Commode Bedside Commode # Voids 1 1 # Bowel Movements 1 1 1 - Constitutional General appearance: Present: cooperative, no acute distress - EENT Eyes: Present: anicteric sclerae, EOMI, PERRLA, dentition normal, normal appearance ENT: Present: NA/AT, normal oropharynx - Respiratory Respiratory: bilateral: CTA, negative: diminished, dullness, rales - Cardiovascular Rhythm: regular Heart sounds: normal: S1, S2 Abnormal Heart Sounds: Absent: systolic murmur, diastolic murmur, rub, S3 Gallop, S4 Gallop, click, other - Gastrointestinal General gastrointestinal: Present: normal bowel sounds, soft - Integumentary Integumentary: Present: decreased turgor, normal - Neurologic Neurologic: Present: CNII-XII intact - Musculoskeletal Musculoskeletal: Present: generalized weakness, strength equal bilaterally - Psychiatric Psychiatric: Present: A&O x's 3, appropriate affect, intact judgment & insight - Labs CBC & Chem 7: 10/14/20 06:01 10/14/20 08:17 Labs: Abnormal Lab Results - Last 24 Hours (Table) 10/14/20 10/15/20 10/15/20 Range/Units 20:51 06:06 11:44 POC Glucose (mg/dL) 179 H 74 L 192 H (75-99) mg/dL Assessment and Plan Assessment: 1 mild respiratory distress without hypoxia improved: Secondary to acute GI bleed along with acute blood loss anemia and volume loss continue supportive care for now and treat underlying disease. 2 acute blood loss anemia status post transfusion of 3 units packed RBCs. Improved Consult with GI for EGD. See notes above EGD 10/14/2019 3 subacute GI bleed improved: Mostly from gastritis and peptic ulcer disease although the anemia itself could be secondary to hemolytic anemia from Covid 19 cases are seen currently we'll people had infection over 2 weeks ago. 4 acute kidney injury: Most likely acute tubular necrosis from acute blood loss anemia and acute kidney injury, patient will be on hydration repeat B UN/creatinine next 24 hours. 5 recent history of Covid 19 pneumonitis: Still have significant scar tissue in the left lower lobe, patient remain on O2, off steroid at this point off all antibiotics still on vitamin supplement chest x-ray had slight improvement compared to 2 weeks ago. 6 type 2 diabetes: Continue Accu-Chek with sliding scales coverage still on Levemir and short-acting before meals. 7 hyponatremia: Secondary to volume loss, recheck after correcting anemia. 8 hypertension: Was on lisinopril and amlodipine were so medication gently and carefully. 9 chronic kidney disease stage IV. 10 diabetic neuropathy: Patient. 11: Hyperlipidemia. Remain on atorvastatin. 12 I iron deficiency anemia: Remain on iron supplement iron infusion 13 GI prophylaxis: Patient be on pantoprazole. 14 DVT prophylaxis: Knee-high LINDA hose and Venodyne boots. 15. Metabolic acidosis secondary to renal failure, improving. CODE STATUS: Full code. DISCHARGE PLAN Return to [facility]
== END 2020-10-15 12:58 | DRG 380 ==
LOC: EC 16:30 → 3SCARD 18:49
PROVIDERS: ADMIT Internal Medicine Geriatric Medicine; ATTEND Internal Medicine Geriatric Medicine
PROC: 30233N1 Transfusion of Nonautologous Red Blood Cells into Peripheral Vein, Percutaneous Approach (ICD-10-PCS; 2020-10-12)
PROC: 0D538ZZ Destruction of Lower Esophagus, Via Natural or Artificial Opening Endoscopic (ICD-10-PCS; principal; 2020-10-14 07:50)
DX: K22.11 Ulcer of esophagus with bleeding (principal); N17.0 Acute kidney failure with tubular necrosis; E87.2 Acidosis; D62 Acute posthemorrhagic anemia; E87.1 Hypo-osmolality and hyponatremia; Z68.43 Body mass index [BMI] 50.0-59.9, adult; N18.4 Chronic kidney disease, stage 4 (severe); K29.71 Gastritis, unspecified, with bleeding; E11.22 Type 2 diabetes mellitus with diabetic chronic kidney disease; E11.40 Type 2 diabetes mellitus with diabetic neuropathy, unspecified; Z20.822 Contact with and (suspected) exposure to COVID-19; Z79.4 Long term (current) use of insulin; F32.9 Major depressive disorder, single episode, unspecified; K44.9 Diaphragmatic hernia without obstruction or gangrene; R06.03 Acute respiratory distress; I12.9 Hypertensive chronic kidney disease with stage 1 through stage 4 chronic kidney disease, or unspecified chronic kidney disease; E66.9 Obesity, unspecified; K57.30 Diverticulosis of large intestine without perforation or abscess without bleeding; E78.5 Hyperlipidemia, unspecified; E87.70 Fluid overload, unspecified; K21.9 Gastro-esophageal reflux disease without esophagitis; Z86.16 Personal history of COVID-19; Z79.899 Other long term (current) drug therapy; Z86.010 Personal history of colon polyps; Z90.710 Acquired absence of both cervix and uterus; Z98.890 Other specified postprocedural states; Z87.01 Personal history of pneumonia (recurrent); Z91.011 Allergy to milk products; Z83.3 Family history of diabetes mellitus
CPT/HCPCS: 36415; 36430; 43255; 71046; 80048; 80053; 83605; 83735; 85025; 85027; 85610; 85730; 86850; 86900; 86901; 86920; 87635; 93005; 94640; 99284